=== PATIENT | female | born 1945 | race Caucasian/White ===

== ENCOUNTER 2020-10-05 11:25 | Outpatient (REF) | payer MEDICARE, SELFPAY ==
[2020-10-05 12:01] LABS: MANUAL DIFF FLAG NO
[2020-10-05 12:06] LABS: Basophils Absolute Auto 0.1 X10*3/uL (0.0-0.2); Basophils Percent Auto 0.9 % (0-2); Eosinophils Absolute Auto 0.3 X10*3/uL (0.0-0.4); Eosinophils Percent Auto 3.3 % (0-4); Hematocrit 39.9 % (37-47); Hemoglobin 13.3 g/dl (12.0-16.0); Imm Gran Abs Auto 0.02 X10*3/uL (0.00-0.03); Imm Gran Pct Auto 0.2 % (0.0-0.4); Lymphocytes Absolute Auto 2.5 X10*3/uL (1.2-4.9); Lymphocytes Percent Auto 26.1 % (20-40); Mean Corpuscular HGB Conc 33.3 g/dl (31.0-35.0); Mean Corpuscular Volume 90.1 fL (80-98); Mean Platelet Volume 9.8 fL (9.4-12.3); Monocytes Absolute Auto 0.5 X10*3/uL (0.1-1.2); Monocytes Percent Auto 5.1 % (2-11); Neutrophils Percent Auto 64.4 % (45-73); Platelet Count 243 X10*3/uL (160-400); Red Blood Count 4.43 X10*6/uL (4.20-5.50); Red Cell Distribution Width 13.6 % (11.0-16.0); White Blood Count 9.4 X10*3/uL (4.8-10.8)
[2020-10-05 12:44] LABS: Alanine Aminotransferase 16 U/L (0-31); Albumin Level 3.9 g/dL (3.5-5.0); Alkaline Phosphatase 90 U/L (39-117); Anion Gap 13 (12-20); Aspartate Amino Transferase 14 U/L (5-31); Bilirubin Total 1.4 mg/dL (0.0-1.0); Blood Urea Nitrogen 20 mg/dL (9-16); Calcium 9.3 mg/dL (8.4-10.2); Carbon Dioxide 29 mmol/L (22-29); Chloride 102 mmol/L (96-108); Cholesterol 132 mg/dL; Estimated Glomerular Filt Rate > 60; Glucose Fasting 136 mg/dL (60-99); HDL Cholesterol 46 mg/dL; LDL Cholesterol Calculated 55 mg/dl; Potassium 3.7 mmol/l (3.3-5.1); Sodium 140 mmol/L (135-145); Total Protein 6.7 g/dL (6.5-8.0); Triglycerides 157 mg/dL
[2020-10-05 13:10] LABS: Thyroid Stimulating Hormone 1.58 uIU/mL (0.32-4.0); Vitamin D 25-OH Total 55.2 ng/mL (>30)
[2020-10-05 13:33] LABS: Folate 11.8 ng/mL (> or = 4.0); Vitamin B12 361 pg/mL (200-900)
[2020-10-05 13:40] LABS: T4 Thyroxine 9.3 ug/dL (4.5-12.0)
[2020-10-05 13:41] LABS: Creatinine Urine 229.53 mg/dL; Microalbum/Creatinine Ratio Ur 7.8 ug/mg cr
== END 2020-10-05 11:26 | disposition home or self-care (01) ==
LOC: HO.LAB 11:25
PROVIDERS: PCP Internal Medicine; Visit Provider Internal Medicine
DX: E11.65 Type 2 diabetes mellitus with hyperglycemia (principal); E78.00 Pure hypercholesterolemia, unspecified; E66.9 Obesity, unspecified; I10 Essential (primary) hypertension
CPT/HCPCS: 36415; 80053; 80061; 82043; 82306; 82607; 82746; 84436; 84443; 85025

== ENCOUNTER 2020-12-16 09:11 | Outpatient (REF) | payer MEDICARE, OTHER, SELFPAY ==
--- NOTE | ~2020-12-16 | MM_ITS ---
EXAMINATION: MM SCREENING DIGITAL BREAST TOMOSYNTHESIS, BILATERAL CLINICAL INFORMATION: Screening. Asymptomatic. The lifetime risk of breast cancer based on the Tyrer-Cuzick Model is 7%. COMPARISON: Mammography: 11/20/2019, 09/27/2018, 09/06/2017 TECHNIQUE: Digital breast tomosynthesis is performed in both the craniocaudal and mediolateral oblique views along with computer-aided detection (CAD). Synthesized 2D images are generated from the tomosynthesis. Additional left MLO view is provided. FINDINGS: There are scattered areas of fibroglandular density (ACR BI-RADS breast composition Category b). There are no significant masses, abnormal calcifications, or other abnormalities. Parenchymal pattern is similar to prior exams. No developing density or interval mass. Again, there is chronic duct ectasia anterior left breast and scattered bilateral round and ductal secretory calcifications again seen, more numerous on the left. No significant changes. MM/MM tomosynthesis screening BI IMPRESSION: No significant changes from prior studies. ASSESSMENT: BI-RADS 2: Benign RECOMMENDATION: Routine annual mammography screening. This patient's information was entered into a reminder system with a target due date for their next mammogram.
== END 2020-12-16 09:12 | disposition home or self-care (01) ==
LOC: HO.MAMMO 09:11
PROVIDERS: PCP Internal Medicine; Visit Provider Internal Medicine
DX: Z12.31 Encounter for screening mammogram for malignant neoplasm of breast (principal)
CPT/HCPCS: 77063; 77067

== ENCOUNTER 2021-05-12 10:16 | Outpatient (REF) | payer MEDICARE, SELFPAY ==
[2021-05-12 10:48] LABS: MANUAL DIFF FLAG NO
[2021-05-12 10:53] LABS: Basophils Absolute Auto 0.1 X10*3/uL (0.0-0.2); Basophils Percent Auto 1.2 % (0-2); Eosinophils Absolute Auto 0.4 X10*3/uL (0.0-0.4); Eosinophils Percent Auto 4.9 % (0-4); Hematocrit 39.6 % (37-47); Hemoglobin 13.5 g/dl (12.0-16.0); Imm Gran Abs Auto 0.02 X10*3/uL (0.00-0.03); Imm Gran Pct Auto 0.3 % (0.0-0.4); Lymphocytes Percent Auto 27.1 % (20-40); Mean Corpuscular HGB Conc 34.1 g/dl (31.0-35.0); Mean Corpuscular Hemoglobin 29.9 pg (27.0-33.0); Mean Corpuscular Volume 87.6 fL (80-98); Mean Platelet Volume 10.3 fL (9.4-12.3); Monocytes Absolute Auto 0.5 X10*3/uL (0.1-1.2); Neutrophils Absolute Auto 4.5 X10*3/uL (2.0-8.3); Neutrophils Percent Auto 60.5 % (45-73); Platelet Count 238 X10*3/uL (160-400); Red Blood Count 4.52 X10*6/uL (4.20-5.50); Red Cell Distribution Width 13.1 % (11.0-16.0); White Blood Count 7.5 X10*3/uL (4.8-10.8)
[2021-05-12 11:13] LABS: Estimated Average Glucose 146 mg/dL; Hemoglobin A1c % 6.7 %
[2021-05-12 11:19] LABS: Alanine Aminotransferase 16 U/L (0-31); Alkaline Phosphatase 104 U/L (39-117); Anion Gap 14 (12-20); Aspartate Amino Transferase 16 U/L (5-31); Bilirubin Total 1.2 mg/dL (0.0-1.0); Blood Urea Nitrogen 14 mg/dL (9-16); Calcium 9.9 mg/dL (8.4-10.2); Carbon Dioxide 30 mmol/L (22-29); Chloride 102 mmol/L (96-108); Cholesterol 131 mg/dL; Estimated Glomerular Filt Rate 57; Glucose Random 153 mg/dL (60-115); HDL Cholesterol 41 mg/dL; LDL Cholesterol Calculated 56 mg/dl; Potassium 3.7 mmol/L (3.3-5.1); Sodium 142 mmol/L (135-145); Total Protein 6.7 g/dL (6.5-8.0); Triglycerides 170 mg/dL
[2021-05-12 11:44] LABS: Free T4 (Free Thyroxine) 1.22 ng/dL (0.71-1.85); Thyroid Stimulating Hormone 1.75 uIU/mL (0.32-4.0)
[2021-05-12 12:25] LABS: Folate 11.9 ng/mL (> or = 4.0); Vitamin B12 405 pg/mL (200-900)
== END 2021-05-12 10:17 | disposition home or self-care (01) ==
LOC: HO.LAB 10:16
PROVIDERS: PCP Internal Medicine; Visit Provider Internal Medicine
DX: E11.65 Type 2 diabetes mellitus with hyperglycemia (principal); E78.00 Pure hypercholesterolemia, unspecified
CPT/HCPCS: 36415; 80053; 80061; 82306; 82607; 82746; 83036; 84439; 84443; 85025

== ENCOUNTER 2021-08-02 09:09 | Outpatient (REF) | payer MEDICARE, SELFPAY ==
--- NOTE | ~2021-08-02 | MM_ITS ---
EXAMINATION: BONE DENSITOMETRY CLINICAL INDICATION: Asymptomatic menopausal state. COMPARISON: Previous BD dated 11/26/2018 and baseline BD dated 07/05/2007. TECHNIQUE: Using a [employer] DXA System (software version: 13.1) manufactured by [employer], dual-energy x-ray absorptiometry was performed of the lumbar spine and left hip. The images are of good technical quality. Summary results are attached. FINDINGS: AP SPINE L1-L4: Current: BMD 1.270 g/cm2, Z-score 1.3, T-score 0.7, normal, 9.1% decrease from previous, 7.7% decrease from baseline (<5% change is not significant). Prior: BMD 1.397 g/cm2. Baseline: BMD 1.376 g/cm2. LEFT FEMUR, NECK: Current: BMD 0.801 g/cm2, Z-score -0.5, T-score -1.7, osteopenia. Prior: BMD 0.818 g/cm2. Baseline: BMD 0.918 g/cm2. LEFT FEMUR, TOTAL: Current: BMD 0.906 g/cm2, Z-score 0.1, T-score -0.8, normal, 2.9% decrease from previous, 8.3% decrease from baseline (<5% change is not significant). Prior: BMD 0.933 g/cm2. Baseline: BMD 0.988 g/cm2. IDENTIFIED RISK FACTORS: Menopause. HISTORY OF FRACTURE: None listed. MEDICATIONS: Calcium supplements or multivitamin, vitamin D. MM/XR DEXA axial skeleton IMPRESSION: 1. DIAGNOSIS: Osteopenia based on the lowest T-score value of -1.7 in the femoral neck applying World Health Organization criteria. 2. 10-YEAR FRACTURE RISK PREDICTION, FRAX: Major osteoporotic fracture (clinical spine, forearm, hip or shoulder) 11.1%. Hip fracture 2.4%. 3. Treatment Recommendations: NOF guidelines recommend consideration for treatment in postmenopausal women and men age 50 and older presenting with the following: -A hip or vertebral (clinical or morphometric) fracture. -T-score less than or equal to -2.5 at the femoral neck or spine after appropriate evaluation to exclude secondary causes. -Low bone mass at the hip or spine and a 10-year fracture probability by FRAX of greater than or equal to 3% for hip fracture or greater than or equal to 20% for major osteoporotic fracture based on the [place] adapted WHO algorithm. 4. Other Recommendations: All treatment decisions require clinical judgment and consideration of individual patient factors, including patient preferences, comorbidities, previous drug use, risk factors not captured in the FRAX model (e.g. frailty, falls, vitamin D deficiency, increased bone turnover, interval significant decline in bone density) and possible under or overestimation of fracture risk by FRAX. Additional medical evaluation for secondary cause of low bone mineral density may be appropriate. FUTURE SCAN RECOMMENDATION: People with diagnosed cases of osteoporosis or at high risk for fracture should have regular bone mineral density tests. For patients eligible for Medicare, routine testing is allowed once every 2 years. The testing frequency can be increased to one year for patients who have rapidly progressing disease, those who are receiving or discontinuing medical therapy to restore bone mass, or have additional risk factors.
== END 2021-08-02 09:10 | disposition home or self-care (01) ==
LOC: HO.MAMMO 09:09
PROVIDERS: Visit Provider Nurse Practitioner Family
DX: Z13.820 Encounter for screening for osteoporosis (principal); M85.80 Other specified disorders of bone density and structure, unspecified site; Z78.0 Asymptomatic menopausal state; Z79.899 Other long term (current) drug therapy
CPT/HCPCS: 77080

== ENCOUNTER 2021-08-23 13:37 | Outpatient (REF) | payer MEDICARE, SELFPAY ==
[2021-08-23 14:48] LABS: Leukocytes Stool Qualitative NEGATIVE (NEGATIVE)
[2021-08-23 15:35] LABS: CDiff Gene PCR NEGATIVE (Negative)
== END 2021-08-23 13:38 | disposition home or self-care (01) ==
LOC: HO.LAB 13:37
PROVIDERS: PCP Internal Medicine; Visit Provider Internal Medicine
DX: R19.7 Diarrhea, unspecified (principal)
CPT/HCPCS: 36415; 87045; 87046; 87493; 89055

== ENCOUNTER 2021-12-19 11:37 | Outpatient (REF) | payer MEDICARE, SELFPAY ==
--- NOTE | ~2021-12-19 | MM_ITS ---
EXAMINATION: MM SCREENING DIGITAL BREAST TOMOSYNTHESIS, BILATERAL CLINICAL INFORMATION: Screening. Asymptomatic. The lifetime risk of breast cancer based on the Tyrer-Cuzick Model is 4%. COMPARISON: Mammography: 12/16/2020, 11/20/2019, 09/27/2018, 09/06/2017 TECHNIQUE: Digital breast tomosynthesis is performed in both the craniocaudal and mediolateral oblique views along with computer-aided detection (CAD). Synthesized 2D images are generated from the tomosynthesis. FINDINGS: There are scattered areas of fibroglandular density (ACR BI-RADS breast composition Category b). There are no significant changes from prior studies. There is no interval mass or architectural abnormality. No developing density. Chronic duct ectasia anterior left breast is stable. There are scattered bilateral round and ductal secretory calcifications again seen, more numerous on the left. MM/MM tomosynthesis screening BI IMPRESSION: No significant changes from prior exams. ASSESSMENT: BI-RADS 2: Benign RECOMMENDATION: Routine annual mammography screening. This patient's information was entered into a reminder system with a target due date for their next mammogram.
== END 2021-12-19 11:38 | disposition home or self-care (01) ==
LOC: HO.MAMMO 11:37
PROVIDERS: PCP Internal Medicine; Visit Provider Internal Medicine
DX: Z12.31 Encounter for screening mammogram for malignant neoplasm of breast (principal)
CPT/HCPCS: 77063; 77067

== ENCOUNTER 2022-09-13 08:43 | Outpatient (REF) | payer MEDICARE, SELFPAY ==
[2022-09-13 09:02] LABS: MANUAL DIFF FLAG NO
[2022-09-13 10:02] LABS: Basophils Absolute Auto 0.1 X10*3/uL (0.0-0.2); Basophils Percent Auto 1.2 % (0-2); Eosinophils Absolute Auto 0.5 X10*3/uL (0.0-0.4); Hematocrit 40.2 % (37.0-47.0); Hemoglobin 13.8 g/dl (12.0-16.0); Imm Gran Abs Auto 0.03 X10*3/uL (0.00-0.03); Imm Gran Pct Auto 0.3 % (0.0-0.4); Lymphocytes Absolute Auto 2.6 X10*3/uL (1.2-4.9); Lymphocytes Percent Auto 27.6 % (20-40); Mean Corpuscular HGB Conc 34.3 g/dl (31.0-35.0); Mean Corpuscular Hemoglobin 30.3 pg (27.0-33.0); Mean Corpuscular Volume 88.4 fL (80.0-98.0); Mean Platelet Volume 10.4 fL (9.4-12.3); Monocytes Absolute Auto 0.5 X10*3/uL (0.1-1.2); Neutrophils Absolute Auto 5.8 x10*3/uL (2.0-8.3); Neutrophils Percent Auto 60.9 % (45-73); Platelet Count 245 X10*3/uL (160-400); Red Blood Count 4.55 X10*6/uL (4.20-5.50); Red Cell Distribution Width 13.3 % (11.0-16.0); White Blood Count 9.5 X10*3/uL (4.8-10.8)
[2022-09-13 10:20] LABS: Estimated Average Glucose 148 mg/dL; Hemoglobin A1c % 6.8 %
[2022-09-13 10:41] LABS: Alanine Aminotransferase 18 U/L (0-31); Alkaline Phosphatase 95 U/L (39-117); Anion Gap 16 (12-20); Aspartate Amino Transferase 17 U/L (5-31); Bilirubin Total 1.5 mg/dL (0.0-1.0); Blood Urea Nitrogen 19 mg/dL (9-16); Calcium 9.7 mg/dL (8.4-10.2); Carbon Dioxide 29 mmol/L (22-29); Chloride 101 mmol/L (96-108); Cholesterol 141 mg/dL; Estimated Glomerular Filt Rate > 60; Glucose Random 155 mg/dL (60-115); HDL Cholesterol 48 mg/dL; LDL Cholesterol Calculated 61 mg/dl; Potassium 3.9 mmol/L (3.3-5.1); Sodium 142 mmol/L (135-145); Total Protein 6.8 g/dL (6.5-8.0); Triglycerides 160 mg/dL
[2022-09-13 10:47] LABS: Creatinine Urine 194.88 mg/dL; Microalbum/Creatinine Ratio Ur 8.2 ug/mg cr
[2022-09-13 10:59] LABS: Creatinine Urine 195.32 mg/dL
[2022-09-13 11:03] LABS: Free T4 (Free Thyroxine) 1.11 ng/dL (0.71-1.85); Thyroid Stimulating Hormone 2.21 uIU/mL (0.32-4.0); Vitamin D 25-OH Total 53.6 ng/mL (>30)
[2022-09-13 11:33] LABS: Folate 11.6 ng/mL (> or = 4.0); Vitamin B12 360 pg/mL (200-900)
== END 2022-09-13 08:44 | disposition home or self-care (01) ==
LOC: HO.LAB 08:43
PROVIDERS: PCP Internal Medicine; Visit Provider Internal Medicine
DX: E11.65 Type 2 diabetes mellitus with hyperglycemia (principal); E78.00 Pure hypercholesterolemia, unspecified
CPT/HCPCS: 36415; 80053; 80061; 82043; 82306; 82607; 82746; 83036; 84439; 84443; 85025

== ENCOUNTER → 2022-11-27 09:26 | Outpatient (REF) | payer MEDICARE, SELFPAY ==
--- NOTE | ~2022-11-27 | US_ITS ---
EXAMINATION: US EXTRACRANIAL CAROTID DUPLEX, BILATERAL CLINICAL INFORMATION: Occlusion and stenosis of the left carotid artery COMPARISON: Carotid ultrasound October 31, 2018 TECHNIQUE: Real-time ultrasound and Doppler techniques (integrating B-mode 2-D vascular images, Doppler spectral analysis and color-flow Doppler imaging) were utilized to interrogate the extracranial carotid arteries, the vertebral arteries and proximal subclavian arteries bilaterally. The degree of stenosis is determined by criteria similar to NASCET. FINDINGS: Right Side: 1. There is mild atherosclerotic plaque seen in the bifurcation/proximal ICA region. 2. The common carotid artery PSV proximally is 114 cm/s and distally 80 cm/s. 3. The proximal internal carotid artery velocities are 60 cm/s systolic and 9 cm/s diastolic. 4. The proximal external carotid artery PSV is 97 cm/s. 5. The vertebral artery shows antegrade flow. 6. The subclavian artery waveforms are normal. Left Side: 1. There is mild atherosclerotic plaque seen in the bifurcation/proximal ICA region. 2. The common carotid artery PSV proximally is 120 cm/s and distally 76 cm/s. 3. The proximal internal carotid artery velocities are 67 cm/s systolic and 15 cm/s diastolic. 4. The proximal external carotid artery PSV is 89 cm/s. 5. The vertebral artery shows antegrade flow. 6. The subclavian artery waveforms are normal. US/US carotid duplex BI IMPRESSION: 1. RIGHT: Minimal, non-hemodynamically significant stenosis of the proximal right internal carotid artery corresponding to a 0-49% stenosis by velocity criteria. 2. LEFT: Minimal, non-hemodynamically significant stenosis of the proximal left internal carotid artery corresponding to a 0-49% stenosis by velocity criteria. 3. There is interval improvement in the disease severity of the left carotid artery when compared to the previous study dated October 31, 2018.
--- NOTE | 2022-11-27 09:28 | CA_ITS ---
Transthoracic Echocardiogram Patient (Last, First, Middle): Pascale Oates E Gender: Female Date of : 1945 Age: 77 Procedure Date: 11/27/2022 Procedure Type: Transthoracic Echocardiogram Location: OP Height: 172.72 cm Weight: 102.06 kg BSA: 2.15 m2 Heart Rate: 60 bpm BP: 128 / 84 mmHg Jumpbasting Collar Baster: SB Referring MD: Patience Sherman MD Symptoms: G45.9 - Transient cerebral ischemic attack, unspecified Study Quality: Adequate w contrast ECG Rhythm: Sinus Conclusions: - The left ventricular systolic function is normal. The calculated ejection fraction is 60% by biplane method. - There is mild calcification of the aortic valve. - There is mild mitral annular calcification. Findings Procedure Information Contrast agent, definity, is being given per protocol without apparent complications. Left Ventricle Normal left ventricular cavity size. There is mildly increased left ventricular wall thickness. The left ventricular systolic function is normal. The calculated ejection fraction is 60% by biplane method. There is no evidence of regional wall motion abnormalities. Diastolic function is normal for age. Right Ventricle Normal right ventricular cavity size. There is normal right ventricular systolic function. Atria Both atria are normal in size. Aortic Valve There is a normal trileaflet aortic valve. There is mild calcification of the aortic valve. There is no aortic valve stenosis. There is trace (trivial) aortic valve regurgitation. Mitral Valve There is mild mitral annular calcification. There is no mitral valve regurgitation. There is no mitral valve stenosis. Pulmonic Valve The pulmonic valve is likely normal. Tricuspid Valve There is no tricuspid valve regurgitation. Tricuspid regurgitation envelope is inadequate for calculation of right ventricular systolic pressure. Great Vessels The asc aorta is normal in size. Venous The inferior vena cava is normal in size and collapses greater than 50% with inspiration. Pericardium/Pleural There is no evidence of pericardial effusion. Prior Study Comparison No significant change compared to prior study dated: 03/21/2011. Measurements 2D Linear Measurements IVSd: 1.01 0.6-0.9/0.6-1.0 cm LVIDd: 5.57 3.9-5.3/4.2-5.9 cm LVIDd Index: 2.59 2.4-3.2/2.2-3.1 cm/m2 LVIDs: 3.89 2.0-3.6 cm LVPWd: 1.03 0.7-1.1 cm LA Diam: 3.70 2.7-3.8/3.0-4.0 cm LAIDs Index: 1.72 1.5-2.3 cm/m2 LV Mass: 278.62 67-162/88-224 g LV Mass Index: 129.59 43-95/49-115 g/m2 LVOT Diam: 2.10 3.0+(-)1.3 cm 2D Systolic Function EF 4C: 60.00 >55% EF 2C: 60.60 >55% EF BiP: 60.40 >55% Mitral Valve MV Pk E: 0.81 MV PK A: 1.00 MV Decel Time: 250.00 E/A: 0.80 E'Lateral: 9.36 E'Medial: 8.92 E/E' Med: 9.10 E/E' Lat: 8.70 PHT: 77.00 MVA PHT: 2.86 Decel Clinton: 3.03 Aortic Valve AoV Pk Carlton: 1.73 AoV Mn Carlton: 1.13 AoV VTI: 0.39 AoV Pk Grad: 12.00 Aov Mn Grad: 6.00 CELESTINO Cont.VTI: 1.99 LVOT LVOT Pk Carlton: 1.00 LVOT Mn Carlton: 0.64 LVOT VTI: 0.23 LVOT Pk Grad: 4.00 LVOT Mn Grad: 2.00 LVOT Diam: 2.10 LVOT Area: 3.46 Diastolic Function MV Pk E: 0.81 MV Pk A: 1.00 E/A: 0.80 E'Medial: 8.92 E/E' Med: 9.10 E' Laterial: 9.36 E/E' Lat: 8.70 Right Ventricle TAPSE (mm): 22.00 TVS' Carlton: 9.00 Tricuspid Valve RA Press: 3.00 Great Vessels Aorta Sinus of Valsalva: 3.10 2.0-3.5 cm Ao Asc: 3.30 2.1-3.4 cm Pulmonary Veins Pulm Vein S/D 1.70 Pulmonary Valve PV Pk Carlton: 1.08 Peak PV Grad: 5.00 Updated in Other Vendor System with Status of Final Steve Dorman MD electronically signed on 11/27/2022 3:29:04 PM with status of Final
== END ==
LOC: HO.CARD 09:26
PROVIDERS: PCP Internal Medicine; Visit Provider Internal Medicine
DX: G45.9 Transient cerebral ischemic attack, unspecified (principal)
CPT/HCPCS: 93306; 93880; Q9957

== ENCOUNTER 2022-12-19 08:40 | Outpatient (REF) | payer MEDICARE, SELFPAY ==
--- NOTE | ~2022-12-19 | MR_ITS ---
EXAMINATION: MR BRAIN WITHOUT AND WITH CONTRAST CLINICAL INFORMATION: Complex partial seizure disorder. COMPARISON: Brain MRI November 15, 2016. TECHNIQUE: Multiplanar, multisequence imaging of the brain was performed before and after the intravenous administration of 10 mL of Gadavist. FINDINGS: There is no acute infarction, hemorrhage, mass, or extra-axial fluid collection. No abnormal intracranial enhancement is seen. Mild to moderate patchy T2/FLAIR hyperintensity seen within the cerebral white matter, typical of chronic microangiopathy. There is mild commensurate prominence of ventricles and sulci reflecting mild degree of brain parenchymal volume loss. There is no hydrocephalus. The left hippocampus is smaller than the right but unchanged compared with 2017. No cortical dysplasia is seen. The major arterial flow voids are preserved at the skull base. There are small amount of mastoid fluid. There are bilateral lens replacements. Mild paranasal sinus mucosal thickening is noted. MR/MR head/brain wo/w con IMPRESSION: No mass lesion, acute infarction, or abnormal intracranial enhancement. Left hippocampus appears mildly smaller than the contralateral side which could be correlated with EEG. Background changes of mild to moderate chronic microangiopathy.
== END 2022-12-19 08:41 | disposition home or self-care (01) ==
LOC: HO.MRI 08:40
PROVIDERS: Visit Provider Psychiatry & Neurology Neurology
DX: G40.209 Localization-related (focal) (partial) symptomatic epilepsy and epileptic syndromes with complex partial seizures, not intractable, without status epilepticus (principal)
CPT/HCPCS: 70553; A9585

== ENCOUNTER 2022-12-25 14:22 | Outpatient (REF) | payer MEDICARE, SELFPAY ==
--- NOTE | ~2022-12-25 | MM_ITS ---
EXAMINATION: MM SCREENING DIGITAL BREAST TOMOSYNTHESIS, BILATERAL CLINICAL INFORMATION: Screening. Asymptomatic. The lifetime risk of breast cancer based on the Tyrer-Cuzick Model is 3%. COMPARISON: Mammography: 12/19/2021, 12/16/2020, 11/20/2019 TECHNIQUE: Digital breast tomosynthesis is performed in both the craniocaudal and mediolateral oblique views along with computer-aided detection (CAD). Synthesized 2D images are generated from the tomosynthesis. Additional left MLO view is provided. FINDINGS: There are scattered areas of fibroglandular density (ACR BI-RADS breast composition Category b). Parenchymal pattern is similar to prior studies and there is no developing density or interval significant mass or architectural abnormality or abnormal calcifications. Again, there is chronic duct ectasia central anterior left breast. There are scattered bilateral round and coarse and ductal secretory calcifications, similar in number and distribution. The axilla and skin contours are unremarkable. MM/MM tomosynthesis screening BI IMPRESSION: No mammographic evidence of malignancy. ASSESSMENT: BI-RADS 2: Benign RECOMMENDATION: Routine annual mammography screening. This patient's information was entered into a reminder system with a target due date for their next mammogram.
== END 2022-12-25 14:23 | disposition home or self-care (01) ==
LOC: HO.MAMMO 14:22
PROVIDERS: PCP Internal Medicine; Visit Provider Internal Medicine
DX: Z12.31 Encounter for screening mammogram for malignant neoplasm of breast (principal)
CPT/HCPCS: 77063; 77067

== ENCOUNTER 2023-02-16 13:16 | Outpatient (REF) | payer MEDICARE, SELFPAY ==
--- NOTE | ~2023-02-16 | XR_ITS ---
EXAMINATION: XR SHOULDER, RIGHT CLINICAL INFORMATION: Reason for Exam M25.511 - Pain in right shoulder COMPARISON: None TECHNIQUE: Four views of the shoulder. FINDINGS: No acute fracture or dislocation. Advanced degenerative changes of the shoulder, with complete loss of glenohumeral joint space and loss of the acromioclavicular joint space with degenerative spurring.. Soft tissues are unremarkable. XR/XR shoulder RT min 2V IMPRESSION: * Advanced degenerative changes of the shoulder.
== END 2023-02-16 13:17 | disposition home or self-care (01) ==
LOC: HO.XRAY 13:16
PROVIDERS: PCP Internal Medicine; Visit Provider Internal Medicine
DX: M25.511 Pain in right shoulder (principal)
CPT/HCPCS: 73030

== ENCOUNTER 2023-05-09 12:27 | Outpatient (AMB) | payer MEDICARE, SELFPAY ==
--- NOTE | 2023-05-09 13:03 | AM.OFFWIN_ITS ---
Intake Vital Signs 05/09/23 13:04 Height 5 ft 8 in BP 142/74 H Blood Pressure Location Lt brachial Position Sitting Pulse 85 Pulse Source Pulse Oximeter Temp 97.6 F Temp Source Temporal Artery Scan Pulse Oximetry (%) 96 Oxygen Delivery Method Room Air Intake Visit Reasons: EP Blood in belly button (lobby) Intake Note: Pt is here c/o having blood in her belly button. Patient Tobacco Use Status: Former Tobacco user Allergies amlodipine Allergy (Unknown, Verified 05/09/23 13:04) leg swelling lisinopril Allergy (Unknown, Verified 05/09/23 13:04) cough pcv23 Allergy (Unknown, Uncoded 05/09/23 13:04) arm swelling Do you need a note to return to daycare/school/sports/work: No HPI EP Blood in belly button (lobby) HPI Details Patient presents today with pain around her umbilicus and lower abdomen, which started yesterday. She sat up from her recliner and had intense pain around her belly button last night. She then noticed bloody drainage on her clothing, which was coming from her umbilicus. She denies any fever. She reports she has felt fatigued over the last week or so. She reports she continues to have some bloody/Pussy drainage coming from her belly button. She did vomit x1 yesterday, however has not vomited since then. She has not had an appetite today and has not eaten anything. She is tolerating some p.o. fluids and has had a normal bowel movement this morning. She continues to have abdominal pain, particularly below her umbilicus. [facility] Medical History GERD (gastroesophageal reflux disease) Hypercholesterolemia Hypertension Left carotid artery stenosis Obesity (BMI 30-39.9) Osteoarthritis Post-menopausal Psoriasis Retinal tear Tubular adenoma of colon Type 2 diabetes mellitus with hyperglycemia Urge incontinence Surgical History History of bilateral knee replacement History of cataract surgery History of colonoscopy Family History Mother No problems noted. Father No problems noted. Social History (Reviewed 07/05/23 @ 14:29 by DONALD Vera Housing: House Alcohol intake: current Alcohol intake frequency: a few times a week Patient Tobacco Use Status: Former Tobacco user e-Cigarette/Vaping Use: Never Used Second Hand Smoke Exposure: Yes service: No Current occupational status: retired Cognitive needs: No Hearing needs: No Vision needs: Yes Review of Systems Const All systems reviewed & are unremarkable except as noted in HPI and below Physical Exam Vital Signs: Last Vital Signs Temp 97.6 F 05/09/23 13:04 Pulse 85 05/09/23 13:04 BP 142/74 H 05/09/23 13:04 Pulse Ox 96 05/09/23 13:04 Oxygen Delivery Method Room Air 05/09/23 13:04 Const General: cooperative and no acute distress Neck Neck: Yes no lymphadenopathy Resp Effort & Inspection: normal respiratory effort and able to speak in complete sentences Auscultation: clear to auscultation bilaterally Cardio Jugular venous distension: no JVD Palpation: normal PMI Rate: regular rate Rhythm: regular rhythm GI Other: serosanguinous umbilical discharge Inspection: Yes distended (mild periumbilical distension ) Palpation (GI): Tenderness to palpation present (GI) periumbilically Auscultation: Hypoactive bowel sounds present Skin General skin exam: no rashes or lesions noted Extrem General: Yes capillary refill normal and Yes no clubbing, cyanosis or edema Psych Appearance: grossly normal Mental Status: mental status grossly normal Speech and movement: Normal speech and movement present Assessment & Plan Assessment & Plan (1) Umbilical discharge: Code(s): R19.8 - Other specified symptoms and signs involving the digestive system and abdomen Plan: Patient has periumbilical tenderness, and serosanguineous umbilical discharge. She has felt fatigued over the last week or so. I cannot identify an abscess externally, and am concerned she may be developing an intra-abdominal abscess. I consulted with Dr. Weeks who was present in the office today, and am going to send her for abdominal CT. I spoke with Radiology Department at [facility] [place], and they suggested doing this with contrast dye. Given this, I have ordered updated BUN and creatinine for patient and discussed this at length with her. I am going to send augmentin to her pharmacy to start today. Management following CT will depend on results, which patient understands. Scheduling dept. reports this will occur today or tomorrow morning. I am hoping she can go today for this, however if not, she should start antibiotics now, and go to the ER if she develops any increasing abdominal pain, increasing discharge, fever, chills, change in bowel habits, or other symptoms in the meantime. Patient verbalizes understanding and agrees to plan. (2) Acute periumbilical pain: Code(s): R10.33 - Periumbilical pain Orders: Orders Blood Urea Nitrogen 05/09/23 R10.33 - Periumbilical pain, R19.8 - Other specified symptoms and signs involving the digestive system and abdomen Creatinine 05/09/23 R19.8 - Other specified symptoms and signs involving the digestive system and abdomen, R10.33 - Periumbilical pain CT abdomen w IV con 05/09/23 R10.33 - Periumbilical pain Medications: New amoxicillin-pot clavulanate 875-125 mg 1 tab PO BID 14 tabs 0RF 7 days R10.33 - Periumbilical pain, R19.8 - Other specified symptoms and signs involving the digestive system and abdomen Coding Level of Care Code Est Pt Level 3 (57360) Diagnoses Umbilical discharge R19.8 Acute periumbilical pain R10.33
[2023-05-09 13:04] VITALS: BP 142/74; PULSE 85; TEMP 36.4; O2SAT 96
== END 2023-05-09 14:32 | disposition home or self-care (01) ==
PROVIDERS: PCP Internal Medicine; Visit Provider Nurse Practitioner Family
DX: R19.8 Other specified symptoms and signs involving the digestive system and abdomen (principal); R10.33 Periumbilical pain
CPT/HCPCS: 99213

== ENCOUNTER 2023-05-09 14:27 | Outpatient (REF) | payer MEDICARE, SELFPAY | END 2023-05-09 14:28 | disposition home or self-care (01) | LOC: HO.HMGCLDS 14:27 | PROVIDERS: PCP Internal Medicine; Visit Provider Nurse Practitioner Family | DX: R10.33 Periumbilical pain (principal); R19.8 Other specified symptoms and signs involving the digestive system and abdomen | CPT/HCPCS: 36415; 82565; 84520 ==

== ENCOUNTER 2023-05-10 09:18 | Outpatient (REF) | payer MEDICARE, SELFPAY ==
--- NOTE | ~2023-05-10 | CT_ITS ---
EXAMINATION: CT ABDOMEN AND PELVIS WITH CONTRAST CLINICAL INFORMATION: ACUTE PERIUMBILICAL PAIN COMPARISON: None. TECHNIQUE: Multidetector volumetric imaging was performed from the superior aspect of the liver through the pubic symphysis following administration of 85 mL Omnipaque 300 intravenous contrast. Sagittal and coronal reformatted images were obtained on the technologist workstation.. This CT examination was performed using dose optimization techniques as appropriate, variously including the following: *Automated exposure control *Adjustment of mA and/or kV according to patient size (this includes techniques or standardized protocols for targeted exams where dose is matched to indication/reason for exam; i.e. extremities or head) *Use of iterative reconstruction technique DLP: 730 mGy-cm FINDINGS: LUNG BASES: Minimal dependent atelectasis. Prominent coronary artery calcification noted LIVER, GALLBLADDER, AND BILIARY TREE: The liver is normal in size, shape, and attenuation. No focal hepatic lesion or biliary ductal dilatation is present. The gallbladder surgically absent PANCREAS: Atrophic pancreas SPLEEN: Unremarkable. ADRENAL GLANDS: Unremarkable. KIDNEYS AND URETERS: The kidneys are normal in size, shape, and attenuation. 3.4 cm cyst in the anterior lower pole cortex of the left kidney. No hydronephrosis, hydroureter, or calculi seen. No perinephric stranding. BLADDER: Decompressed GASTROINTESTINAL TRACT: Scattered colonic diverticulosis but no colonic wall thickening or pericolonic inflammatory change. There is focal narrowing of the hepatic flexure the colon likely reflecting a peristaltic wave in the acute setting. Normal-appearing appendix in the right lower quadrant. Visualized small bowel unremarkable. Incidental duodenal diverticula ABDOMINAL WALL: No significant hernia is appreciated. LYMPHOVASCULAR STRUCTURES: Vascular calcification within the aorta iliac system. No bulky PELVIC VISCERA: Unremarkable. OSSEOUS STRUCTURES: Multilevel degenerative changes in the spine CT/CT abdomen pelvis w IV con IMPRESSION: Chronic appearing changes as described above. I do not appreciate any acute intra-abdominal process.
== END 2023-05-10 09:19 | disposition home or self-care (01) ==
LOC: HO.CT 09:18
PROVIDERS: PCP Internal Medicine; Visit Provider Nurse Practitioner Family
DX: R10.33 Periumbilical pain (principal)
CPT/HCPCS: 74177; Q9967

== ENCOUNTER 2023-05-21 09:37 | Outpatient (AMB) | payer MEDICARE, SELFPAY ==
--- NOTE | 2023-05-21 09:41 | A.OFFPC_ITS ---
Vital Signs 05/21/23 09:42 Height 5 ft 8 in Weight 224 lb BMI 34.1 BP 112/80 Blood Pressure Location Lt brachial Position Sitting Pulse 65 Pulse Source Pulse Oximeter Temp Source Skin Pulse Oximetry (%) 98 Oxygen Delivery Method Room Air Intake Visit Reasons: DM Allergies amlodipine Allergy (Unknown, Verified 05/21/23 09:44) leg swelling lisinopril Allergy (Unknown, Verified 05/21/23 09:44) cough pcv23 Allergy (Unknown, Uncoded 05/21/23 09:44) arm swelling metformin Adverse Reaction (Intermediate, Uncoded 05/21/23 09:58) stomach pain Medication List - Last Reconciled 05/21/23 by Patience Sherman MD aspirin 81 mg PO DAILY atorvastatin 40 mg PO DAILY calcium carbonate (Super Calcium) 600 mg PO BID chlorthalidone 25 mg PO DAILY 90 days cholecalciferol (vitamin D3) 25 mcg PO DAILY levetiracetam 250 mg PO BID losartan 50 mg PO DAILY 90 days metoprolol succinate ER 50 mg PO DAILY omeprazole 20 mg PO DAILY potassium mg PO Tobacco use date assessed: 05/21/23 Fall risk assessment: No Falls in past year Last assessed Fall Risk: 05/21/23 HPI DM HPI Details 78-year-old obese female with a history of diabetes mellitus hypertension hypercholesterolemia GERD last seen in February 2023. Patient had a syncopal episode has seen Neurology and managed as seizures. Patient also complained of right shoulder pain in which x-ray was done. Patient's mammogram is up-to-date bone density done July 2021. Patient was recently seen in the Urgent Center 05/09/2023 having umbilical area pain and noted bloody discharge, CT scan of the abdomen results not there. As for the shoulder x-ray shows degenerative changes.. states dog jumped on abdomen? cause. now no pain and discharge.- May 07 - has vomited pie eaten the night before. [facility] Medical History (Updated 05/21/23 @ 09:45 by Patience Sherman MD) GERD (gastroesophageal reflux disease) Hypercholesterolemia Hypertension Left carotid artery stenosis Obesity (BMI 30-39.9) Osteoarthritis Post-menopausal Psoriasis Retinal tear Right shoulder pain Tubular adenoma of colon Type 2 diabetes mellitus with hyperglycemia Urge incontinence Surgical History History of bilateral knee replacement History of cataract surgery History of colonoscopy Family History Mother No problems noted. Father No problems noted. Social History Housing: House Alcohol intake: current Alcohol intake frequency: a few times a week Patient Tobacco Use Status: Former Tobacco user e-Cigarette/Vaping Use: Never Used Second Hand Smoke Exposure: Yes service: No Current occupational status: retired Cognitive needs: No Hearing needs: No Vision needs: Yes Questionnaire Thrive Questionnaire Date Thrive assessed: 02/16/23 AUDIT C Alcohol Use Questionnaire (AUDIT-C) 1. How often do you have a drink containing alcohol?: 2-3 times a week 2. How many drinks containing alcohol do you have on a typical day when you are drinking?: 1 or 2 3. How often do you have six or more drinks on one occasion?: Never Total Score: 3 ELIEL-7 AMB Questionnaire ELIEL-7 Date ELIEL - 7 assessed: 02/16/23 Source: Developed by Drs. Pascual Bradshaw, Rachelle Argueta, Luke Joshi and colleagues, with an educational khadra from [employer]. Physical exam (Primary Care) Tobacco/Smoking Status: Tobacco use Status Tobacco use date assessed 02/16/23 05/21/23 09:42 Patient Tobacco Use Status Former Tobacco user 05/21/23 09:42 e-Cigarette/Vaping Use Never Used 05/21/23 09:42 Thrive Assessment: Date of Thrive Assessment Date Thrive assessed 02/16/23 05/21/23 09:42 Const General: alert; No acute distress Eyes Conjunctivae: conjunctivae normal Resp Auscultation: clear to auscultation bilaterally Cardio Rate: regular rate Rhythm: regular rhythm GI Inspection: Yes normal to inspection Extrem General: Yes normal to inspection and No edema Results AMB Hemoglobin A1c AMB Hemoglobin A1c 6.4 % Last Edit by YUMIKO Velarde on 05/21/23 09:52 Assessment and Plan Assessment & Plan (1) Primary osteoarthritis, right shoulder: Code(s): M19.011 - Primary osteoarthritis, right shoulder Plan: Discussed about keeping active and pain management (2) Umbilical discharge: Code(s): R19.8 - Other specified symptoms and signs involving the digestive system and abdomen Plan: CT scan still pending (3) Type 2 diabetes mellitus with hyperglycemia: Code(s): E11.65 - Type 2 diabetes mellitus with hyperglycemia Qualifiers: Diabetes mellitus retirement insulin use: without joint terminal attack controller use Qualified Code(s): E11 - Type 2 diabetes mellitus with hyperglycemia Plan: Decrease the amount of carbohydrate intake, pasta, bread, rice and potatoes are all sugar and that is aside from all the sweet stuff, remember that fruits are good but they are Sweet also. Hemoglobin A1c goal of less than 7.0 (4) Obesity (BMI 30-39.9): Code(s): E66.9 - Obesity, unspecified Plan: Diet and exercise (5) Hypertension: Code(s): I10 - Essential (primary) hypertension Qualifiers: Hypertension type: essential hypertension Qualified Code(s): I10 - Essential (primary) hypertension Plan: Continue with blood pressure medication. Decrease salt intake and exercise valeria ent is taking losartan 50 mg once a day chlorthalidone 25 mg once a day and metoprolol 50 mg once a day (6) Hypercholesterolemia: Code(s): E78.00 - Pure hypercholesterolemia, unspecified Plan: Avoid fried foods, chicken skin, eggs, butter margarine, pastries and meat. Be it pork or beef they have a lot of cholesterol LDL goal of less than 100 preferably less than 70 patient is taking atorvastatin 40 mg once a day (7) GERD (gastroesophageal reflux disease): Code(s): K21.9 - Gastro-esophageal reflux disease without esophagitis Qualifiers: Esophagitis presence: without esophagitis Qualified Code(s): K21.9 - Gastro-esophageal reflux disease without esophagitis Plan: Avoid the foods that causes that usually spicy foods, tomato products, juices, coffee, soda and foods that your sensitive to. After eating do not lie down, allow 3-4 hours before in lie down. And keep the head of bed above 30 degrees to avoid the acid from going up. (8) Generalized anxiety disorder: Code(s): F41.1 - Generalized anxiety disorder Plan: Continue with present medication Orders: Orders Vitamin B12 and Folate 3 Months - Type 2 diabetes mellitus with hyperglycemia Comprehensive Met. Panel 3 Months - Type 2 diabetes mellitus with hyperglycemia Lipid Panel 3 Months E11.65 - Type 2 diabetes mellitus with hyperglycemia, E78.00 - Pure hypercholesterolemia, unspecified Free T4 (Free Thyroxine) 3 Months E11. - Type 2 diabetes mellitus with hyperglycemia Thyroid Stimulating Hormone 3 Months E11. - Type 2 diabetes mellitus with hyperglycemia Vitamin D 25-OH Total 3 Months E11. - Type 2 diabetes mellitus with hyperglycemia Creatinine Urine 3 Months E11. - Type 2 diabetes mellitus with hyperglycemia Microalbumin, Random (w Creat) 3 Months E11. - Type 2 diabetes mellitus with hyperglycemia Complete Blood Count Auto Diff 3 Months E11. - Type 2 diabetes mellitus with hyperglycemia AMB Hemoglobin A1c Today E11. - Type 2 diabetes mellitus with hyperglycemia Referrals Orthopedics Referral M19.011 - Primary osteoarthritis, right shoulder Medications: Discontinued amoxicillin-pot clavulanate 875-125 mg Discontinued Reason: Patient Completed Course 1 tab PO BID 7 days 14 tabs 0RF R10.33 - Periumbilical pain, R19.8 - Other specified symptoms and signs involving the digestive system and abdomen Coding Level of Care Code Est Pt Level 4 (62548) Diagnoses Primary osteoarthritis, right shoulder M19.011 Umbilical discharge R19.8 Type 2 diabetes mellitus with hyperglycemia E11. Diabetes mellitus joint terminal attack controller insulin use: without joint terminal attack controller use Obesity (BMI 30-39.9) E66.9 Hypertension I10 Hypertension type: essential hypertension Hypercholesterolemia E78.00 GERD (gastroesophageal reflux disease) K21.9 Esophagitis presence: without esophagitis Generalized anxiety disorder F41.1
[2023-05-21 09:42] VITALS: BP 112/80; PULSE 65; O2SAT 98; BMI 34.1
== END 2023-05-21 10:10 | disposition home or self-care (01) ==
PROVIDERS: Visit Provider Internal Medicine
DX: K21.9 Gastro-esophageal reflux disease without esophagitis (principal); E11.65 Type 2 diabetes mellitus with hyperglycemia; Z68.34 Body mass index [BMI] 34.0-34.9, adult; E66.9 Obesity, unspecified; M19.011 Primary osteoarthritis, right shoulder; R19.8 Other specified symptoms and signs involving the digestive system and abdomen; I10 Essential (primary) hypertension; E78.00 Pure hypercholesterolemia, unspecified; F41.1 Generalized anxiety disorder
CPT/HCPCS: 83036; 99214

== ENCOUNTER 2023-09-25 12:26 | Outpatient (AMB) | payer MEDICARE, SELFPAY ==
[2023-09-25 12:34] VITALS: BP 144/68; PULSE 62; O2SAT 98; BMI 34.5
--- NOTE | 2023-09-25 12:34 | AM.OFFVISMDC ---
Intake Vital Signs 09/25/23 12:34 Height 5 ft 8 in Weight 227 lb BMI 34.5 BP 144/68 H Blood Pressure Location Lt brachial Position Sitting Pulse 62 Pulse Source Pulse Oximeter Pulse Oximetry (%) 98 Oxygen Delivery Method Room Air Intake Visit Reasons: [facility] Supervisor Tank Storage Required: No Accompanied by: Self / Same As Patient Allergies amlodipine Allergy (Unknown, Verified 09/25/23 12:35) leg swelling lisinopril Allergy (Unknown, Verified 09/25/23 12:35) cough pcv23 Allergy (Unknown, Uncoded 09/25/23 12:35) arm swelling metformin Adverse Reaction (Intermediate, Uncoded 09/25/23 12:35) stomach pain Medication List - Last Reconciled 09/25/23 by Patience Sherman MD aspirin 81 mg PO DAILY atorvastatin 40 mg PO DAILY calcium carbonate (Super Calcium) 600 mg PO BID chlorthalidone 25 mg PO DAILY 90 days cholecalciferol (vitamin D3) 25 mcg PO DAILY levetiracetam 250 mg in am and 500 mg Q pm orally; losartan 50 mg PO DAILY 90 days metoprolol succinate ER 50 mg PO DAILY potassium mg PO HPI swv HPI Details 78-year-old obese female with a history of diabetes mellitus hypertension hypercholesterolemia GERD and generalized anxiety disorder last seen in May 2023. Patient is for annual well visit today. Mammograms up-to-date osteopenia is due. Due to the umbilical drainage CT scan was done showing incidentally a prominent coronary artery calcification left renal cyst diverticular disease. No significant findings. PAtient recently seen neuro - wqas not too happy about this and was told has alzheimers? R shoulder - seen ortho- went for PT and had the shots cannot elevate R arm DERICK , no record. [facility] Medical History (Updated 09/25/23 @ 13:13 by Patience Sherman MD) Right shoulder pain Post-menopausal Retinal tear Left carotid artery stenosis Tubular adenoma of colon Urge incontinence Type 2 diabetes mellitus with hyperglycemia Osteoarthritis Psoriasis GERD (gastroesophageal reflux disease) Obesity (BMI 30-39.9) Hypercholesterolemia Hypertension Surgical History History of bilateral knee replacement History of colonoscopy History of cataract surgery Family History Mother No problems noted. Father No problems noted. (Updated 09/25/23 @ 12:54 by Patience Sherman MD) Housing: House Alcohol intake: current Alcohol intake frequency: a few times a week Patient Tobacco Use Status: Former Tobacco user Years Smoked: 1979 smoked 15 years pack a day e-Cigarette/Vaping Use: Never Used Second Hand Smoke Exposure: Yes service: No Current occupational status: retired Cognitive needs: No Hearing needs: No Vision needs: Yes Questionnaire PHQ-9 Over the last 2 weeks, how often have you been bothered by any of the following problems? 1. Little interest or pleasure in doing things: not at all 2. Feeling down, depressed, or hopeless: not at all 3. Trouble falling or staying asleep, or sleeping too much: not at all 4. Feeling tired or having little energy: not at all 5. Poor appetite or overeating: not at all 6. Feeling bad about yourself - or that you are a failure or have let yourself or your family down: not at all 7. Trouble concentrating on things, such as reading the newspaper or watching television: not at all 8. Moving or speaking so slowly that other people could have noticed. Or the opposite - being so fidgety or restless that you have been moving around a lot more than usual: not at all 9. Thoughts that you would be better off or of hurting yourself in some way: not at all Total score: 0 Depression Screening Interpretation: Negative Depression Screening Done: Yes Source: Developed by Drs. Pascual Bradshaw, Rachelle Argueta, Luke Joshi and colleagues, with an educational khadra from [employer]. Review of Systems Const Denies poor appetite and Denies weakness Eyes Denies no additional complaints ENT Reports Normal hearing present, Denies dizziness, Denies nasal congestion, Denies tinnitus and Denies sore throat Card Denies chest pain, Denies syncope, Denies rapid heart rate and Denies dyspnea Resp Denies cough and Denies dyspnea GI Denies change in stool character, Reports constipation, Denies diarrhea, Denies nausea and Denies vomiting Denies urinary frequency, Denies difficulty voiding and Denies dysuria Neuro Reports Normal hearing present, Denies confusion, Denies dizziness, Denies syncope and Denies weakness Psych Denies confusion Physical Exam Vital Signs: Oxygen Delivery Method Room Air 09/25/23 12:34 Const General: No confusion Orientation/consciousness: No confusion HEENT Head: Yes normocephalic Ears: external ears normal and TM's normal bilaterally Face and sinus: Yes normal facial exam Mouth: moist mucous membranes Throat: Yes tonsils normal Eyes Conjunctivae: conjunctivae normal Pupils: Equal, round and reactive pupils present and Pupil accommodation reflex normal Direct Ophthalmoscopy: normal light reflex Neck Neck: No lymphadenopathy Thyroid: Thyroid normal Chest Chest palpation & inspection: normal inspection of the chest Resp Effort & Inspection: normal respiratory effort and no audible wheezes Auscultation: clear to auscultation bilaterally, no crackles, no wheezes and lung sounds not diminished Cardio Rate: regular rate Rhythm: regular rhythm Peripheral pulses: radial pulses present and dorsalis pedis present GI Palpation (GI): no masses Auscultation: normal bowel sounds and normoactive bowel sounds Rectal Exam - Female: deferred Skin General skin exam: no rashes or lesions noted Rashes: no rashes Neuro General: No confusion Cranial nerves: Yes Equal, round and reactive pupils present and Yes Normal hearing present Cognition (Neuro): normal cognition Gait exam (Neuro): Normal gait present Motor exam (neuro): 5/5 motor strength present throughout Deep tendon reflexes (DTR's): Right brachioradialis reflex intensity grade: 2+, Left brachioradialis reflex intensity grade: 2+, Right patellar reflex intensity grade: 2+ and Left patellar reflex intensity grade: 2+ Extrem General: No edema Assessment & Plan Assessment & Plan (1) Medicare annual wellness visit, subsequent: Code(s): Z00.00 - Encounter for general adult medical examination without abnormal findings (2) Type 2 diabetes mellitus with hyperglycemia: Code(s): E11.65 - Type 2 diabetes mellitus with hyperglycemia Qualifiers: Diabetes mellitus fpc insulin use: without flight attendant use Qualified Code(s): E11.65 - Type 2 diabetes mellitus with hyperglycemia Plan: Decrease the amount of carbohydrate intake, pasta, bread, rice and potatoes are all sugar and that is aside from all the sweet stuff, remember that fruits are good but they are Sweet also. Hemoglobin A1c goal of less than 7.0 patient is diet controlled (3) Obesity (BMI 30-39.9): Code(s): E66.9 - Obesity, unspecified Plan: Diet and exercise (4) Hypertension: Code(s): I10 - Essential (primary) hypertension Qualifiers: Hypertension type: essential hypertension Qualified Code(s): I10 - Essential (primary) hypertension Plan: Continue with blood pressure medication. Decrease salt intake and exercise patient takes chlorthalidone 25 mg once a day losartan 50 mg once a day metoprolol 50 mg once a day (5) Hypercholesterolemia: Code(s): E78.00 - Pure hypercholesterolemia, unspecified Plan: Avoid fried foods, chicken skin, eggs, butter margarine, pastries and meat. Be it pork or beef they have a lot of cholesterol LDL goal of less than 70 and triglyceride of less than 150. Patient takes atorvastatin 40 mg once a day (6) GERD (gastroesophageal reflux disease): Code(s): K21.9 - Gastro-esophageal reflux disease without esophagitis Qualifiers: Esophagitis presence: without esophagitis Qualified Code(s): K21.9 - Gastro-esophageal reflux disease without esophagitis Plan: Avoid the foods that causes that usually spicy foods, tomato products, juices, coffee, soda and foods that your sensitive to. After eating do not lie down, allow 3-4 hours before in lie down. And keep the head of bed above 30 degrees to avoid the acid from going up. (7) Generalized anxiety disorder: Comment: declined referal Code(s): F41.1 - Generalized anxiety disorder (8) Osteopenia: Code(s): M85.80 - Other specified disorders of bone density and structure, unspecified site Plan: Patient due for bone density Orders: Orders Hemoglobin A1c Today E11.65 - Type 2 diabetes mellitus with hyperglycemia XR DEXA axial skeleton Today M81.0 - Age-related osteoporosis without current pathological fracture, M85.80 - Other specified disorders of bone density and structure, unspecified site Referrals Neurology Referral G45.9 - Transient cerebral ischemic attack, unspecified Medications: New escitalopram oxalate (Lexapro) 5 mg PO DAILY 30 tabs 3RF F41.1 - Generalized anxiety disorder Quality Reporting (2019) Depression/Bipolar (159/160/161/177) PHQ-9: Total score: 0 Coding Level of Care Code Medicare Subsequent (G0439) Diagnoses Medicare annual wellness visit, subsequent Z00.00 Type 2 diabetes mellitus with hyperglycemia, without long-term current use of insulin E11.65 Diabetes mellitus flight attendant insulin use: without flight attendant use Obesity (BMI 30-39.9) E66.9 Essential hypertension I10 Hypertension type: essential hypertension Hypercholesterolemia E78.00 Gastroesophageal reflux disease without esophagitis K21.9 Esophagitis presence: without esophagitis Generalized anxiety disorder F41.1 Osteopenia M85.80
== END 2023-09-25 13:20 | disposition home or self-care (01) ==
PROVIDERS: PCP Internal Medicine; Visit Provider Internal Medicine
DX: Z00.00 Encounter for general adult medical examination without abnormal findings (principal); E11.65 Type 2 diabetes mellitus with hyperglycemia; Z68.34 Body mass index [BMI] 34.0-34.9, adult; E66.9 Obesity, unspecified; I10 Essential (primary) hypertension; E78.00 Pure hypercholesterolemia, unspecified; K21.9 Gastro-esophageal reflux disease without esophagitis; F41.1 Generalized anxiety disorder; M85.80 Other specified disorders of bone density and structure, unspecified site
CPT/HCPCS: G0439

== ENCOUNTER 2023-10-22 12:42 | Outpatient (AMB) | payer MEDICARE, SELFPAY ==
--- NOTE | 2023-10-22 12:46 | A.OFFVIS_ITS ---
Intake Vital Signs 10/22/23 12:47 Height 5 ft 8 in Weight 221 lb 6 oz BMI 33.7 BP 142/82 H Blood Pressure Location Lt brachial Position Sitting Respiration 18 Pulse 85 Pulse Source Pulse Oximeter Pulse Oximetry (%) 91 L Oxygen Delivery Method Room Air Intake Visit Reasons: INP- Transient Cerebral Ishchemic Attack Intake Note: Pt presents to the office for New patient evaluation s/p TIA. Lifestyle Consultant Required: No Allergies amlodipine Allergy (Unknown, Verified 10/22/23 12:47) leg swelling lisinopril Allergy (Unknown, Verified 10/22/23 12:47) cough pcv23 Allergy (Unknown, Uncoded 10/22/23 12:47) arm swelling metformin Adverse Reaction (Intermediate, Uncoded 10/22/23 12:47) stomach pain HPI HPI Comments History of Present Illness Details 78y/o right handed female comes for eval uation of possible TIA. In 2016 she had an episode of unawareness - she was sitting in a bahai and was reciting a prayer and stopped for few seconds.when she eventually came back and was back to normal. She had a Brain MRI at that time- was told ? TIA. In 2021 she was with her dog in her backyard and had another period of unawareness - woke up on the ground.She is not sure how long it lasted.( 11pm- 2am) early this year she had another episode - she woke up and walked side ways unaware for few seconds 3 weeks ago ( Sep 29) she had 2 episod es. she starts staggering lasting a minute and had another episode in a few minutes. she is not sure if she lost awareness. On Oct 11 she was nauseous and had dry heaves and was running to bathroom but was staggering for less than20 seconds. she saw Dr. Rodrigues 6 mths ago and he started her on levetiracetam .The dose was recently increased .she is not sure it helped. No known head injury associated with loss of consciousness. She feels the things are not steady in space during these episodes and felt like she was in boat.No hearing loss No tinnitus she has mild bitemporal headaches. [facility] Medical History (Updated 10/22/23 @ 13:42 by Marita Kemp MD) Disequilibrium syndrome Right shoulder pain Post-menopausal Retinal tear Left carotid artery stenosis Tubular adenoma of colon Urge incontinence Type 2 diabetes mellitus with hyperglycemia Osteoarthritis Psoriasis GERD (gastroesophageal reflux disease) Obesity (BMI 30-39.9) Hypercholesterolemia Hypertension Surgical History History of cholecystectomy History of bilateral knee replacement History of colonoscopy History of cataract surgery Family History Mother No problems noted. Father No problems noted. Social History Housing: House Alcohol intake: current Alcohol intake frequency: a few times a week Comment: 2x Q 6 months 1 drink Patient Tobacco Use Status: Former Tobacco user Years Smoked: 1979 smoked 15 years pack a day e-Cigarette/Vaping Use: Never Used Second Hand Smoke Exposure: Yes service: No Current occupational status: retired Cognitive needs: No Hearing needs: No Vision needs: Yes Physical Exam Vital Signs: Last Vital Signs Pulse 85 10/22/23 12:47 Resp 18 10/22/23 12:47 BP 142/82 H 10/22/23 12:47 Pulse Ox 91 L 10/22/23 12:47 Oxygen Delivery Method Room Air 10/22/23 12:47 BMI result Body Mass Index 33.7 Const Orientation/consciousness: patient oriented x3 Eyes Pupils: Equal, round and reactive pupils present Neuro General: patient oriented x3, tone normal, moves all extremities and no focal motor deficits Cranial nerves: Yes Facial sensation intact/muscles of mastication intact, Yes Equal, round and reactive pupils present, Yes Bilaterally intact EOM present, Yes Nystagmus not present, Yes Normal facial strength present, Yes Midline tongue present and Yes Symmetric palate elevation present Cognition (Neuro): normal cognition Gait exam (Neuro): Antalgic gait present Motor exam (neuro): 5/5 motor strength present throughout and Normal motor muscle tone present throughout Deep tendon reflexes (DTR's): Right triceps reflex intensity grade: 1+, Left triceps reflex intensity grade: 1+, Rt Biceps (C5, C6): 1+, Left biceps reflex intensity grade: 1+, Right brachioradialis reflex intensity grade: 1+, Left brachioradialis reflex intensity grade: 1+, Right patellar reflex intensity grade: 1+ and Left patellar reflex intensity grade: 1+ Coordination: [id number] test normal Assessment & Plan Assessment & Plan (1) Disequilibrium syndrome: Comment: episodes of staggering Code(s): E87.8 - Other disorders of electrolyte and fluid balance, not elsewhere classified Plan The episodes are too short to be a TIA or a seizure. It could be related to vestibular dysfunction I will review Dr. Shah note and 48 hr EEG I suggested she taper levetiracetam and will monitor these episodes.DO NOT DRIVE when tapering medications. I reviewed MRI and carotid doppler- nonspecific changes. Coding Level of Care Code New Pt Level 4 (89212) Diagnoses Disequilibrium syndrome E87.8
[2023-10-22 12:47] VITALS: BP 142/82; PULSE 85; RESP 18; O2SAT 91; BMI 33.7
== END 2023-10-22 13:48 | disposition home or self-care (01) ==
PROVIDERS: PCP Internal Medicine; Visit Provider Psychiatry & Neurology Neurology
DX: E87.8 Other disorders of electrolyte and fluid balance, not elsewhere classified (principal)
CPT/HCPCS: 99204

== ENCOUNTER → 2023-10-22 12:42 | Outpatient (BNVA) | payer MEDICARE, SELFPAY | PROVIDERS: PCP Internal Medicine; Visit Provider Psychiatry & Neurology Neurology | DX: E87.8 Other disorders of electrolyte and fluid balance, not elsewhere classified (principal) | CPT/HCPCS: 99202 ==

== ENCOUNTER 2023-11-07 09:22 | Outpatient (REF) | payer MEDICARE, SELFPAY | END 2023-11-07 09:23 | disposition home or self-care (01) | LOC: HO.MAMMO 09:22 | PROVIDERS: PCP Internal Medicine; Visit Provider Internal Medicine | DX: M81.0 Age-related osteoporosis without current pathological fracture (principal); M85.80 Other specified disorders of bone density and structure, unspecified site; E11.65 Type 2 diabetes mellitus with hyperglycemia; E78.00 Pure hypercholesterolemia, unspecified | CPT/HCPCS: 36415; 77080; 80053; 80061; 82043; 82306; 82570; 82607; 82746; 83036; 84439; 84443; 85025 ==

== ENCOUNTER 2024-01-03 14:44 | Outpatient (AMB) | payer MEDICARE, SELFPAY ==
[2024-01-03 14:47] VITALS: BP 130/76; PULSE 84; O2SAT 99; BMI 33.4
--- NOTE | 2024-01-03 14:47 | A.OFFPC_ITS ---
Vital Signs 01/03/24 14:47 Height 5 ft 8 in Weight 220 lb 0.2 oz BMI 33.4 BP 130/76 Blood Pressure Location Lt brachial Position Sitting Pulse 84 Pulse Source Pulse Oximeter Pulse Oximetry (%) 99 Oxygen Delivery Method Room Air Intake Visit Reasons: DM Intake Note: Patient is here to follow up on DM Sandwich Wrapper Required: No Allergies amlodipine Allergy (Unknown, Verified 01/03/24 14:48) leg swelling lisinopril Allergy (Unknown, Verified 01/03/24 14:48) cough pcv23 Allergy (Unknown, Uncoded 01/03/24 14:48) arm swelling metformin Adverse Reaction (Intermediate, Uncoded 01/03/24 14:48) stomach pain Medication List - Last Reconciled 01/03/24 by Patience Sherman MD aspirin 81 mg PO DAILY atorvastatin 40 mg PO DAILY calcium carbonate (Super Calcium) 600 mg PO BID chlorthalidone 25 mg PO DAILY 90 days cholecalciferol (vitamin D3) 25 mcg PO DAILY escitalopram oxalate (Lexapro) 5 mg PO DAILY levetiracetam 250 mg in am and 500 mg Q pm orally; losartan 50 mg PO DAILY 90 days metoprolol succinate ER 50 mg PO DAILY potassium mg PO Tobacco use date assessed: 01/03/24 Fall risk assessment: No Falls in past year Last assessed Fall Risk: 01/03/24 Dental Screening Dental Screen Date: 01/03/24 Did you have a dental visit in the last 12 months?: Yes Did you have a dental problem in the last 6 months where you did not have access to dental care?: No Was dental information given to patient?: Patient has dentist HPI DM HPI Details 78-year-old obese female with controlled diabetes mellitus hypertension hypercholesterolemia GERD and generalized anxiety disorder last seen in September 2023. Mammogram is due this month bone density is up-to-date colonoscopy no more. Review of the notes revealed an EEG done 2022 which were showing rare left temporal sharp waves. She was seen by the neurologist for complex partial seizure on Keppra 250 mg in the morning 500 mg at bedtime. But the Neurology evaluation this time discussed that it would be too short for a TIA or seizure in most likely vestibular dysfunction only patient has been advised to taper Keppra and advised not to drive. R shoulder pain hx of last year. will be seeing DERICK January 2024. [facility] Medical History (Updated 01/03/24 @ 15:05 by Patience Sherman MD) Syncope TIA (transient ischemic attack) Disequilibrium syndrome Right shoulder pain Post-menopausal Retinal tear Left carotid artery stenosis Tubular adenoma of colon Urge incontinence Type 2 diabetes mellitus with hyperglycemia Osteoarthritis Psoriasis GERD (gastroesophageal reflux disease) Obesity (BMI 30-39.9) Hypercholesterolemia Hypertension Surgical History History of cholecystectomy History of bilateral knee replacement History of colonoscopy History of cataract surgery Family History Mother No problems noted. Father No problems noted. Social History Housing: House Alcohol intake: current Alcohol intake frequency: a few times a week Comment: 2x Q 6 months 1 drink Patient Tobacco Use Status: Former Tobacco user Years Smoked: 1979 smoked 15 years pack a day e-Cigarette/Vaping Use: Never Used Second Hand Smoke Exposure: Yes service: No Current occupational status: retired Cognitive needs: No Hearing needs: No Vision needs: Yes Questionnaire Thrive Questionnaire Date Thrive assessed: 01/03/24 I am a: Patient What is your living situation today?: I have a steady place to live Within the past 12 months, did the food you bought not last and you didn't have the money to get more?: Never true Within the past 12 months, did you worry whether your food would run out before you got money to buy more?: Never true Do you have trouble paying for medicines?: No Do you have trouble getting transportation to medical appointments?: No Do you have trouble paying your heating and electricity bill?: No Do you have trouble taking care of your child, family member or friend?: No Do you have trouble with day-to-day activities such as bathing, preparing meals, shopping, managing finances, etc.?: No Are you currently unemployed and looking for a job?: No Are you interested in more education?: No Please select the resources that you would like help with: None THRIVE Score: 0 AUDIT C Alcohol Use Questionnaire (AUDIT-C) 1. How often do you have a drink containing alcohol?: 2-3 times a week 2. How many drinks containing alcohol do you have on a typical day when you are drinking?: 1 or 2 3. How often do you have six or more drinks on one occasion?: Never Total Score: 3 ELIEL-7 AMB Questionnaire ELIEL-7 Date ELIEL - 7 assessed: 01/03/24 Source: Developed by Drs. Pascual Bradshaw, Rachelle Argueta, Luke Joshi and colleagues, with an educational khadra from [id number]. Physical exam (Primary Care) Vital Signs: Last Vital Signs Pulse 84 01/03/24 14:47 BP 130/76 01/03/24 14:47 Pulse Ox 99 01/03/24 14:47 Oxygen Delivery Method Room Air 01/03/24 14:47 BMI result Body Mass Index 33.4 Tobacco/Smoking Status: Tobacco use Status Tobacco use date assessed 01/03/24 01/03/24 14:49 Patient Tobacco Use Status Former Tobacco user 01/03/24 14:49 e-Cigarette/Vaping Use Never Used 01/03/24 14:49 Thrive Assessment: Date of Thrive Assessment Date Thrive assessed 01/03/24 01/03/24 14:49 Const General: alert; No acute distress Eyes Conjunctivae: conjunctivae normal Resp Auscultation: clear to auscultation bilaterally Cardio Rate: regular rate Rhythm: regular rhythm GI Inspection: Yes normal to inspection Extrem General: Yes normal to inspection and No edema Assessment and Plan Assessment & Plan (1) Type 2 diabetes mellitus with hyperglycemia: Code(s): E11.65 - Type 2 diabetes mellitus with hyperglycemia Qualifiers: Diabetes mellitus assisted insulin use: without assisted use Qualified Code(s): E11.65 - Type 2 diabetes mellitus with hyperglycemia Plan: Decrease the amount of carbohydrate intake, pasta, bread, rice and potatoes are all sugar and that is aside from all the sweet stuff, remember that fruits are good but they are Sweet also. Hemoglobin A1c goal of less than 7.0. Presently diet controlled (2) Obesity (BMI 30-39.9): Code(s): E66.9 - Obesity, unspecified Plan: Diet and exercise (3) Hypertension: Code(s): I10 - Essential (primary) hypertension Qualifiers: Hypertension type: essential hypertension Qualified Code(s): I10 - Essential (primary) hypertension Plan: Continue with blood pressure medication. Decrease salt intake and exercise patient on chlorthalidone 25 mg once a day losartan 50 mg once a day (4) Hypercholesterolemia: Code(s): E78.00 - Pure hypercholesterolemia, unspecified Plan: Avoid fried foods, chicken skin, eggs, butter margarine, pastries and meat. Be it pork or beef they have a lot of cholesterol LDL goal of less than 100 and triglyceride of less than 150. On atorvastatin 40 mg once a day (5) GERD (gastroesophageal reflux disease): Code(s): K21.9 - Gastro-esophageal reflux disease without esophagitis Qualifiers: Esophagitis presence: without esophagitis Qualified Code(s): K21.9 - Gastro-esophageal reflux disease without esophagitis Plan: Avoid the foods that causes that usually spicy foods, tomato products, juices, coffee, soda and foods that your sensitive to. After eating do not lie down, allow 3-4 hours before in lie down. And keep the head of bed above 30 degrees to avoid the acid from going up. (6) Generalized anxiety disorder: Comment: declined referal Code(s): F41.1 - Generalized anxiety disorder Plan: Continue with present medication (7) Disequilibrium syndrome: Comment: episodes of staggering Code(s): E87.8 - Other disorders of electrolyte and fluid balance, not elsewhere classified Plan: Patient has met with neurologist and feels that this is the problem and advised to taper Keppra. Medications: Refilled escitalopram oxalate (Lexapro) 5 mg PO DAILY 30 tabs 3RF F41.1 - Generalized anxiety disorder chlorthalidone 25 mg PO DAILY 90 days 90 tabs 3RF I10 - Essential (primary) hypertension escitalopram oxalate (Lexapro) 5 mg PO DAILY 90 tabs 3RF F41.1 - Generalized anxiety disorder Coding Level of Care Code Est Pt Level 4 (12415) Diagnoses Type 2 diabetes mellitus with hyperglycemia, without long-term current use of insulin E11.65 Diabetes mellitus continuous churn buttermaker insulin use: without assisted use Obesity (BMI 30-39.9) E66.9 Essential hypertension I10 Hypertension type: essential hypertension Hypercholesterolemia E78.00 Gastroesophageal reflux disease without esophagitis K21.9 Esophagitis presence: without esophagitis Generalized anxiety disorder F41.1 Disequilibrium syndrome E87.8
== END 2024-01-03 15:19 | disposition home or self-care (01) ==
PROVIDERS: PCP Internal Medicine; Visit Provider Internal Medicine
DX: E11.65 Type 2 diabetes mellitus with hyperglycemia (principal); E66.9 Obesity, unspecified; Z68.33 Body mass index [BMI] 33.0-33.9, adult; I10 Essential (primary) hypertension; E78.00 Pure hypercholesterolemia, unspecified; K21.9 Gastro-esophageal reflux disease without esophagitis; F41.1 Generalized anxiety disorder; E87.8 Other disorders of electrolyte and fluid balance, not elsewhere classified
CPT/HCPCS: 99214

== ENCOUNTER 2024-02-27 09:54 | Outpatient (AMB) | payer MEDICARE, SELFPAY ==
--- NOTE | 2024-02-27 09:59 | A.OFFVIS_ITS ---
Vital Signs 02/27/24 10:00 Height 5 ft 8 in Weight 219 lb 8 oz BMI 33.4 BP 166/82 H Blood Pressure Location Rt brachial Position Sitting Respiration 16 Pulse 78 Pulse Source Pulse Oximeter Pulse Oximetry (%) 95 Oxygen Delivery Method Room Air Intake Visit Reasons: 4 mnts Transient Cerebral -CONF Intake Note: Pt presents to the office for a 4 month follow up for Disequilibrium syndrome. Premises Technician Required: No Allergies amlodipine Allergy (Unknown, Verified 02/27/24 10:00) leg swelling lisinopril Allergy (Unknown, Verified 02/27/24 10:00) cough pcv23 Allergy (Unknown, Uncoded 02/27/24 10:00) arm swelling metformin Adverse Reaction (Intermediate, Uncoded 02/27/24 10:00) stomach pain HPI Comments Details: 78y/o right handed female comes for follow up.No new episodes of dizziness or altered mentation she stopped keppra. reviewed her 48 hr EEG - shows rare left temporal sharp waves. No spikes Previous Visit- In 2016 she had an episode of unawareness - she was sitting in a scientology and was reciting a prayer and stopped for few seconds.when she eventually came back and was back to normal. She had a Brain MRI at that time- was told ? TIA. In 2021 she was with her dog in her backyard and had another period of unawareness - woke up on the ground.She is not sure how long it lasted.( 11pm- 2am) early this year she had another episode - she woke up and walked side ways unaware for few seconds OnSep 29) she had 2 episodes. she starts staggering lasting a minute and had another episode in a few minutes. she is not sure if she lost awareness. On Oct 11 she was nauseous and had dry heaves and was running to bathroom but was staggering for less than20 seconds. she saw Dr. Rodrigues 6 mths ago and he started her on levetiracetam .The dose was recently increased .she is not sure it helped. No known head injury associated with loss of consciousness. She feels the things are not steady in space during these episodes and felt like she was in boat.No hearing loss No tinnitus she has mild bitemporal headaches. [facility] Medical History Syncope TIA (transient ischemic attack) Disequilibrium syndrome Right shoulder pain Post-menopausal Retinal tear Left carotid artery stenosis Tubular adenoma of colon Urge incontinence Type 2 diabetes mellitus with hyperglycemia Osteoarthritis Psoriasis GERD (gastroesophageal reflux disease) Obesity (BMI 30-39.9) Hypercholesterolemia Hypertension Surgical History History of cholecystectomy History of bilateral knee replacement History of colonoscopy History of cataract surgery Family History Mother No problems noted. Father No problems noted. Social History Housing: House Alcohol intake: current Alcohol intake frequency: a few times a week Comment: 2x Q 6 months 1 drink Patient Tobacco Use Status: Former Tobacco user Years Smoked: 1979 smoked 15 years pack a day e-Cigarette/Vaping Use: Never Used Second Hand Smoke Exposure: Yes service: No Current occupational status: retired Cognitive needs: No Hearing needs: No Vision needs: Yes Physical Exam Vital Signs: Last Vital Signs Pulse 78 02/27/24 10:00 Resp 16 02/27/24 10:00 BP 166/82 H 02/27/24 10:00 Pulse Ox 95 02/27/24 10:00 Oxygen Delivery Method Room Air 02/27/24 10:00 BMI result Body Mass Index 33.4 Const Orientation/consciousness: patient oriented x3 Eyes Pupils: Equal, round and reactive pupils present Neuro General: patient oriented x3, tone normal, moves all extremities and no focal motor deficits Cranial nerves: Yes Facial sensation intact/muscles of mastication intact, Yes Equal, round and reactive pupils present, Yes Bilaterally intact EOM present, Yes Nystagmus not present, Yes Normal facial strength present, Yes Midline tongue present and Yes Symmetric palate elevation present Cognition (Neuro): normal cognition Gait exam (Neuro): Antalgic gait present Motor exam (neuro): 5/5 motor strength present throughout and Normal motor muscle tone present throughout Coordination: [id number] test normal Assessment & Plan Assessment & Plan (1) Disequilibrium syndrome: Comment: episodes of staggering Code(s): E87.8 - Other disorders of electrolyte and fluid balance, not elsewhere classified Category: Medical Plan Suggested to increase physical activity Chair yoga and exercises to help with balance and strenthening she will call me if she has any episodes of dizziness or change in mentation for reevaluation Coding Level of Care Code Est Pt Level 3 (58469) Diagnoses Disequilibrium syndrome E87.8
[2024-02-27 10:00] VITALS: BP 166/82; PULSE 78; RESP 16; O2SAT 95; BMI 33.4
== END 2024-02-27 10:59 | disposition home or self-care (01) ==
PROVIDERS: PCP Internal Medicine; Visit Provider Psychiatry & Neurology Neurology
DX: E87.8 Other disorders of electrolyte and fluid balance, not elsewhere classified (principal)
CPT/HCPCS: 99213

== ENCOUNTER 2024-02-27 09:54 | Outpatient (REF) | payer MEDICARE, SELFPAY ==
[2024-02-27 12:17] LABS: Creatinine Urine 188.56 mg/dL
== END 2024-02-27 09:55 | disposition home or self-care (01) ==
LOC: HO.LAB 09:54
PROVIDERS: Absent Provider Internal Medicine; PCP Internal Medicine; Visit Provider Psychiatry & Neurology Neurology
DX: E87.8 Other disorders of electrolyte and fluid balance, not elsewhere classified (principal)
CPT/HCPCS: 82570; 99212

== ENCOUNTER 2024-03-21 10:24 | Outpatient (REF) | payer MEDICARE, SELFPAY ==
--- NOTE | ~2024-03-21 | MM_ITS ---
EXAMINATION: MM SCREENING DIGITAL BREAST TOMOSYNTHESIS, BILATERAL CLINICAL INFORMATION: Screening. Asymptomatic. COMPARISON: Mammography: This study is compared with prior exams dating back to 2019. TECHNIQUE: Digital breast tomosynthesis is performed in both the craniocaudal and mediolateral oblique views along with computer-aided detection (CAD). Synthesized 2D images are generated from the tomosynthesis. FINDINGS: There are scattered areas of fibroglandular density (ACR BI-RADS breast composition Category b). There are no significant masses, abnormal calcifications, or other abnormalities. There are scattered benign calcifications in each breast. MM/MM tomosynthesis screening BI IMPRESSION: No mammographic evidence of malignancy. ASSESSMENT: BI-RADS BI-RADS 2 - Benign Findings RECOMMENDATION: Routine annual mammography screening. 1 year F/U This examination should not preclude the clinical evaluation of a suspicious palpable abnormality. This patient's information was entered into a reminder system with a target due date for their next mammogram.
== END 2024-03-21 10:25 | disposition home or self-care (01) ==
LOC: HO.MAMMO 10:24
PROVIDERS: PCP Internal Medicine; Visit Provider Internal Medicine
DX: Z12.31 Encounter for screening mammogram for malignant neoplasm of breast (principal)
CPT/HCPCS: 77063; 77067

== ENCOUNTER → 2024-03-21 10:45 | Outpatient (BNV) | payer MEDICARE, SELFPAY | PROVIDERS: PCP Internal Medicine; Visit Provider Radiology Diagnostic Radiology | DX: Z12.31 Encounter for screening mammogram for malignant neoplasm of breast (principal) | CPT/HCPCS: 77063; 77067 ==

== ENCOUNTER 2024-04-10 14:06 | Outpatient (AMB) | payer MEDICARE, SELFPAY ==
[2024-04-10 14:18] VITALS: BP 132/68; PULSE 60; O2SAT 94; BMI 33.6
--- NOTE | 2024-04-10 14:18 | A.OFFPC_ITS ---
Vital Signs 04/10/24 14:18 Height 5 ft 8 in Weight 221 lb BMI 33.6 BP 132/68 Blood Pressure Location Lt brachial Position Sitting Pulse 60 Pulse Source Pulse Oximeter Pulse Oximetry (%) 94 Oxygen Delivery Method Room Air Intake Visit Reasons: Pre-op shoulder surgery 04/22 Airplane First Officer Required: No Cone Tender: Not Required per policy Accompanied by: Self / Same As Patient Allergies amlodipine Allergy (Unknown, Verified 04/10/24 14:19) leg swelling lisinopril Allergy (Unknown, Verified 04/10/24 14:19) cough pcv23 Allergy (Unknown, Uncoded 04/10/24 14:19) arm swelling metformin Adverse Reaction (Intermediate, Uncoded 04/10/24 14:19) stomach pain Medication List - Last Reconciled 04/10/24 by Patience Sherman MD aspirin 81 mg PO DAILY atorvastatin 40 mg PO DAILY chlorthalidone 25 mg PO DAILY 90 days cholecalciferol (vitamin D3) 25 mcg PO DAILY escitalopram oxalate (Lexapro) 5 mg PO DAILY losartan 50 mg PO DAILY 90 days metoprolol succinate ER 50 mg PO DAILY potassium mg PO .QD Tobacco use date assessed: 01/03/24 Fall risk assessment: No Falls in past year Last assessed Fall Risk: 04/10/24 Dental Screening Dental Screen Date: 01/03/24 HPI Pre-op shoulder surgery 04/22 HPI Details 79-year-old obese female with controlled diabetes mellitus hypertension hypercholesterolemia GERD generalized anxiety disorder coming in for preoperative evaluation for right reverse total shoulder replacement to be done in 04/22/2024. PAtient states had the CT scan R shoulder and was was advised to get a chest CT- just had this done today results pending. [facility] Medical History Syncope TIA (transient ischemic attack) Disequilibrium syndrome Right shoulder pain Post-menopausal Retinal tear Left carotid artery stenosis Tubular adenoma of colon Urge incontinence Type 2 diabetes mellitus with hyperglycemia Osteoarthritis Psoriasis GERD (gastroesophageal reflux disease) Obesity (BMI 30-39.9) Hypercholesterolemia Hypertension Surgical History History of cholecystectomy History of bilateral knee replacement History of colonoscopy History of cataract surgery Family History Mother No problems noted. Father No problems noted. Social History (Updated 04/10/24 @ 15:28 by Patience Sherman MD) Housing: House Alcohol intake: current Alcohol intake frequency: a few times a week Comment: once a month 1 drink Patient Tobacco Use Status: Former Tobacco user Years Smoked: 1979 smoked 15 years pack a day e-Cigarette/Vaping Use: Never Used Second Hand Smoke Exposure: Yes service: No Current occupational status: retired Cognitive needs: No Hearing needs: No Vision needs: Yes (glasses) Questionnaire PHQ-9 Over the last 2 weeks, how often have you been bothered by any of the following problems? 1. Little interest or pleasure in doing things: not at all 2. Feeling down, depressed, or hopeless: not at all 3. Trouble falling or staying asleep, or sleeping too much: not at all 4. Feeling tired or having little energy: not at all 5. Poor appetite or overeating: not at all 6. Feeling bad about yourself - or that you are a failure or have let yourself or your family down: not at all 7. Trouble concentrating on things, such as reading the newspaper or watching television: not at all 8. Moving or speaking so slowly that other people could have noticed. Or the opposite - being so fidgety or restless that you have been moving around a lot more than usual: not at all 9. Thoughts that you would be better off or of hurting yourself in some way: not at all Total score: 0 Depression Screening Interpretation: Negative Depression Screening Done: Yes Source: Developed by Drs. Pascual Bradshaw, Luke Thompson and colleagues, with an educational khadra from [employer]. Thrive Questionnaire Date Thrive assessed: 01/03/24 ELIEL-7 AMB Questionnaire ELIEL-7 Date ELIEL - 7 assessed: 01/03/24 Source: Developed by Drs. Pascual Bradshaw, Luke Thompson and colleagues, with an educational khadra from [employer]. Review of Systems Const Denies poor appetite and Denies weakness Eyes Denies no additional complaints ENT Reports Normal hearing present, Denies dizziness, Denies nasal congestion, Denies tinnitus and Denies sore throat Card Denies chest pain, Denies syncope, Denies rapid heart rate and Denies dyspnea Resp Denies cough and Denies dyspnea GI Denies change in stool character, Reports constipation, Denies diarrhea, Denies nausea and Denies vomiting Denies urinary frequency, Denies difficulty voiding and Denies dysuria Neuro Reports Normal hearing present, Denies confusion, Denies dizziness, Denies syncope and Denies weakness Psych Denies confusion Physical exam (Primary Care) Vital Signs: Last Vital Signs Pulse 60 04/10/24 14:18 BP 132/68 04/10/24 14:18 Pulse Ox 94 04/10/24 14:18 Oxygen Delivery Method Room Air 04/10/24 14:18 BMI result Body Mass Index 33.6 Tobacco/Smoking Status: Tobacco use Status Tobacco use date assessed 01/03/24 04/10/24 14:19 Patient Tobacco Use Status Former Tobacco user 04/10/24 14:19 e-Cigarette/Vaping Use Never Used 04/10/24 14:19 PHQ-9: PHQ-9 Score PHQ-9: Total score 0 04/10/24 14:19 Depression Screening Interpretation: Negative Thrive Assessment: Date of Thrive Assessment Date Thrive assessed 01/03/24 04/10/24 14:19 Const General: No confusion Orientation/consciousness: No confusion Eyes Conjunctivae: conjunctivae normal Resp Auscultation: clear to auscultation bilaterally Cardio Rate: regular rate Rhythm: regular rhythm GI Inspection: Yes normal to inspection Neuro General: No confusion Cranial nerves: Yes Normal hearing present Extrem General: Yes normal to inspection and No edema Assessment and Plan Assessment & Plan (1) Preop exam for internal medicine: Code(s): Z01.818 - Encounter for other preprocedural examination Plan: EKG and blood work requested. With a history patient is in the intermediate risk group due to age and diabetes. Diabetes presently is under control and will continue to monitor. Patient was advised to stop aspirin as well as not to take anti-inflammatories like ibuprofen/Motrin/naproxen 1 week before the procedure. Will await for the results. (2) Type 2 diabetes mellitus with hyperglycemia: Code(s): E11.65 - Type 2 diabetes mellitus with hyperglycemia Qualifiers: Diabetes mellitus terminal block assembler insulin use: without terminal block assembler use Qualified Code(s): E11.65 - Type 2 diabetes mellitus with hyperglycemia Plan: Decrease the amount of carbohydrate intake, pasta, bread, rice and potatoes are all sugar and that is aside from all the sweet stuff, remember that fruits are good but they are Sweet also. Hemoglobin A1c goal of less than 7.0 presently on diet control (3) Obesity (BMI 30-39.9): Code(s): E66.9 - Obesity, unspecified Plan: Diet and exercise (4) Hypertension: Code(s): I10 - Essential (primary) hypertension Qualifiers: Hypertension type: essential hypertension Qualified Code(s): I10 - Essential (primary) hypertension Plan: Continue with blood pressure medication. Decrease salt intake and exercise presently on chlorthalidone 25 mg once a day metoprolol 50 mg once a day and losartan 50 mg once a day (5) Hypercholesterolemia: Code(s): E78.00 - Pure hypercholesterolemia, unspecified Plan: Avoid fried foods, chicken skin, eggs, butter margarine, pastries and meat. Be it pork or beef they have a lot of cholesterol on atorvastatin 40 mg once a day (6) GERD (gastroesophageal reflux disease): Code(s): K21.9 - Gastro-esophageal reflux disease without esophagitis Qualifiers: Esophagitis presence: without esophagitis Qualified Code(s): K21.9 - Gastro-esophageal reflux disease without esophagitis Plan: Avoid the foods that causes that usually spicy foods, tomato products, juices, coffee, soda and foods that your sensitive to. After eating do not lie down, allow 3-4 hours before in lie down. And keep the head of bed above 30 degrees to avoid the acid from going up. (7) Generalized anxiety disorder: Comment: declined referal Code(s): F41.1 - Generalized anxiety disorder Plan: Stable on Lexapro 5 mg once a day (8) Primary osteoarthritis, right shoulder: Code(s): M19.011 - Primary osteoarthritis, right shoulder Plan: Planned reverse total shoulder replacement 04/22/2024. Orders: Orders Complete Blood Count Auto Diff Today Z01.818 - Encounter for other prepro cedural examination ECG 12 lead EKG Today Z01.818 - Encounter for other preprocedural examination Comprehensive Met. Panel Today Z01.818 - Encounter for other preprocedural examination Hemoglobin A1c Today E11.65 - Type 2 diabetes mellitus with hyperglycemia Coding Level of Care Code Est Pt Level 4 (54881) Diagnoses Preop exam for internal medicine Z01.818 Type 2 diabetes mellitus with hyperglycemia, without long-term current use of in sulin E11.65 Diabetes mellitus terminal block assembler insulin use: without terminal block assembler use Obesity (BMI 30-39.9) E66.9 Essential hypertension I10 Hypertension type: essential hypertension Hypercholesterolemia E78.00 Gastroesophageal reflux disease without esophagitis K21.9 Esophagitis presence: without esophagitis Generalized anxiety disorder F41.1 Primary osteoarthritis, right shoulder M19.011
== END 2024-04-10 15:38 | disposition home or self-care (01) ==
PROVIDERS: PCP Internal Medicine; Visit Provider Internal Medicine
DX: Z01.818 Encounter for other preprocedural examination (principal); E11.65 Type 2 diabetes mellitus with hyperglycemia; I10 Essential (primary) hypertension; E78.00 Pure hypercholesterolemia, unspecified; K21.9 Gastro-esophageal reflux disease without esophagitis; F41.1 Generalized anxiety disorder; M19.011 Primary osteoarthritis, right shoulder
CPT/HCPCS: 99214

== ENCOUNTER → 2024-04-10 15:43 | Outpatient (REF) | payer MEDICARE, SELFPAY ==
--- NOTE | 2024-04-10 15:48 | ECG_ITS ---
Test Reason : PREOP Blood Pressure : / mmHG Vent. Rate : 064 BPM Atrial Rate : 064 BPM P-R Int : 222 ms QRS Dur : 094 ms QT Int : 416 ms P-R-T Axes : 079 006 000 degrees QTc Int : 429 ms Sinus rhythm with 1st degree A-V block Otherwise normal ECG When compared with ECG of 11-OCT-2017 14:45, TN interval has increased Referred By: Patience Sherman Electronically Signed By:THOMAS GONZALEZ MD
[2024-04-10 16:02] LABS: MANUAL DIFF FLAG NO
[2024-04-10 16:18] LABS: Basophils Absolute Auto 0.1 X10*3/uL (0.0-0.2); Basophils Percent Auto 1.3 % (0-2); Eosinophils Absolute Auto 0.4 X10*3/uL (0.0-0.4); Eosinophils Percent Auto 4.2 % (0-4); Hematocrit 41.1 % (37.0-47.0); Hemoglobin 13.9 g/dl (12.0-16.0); Imm Gran Abs Auto 0.02 X10*3/uL (0.00-0.03); Imm Gran Pct Auto 0.2 % (0.0-0.4); Lymphocytes Absolute Auto 2.4 X10*3/uL (1.2-4.9); Lymphocytes Percent Auto 26.9 % (20-40); Mean Corpuscular HGB Conc 33.8 g/dl (31.0-35.0); Mean Corpuscular Hemoglobin 30.7 pg (27.0-33.0); Mean Corpuscular Volume 90.7 fL (80.0-98.0); Mean Platelet Volume 9.8 fL (9.4-12.3); Monocytes Absolute Auto 0.6 X10*3/uL (0.1-1.2); Monocytes Percent Auto 6.9 % (2-11); Neutrophils Absolute Auto 5.3 x10*3/uL (2.0-8.3); Neutrophils Percent Auto 60.5 % (45-73); Platelet Count 242 X10*3/uL (160-400); Red Blood Count 4.53 X10*6/uL (4.20-5.50); Red Cell Distribution Width 13.6 % (11.0-16.0); White Blood Count 8.8 X10*3/uL (4.8-10.8)
[2024-04-10 16:41] LABS: Alanine Aminotransferase 16 U/L (0-31); Alkaline Phosphatase 77 U/L (39-117); Anion Gap 15 (12-20); Aspartate Amino Transferase 16 U/L (5-31); Bilirubin Total 1.3 mg/dL (0.0-1.0); Blood Urea Nitrogen 22 mg/dL (9-16); Calcium 9.9 mg/dL (8.4-10.2); Carbon Dioxide 30 mmol/L (22-29); Chloride 102 mmol/L (96-108); Estimated Average Glucose 143 mg/dL; Estimated Glomerular Filt Rate > 60; Glucose Random 115 mg/dL (60-115); Hemoglobin A1c % 6.6 % (<6.0); Potassium 3.4 mmol/L (3.3-5.1); Sodium 144 mmol/L (135-145); Total Protein 6.9 g/dL (6.5-8.0)
== END ==
LOC: HO.CARD 15:43
PROVIDERS: PCP Internal Medicine; Visit Provider Internal Medicine
DX: Z01.818 Encounter for other preprocedural examination (principal); E11.65 Type 2 diabetes mellitus with hyperglycemia
CPT/HCPCS: 36415; 80053; 83036; 85025; 93005

== ENCOUNTER → 2024-04-10 15:48 | Outpatient (BNV) | payer MEDICARE, SELFPAY | PROVIDERS: PCP Internal Medicine; Visit Provider Internal Medicine Cardiovascular Disease | DX: I44.0 Atrioventricular block, first degree (principal) | CPT/HCPCS: 93010 ==

== ENCOUNTER 2024-08-28 10:59 | Outpatient (AMB) | payer MEDICARE, SELFPAY ==
[2024-08-28 11:01] VITALS: BP 144/68; PULSE 54; O2SAT 98; BMI 33.3
--- NOTE | 2024-08-28 11:01 | A.OFFPC_ITS ---
Vital Signs 08/28/24 11:01 Height 5 ft 8 in Weight 219 lb BMI 33.3 BP 144/68 H Blood Pressure Location Lt brachial Position Sitting Pulse 54 Pulse Source Pulse Oximeter Pulse Oximetry (%) 98 Oxygen Delivery Method Room Air Intake Visit Reasons: 3mth f/u Allergies amlodipine Allergy (Unknown, Verified 08/28/24 11:03) leg swelling lisinopril Allergy (Unknown, Verified 08/28/24 11:03) cough escitalopram Adverse Reaction (Intermediate, Unverified 08/28/24 11:18) Depression pcv23 Allergy (Unknown, Uncoded 08/28/24 11:03) arm swelling metformin Adverse Reaction (Intermediate, Uncoded 08/28/24 11:03) stomach pain Medication List - Last Reconciled 08/28/24 by Patience Sherman MD aspirin 81 mg PO DAILY atorvastatin 40 mg PO DAILY chlorthalidone 25 mg PO DAILY 90 days cholecalciferol (vitamin D3) 25 mcg PO DAILY losartan 50 mg PO DAILY 90 days metoprolol succinate ER 50 mg PO DAILY potassium mg PO .QD Tobacco use date assessed: 01/03/24 Fall risk assessment: No Falls in past year Last assessed Fall Risk: 08/28/24 Dental Screening Dental Screen Date: 01/03/24 HPI 3mth f/u HPI Details 79-year-old obese female with controlled diabetes mellitus hypertension hypercholesterolemia GERD generalized anxiety disorder last seen for preoperative evaluation for right shoulder reverse total shoulder replacement. Patient's mammogram is up-to-date bone density is up-to-date colonoscopy no more. Review of the notes had a chest CT done 04/10/2024 showing right middle lobe opacity representing scarring. Was advising CD chest 6 months after. Coronary artery calcification day. L middlel finger will be seeing ortho. [facility] Medical History Syncope TIA (transient ischemic attack) Disequilibrium syndrome Right shoulder pain Post-menopausal Retinal tear Left carotid artery stenosis Tubular adenoma of colon Urge incontinence Type 2 diabetes mellitus with hyperglycemia Osteoarthritis Psoriasis GERD (gastroesophageal reflux disease) Obesity (BMI 30-39.9) Hypercholesterolemia Hypertension Surgical History History of cholecystectomy History of bilateral knee replacement History of colonoscopy History of cataract surgery Family History Mother No problems noted. Father No problems noted. Social History (Updated 04/10/24 @ 15:28 by Patience Sherman MD) Housing: House Alcohol intake: current Alcohol intake frequency: a few times a week Comment: once a month 1 drink Patient Tobacco Use Status: Former Tobacco user Years Smoked: 1979 smoked 15 years pack a day e-Cigarette/Vaping Use: Never Used Second Hand Smoke Exposure: Yes service: No Current occupational status: retired Cognitive needs: No Hearing needs: No Vision needs: Yes (glasses) Questionnaire Thrive Questionnaire Date Thrive assessed: 01/03/24 AUDIT C Alcohol Use Questionnaire (AUDIT-C) 2. How many drinks containing alcohol do you have on a typical day when you are drinking?: 1 or 2 3. How often do you have six or more drinks on one occasion?: Never Total Score: 0 ELIEL-7 AMB Questionnaire ELIEL-7 Date ELIEL - 7 assessed: 01/03/24 Source: Developed by Drs. Pascual Bradshaw, Rachelle Argueta, Luke Joshi and colleagues, with an educational khadra from [employer]. Physical exam (Primary Care) Vital Signs: Last Vital Signs Pulse 54 08/28/24 11:01 BP 144/68 H 08/28/24 11:01 Pulse Ox 98 08/28/24 11:01 Oxygen Delivery Method Room Air 08/28/24 11:01 BMI result Body Mass Index 33.3 Tobacco/Smoking Status: Tobacco use Status Tobacco use date assessed 01/03/24 08/28/24 11:05 Patient Tobacco Use Status Former Tobacco user 08/28/24 11:05 e-Cigarette/Vaping Use Never Used 08/28/24 11:05 Thrive Assessment: Date of Thrive Assessment Date Thrive assessed 01/03/24 08/28/24 11:05 Const General: alert; No acute distress Eyes Conjunctivae: conjunctivae normal Resp Auscultation: clear to auscultation bilaterally Cardio Rate: regular rate Rhythm: regular rhythm GI Inspection: Yes normal to inspection Extrem General: Yes normal to inspection and No edema Coding Level of Care Code Est Pt Level 4 (32576) Complex EM visit Add On G2211 Diagnoses Primary osteoarthritis, right shoulder M19.011 Essential hypertension I10 Hypertension type: essential hypertension Hypercholesterolemia E78.00 Obesity (BMI 30-39.9) E66.9 Gastroesophageal reflux disease without esophagitis K21.9 Esophagitis presence: without esophagitis Type 2 diabetes mellitus with hyperglycemia, without long-term current use of insulin E11.65 Diabetes mellitus correction insulin use: without correction use Right pulmonary lesion J98.4 Assessment & Plan Assessment & Plan (1) Primary osteoarthritis, right shoulder: Comment: 03/24/2024Shoulder CT March 2024 showing incidental lesion right lateral lung recommend CT scan advanced right glenohumeral joint arthritis right shoulder surgery Code(s): M19.011 - Primary osteoarthritis, right shoulder Category: Medical Plan: Patient is doing good post surgery and continue with physical therapy (2) Hypertension: Code(s): I10 - Essential (primary) hypertension Category: Medical Qualifiers: Hypertension type: essential hypertension Qualified Code(s): I10 - Essential (primary) hypertension Plan: Continue with blood pressure medication. Decrease salt intake and exercise on losartan 50 mg once a day metoprolol 50 mg once a day chlorthalidone 25 mg once a day and potassium. (3) Hypercholesterolemia: Code(s): E78.00 - Pure hypercholesterolemia, unspecified Category: Medical Plan: Avoid fried foods, chicken skin, eggs, butter margarine, pastries and meat. Be it pork or beef they have a lot of cholesterol on atorvastatin 40 mg once a day LDL goal of less than 100 and triglyceride of less than 150 (4) Obesity (BMI 30-39.9): Code(s): E66.9 - Obesity, unspecified Category: Medical Plan: Diet and exercise (5) GERD (gastroesophageal reflux disease): Code(s): K21.9 - Gastro-esophageal reflux disease without esophagitis Category: Medical Qualifiers: Esophagitis presence: without esophagitis Qualified Code(s): K21.9 - Gastro-esophageal reflux disease without esophagitis Plan: Avoid the foods that causes that usually spicy foods, tomato products, juices, coffee, soda and foods that your sensitive to. After eating do not lie down, allow 3-4 hours before in lie down. And keep the head of bed above 30 degrees to avoid the acid from going up. (6) Type 2 diabetes mellitus with hyperglycemia: Comment: Dr. Gomez Code(s): E11.65 - Type 2 diabetes mellitus with hyperglycemia Category: Medical Qualifiers: Diabetes mellitus local [employer] insulin use: without correction use Qualified Code(s): E11.65 - Type 2 diabetes mellitus with hyperglycemia Plan: Decrease the amount of carbohydrate intake, pasta, bread, rice and potatoes are all sugar and that is aside from all the sweet stuff, remember that fruits are good but they are Sweet also. Hemoglobin A1c goal of less than 7.0. Patient is diet controlled (7) Right pulmonary lesion: Comment: 03/24/2024Shoulder CT March 2024 showing incidental lesion right lateral lung recommend CT scan advanced right glenohumeral joint arthritis Code(s): J98.4 - Other disorders of lung Category: Medical Plan: Will order for a CT scan of the chest. Orders: Orders Complete Blood Count Auto Diff 3 Months E11.65 - Type 2 diabetes mellitus with hyperglycemia Free T4 (Free Thyroxine) 3 Months E11.65 - Type 2 diabetes mellitus with hyperglycemia Thyroid Stimulating Hormone 3 Months E11.65 - Type 2 diabetes mellitus with hyperglycemia Vitamin D 25-OH Total 3 Months E11.65 - Type 2 diabetes mellitus with hy perglycemia Creatinine Urine 3 Months E11.65 - Type 2 diabetes mellitus with hyperglycemia Creatinine Today J98.4 - Other disorders of lung CT chest w IV con Today J98.4 - Other disorders of lung Comprehensive Met. Panel 3 Months E11.65 - Type 2 diabetes mellitus with hyperglycemia Lipid Panel 3 Months E11.65 - Type 2 diabetes mellitus with hyperglycemia, E78.00 - Pure hypercholesterolemia, unspecified Vitamin B12 and Folate 3 Months E11.65 - Type 2 diabetes mellitus with hyperglycemia Hemoglobin A1c 3 Months E11.65 - Type 2 diabetes mellitus with hyperglycemia Microalbumin, Random (w Creat) 3 Months E11.65 - Type 2 diabetes mellitus with hyperglycemia Blood Urea Nitrogen Today J98.4 - Other disorders of lung Medications: New amoxicillin 2,000 mg orally 1 hour before thr procedure; 4 caps 2RF J98.4 - Other disorders of lung Discontinued escitalopram oxalate (Lexapro) Discontinued Reason: Patient Refused 5 mg PO DAILY 90 tabs 3RF F41.1 - Generalized anxiety disorder
== END 2024-08-28 11:32 | disposition home or self-care (01) ==
PROVIDERS: PCP Internal Medicine; Visit Provider Internal Medicine
DX: E11.65 Type 2 diabetes mellitus with hyperglycemia (principal); E66.9 Obesity, unspecified; Z68.33 Body mass index [BMI] 33.0-33.9, adult; M19.011 Primary osteoarthritis, right shoulder; I10 Essential (primary) hypertension; E78.00 Pure hypercholesterolemia, unspecified; K21.9 Gastro-esophageal reflux disease without esophagitis; J98.4 Other disorders of lung

== ENCOUNTER → 2024-08-28 10:59 | Outpatient (BNVA) | payer MEDICARE, SELFPAY | PROVIDERS: PCP Internal Medicine; Visit Provider Internal Medicine | DX: M19.011 Primary osteoarthritis, right shoulder (principal); I10 Essential (primary) hypertension; E78.00 Pure hypercholesterolemia, unspecified; E66.9 Obesity, unspecified; K21.9 Gastro-esophageal reflux disease without esophagitis; E11.65 Type 2 diabetes mellitus with hyperglycemia; J98.4 Other disorders of lung | CPT/HCPCS: 99212 ==

== ENCOUNTER 2024-10-30 10:25 | Outpatient (REF) | payer MEDICARE, SELFPAY ==
--- OUTSIDE RECORDS SUMMARY | 2024-10-30 10:28 | XMS_ITS | Continuity of Care Document ---
Author Organization [facility] PT Address [address] [place] [address] Care Team Providers Care Safety Specialist Name Role Phone BRICE ORTEGA Referring Provider [phone] BRICE ORTEGA Primary Care Provider [phone] Assessment Encounter Date Assessment Date Assessment LastModified by Organization Details LastModified Time 09/25/2024 09/25/2024 Assessment: Pt. tolerated all exercises well while demonstrating proper periscapular and RC mechanics with minimal fatigue levels achieved. Updated Independent HEP, reviewed with Pt. and answered further questions. Plan: D/C to Independent HEP PHYSICAL THERAPIST REFERRAL - S/P RIGHT REVERSE TOTAL SHOULDER ARTHROPLASTY, 04/22/2024 VISITS: 2X/WEEK X 12+ WEEKS THERAPY START: 06/03/2024 DISLOCATION PRECAUTIONS X 12 WEEKS: SHOULDER HYPEREXTENSION ABDUCTION + ER ADDUCTION + EXTENSION + IR LIFTING OR SUPPORTING BODY WEIGHT WITH OPERATED ARM WEEKS 0 - 5 POSTOP - GOAL: ALLOW GLENOID IN-GROWTH, AVOID DISLOCATION, PROTECT SUBSCAPULARIS REPAIR SLING AT ALL TIMES EXCEPT FOR PT, HOME EXERCISES, SHOWERING NO SHOULDER ROM EXCEPT THAT REQUIRED FOR TAKING SLING ON AND OFF ? STRICTLY AVOID AROM ABSOLUTELY NO SHOULDER EXTENSION OR ACTIVE IR FOR 6 WEEKS MAINTAIN PILLOW BEHIND OPERATIVE ELBOW WHEN SITTING OR IN BED TO KEEP ELBOW IN FRONT OF BODY REINFORCEMENT OF DISLOCATION PRECAUTIONS AROM OF ELBOW, WRIST AND HAND WITH ARM AT SIDE ? NO RESISTANCE OR WEIGHT ICE 3 ? 4X DAILY WEEKS 6 - 9 POSTOP - GOAL: BEGIN DELTOID STRENGTHENING WHILE AVOIDING DISLOCATION, PROTECTING SUBSCAPULARIS REPAIR WEAR SLING IN UNCONTROLLED SETTINGS (IN PUBLIC), OTHERWISE BEGIN TO WEAN SLING USE SLOWLY ADVANCE PROM TO TOLERANCE IN FE, ER BEGIN AAROM AND AROM IN FE, ER AND ABDUCTION BEGIN SUPINE AND ADVANCE TO SEATED/STANDING WAND OR CANE FOR FLEXION, ER, IR AND ABDUCTION SUPERVISED PULLEYS OKVIKI BEGIN PROM IN IR TO TOLERANCE, UP TO 50 [address]ES IN THE SCAPULAR PLANE REINFORCEMENT OF DISLOCATION PRECAUTIONS AROM OF ELBOW, WRIST AND HAND WITH ARM AT SIDE ? NO RESISTANCE OR LOAD GREATER THAN CUP OF COFFEE ICE FOLLOWING EXERCISES WEEKS 10 - 12 POSTOP - GOAL: INCREASE FUNCTION AND STRENGTH PROGRESS ROM TO FULL BEGIN SUBMAXIMAL, PAIN-FREE DELTOID ISOMETRICS IN THE SCAPULAR PLANE WEEKS 13 - 15 POSTOP - GOAL: STRENGTHENING NO ROM RESTRICTIONS, ENCOURAGE FULL AROM IN ALL DIRECTIONS MAY BEGIN IR BEHIND THE BACK, BUT DO NOT PURSUE AGGRESSIVELY: THIS IS OFTEN THE LAST MOTION TO COME BACK/MAY NOT RETURN COMPLETELY INCORPORATE RESISTIVE BANDS AND LIGHT WEIGHTS FOR DELTOID STRENGTHENING BEGIN SUBMAXIMAL ISOMETRICS FOR ROTATOR CUFF (SCAPTION, ER AND IR). SHOULD BE PAIN FREE, STOP IF PAIN WITH INITIATION OF THESE EXERCISES MAY INCORPORATE POOL THERAPY IF INCISION COMPLETELY CLOSED: PROM, AAROM, PENDULUMS AND WALKING --> GRADUALLY PROGRESS TO AROM WEIGHT RESTRICTION ~5 LBS WEEKS 16+ POSTOP: PROGRESS STRENGTHENING, RETURN TO MORE NORMAL ACTIVITY INCREASE RESISTANCE OF STRENGTHENING EXERCISES, PROGRESSING TO UP TO 10LBS BY 6 MONTHS POSTOP RETURN TO SPORTS: SWIMMING: BEGIN WITH BREAST AND SIDE STROKE; OVERHEAD STROKES MAY BE DIFFICULT UNTIL ROM IS IMPROVED GOLF: MAY BEGIN PUTTING AT 3 MONTHS; CHIPPING AT 4 MONTHS, BEGINNING WITH HALF SWINGS; HEALTHCARE NETWORK CONSULTANT AT 6 MONTHS TENNIS/PICKLE BALL: BALL AGAINST WALL, VERY LIGHT RALLIES AT 4 MONTHS; NO COMPETITIVE GAMES UNTIL AFTER 6 MONTHS NO CONTACT SPORTS FOR AT LEAST 6 MONTHS Not available 09/25/2024 13:54:09 Plan of Treatment Reminders Order Date Submit Date Provider Last Modified By Organization Details Last Modified Time Details Appointments None record ed. Lab None record ed. Referral None record ed. Procedures None record ed. Surgeries None record ed. Imaging None record ed. Medication Orders None record ed. Patient TargetsNo targets recorded. Patient InstructionsNo instructions recorded. Reason for Referral None Reported. Results Created Date Observation Date Name Description Value Unit Range Abnormal Flag Note LastModifiedBy Organization Detail LastModifiedTime 08/29/20 24 08/29/2024 XR, hand, 3 or more view [email or web address] ?Encry pted=s hAaTro YD8dLq bEUv6g %2BXZw aYqtaq 0bqfl% 2Fg9IQ a4ajBk vP9nXo QUaueC m3YtLR FvZlg JJ8mAn HZtai3 [id number] AC0Kqa HyCUaO jKiQtr MwF INTERFACE [facility] [address], [place], [address], 08/29/2024 14:55:51 08/29/20 24 08/29/2024 XR, hand, 3 or more view [email or web address] ?Encry pted=s hAaTro YD8dLq bEUv6g %2BXZw aYqtaq 0bqfl% 2Fg9IQ a4ajBk vP9nXo QUaueC m3YtLR FvZl JJ8[place] HZtai3 1l9022 AC0Kqa HyCUaO jKiQtr MwF INTERFACE [facility] [address], [place], [address], 08/29/2024 14:55:55 10/16/20 24 10/16/2024 XR, shoul onelia, 2 or more view [email or web address]:/ [email or web address] ?Encry pted=s hAaTro YD8dLq bEUv6g %2BXZw aYqtaq 0bqfl% 2Fg9IQ a4ajBk vP9nXo QUaueC m3YtLR FvZl JJ8[place] HZtai3 0r6012 AC0Kqb nyBVaW gKiQtr MwF INTERFACE [facility] [address], [place], [address], 10/16/2024 11:27:48 10/16/20 24 10/16/2024 XR, shoul onelia, 2 or more view [email or web address] ?Encry pted=s hAaTro YD8dLq bEUv6g %2BXZw aYqtaq 0bqfl% 2Fg9IQ a4ajBk vP9nXo QUaueC m3YtLR FvZlgJ JJ8mAn HZtai3 8l5361 AC0Kqb nyBVaW gKiQtr MwF INTERFACE [facility] [address], [place], [address], 10/16/2024 11:27:50 Result Notes None recorded. Problems Name Problem SNOMED Code Status Onset Date Resolution Date Notes Provider Name and Address Organization Details Recorded Time No complaints 665685239 Active Status : 'A'; Not Available [facility] 09:25:45 Lesion of lung 829358101 Active 2023 [facility] 4 12:17:47 Problem Notes None recorded. Procedures Surgical History Date Name Laterality Status Provider Name and Address Organization Details Recorded Time 4 84040 Therapeutic Exercise (1:1) completed Shaun Bynum, ALEX [address] [facility] [place] [place], [address], [facility] 08/14/2024 14:53:22 4 27420 Therapeutic Exercise (1:1) completed Karlee Cardona, PT [address] [place] [address], [address], [facility] 08/10/2024 23:13:44 4 69052 Therapeutic Exercise (1:1) completed Shaun Bynum PTA [address] [place] [address], [address], [facility] 08/07/2024 14:30:15 4 04287 Therapeutic Exercise (1:1) completed Karlee Cardona, PT [address] [facility] [facility] [place], [place], [address], [facility] 08/03/2024 22:12:27 4 78986 Therapeutic Exercise (1:1) completed Shaun Bynum PTA [address] [facility] [facility] [place], [place], [address], [facility] 07/31/2024 15:16:09 4 43794 Therapeutic Exercise (1:1) completed Karlee Cardona, PT [address], [place], [address], [facility] 07/29/2024 06:56:55 4 08885 Therapeutic Exercise (1:1) completed Shaun Bynum PTA [address], [place], [address], [facility] 07/24/2024 14:19:39 4 77202 Therapeutic Exercise (1:1) completed Karlee Cardona, PT [address], [place], [address], [facility] 07/21/2024 22:35:29 4 51791 Therapeutic Exercise (1:1) completed Shaun Bynum PTA [address], [place], [address], [facility] 07/17/2024 14:07:03 4 02899 Therapeutic Exercise (1:1) completed Karlee Cardona, PT [address], [place], [address], [facility] 07/15/2024 00:17:13 4 15315 Therapeutic Exercise (1:1) completed Shaun Bynum PTA [address], [place], [address], [facility] 07/11/2024 09:03:20 4 86559: Manual therapy completed Shaun Bynum PTA [address], [place], [address], [facility] 07/11/2024 09:05:30 4 29304 Therapeutic Exercise (1:1) completed Shaun Bynum PTA [address], [place], [address], [facility] 07/08/2024 07:52:09 4 87176 Therapeutic Exercise (1:1) completed Belkis Calderon PTA [address], [place], [address], [facility] 07/04/2024 16:55:00 4 40786 Therapeutic Exercise (1:1) completed Karlee Cardona, PT [address], [place], [address], [facility] 06/30/2024 23:19:58 4 16331 Therapeutic Exercise (1:1) completed Shaun Bynum PTA [address], [place], [address], [facility] 06/26/2024 16:05:02 4 91455 Therapeutic Exercise (1:1) completed Karlee Cardona, PT [address], [place], [address], [facility] 06/22/2024 21:42:13 4 84132 Therapeutic Exercise (1:1) completed Shaun Bynum PTA [address], [place], [address], [facility] 06/20/2024 07:57:57 4 88478 Therapeutic Exercise (1:1) completed Belkis Calderon PTA [address], [place], [address], [facility] 06/16/2024 16:32:39 4 54040 Therapeutic Exercise (1:1) completed Shaun Bynum PTA [address], [place], [address], [facility] 06/12/2024 14:25:56 4 23766: Hot or Cold Pack completed Shaun Bynum PTA [address], [place], [address], [facility] 06/12/2024 13:24:39 4 22187 Therapeutic Exercise (1:1) completed Shaun Bynum, ELECTRONICS TECHNOLOGY INSTRUCTOR [address] [facility] [place] [facility] [place], [place], [address], [facility] 06/09/2024 11:25:26 4 07201: Hot or Cold Pack completed Shaun Bynum, ELECTRONICS TECHNOLOGY INSTRUCTOR [address], [place], [address], [facility] 06/09/2024 11:25:15 4 63782 Therapeutic Exercise (1:1) completed Karlee Cardona, PT [address] [facility] [place], [place], [address], [facility] 06/06/2024 11:55:51 4 82836: Low complexity PT Eval completed Karlee Cardona, PT [address] [facility] [facility] [place], [place], [address], [facility] 06/06/2024 12:05:01 4 G8417 BMI Above Upper Parameters, F/U Documented completed Karlee Cardona, PT [address] [facility] [place] [facility] [place], [place], [address], [facility] 06/04/2024 23:07:37 4 G8427 Current Medication Documented completed Karlee Cardona, PT [address], [place], [address], [facility] 06/04/2024 23:07:42 Imaging Results None recorded. Procedure Notes None recorded. Medical Equipment None Reported. Allergies No known drug allergies Medications Name Sig Start Date Stop Date Status Note LastModified by Organization Details LastModified Time losartan 50 mg tablet active Not Available Not Available No t Available amoxicillin 500 mg capsule active Not Available Not Available Not Available latanoprost 0.005 % eye drops active Not Available Not Available Not Available atorvastatin 40 mg tablet active Not Available Not Available Not Available Colace 100 mg capsule Take 1 capsule every day by oral route as needed. 2023 active Not Available Not Available Not Avai lable aspirin 325 mg tablet Take 1 tablet every day by oral route for 14 days. 2023 active Not Available Not Available Not Avai lable metoprolol succinate ER 50 mg tablet,exten ded release 24 hr active Not Available Not Available Not Available chlorthalido ne 25 mg tablet active Not Available Not Available Not Available acetaminophe n 500 mg tablet Take 2 tablets 3 times a day by oral route. 2023 active Not Available Not Available Not Avai lable pseudoephedr ine-guaifene sin ER 80-700 mg tablet,exten ded release 1-2 Tabs every 4-6 hours as needed for pain 06/28 completed Statu s: 'Disc ontin ued'; Not Available Not Available Not Available oxycodone 5 mg tablet Take 1 tablet every 4 hours by oral route as needed. active Not Available Not Available No t Available calcium 750 mg chewable tablet Take by oral route. active Not Available Not Available No t Available escitalopram 5 mg tablet active Not Available Not Available Not Available potassium gluconate active Not Available Not Available No t Available Tylenol Arthritis Pain active Not Available Not Available Not Available Move Free Ultra Triple Action active Not Available Not Available Not Available vitamin D3 500 unit-folic acid 1 mg tablet Take 1 tablet every day by oral route. active Not Available Not Available No t Available Adult Aspirin Regimen 81 mg tablet,delay ed release Take 1 tablet every day by oral route. active Not Available Not Available No t Available Vitals None Recorded Social History Question Answer Notes LastModified by Organizat ion Details LastModified Time Tobacco Smoking Status Former Smoker DELFINA gracia [place] - [facility] 04/14/2024 12:55:54 How Many Times Per Week Do You Consume Alcohol? Less Than 1 Time Per Week Information not available 04/14/2024 Do You Or Have You Ever Used E-cigarettes Or Vape? Never Used Electronic Cigarettes Information not available 04/14/2024 When Did You Quit Smoking? 16+yearssinnani larson Information not available 04/14/2024 What Is Your Relationship Status? Information not available 04/14/2024 Do You Use Any Illicit Or Recreational Drugs? No Information not available 04/14/2024 How Many Years Have You Smoked Tobacco? 20 Information not available 04/14/2024 Do You Or Have You Ever Used Any Other Forms Of Tobacco Or Nicotine? No Information not available 04/14/2024 Sex: Unknown Functional Status None recorded. Mental Status None recorded. Family History Nothing Reported. Medical History Condition Response Allergies/Hayfever N Coronary Artery Disease N Breathing or lung disorders N Anxiety/Depression N Emphysema N Nerve Disorders N Thyroid Problems N COPD N Pacemaker N Kidney/Bladder Problems N Anemia N Vascular Disease N Heart Trouble N Heart Attack ([place]) N Gastrointestinal Disease N Cholesterol N Diabetes N Autoimmune disease N Bleeding Disorder N Orthotics N Seizures/Epilepsy Y Arthritis N Blood Clot N AIDS/HIV N Congestive Heart Failure (CHF) N Acid Reflux (GERD) N Cancer N Stroke N Asthma N Circulation Problems N Peripheral Vascular Disease N Sleep Apnea N Hepatitis N Heart Disease N Rheumatoid Arthritis N Pulmonary Embolism N Arrhythmia N Headaches N Fibromyalgia N Hypertension Y Osteoporosis N Gynecological HistoryNo gynecological history recorded. Obstetrics History GPAL:G 0 P 0 0 0 0 Past Encounters Encounter ID Performer Location Encounter Start Date Encounter Closed Date Diagnosis/Indication Diagnosis SNOMED-CT Code Diagnosis ICD10 Code [id number] Karlee Cardona, PT [facility] on [address] [place] [address] 08/25/2024 11:44:19 08/25/2024 13:06:16 Aftercare [id number] Z47.1 Z96.249 [id number] Alejandro Jessy, T [facility] on [address] [place] [address] 08/28/2024 12:55:10 08/28/2024 14:27:04 Aftercare [id number] Z47.1 Z96.434 [id number] LEYLA Becerra [address] [place] [address] 08/29/2024 14:20:00 09/24/2024 10:23:26 Pain of left hand [id number] 86358 M79.447 [id number] [facility] [address] [place] [address] 09/01/2024 10:19:05 09/01/2024 11:46:47 Aftercare [id number] Z47.1 Z96.317 [id number] Alejandro Durbinkei, DPT [facility] [address] [place] [address] 09/04/2024 12:58:01 09/04/2024 14:52:00 Aftercare [id number] Z47.1 Z96.155 [id number] Karlee Cardona, PT [facility] [address] [place] [address] 09/08/2024 09:54:41 09/08/2024 11:09:28 Aftercare [id number] Z47.1 Z96.150 [id number] Alejandro Durbinjakygeovanna, DPT [facility] [address] [place] [address] 09/11/2024 12:56:13 09/11/2024 14:05:48 Aftercare [id number] Z47.1 Z96.583 [id number] Karlee Cardona, PT [facility] [address] [place] [address] 09/15/2024 09:48:35 09/15/2024 11:22:28 Aftercare [id number] Z47.1 Z96.141 [id number] Laurence Simms MD [facility] on [address] [place] [address] 09/22/2024 09:52:06 09/22/2024 11:01:20 Aftercare [id number] Z47.1 Z96.254 [id number] [facility]jandro Jessy, [facility] [address] [place] [address] 09/25/2024 12:57:48 09/25/2024 14:13:34 Aftercare 810216296 Z47.1 Z96.611 Health Concerns Section Related Observation LastModified by Organization Detai ls LastModified Time None Recorded Concern Status LastModified by Organization Details LastModified Time None Recorded Payers Encounter Date Sequence Insurance Name Policy Number Policy Ferris Covered Member ID Ferris Member ID Guarantor Name 09/25/2024 1 [place] [employer] Pascale Oates [id number] Pascale Oates 09/25/2024 2 [facility] [id number] Pascale Oates [id number] Pascale Oates Notes Date Note Type Note Provider Name and Address Organization Details Recorded Time 09/25/2024 text/html Pt. reports to PT today feeling fatigue overall dt a busy day. States operative shoulder is feeling good. Would like a detailed HEP. Shaun Bynum, ELECTRONICS TECHNOLOGY INSTRUCTOR [address] [facility] [address], [place], [address], [facility] 09/25/2024 13:54:48 OBGyn Episode No OBEpisode recorded.
--- OUTSIDE RECORDS SUMMARY | 2024-10-30 10:28 | XMS_ITS | Continuity of Care Document ---
Author Organization [facility] Address [address] [place] [address] Care Team Providers Care Care Team Coordinator Scheduler Name Role Phone BRICE ORTEGA Referring Provider [phone] BRICE ORTEGA Primary Care Provider Assessment Encounter Date Assessment Date Assessment LastModified by Organization Details LastModified Time 09/01/2024 09/01/2024 Assessment: Pt was challenged by new exercises but able to complete with vc's. Decreased weight for supine shld flex today due to anterior shld/biceps soreness with heavier wts today. Plan: Continue PT @ 2x/wk for 8 weeks to decrease pain, increase ROM, optimize mechanics, and improve participation in functional activities. 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 CLERK AT 6 MONTHS TENNIS/PICKLE BALL: BALL AGAINST WALL, VERY LIGHT RALLIES AT 4 MONTHS; NO COMPETITIVE GAMES UNTIL AFTER 6 MONTHS NO CONTACT SPORTS FOR AT LEAST 6 MONTHS [email or web address] Not available 09/01/2024 11:33:14 Plan of Treatment Reminders Order Date Submit [...] Abnormal Flag Note LastModifiedBy Organization Detail LastModifiedTime 08/11/20 24 08/11/2024 XR, beth onelia, 2 or more view [email or web address] ?Encry pted=s hAaTro YD8dLq bEUv6g %2BXZw aYqtaq 0bqfl% 2Fg9IQ a4ajBk vP9nXo QUaueC m3YtLR FvZlgJ JJ8mAn HZtai3 4y6835 AC0Kqa nWAWaS vKiQtr MwF INTERFACE [facility] [address], [place], [address], 08/11/2024 14:13:43 08/11/20 24 08/11/2024 XR, shoul onelia, 2 or more view [email or web address] ?Encry pted=s hAaTro YD8dLq bEUv6g %2BXZw aYqtaq 0bqfl% 2Fg9IQ a4ajBk vP9nXo QUaueC m3YtLR FvZlgJ JJ8mAn HZtai3 3h3117 AC0Kqa nWAWaS vKiQtr MwF INTERFACE [facility] [address], [place], [address], 08/11/2024 14:13:45 08/29/20 24 08/29/2024 XR, hand, 3 or more view [email or web address] ?Encry pted=s hAaTro YD8dLq bEUv6g %2BXZw aYqtaq 0bqfl% 2Fg9IQ a4ajBk vP9nXo QUaueC m3YtLR FvZlgJ JJ8mAn HZtai3 3x0090 AC0Kqa HyCUaO jKiQtr MwF INTERFACE [facility] [address], [place], [address], 08/29/2024 14:55:51 08/29/20 24 08/29/2024 XR, hand, 3 or more view [email or web address] ?Encry pted=s hAaTro YD8dLq bEUv6g %2BXZw aYqtaq 0bqfl% 2Fg9IQ a4ajBk vP9nXo QUaueC m3YtLR FvZlgJ JJ8[place] HZtai3 2n3071 AC0Kqa HyCUaO jKiQtr MwF INTERFACE [facility] [address], [place], [address], 08/29/2024 14:55:55 10/16/20 24 10/16/2024 XR, shoul onelia, 2 or more view [email or web address] ?Encry pted=s hAaTro YD8dLq bEUv6g %2BXZw aYqtaq 0bqfl% 2Fg9IQ a4ajBk vP9nXo QUaueC m3YtLR FvZl J8[place] HZtai3 1a8107 AC0Kqb nyBVaW gKiQtr MwF INTERFACE [facility] [address], [place], [address], 10/16/2024 11:27:48 10/16/20 24 10/16/2024 XR, shoul onelia, 2 or more view [email or web address] ?Encry pted=s hAaTro YD8dLq bEUv6g %2BXZw aYqtaq 0bqfl% 2Fg9IQ a4ajBk vP9nXo QUaueC m3YtLR FvZl J8[place] HZtai3 4z5463 AC0Kqb nyBVaW gKiQtr MwF INTERFACE [facility] [address], [place], [address], 10/16/2024 11:27:50 Result Notes None recorded. Problems Name Problem SNOMED Code Status Onset Date Resolution Date Notes Provider Name and Address Organization Details Recorded Time No complaints 343384333 Active Status : 'A'; Not Available [facility] 09:25:45 Lesion of lung 870493076 Active 2023 ROXANA SEGURA [facility], [facility] 12:17:47 Problem Notes None recorded. Procedures Surgical History Date Name Laterality Status Provider Name and Address Organization Details Recorded Time 4 09566 Therapeutic Exercise (1:1) completed Shaun Bynum, SNOW PLOW TRACTOR OPERATOR [address], [place], [address], [facility] 08/14/2024 14:53:22 4 56387 Therapeutic Exercise (1:1) completed Karlee Cardona, PT [address], [place], [address], [facility] 08/10/2024 23:13:44 4 78546 Therapeutic Exercise (1:1) completed Shaun Bynum, SNOW PLOW TRACTOR OPERATOR [address], [place], [address], [facility] 08/07/2024 14:30:15 4 93643 Therapeutic Exercise (1:1) completed Karlee Cardona, PT [address], [place], [address], [facility] 08/03/2024 22:12:27 4 47804 Therapeutic Exercise (1:1) completed Shaun Bynum PTA [address], [place], [address], [facility] 07/31/2024 15:16:09 4 88197 Therapeutic Exercise (1:1) completed Karlee Cardona, PT [address], [place], [address], [facility] 07/29/2024 06:56:55 4 60276 Therapeutic Exercise (1:1) completed Shaun Bynum SNOW PLOW TRACTOR OPERATOR [address], [place], [address], [facility] 07/24/2024 14:19:39 4 79621 Therapeutic Exercise (1:1) completed Karlee Cardona, PT [address], [place], [address], [facility] 07/21/2024 22:35:29 4 38205 Therapeutic Exercise (1:1) completed Shaun Bynum, SNOW PLOW TRACTOR OPERATOR [address], [place], [address], [facility] 07/17/2024 14:07:03 4 81004 Therapeutic Exercise (1:1) completed Karlee Cardona, PT [address], [place], [address], [facility] 07/15/2024 00:17:13 4 51944 Therapeutic Exercise (1:1) completed Shaun Bynum, SNOW PLOW TRACTOR OPERATOR [address], [place], [address], [facility] 07/11/2024 09:03:20 4 51665: Manual therapy completed Shaun Bynum, SNOW PLOW TRACTOR OPERATOR [address], [place], [address], [facility] 07/11/2024 09:05:30 4 10832 Therapeutic Exercise (1:1) completed Shaun Bynum SNOW PLOW TRACTOR OPERATOR [address], [place], [address], [facility] 07/08/2024 07:52:09 4 18837 Therapeutic Exercise (1:1) completed Belkis Calderon, SNOW PLOW TRACTOR OPERATOR [address], [place], [address], [facility] 07/04/2024 16:55:00 4 42095 Therapeutic Exercise (1:1) completed Karlee Cardona, PT [address], [place], [address], [facility] 06/30/2024 23:19:58 4 66523 Therapeutic Exercise (1:1) completed Shaun Bynum, SNOW PLOW TRACTOR OPERATOR [address], [place], [address], [facility] 06/26/2024 16:05:02 4 23090 Therapeutic Exercise (1:1) completed Karlee Cardona, PT [address], [place], [address], [facility] 06/22/2024 21:42:13 4 08096 Therapeutic Exercise (1:1) completed Shaun Bynum, SNOW PLOW TRACTOR OPERATOR [address], [place], [address], [facility] 06/20/2024 07:57:57 4 32512 Therapeutic Exercise (1:1) completed Belkis Calderon, SNOW PLOW TRACTOR OPERATOR [address], [place], [address], [facility] 06/16/2024 16:32:39 4 37769 Therapeutic Exercise (1:1) completed Shaun Bynum, SNOW PLOW TRACTOR OPERATOR [address], [place], [address], [facility] 06/12/2024 14:25:56 4 54883: Hot or Cold Pack completed Shaun Bynum SNOW PLOW TRACTOR OPERATOR [address], [place], [address], [facility] 06/12/2024 13:24:39 4 26880 Therapeutic Exercise (1:1) completed Shaun Bynum, SNOW PLOW TRACTOR OPERATOR [address], [place], [address], [facility] 06/09/2024 11:25:26 4 61834: Hot or Cold Pack completed Shaun Bynum, SNOW PLOW TRACTOR OPERATOR [address], [place], [address], [facility] 06/09/2024 11:25:15 4 35569 Therapeutic Exercise (1:1) completed Karlee Cardona, PT [address], [place], [address], [facility] 06/06/2024 11:55:51 4 30874: Low complexity PT Eval completed Karlee Cardona, PT [address], [place], [address], [facility] 06/06/2024 12:05:01 4 G8417 BMI Above Upper Parameters, F/U Documented completed Karlee Cardona, PT [address], [place], [address], [facility] 06/04/2024 23:07:37 4 G8427 Current Medication Documented completed Karlee Cardona, PT [address], [place], [address], [facility] 06/04/2024 23:07:42 Imaging Results None recorded. Procedure [...] Status Former Smoker DELFINA gracia [place] - [facility] 04/14/2024 12:55:54 How Many Times Per Week Do You Consume Alcohol? Less Than 1 Time Per Week Information not available 04/14/2024 Do You Or Have You Ever Used E-cigarettes Or Vape? Never Used Electronic Cigarettes Information not available 04/14/2024 When Did You Quit Smoking? 16+yearssincel abbieryan Information not available 04/14/2024 What Is Your [...] Response Allergies/Hayfever N Coronary Artery Disease N Anxiety/Depression N Breathing or lung disorders N Emphysema N Nerve Disorders N Thyroid Problems N COPD N Pacemaker N Anemia N Kidney/Bladder Problems N Vascular Disease N Heart Trouble N Heart Attack ([place]) N Gastrointestinal Disease N Cholesterol N Diabetes N Autoimmune disease N Bleeding Disorder N Orthotics N Arthritis N Seizures/Epilepsy Y Blood Clot N AIDS/HIV N Congestive Heart Failure (CHF) N Acid Reflux (GERD) N Cancer N Stroke N Asthma N Circulation Problems N Peripheral Vascular Disease N Sleep Apnea N Hepatitis N Heart Disease N Rheumatoid Arthritis N Arrhythmia N Pulmonary Embolism N Headaches N Fibromyalgia N Hypertension Y Osteoporosis N Gynecological HistoryNo gynecological history recorded. Obstetrics History GPAL:G 0 P 0 0 0 0 Past Encounters Encounter ID Performer Location Encounter Start Date Encounter Closed Date Diagnosis/Indication Diagnosis SNOMED-CT Code Diagnosis ICD10 Code [id number] Laurence Simms MD [facility] 2nd floor [address] [place] [address] 08/11/2024 13:48:05 09/05/2024 09:27:06 History of reverse prosthetic total arthroplasty of right shoulder [id number] Z96.265 [id number] Karlee Cardona, PT [facility] [address] [place] [address] 08/04/2024 10:50:03 08/04/2024 15:21:48 Aftercare 980051486 Z47.1 Z96.115 [id number] Alejandro Jiménez DPT [facility] [address] [place] [address] 08/07/2024 13:17:35 08/07/2024 15:58:33 Aftercare 839791482 Z47.1 Z96.864 [id number] Laurence Simms MD [facility] [address] [place] [address] 08/11/2024 10:49:49 08/11/2024 12:02:31 Aftercare 867365769 Z47.1 Z96.662 [id number] Karlee Cardona PT [facility] [address] [place] [address] 08/14/2024 14:47:52 08/15/2024 07:32:59 Aftercare 776472637 Z47.1 Z96.994 [id number] Alejandro Jiménez T [facility] [address] [place] [address] 08/21/2024 12:57:26 08/21/2024 15:12:52 Aftercare [id number] Z47.1 Z96.420 [id number] Karlee Cardona, PT [facility] [address] [place] [address] 08/25/2024 11:44:19 08/25/2024 13:06:16 Aftercare 885604353 Z47.1 Z96.754 [id number] Alejandro Jiménez, DPT [facility] [address] [place] [address] 08/28/2024 12:55:10 08/28/2024 14:27:04 Aftercare [id number] Z47.1 Z96.587 [id number] LEYLA Becerra [address] [place] [address] 08/29/2024 14:20:00 09/24/2024 10:23:26 Pain of left hand [id number] 62931 M79.829 [id number] Karlee Cardona, PT [facility] [address] [place] [address] 09/01/2024 10:19:05 09/01/2024 11:46:47 Aftercare [id number] Z47.1 Z96.611 Health Concerns Section Related Observation LastModified by Organization Detai ls LastModified Time None Recorded Concern Status LastModified by Organization Details LastModified Time None Recorded Payers Encounter Date Sequence Insurance Name Policy Number Policy Ferris Covered Member ID Ferris Member ID Guarantor Name 09/01/2024 1 [place] [employer] Pascale Oates [id number] Pascale Oates 09/01/2024 2 [place] [id number] Pascale Oates [id number] Pascale Oates Notes Date Note Type Note Provider Name and Address Organization Details Recorded Time 09/01/2024 text/html Pt. reports that her shoulder is sore today, primarily in her biceps region, after doing some yardwork on Sunday & then reaching for her alarm clock yesterday. Karlee Cardona, PT [address], [place], [address], [place] - [facility] 09/01/2024 11:33:30 OBGyn Episode No OBEpisode recorded.
--- OUTSIDE RECORDS SUMMARY | 2024-10-30 10:28 | XMS_ITS | Continuity of Care Document ---
Author Organization [facility] PT Address [address] [place] [address] Care Team Providers Care Pay Station Attendant Name Role Phone BRICE ORTEGA Referring Provider [phone] BRICE ORTEGA Primary Care Provider [phone] Assessment Encounter Date Assessment Date Assessment LastModified by Organization Details LastModified Time 09/15/2024 09/15/2024 Assessment: Pt was fatigued after all of the standing exercises & requested not to do table ex today. 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 TENNIS/PICKLE BALL: BALL AGAINST WALL, VERY LIGHT RALLIES AT 4 MONTHS; NO COMPETITIVE GAMES UNTIL AFTER 6 MONTHS NO CONTACT SPORTS FOR AT LEAST 6 MONTHS [email or web address] Not available 09/15/2024 10:55:29 Plan of Treatment Reminders Order Date Submit [...] a4ajBk vP9nXo QUaueC m3YtLR FvZlgJ JJ8mAn HZtai3 [id number] AC0Kqa HyCUaO jKiQtr MwF INTERFACE [facility] [address], [place], [address], 08/29/2024 14:55:51 08/29/20 24 08/29/2024 XR, hand, 3 or more view [email or web address] ?Encry pted=s hAaTro YD8dLq bEUv6g %2BXZw aYqtaq 0bqfl% 2Fg9IQ a4ajBk vP9nXo QUaueC m3YtLR FvZl JJ8[place] HZtai3 9s0187 AC0Kqa HyCUaO jKiQtr MwF INTERFACE [facility] [address], [place], [address], 08/29/2024 14:55:55 10/16/20 24 10/16/2024 XR, shoul onelia, 2 or more view [email or web address] ?Encry pted=s hAaTro YD8dLq bEUv6g %2BXZw aYqtaq 0bqfl% 2Fg9IQ a4ajBk vP9nXo QUaueC m3YtLR FvZlg JJ8Cle[place]on HZtai3 3q1539 AC0Kqb nyBVaW gKiQtr MwF INTERFACE [facility] [address], [place], [address], 10/16/2024 11:27:48 10/16/20 24 10/16/2024 XR, shoul onelia, 2 or more view [email or web address]:/ [email or web address] ?Encry pted=s hAaTro YD8dLq bEUv6g %2BXZw aYqtaq 0bqfl% 2Fg9IQ a4ajBk vP9nXo QUaueC m3YtLR FvZlgJ JJ8mAn HZtai3 7z3683 AC0Kqb nyBVaW gKiQtr MwF INTERFACE [facility] [address], [place], [address], 10/16/2024 11:27:50 Result Notes None recorded. Problems Name Problem SNOMED Code Status Onset Date Resolution Date Notes Provider Name and Address Organization Details Recorded Time No complaints 726616484 Active Status : 'A'; Not Available [facility] 09:25:45 Lesion of lung 946469602 Active 2023 ROXANA SEGURA [facility] 12:17:47 Problem Notes None recorded. Procedures Surgical History Date Name Laterality Status Provider Name and Address Organization Details Recorded Time 4 99902 Therapeutic Exercise (1:1) completed Shaun Bynum, ALEX [address] [facility], [place], [address], [facility] 08/14/2024 14:53:22 4 24515 Therapeutic Exercise (1:1) completed Karlee Cardona, PT [address] [place] [address], [address], [facility] 08/10/2024 23:13:44 4 16560 Therapeutic Exercise (1:1) completed Shaun Bynum PTA [address] [facility], [place], [address], [facility] 08/07/2024 14:30:15 4 63075 Therapeutic Exercise (1:1) completed Karlee Cardona, PT [address] [facility], [place], [address], [facility] 08/03/2024 22:12:27 4 77276 Therapeutic Exercise (1:1) completed Shaun Bynum PTA [address], [place], [address], [facility] 07/31/2024 15:16:09 4 37213 Therapeutic Exercise (1:1) completed Karlee Cardona, PT [address], [place], [address], [facility] 07/29/2024 06:56:55 4 98591 Therapeutic Exercise (1:1) completed Shaun Bynum, PSYCHOLOGICAL EXAMINER [address], [place], [address], [facility] 07/24/2024 14:19:39 4 34878 Therapeutic Exercise (1:1) completed Karlee Cardona, PT [address], [place], [address], [facility] 07/21/2024 22:35:29 4 37747 Therapeutic Exercise (1:1) completed Shaun Bynum PTA [address], [place], [address], [facility] 07/17/2024 14:07:03 4 53567 Therapeutic Exercise (1:1) completed Karlee Cardona, PT [address], [place], [address], [facility] 07/15/2024 00:17:13 4 24125 Therapeutic Exercise (1:1) completed Shaun Bynum PTA [address], [place], [address], [facility] 07/11/2024 09:03:20 4 09615: Manual therapy completed Shaun Bynum PTA [address], [place], [address], [facility] 07/11/2024 09:05:30 4 33969 Therapeutic Exercise (1:1) completed Shaun Bynum PSYCHOLOGICAL EXAMINER [address], [place], [address], [facility] 07/08/2024 07:52:09 4 20098 Therapeutic Exercise (1:1) completed Belkis Calderon PTA [address], [place], [address], [facility] 07/04/2024 16:55:00 4 05503 Therapeutic Exercise (1:1) completed Karlee Cardona, PT [address], [place], [address], [facility] 06/30/2024 23:19:58 4 53517 Therapeutic Exercise (1:1) completed Shaun Bynum PTA [address], [place], [address], [facility] 06/26/2024 16:05:02 4 01886 Therapeutic Exercise (1:1) completed Karlee Cardona, PT [address], [place], [address], [facility] 06/22/2024 21:42:13 4 31590 Therapeutic Exercise (1:1) completed Shaun Bynum PTA [address], [place], [address], [facility] 06/20/2024 07:57:57 4 10654 Therapeutic Exercise (1:1) completed Belkis Calderon PTA [address], [place], [address], [facility] 06/16/2024 16:32:39 4 00791 Therapeutic Exercise (1:1) completed Shaun Bynum PTA [address], [place], [address], [facility] 06/12/2024 14:25:56 4 36836: Hot or Cold Pack completed Shaun Bynum PTA [address], [place], [address], [facility] 06/12/2024 13:24:39 4 25628 Therapeutic Exercise (1:1) completed Shaun Bynum, PSYCHOLOGICAL EXAMINER [address] [facility], [place], [address], [facility] 06/09/2024 11:25:26 4 63526: Hot or Cold Pack completed Shaun Bynum, PSYCHOLOGICAL EXAMINER [address], [place], [address], [facility] 06/09/2024 11:25:15 4 88669 Therapeutic Exercise (1:1) completed Karlee Cardona, PT [address] [facility], [place], [address], [facility] 06/06/2024 11:55:51 4 41907: Low complexity PT Eval completed Karlee Cardona, PT [address] [facility], [place], [address], [facility] 06/06/2024 12:05:01 4 G8417 BMI Above Upper Parameters, F/U Documented completed Karlee Cardona, PT [address] [facility], [place], [address], [facility] 06/04/2024 23:07:37 4 G8427 Current Medication Documented completed Karlee Cardona, PT [address] [facility], [place], [address], [facility] 06/04/2024 23:07:42 Imaging Results None recorded. Procedure [...] Status Former Smoker DELFINA gracia [place] - [place] [facility] 04/14/2024 12:55:54 How Many Times Per Week Do You Consume Alcohol? Less Than 1 Time Per Week Information not available 04/14/2024 Do You Or Have You Ever Used E-cigarettes Or Vape? Never Used Electronic Cigarettes Information not available 04/14/2024 When Did You Quit Smoking? 16+yearssincel neo Information not available 04/14/2024 What Is Your [...] History Nothing Reported. Medical History Condition Response Coronary Artery Disease N Anxiety/Depression N Emphysema N COPD N Pacemaker N Vascular Disease N Heart Trouble N Gastrointestinal Disease N Autoimmune disease N Orthotics N Arthritis N Blood Clot N Acid Reflux (GERD) N Cancer N Stroke N Circulation Problems N Rheumatoid Arthritis N Arrhythmia N Headaches N Fibromyalgia N Allergies/Hayfever N Breathing or lung disorders N Nerve Disorders N Thyroid Problems N Kidney/Bladder Problems N Anemia N Heart Attack ([place]) N Cholesterol N Diabetes N Bleeding Disorder N Seizures/Epilepsy Y AIDS/HIV N Congestive Heart Failure (CHF) N Asthma N Peripheral Vascular Disease N Sleep Apnea N Hepatitis N Heart Disease N Pulmonary Embolism N Hypertension Y Osteoporosis N Gynecological HistoryNo gynecological history recorded. Obstetrics History GPAL:G 0 P 0 0 0 0 Past Encounters Encounter ID Performer Location Encounter Start Date Encounter Closed Date Diagnosis/Indication Diagnosis SNOMED-CT Code Diagnosis ICD10 Code [id number] Alejandro Jiménez DPT [facility] on PT [address] [place] [address] 08/21/2024 12:57:26 08/21/2024 15:12:52 Aftercare 832532016 Z47.1 Z96.957 [id number] Karlee Cardona, [facility] on PT [address] [place] [address] 08/25/2024 11:44:19 08/25/2024 13:06:16 Aftercare [id number] Z47.1 Z96.694 [id number] Alejandro Jiménez [facility] on PT [address] [place] [address] 08/28/2024 12:55:10 08/28/2024 14:27:04 Aftercare 636711140 Z47.1 Z96.645 [id number] LEYLA Becerra [address] [place] [address] 08/29/2024 14:20:00 09/24/2024 10:23:26 Pain of left hand [id number] 81342 M79.764 [id number] Karlee Cardona, PT [facility] [address] [place] [address] 09/01/2024 10:19:05 09/01/2024 11:46:47 Aftercare [id number] Z47.1 Z96.588 [id number] Alejandro Jiménez, DPT [facility] [address] [place] [address] 09/04/2024 12:58:01 09/04/2024 14:52:00 Aftercare [id number] Z47.1 Z96.993 [id number] Karlee Cardona, PT [facility] [address] [place] [address] 09/08/2024 09:54:41 09/08/2024 11:09:28 Aftercare [id number] Z47.1 Z96.079 [id number] Alejandro Jiménez, DPT [facility] [address] [place] [address] 09/11/2024 12:56:13 09/11/2024 14:05:48 Aftercare [id number] Z47.1 Z96.219 [id number] Karlee Cardona, PT [facility] [address] [place] [address] 09/15/2024 09:48:35 09/15/2024 11:22:28 Aftercare [id number] Z47.1 Z96.611 Health Concerns Section Related Observation LastModified by Organization Detai ls LastModified Time None Recorded Concern Status LastModified by Organization Details LastModified Time None Recorded Payers Encounter Date Sequence Insurance Name Policy Number Policy Ferris Covered Member ID Ferris Member ID Guarantor Name 09/15/2024 1 [place] [employer] Pascale Oates [id number] Pascale Oates 09/15/2024 2 [place] [id number] Pascale Oates [id number] Pascale Oates Notes Date Note Type Note Provider Name and Address Organization Details Recorded Time 09/15/2024 text/html Pt. reports that she has a little bit of biceps/upper arm soreness today. Pt also reports that she had a small episode of partial blacking out yesterday. It was the first one since being weaned off her seizure medication. She plans to call her MD about this. Karlee Cardona, PT [address], [place], [address], [facility] 09/15/2024 11:06:19 OBGyn Episode No OBEpisode recorded.
--- OUTSIDE RECORDS SUMMARY | 2024-10-30 10:28 | XMS_ITS | Continuity of Care Document ---
Author Organization [facility] PT Address [address] [place] [address] Care Team Providers Care Diesel Technician Mechanic Name Role Phone BRICE ORTEGA Referring Provider [phone] BRICE ORTEGA Primary Care Provider Assessment Encounter Date Assessment Date Assessment LastModified by Organization Details LastModified Time 09/11/2024 09/11/2024 Assessment: Held S/L exercises dt hip pain, was able to complete rest of strengthening exercises without an increase in hip pain. Demonstrates good shoulder mechanics with all strengthening exercises. 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 TENNIS/PICKLE BALL: BALL AGAINST WALL, VERY LIGHT RALLIES AT 4 MONTHS; NO COMPETITIVE GAMES UNTIL AFTER 6 MONTHS NO CONTACT SPORTS FOR AT LEAST 6 MONTHS rylee Not available 09/11/2024 13:54:52 Plan of Treatment Reminders Order Date Submit [...] LastModifiedBy Organization Detail LastModifiedTime 08/11/20 24 08/11/2024 XRbeth, 2 or more view [email or web address] ?Encry pted=s hAaTro YD8dLq bEUv6g %2BXZw aYqtaq 0bqfl% 2Fg9IQ a4ajBk vP9nXo QUaueC m3YtLR FvZlgJ JJ8mAn HZtai3 6m0185 AC0Kqa [facility] vKiQtr MwF INTERFACE [facility] [address], [place], [address], 08/11/2024 14:13:43 08/11/20 24 08/11/2024 XR, shoul onelia, 2 or more view [email or web address]:/ [email or web address] ?Encry pted=s hAaTro YD8dLq bEUv6g %2BXZw aYqtaq 0bqfl% 2Fg9IQ a4ajBk vP9nXo QUaueC m3YtLR FvZlgJ JJ8mAn HZtai3 9n2222 AC0Kqa nWBayRidge HospitalS vKiQtr MwF INTERFACE [facility] [address], [place], [address], 08/11/2024 14:13:45 08/29/20 24 08/29/2024 XR, hand, 3 or more view [email or web address]:/ [email or web address] ?Encry pted=s hAaTro YD8dLq bEUv6g %2BXZw aYqtaq 0bqfl% 2Fg9IQ a4ajBk vP9nXo QUaueC m3YtLR FvZlgJ JJ8mAn HZtai3 7r7603 AC0Kqa HyCUaO jKiQtr MwF INTERFACE [facility] [address], [place], [address], 08/29/2024 14:55:51 08/29/20 24 08/29/2024 XR, hand, 3 or more view [email or web address]:/ [email or web address] ?Encry pted=s hAaTro YD8dLq bEUv6g %2BXZw aYqtaq 0bqfl% 2Fg9IQ a4ajBk vP9nXo QUaueC m3YtLR FvZlgJ JJ8mAn HZtai3 1q6292 AC0Kqa HyCUaO jKiQtr MwF INTERFACE [facility] [address], [place], [address], 08/29/2024 14:55:55 10/16/20 24 10/16/2024 XR, shoul onelia, 2 or more view [email or web address]:/ [email or web address] ?Encry pted=s hAaTro YD8dLq bEUv6g %2BXZw aYqtaq 0bqfl% 2Fg9IQ a4ajBk vP9nXo QUaueC m3YtLR FvZl JJ8Canvas HZtai3 7d8734 AC0Kqb nyBVaW gKiQtr MwF INTERFACE [facility] [address], [place], [address], 10/16/2024 11:27:48 10/16/20 24 10/16/2024 XR, beth onelia, 2 or more view [email or web address]:/ [email or web address] ?Encry pted=s hAaTro YD8dLq bEUv6g %2BXZw aYqtaq 0bqfl% 2Fg9IQ a4ajBk vP9nXo QUaueC m3YtLR FvZlg JJ8mAn HZtai3 3n7779 AC0Kqb nyBVaW gKiQtr MwF INTERFACE [facility] [address], [place], [address], 10/16/2024 11:27:50 Result Notes None recorded. Problems Name Problem SNOMED Code Status Onset Date Resolution Date Notes Provider Name and Address Organization Details Recorded Time No complaints 261074491 Active Status : 'A'; [facility] Available [facility] 09:[facility]:45 Lesion of lung 699315759 Active 2023 [facility] 12:17:47 Problem Notes None recorded. Procedures Surgical History Date Name Laterality Status Provider Name and Address Organization Details Recorded Time 4 59347 Therapeutic Exercise (1:1) completed Shaun Bynum, CHASER TAR [address], [place], [address], [facility] 08/14/2024 14:53:22 4 74322 Therapeutic Exercise (1:1) completed Karlee Cardona, PT [address], [place], [address], [facility] 08/10/2024 23:13:44 4 78578 Therapeutic Exercise (1:1) completed Shaun Bynum, CHASER TAR [address], [place], [address], [facility] 08/07/2024 14:30:15 4 59192 Therapeutic Exercise (1:1) completed Karlee Cardona, PT [address], [place], [address], [facility] 08/03/2024 22:12:27 4 78908 Therapeutic Exercise (1:1) completed Shaun Bynum CHASER TAR [address], [place], [address], [facility] 07/31/2024 15:16:09 4 90234 Therapeutic Exercise (1:1) completed Karlee Cardona, PT [address], [place], [address], [facility] 07/29/2024 06:56:55 4 72471 Therapeutic Exercise (1:1) completed Shaun Bynum, CHASER TAR [address], [place], [address], [facility] 07/24/2024 14:19:39 4 97271 Therapeutic Exercise (1:1) completed Karlee Cardona, PT [address], [place], [address], [facility] 07/21/2024 22:35:29 4 84999 Therapeutic Exercise (1:1) completed Shaun Bynum, CHASER TAR [address], [place], [address], [facility] 07/17/2024 14:07:03 4 61346 Therapeutic Exercise (1:1) completed Karlee Cardona, PT [address], [place], [address], [facility] 07/15/2024 00:17:13 4 30844 Therapeutic Exercise (1:1) completed Shaun Bynum, CHASER TAR [address], [place], [address], [facility] 07/11/2024 09:03:20 4 47373: Manual therapy completed Shaun Bynum, CHASER TAR [address], [place], [address], [facility] 07/11/2024 09:05:30 4 92412 Therapeutic Exercise (1:1) completed Shaun Bynum, CHASER TAR [address], [place], [address], [facility] 07/08/2024 07:52:09 4 47991 Therapeutic Exercise (1:1) completed Belkis Calderon, CHASER TAR [address], [place], [address], [facility] 07/04/2024 16:55:00 4 67822 Therapeutic Exercise (1:1) completed Karlee Cardona, PT [address], [place], [address], [facility] 06/30/2024 23:19:58 4 00325 Therapeutic Exercise (1:1) completed Shaun Bynum, CHASER TAR [address], [place], [address], [facility] 06/26/2024 16:05:02 4 50969 Therapeutic Exercise (1:1) completed Karlee Cardona, PT [address], [place], [address], [facility] 06/22/2024 21:42:13 4 20424 Therapeutic Exercise (1:1) completed Shaun Bynum, CHASER TAR [address], [place], [address], [facility] 06/20/2024 07:57:57 4 81189 Therapeutic Exercise (1:1) completed Belkis Calderon, CHASER TAR [address], [place], [address], [facility] 06/16/2024 16:32:39 4 68892 Therapeutic Exercise (1:1) completed Shaun Bynum CHASER TAR [address], [place], [address], [facility] 06/12/2024 14:25:56 4 69947: Hot or Cold Pack completed Shaun Bynum CHASER TAR [address], [place], [address], [facility] 06/12/2024 13:24:39 4 95395 Therapeutic Exercise (1:1) completed Shaun Bynum CHASER TAR [address], [place], [address], [facility] 06/09/2024 11:25:26 4 35823: Hot or Cold Pack completed Shaun Bynum CHASER TAR [address], [place], [address], [facility] 06/09/2024 11:25:15 4 92635 Therapeutic Exercise (1:1) completed Karlee Cardona, PT [address], [place], [address], [facility] 06/06/2024 11:55:51 4 25066: Low complexity PT Eval completed Karlee Cardona, PT [address], [place], [address], [facility] 06/06/2024 12:05:01 4 G8417 BMI Above Upper Parameters, F/U Documented completed Karlee Cardona, PT [address], [place], [address], [facility] 06/04/2024 23:07:37 4 G8427 Current Medication Documented completed Karlee Cardona, PT [address], [place], [address], [facility] 06/04/2024 23:07:42 Imaging Results None recorded. [...] Status Former Smoker DELFINA gracia [place] - [facility] 04/14/2024 12:55:54 How Many Times Per [...] Disease N Heart Trouble N Heart Attack (DC) N Gastrointestinal Disease N Cholesterol N Diabetes [...] Diagnosis/Indication Diagnosis SNOMED-CT Code Diagnosis ICD10 Code [id number] Laurence Simms MD [facility] 2nd floor [address] [place] [address] 08/11/2024 13:48:05 09/05/2024 09:27:06 History of reverse prosthetic total arthroplasty of right shoulder [id number] Z96.757 [id number] Laurence Simms MD [facility] on [address] [place] [address] 08/11/2024 10:49:49 08/11/2024 12:02:31 Aftercare [id number] Z47.1 Z96.272 [id number] Karlee Cardona, PT [facility] [address] [place] [address] 08/14/2024 14:47:52 08/15/2024 07:32:59 Aftercare [id number] Z47.1 Z96.127 [id number] Alejandro Jiménez, T [facility] on [address] [place] [address] 08/21/2024 12:57:26 08/21/2024 15:12:52 Aftercare [id number] Z47.1 Z96.727 [id number] Karlee Cardona, PT [facility] [address] [place] [address] 08/25/2024 11:44:19 08/25/2024 13:06:16 Aftercare [id number] Z47.1 Z96.979 [id number] Alejandro Jiménez, T [facility] on [address] [place] [address] 08/28/2024 12:55:10 08/28/2024 14:27:04 Aftercare [id number] Z47.1 Z96.925 [id number] Angie Garcia PA-C [facility] [address] [place] [address] 08/29/2024 14:20:00 09/24/2024 10:23:26 Pain of left hand [id number] 40773 M79.496 [id number] Karlee Cardona, PT [facility] [address] [place] [address] 09/01/2024 10:19:05 09/01/2024 11:46:47 Aftercare [id number] Z47.1 Z96.534 [id number] Alejandro Jiménez, DPT [facility] [address] [place] [address] 09/04/2024 12:58:01 09/04/2024 14:52:00 Aftercare [id number] Z47.1 Z96.419 [id number] Karlee Cardona, PT [facility] [address] [place] [place] [address] 09/08/2024 09:54:41 09/08/2024 11:09:28 Aftercare [id number] Z47.1 Z96.495 [id number] Alejandro Jiménez, DPT [facility] [address] [place] [address] 09/11/2024 12:56:13 09/11/2024 14:05:48 Aftercare [id number] Z47.1 Z96.611 Health Concerns Section Related Observation LastModified by Organization Detai ls LastModified Time None Recorded Concern Status LastModified by Organization Details LastModified Time None Recorded Payers Encounter Date Sequence Insurance Name Policy Number Policy Ferris Covered Member ID Ferris Member ID Guarantor Name 09/11/2024 1 [place] [employer] P[place]ale Oates [id number] [employer]ale Oates 09/11/2024 2 [place] [id number] Pascale Oates [id number] Pascale Oates Notes Date Note Type Note Provider Name and Address Organization Details Recorded Time 09/11/2024 text/html Pt. reports that his shoulder is feeling overall ok, able to reach for the top cabinets without difficulty. Shaun Bynum, CHASER TAR [address], [place], [address], [facility] 09/11/2024 13:55:35 OBGyn Episode No OBEpisode recorded.
--- OUTSIDE RECORDS SUMMARY | 2024-10-30 10:28 | XMS_ITS | Continuity of Care Document ---
Author Organization [facility], [facility] PT Address [address] [place] [address] Care Team Providers Care Wireline Field Operator Name Role Phone BRICE ORTEGA Referring Provider [phone] BRICE ORTEGA Primary Care Provider Assessment Encounter Date Assessment Date Assessment LastModified by Organization Details LastModified Time 09/08/2024 09/08/2024 Assessment: Overall increase in R shoulder A/PROM compared to last measurements taken. Strength is also gradually improving. 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 BALL: BALL AGAINST WALL, VERY LIGHT RALLIES AT 4 MONTHS; NO COMPETITIVE GAMES UNTIL AFTER 6 MONTHS NO CONTACT SPORTS FOR AT LEAST 6 MONTHS [email or web address] Not available 09/08/2024 14:35:42 Plan of Treatment Reminders Order Date Submit [...] LastModifiedBy Organization Detail LastModifiedTime 08/11/20 24 08/11/2024 beth MCKEON, 2 or more view [email or web address] ?Encry pted=s hAaTro YD8dLq bEUv6g %2BXZw aYqtaq 0bqfl% 2Fg9IQ a4ajBk vP9nXo QUaueC m3YtLR FvZlgJ JJ8mAn HZtai3 2r8262 AC0Kqa nWAWaS vKiQtr MwF INTERFACE [facility] [address], [place], [address], 08/11/2024 14:13:43 08/11/2008/11/2024 XR, shoul onelia, 2 or more view [email or web address]:/ [email or web address] ?Encry pted=s hAaTro YD8dLq bEUv6g %2BXZw aYqtaq 0bqfl% 2Fg9IQ a4ajBk vP9nXo QUaueC m3YtLR FvZlg JJ8Lapwai HZtai3 7o9700 AC0Kqa nWAWaS vKiQtr MwF INTERFACE [facility] [address], [place], [address], 08/11/2024 14:13:45 08/29/20 24 08/29/2024 XR, hand, 3 or more view [email or web address] ?Encry pted=s hAaTro YD8dLq bEUv6g %2BXZw aYqtaq 0bqfl% 2Fg9IQ a4ajBk vP9nXo QUaueC m3YtLR FvZlg JJ8Lapwai HZtai3 7k2703 AC0Kqa HyCUaO jKiQtr MwF INTERFACE [facility] [address], [place], [address], 08/29/2024 14:55:51 08/29/2008/29/2024 XR, hand, 3 or more view [email or web address]:/ [email or web address] ?Encry pted=s hAaTro YD8dLq bEUv6g %2BXZw aYqtaq 0bqfl% 2Fg9IQ a4ajBk vP9nXo QUaueC m3YtLR FvZlgJ JJ8mAn HZtai3 4d5458 AC0Kqa HyCUaO jKiQtr MwF INTERFACE [facility] [address], [place], [address], 08/29/2024 14:55:55 10/16/20 24 10/16/2024 XR, shoul onelia, 2 or more view [email or web address] ?Encry pted=s hAaTro YD8dLq bEUv6g %2BXZw aYqtaq 0bqfl% 2Fg9IQ a4ajBk vP9nXo QUaueC m3YtLR FvZlgJ JJ8mAn HZtai3 6s6470 AC0Kqb nyBVaW gKiQtr MwF INTERFACE [facility] [address], [place], [address], 10/16/2024 11:27:48 10/16/20 24 10/16/2024 XR, beth onelia, 2 or more view [email or web address] ?Encry pted=s hAaTro YD8dLq bEUv6g %2BXZw aYqtaq 0bqfl% 2Fg9IQ a4ajBk vP9nXo QUaueC m3YtLR FvZl JJ8mAn HZtai3 1x7989 AC0Kqb nyBVaW gKiQtr MwF INTERFACE [facility] [address], [place], [address], 10/16/2024 11:27:50 Result Notes None recorded. Problems Name Problem SNOMED Code Status Onset Date Resolution Date Notes Provider Name and Address Organization Details Recorded Time No complaints 576625512 Active Status : 'A'; [facility] Available [facility] 09:25:45 Lesion of lung 403778278 Active 2023 ROXANA gracia [place] - [facility] 12:17:47 Problem Notes None recorded. Procedures Surgical History Date Name Laterality Status Provider Name and Address Organization Details Recorded Time 4 86448 Therapeutic Exercise (1:1) completed Shaun Bynum PTA [address], [place], [address], [facility] 08/14/2024 14:53:22 4 40535 Therapeutic Exercise (1:1) completed Karlee Cardona, PT [address], [place], [address], [facility] 08/10/2024 23:13:44 4 35136 Therapeutic Exercise (1:1) completed Shaun Bynum CABLE SPLICER HELPER [address], [place], [address], [facility] 08/07/2024 14:30:15 4 56579 Therapeutic Exercise (1:1) completed Karlee Cardona, PT [address], [place], [address], [facility] 08/03/2024 22:12:27 4 90210 Therapeutic Exercise (1:1) completed Shaun Bynum PTA [address], [place], [address], [facility] 07/31/2024 15:16:09 4 81466 Therapeutic Exercise (1:1) completed Karlee Cardona, PT [address], [place], [address], [facility] 07/29/2024 06:56:55 4 12698 Therapeutic Exercise (1:1) completed Shaun Bynum PTA [address], [place], [address], [facility] 07/24/2024 14:19:39 4 78957 Therapeutic Exercise (1:1) completed Karlee Cardona, PT [address], [place], [address], [facility] 07/21/2024 22:35:29 4 52106 Therapeutic Exercise (1:1) completed Shaun Bynum CABLE SPLICER HELPER [address], [place], [address], [facility] 07/17/2024 14:07:03 4 90550 Therapeutic Exercise (1:1) completed Karlee Cardona, PT [address], [place], [address], [facility] 07/15/2024 00:17:13 4 82568 Therapeutic Exercise (1:1) completed Shaun Bynum, CABLE SPLICER HELPER [address], [place], [address], [facility] 07/11/2024 09:03:20 4 09646: Manual therapy completed Shaun Bynum CABLE SPLICER HELPER [address], [place], [address], [facility] 07/11/2024 09:05:30 4 78020 Therapeutic Exercise (1:1) completed Shaun Bynum CABLE SPLICER HELPER [address], [place], [address], [facility] 07/08/2024 07:52:09 4 95353 Therapeutic Exercise (1:1) completed Belkis Calderon, CABLE SPLICER HELPER [address], [place], [address], [facility] 07/04/2024 16:55:00 4 05845 Therapeutic Exercise (1:1) completed Karlee Cardona, PT [address], [place], [address], [facility] 06/30/2024 23:19:58 4 07978 Therapeutic Exercise (1:1) completed Shuan Bynum CABLE SPLICER HELPER [address], [place], [address], [facility] 06/26/2024 16:05:02 4 01900 Therapeutic Exercise (1:1) completed Karlee Cardona, PT [address], [place], [address], [facility] 06/22/2024 21:42:13 4 59391 Therapeutic Exercise (1:1) completed Shaun Bynum CABLE SPLICER HELPER [address], [place], [address], [facility] 06/20/2024 07:57:57 4 93545 Therapeutic Exercise (1:1) completed Belkis Calderon, CABLE SPLICER HELPER [address], [place], [address], [facility] 06/16/2024 16:32:39 4 20280 Therapeutic Exercise (1:1) completed Shaun Bynum CABLE SPLICER HELPER [address], [place], [address], [facility] 06/12/2024 14:25:56 4 71593: Hot or Cold Pack completed Shaun Bynum PTA [address], [place], [address], [facility] 06/12/2024 13:24:39 4 03108 Therapeutic Exercise (1:1) completed Shaun Bynum CABLE SPLICER HELPER [address], [place], [address], [facility] 06/09/2024 11:25:26 4 38672: Hot or Cold Pack completed Shaun Bynum CABLE SPLICER HELPER [address], [place], [address], [facility] 06/09/2024 11:25:15 4 84010 Therapeutic Exercise (1:1) completed Karlee Cardona, PT [address], [place], [address], [facility] 06/06/2024 11:55:51 4 48160: Low complexity PT Eval completed Karlee Cardona, PT [address], [place], [address], [facility] 06/06/2024 12:05:01 4 G8417 BMI Above Upper Parameters, F/U Documented completed Karlee Cardona, PT [address], [place], [address], [facility] 06/04/2024 23:07:37 4 G8427 Current Medication Documented completed Karlee Cardona, PT [address], [place], [address], [facility] 06/04/2024 23:07:42 Imaging Results None recorded. [...] Status Former Smoker DELFINA gracia [place] - [facility] 04/14/2024 12:55:54 How Many Times Per Week Do You Consume Alcohol? Less Than 1 Time Per Week Information not available 04/14/2024 Do You Or Have You Ever Used E-cigarettes Or Vape? Never Used Electronic Cigarettes Information not available 04/14/2024 When Did You Quit Smoking? 16+yearssincel astcisaminaette Information not available 04/14/2024 What Is Your [...] Kidney/Bladder Problems N Anemia N Heart Attack (ID) N Cholesterol N Diabetes N Bleeding Disorder [...] Diagnosis/Indication Diagnosis SNOMED-CT Code Diagnosis ICD10 Code [id number] Laurence Simms MD [facility] [address]nd floor [address] [place] [address] 08/11/2024 13:48:05 09/05/2024 09:27:06 History of reverse prosthetic total arthroplasty of right shoulder [id number] 9334768 Z96.941 [id number] Laurence Simms MD [facility] on [address] [place] [address] 08/11/2024 10:49:49 08/11/2024 12:02:31 Aftercare [id number] Z47.1 Z96.720 [id number] Karlee Cardona, PT [facility] [address] [place] [address] 08/14/2024 14:47:52 08/15/2024 07:32:59 Aftercare 523739151 Z47.1 Z96.765 [id number] Alejandro Jiménez, JEISONT [facility] [address] [place] [address] 08/21/2024 12:57:26 08/21/2024 15:12:52 Aftercare 307495500 Z47.1 Z96.705 [id number] Karlee Cardona PT [facility] [address] [place] [address] 08/25/2024 11:44:19 08/25/2024 13:06:16 Aftercare 378157857 Z47.1 Z96.647 [id number] Alejandro Jiménez DPT [facility] [address] [place] [address] 08/28/2024 12:55:10 08/28/2024 14:27:04 Aftercare 028326721 Z47.1 Z96.989 [id number] LEYLA Becerra [address] [place] [address] 08/29/2024 14:20:00 09/24/2024 10:23:26 Pain of left hand [id number] 21896 M79.850 [id number] Karleeleta Cardona, PT [facility] [address] [place] [address] 09/01/2024 10:19:05 09/01/2024 11:46:47 Aftercare 930183207 Z47.1 Z96.009 [id number] Aljeandro Jiménez, DPT [facility] [address] [place] [address] 09/04/2024 12:58:01 09/04/2024 14:52:00 Aftercare [id number] Z47.1 Z96.658 [id number] Karleeeva Cardona, PT [facility] [address] [place] [place] [address] 09/08/2024 09:54:41 09/08/2024 11:09:28 Aftercare 074557203 Z47.1 Z96.611 Health Concerns Section Related Observation LastModified by Organization Detai ls LastModified Time None Recorded Concern Status LastModified by Organization Details LastModified Time None Recorded Payers Encounter Date Sequence Insurance Name Policy Number Policy Ferris Covered Member ID Ferris Member ID Guarantor Name 09/08/2024 1 [place] [employer] Pascale Oates [id number] Pascale Oates 09/08/2024 2 [place] [id number] Pascale Oates [id number] Pascale Oates Notes Date Note Type Note Provider Name and Address Organization Details Recorded Time 09/08/2024 text/html Pt. reports her shoulder is feeling really good. Karlee Cardona, PT [address], [place], [address], [facility] - [facility] 09/08/2024 14:36:12 OBGyn Episode No OBEpisode recorded.
--- OUTSIDE RECORDS SUMMARY | 2024-10-30 10:28 | XMS_ITS | Continuity of Care Document ---
Author Organization [facility] PT Address [address] [place] [address] Care Team Providers Care Real Estate Economist Name Role Phone BRICE ORTEGA Referring Provider [phone] BRICE ORTEGA Primary Care Provider Assessment Encounter Date Assessment Date Assessment LastModified by Organization Details LastModified Time 08/04/2024 08/04/2024 Assessment: Improved R shoulder flexion AROM since last measurements.Pt is gradually tolerating increased AROM ex & light resistive ex, without marked increase in pain. Plan: Measure ROM net session Continue PT @ 2x/wk for 8 weeks to decrease pain, increase ROM, optimize mechanics, and improve participation in functional activities. 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 [email or web address] Not Available 06/07 00:39:44 07/05/20 24 06/28/2023 imagi ng/di agnos tic resul t No observ ation record ed. [email or web address] Not Available 06/07 00:39:49 08/11/2008/11/2024 XR, shoul onelia, 2 or more view [email or web address]:/ [email or web address] ?Encry pted=s hAaTro YD8dLq bEUv6g %2BXZw aYqtaq 0bqfl% 2Fg9IQ a4ajBk vP9nXo QUaueC m3YtLR FvZlgJ JJ8mAn HZtai3 7c6491 AC0Kqa [facility] vKiQtr MwF INTERFACE [facility] [address], [place], [address], 08/11/2024 14:13:43 08/11/20 24 08/11/2024 XRbeth onelia, 2 or more view [email or web address]:/ [email or web address] ?Encry pted=s hAaTro YD8dLq bEUv6g %2BXZw aYqtaq 0bqfl% 2Fg9IQ a4ajBk vP9nXo QUaueC m3YtLR FvZl JJ8mAn tai3 8c2172 AC0Kqa [facility] vKiQtr MwF INTERFACE [facility] [address], [place], [address], 08/11/2024 14:13:45 08/29/20 24 08/29/2024 XR, hand, 3 or more view [email or web address] ?Encry pted=s hAaTro YD8dLq bEUv6g %2BXZw aYqtaq 0bqfl% 2Fg9IQ a4ajBk vP9nXo QUaueC m3YtLR FvZlgJ JJ8mAn HZtai3 0k0570 AC0Kqa HyCUaO jKiQtr MwF INTERFACE [facility] [address] [facility] [address], [place], [address], 08/29/2024 14:55:51 08/29/20 24 08/29/2024 XR, hand, 3 or more view [email or web address]:/ [email or web address] ?Encry pted=s hAaTro YD8dLq bEUv6g %2BXZw aYqtaq 0bqfl% 2Fg9IQ a4ajBk vP9nXo QUaueC m3YtLR FvZlgJ JJ8mAn HZtai3 3d1616 AC0Kqa HyCUaO jKiQtr MwF [facility] [address] [facility] [address] [facility] [address], [place], [address], 08/29/2024 14:55:55 10/16/20 24 10/16/2024 XR, shoul onelia, 2 or more view http:/ [email or web address] ?Encry pted=s hAaTro YD8dLq bEUv6g %2BXZw aYqtaq 0bqfl% 2Fg9IQ a4ajBk vP9nXo QUaueC m3YtLR FvZlgJ [place] HZtai3 0h6971 AC0Kqb nyBVaW gKiQtr MwF INTERFACE [facility] [address] [facility] [facility] [address], [place], [address], 10/16/2024 11:27:48 10/16/20 24 10/16/2024 XR, shoul onelia, 2 or more view [email or web address]:/ [email or web address] ?Encry pted=s hAaTro YD8dLq bEUv6g %2BXZw aYqtaq 0bqfl% 2Fg9IQ a4ajBk vP9nXo QUaueC m3YtLR FvZlgJ JJ8mAn HZtai3 2o7261 AC0Kqb nyBVaW gKiQtr MwF INTERFACE [facility] [address], [place], [address], 10/16/2024 11:27:50 Result Notes None recorded. Problems Name Problem SNOMED Code Status Onset Date Resolution Date Notes Provider Name and Address Organization Details Recorded Time No complaints 943885579 Active Status : 'A'; Not Available [facility] 4 09:25:45 Lesion of lung 213508254 Active 2023 ROXANA Soni'HEUREUEdmundo [facility] 4 12:17:47 Problem Notes None recorded. Procedures Surgical History Date Name Laterality Status Provider Name and Address Organization Details Recorded Time 4 88912 Therapeutic Exercise (1:1) completed Shaun Bynum PTA [address] [facility], [place], [address], [facility] 08/14/2024 14:53:22 4 06259 Therapeutic Exercise (1:1) completed Karlee Cardona, PT [address] [facility], [place], [address], [facility] 08/10/2024 23:13:44 4 53694 Therapeutic Exercise (1:1) completed Shaun Bynum PTA [address] [facility], [place], [address], [facility] 08/07/2024 14:30:15 4 64951 Therapeutic Exercise (1:1) completed Karlee Cardona, PT [address], [place], [address], [facility] 08/03/2024 22:12:27 4 30135 Therapeutic Exercise (1:1) completed Shaun Bynum PTA [address], [place], [address], [facility] 07/31/2024 15:16:09 4 33147 Therapeutic Exercise (1:1) completed Karlee Cardona, PT [address], [place], [address], [facility] 07/29/2024 06:56:55 4 43618 Therapeutic Exercise (1:1) completed Shaun Bynum, PLASTIC FRAME INSERTER [address], [place], [address], [facility] 07/24/2024 14:19:39 4 16637 Therapeutic Exercise (1:1) completed Karlee Cardona, PT [address], [place], [address], [facility] 07/21/2024 22:35:29 4 97492 Therapeutic Exercise (1:1) completed Shaun Bynum PLASTIC FRAME INSERTER [address], [place], [address], [facility] 07/17/2024 14:07:03 4 14845 Therapeutic Exercise (1:1) completed Karlee Cardona, PT [address], [place], [address], [facility] 07/15/2024 00:17:13 4 87235 Therapeutic Exercise (1:1) completed Shaun Bynum PLASTIC FRAME INSERTER [address], [place], [address], [facility] 07/11/2024 09:03:20 4 10153: Manual therapy completed Shaun Bynum PLASTIC FRAME INSERTER [address], [place], [address], [facility] 07/11/2024 09:05:30 4 59020 Therapeutic Exercise (1:1) completed Shaun Bynum, PLASTIC FRAME INSERTER [address], [place], [address], [facility] 07/08/2024 07:52:09 4 00358 Therapeutic Exercise (1:1) completed Belkis Calderon, PLASTIC FRAME INSERTER [address], [place], [address], [facility] 07/04/2024 16:55:00 4 62675 Therapeutic Exercise (1:1) completed Karlee Cardona, PT [address], [place], [address], [facility] 06/30/2024 23:19:58 4 84245 Therapeutic Exercise (1:1) completed Shaun Bynum, PLASTIC FRAME INSERTER [address], [place], [address], [facility] 06/26/2024 16:05:02 4 37749 Therapeutic Exercise (1:1) completed Karlee Cardona, PT [address], [place], [address], [facility] 06/22/2024 21:42:13 4 86522 Therapeutic Exercise (1:1) completed Shaun Bynum, PLASTIC FRAME INSERTER [address], [place], [address], [facility] 06/20/2024 07:57:57 4 46305 Therapeutic Exercise (1:1) completed Belkis Calderon, PLASTIC FRAME INSERTER [address], [place], [address], [facility] 06/16/2024 16:32:39 4 22850 Therapeutic Exercise (1:1) completed Shaun Bynum, PLASTIC FRAME INSERTER [address], [place], [address], [facility] 06/12/2024 14:25:56 4 34429: Hot or Cold Pack completed Shaun Bynum, PLASTIC FRAME INSERTER [address], [place], [address], [facility] 06/12/2024 13:24:39 4 07223 Therapeutic Exercise (1:1) completed Shaun Bynum, PLASTIC FRAME INSERTER [address], [place], [address], [facility] 06/09/2024 11:25:26 4 33290: Hot or Cold Pack completed Shaun Bynum, PLASTIC FRAME INSERTER [address], [place], [address], [facility] 06/09/2024 11:25:15 4 85274 Therapeutic Exercise (1:1) completed Karlee Cardona, PT [address], [place], [address], [facility] 06/06/2024 11:55:51 4 62783: Low complexity PT Eval completed Karlee Cardona, PT [address], [place], [address], [facility] 06/06/2024 12:05:01 4 G8417 BMI Above Upper Parameters, F/U Documented completed Karlee Cardona, PT [address], [place], [address], [facility] 06/04/2024 23:07:37 4 G8427 Current Medication Documented completed Karlee Cardona, PT [address], [place], [address], [facility] 06/04/2024 23:07:42 Imaging Results [...] Status Former Smoker DELFINA gracia [place] - [facility] 04/14/2024 12:55:54 How Many Times Per [...] N Heart Trouble N Gastrointestinal Disease N Heart Attack (NE) N Cholesterol N Diabetes N Autoimmune disease [...] Diagnosis/Indication Diagnosis SNOMED-CT Code Diagnosis ICD10 Code [id number] Alejandro Jiménez DPT [facility] on PT [address] [place] [address] 07/04/2024 15:55:01 07/08/2024 08:41:31 Aftercare [id number] Z47.1 Z96.635 [id number] Laurence Simms MD [facility] on PT [address] [place] [address] 07/08/2024 07:51:39 07/08/2024 09:05:57 Aftercare [id number] Z47.1 Z96.443 [id number] Alejandro Jiménez DPT [facility] on PT [address] [place] [address] 07/11/2024 07:53:22 07/11/2024 09:05:02 Aftercare [id number] Z47.1 Z96.003 [id number] Karlee Cardona [facility] on PT [address] [place] [address] 07/14/2024 15:26:57 07/14/2024 17:08:10 Aftercare [id number] Z47.1 Z96.589 [id number] Alejandro Jiménez, DPT [facility] [address] [facility] [address] 07/17/2024 13:55:03 07/18/2024 07:36:28 Aftercare [id number] Z47.1 Z96.494 [id number] Karlee Cardona, PT [facility] [address] [facility] [place] [address] 07/21/2024 12:18:06 07/21/2024 14:42:16 Aftercare [id number] Z47.1 Z96.279 [id number] Alejandro Jiménez, DPT [facility] [address] [facility] [place] [address] 07/24/2024 13:50:28 07/24/2024 15:28:53 Aftercare [id number] Z47.1 Z96.631 [id number] Karlee Cardona, PT [facility] [address] [facility] [place] [address] 07/28/2024 11:45:30 07/28/2024 14:45:16 Aftercare [id number] Z47.1 Z96.213 [id number] Alejandro Jiménez, DPT [facility] [address] [facility] [place] [address] 07/31/2024 13:51:37 07/31/2024 15:25:10 Aftercare [id number] Z47.1 Z96.673 [id number] Karlee Cardona, PT [facility] [address] [facility] [place] [address] 08/04/2024 10:50:03 08/04/2024 15:21:48 Aftercare [id number] Z47.1 Z96.611 Health Concerns Section Related Observation LastModified by Organization Detai ls LastModified Time None Recorded Concern Status LastModified by Organization Details LastModified Time None Recorded Payers Encounter Date Sequence Insurance Name Policy Number Policy Ferris Covered Member ID Ferris Member ID Guarantor Name 08/04/2024 1 [place]: [facility] [employer] [place] [id number] [place] 08/04/2024 2 [place] [id number] P[place]ale [place]ates [id number] [place] Notes Date Note Type Note Provider Name and Address Organization Details Recorded Time 08/04/2024 text/html No new c/o's today. Pt is disappointed in the length of post-op rehab for this surgery. Karlee Cardona, PT [address], [place], [address], [facility] - [facility] 08/04/2024 21:59:18 OBGyn Episode No OBEpisode recorded.
--- OUTSIDE RECORDS SUMMARY | 2024-10-30 10:29 | XMS_ITS ---
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 Name Role Phone Patience Sherman Primary Care Provider Mignon Peralta Unavailable [phone] Allergies Allergen (clinical drug ingredient) Drug/Non Drug Allergy documented on EMR Reaction Allergy Type Onset Date Status amlodipine Amlodipine Besylate Unknown Drug Allergy Active lisinopril Lisinopril Unknown Drug Allergy Activ e Vaccine product containing Streptococcus pneumoniae antigen (medicinal product) Pneumococcal Vaccines anaphylaxis Drug Allergy Active REASON FOR VISIT Pcp-09/2024, Skin problem(s), At Risk Footcare, Painful Nail(s) aggravated by shoes and causing difficulty standing/walking. Medications Medication SIG (Take, Route, Frequency, Duration) Notes Start Date End Date Status Physical Therapy . . . 2-3x/week for 3-4 weeks 05/22/2016 Not-Taking Meloxicam 15 MG 1 tablet Orally Once a day for 30 day(s) Not-Taking Diflucan 200mg TAKE 1 TABLET BY MOUTH EVERY DAY for 10 Not-Taking Diflucan 200 MG 1 tablet Orally Once a day for 30 days Not-Taking Meloxicam 15 MG 1 tablet Orally Once a day for 30 day(s) Not-Taking Voltaren 1 % as directed Externally apply bid to ankle for 30 days 01/26/2021 Active Metoprolol Succinate ER 50 MG 1 tablet Orally Once a day Active Losartan Potassium 50 MG 1 tablet Orally Once a day Active Chlorthalidone 50 MG Orally Active baby asprin Active Atorvastatin Calcium 25 MG Orally Active levETIRAcetam 250 MG 1 tablet Orally every 12 hrs for 30 day(s) Active Ammonium Lactate 12 % 1 application Externally to affected areas of dry skin to feet except for between the toes Twice a day for 30 days Active Potassium 75 MG Orally Once a day Unknown Calcium 600 mg 1 tablet with meals Twice a day Unknown Physical Therapy . . . 2-3x/week for 3-4 weeks Not-Taking Meloxicam 15 MG 1 tablet Orally Once a day for 30 day(s) 05/22/2016 Not-Taking hydroCHLOROthiazide Not-Taking Vitamin D 1000 UNIT 1 tablet Orally Unknown Meloxicam 15 MG 1 tablet Orally Once a day for 30 day(s) Not-Taking Physical Therapy . . . 2-3x/week for 3-4 weeks Not-Taking Physical Therapy . . . 2-3x/week for 3-4 weeks Not-Taking Physical Therapy . . . 2-3x/week for 3-4 weeks Not-Taking Social History Tobacco Use: Social History Observation Description Date Details (start date - stop date) Former Smoker NA - NA Tobacco Use/Smoking Question Answer Notes Are you a: former smoker Additional Findings: Tobacco Non-User Current no n-smoker Tobacco use other than smoking: Question Answer Notes Are you an other tobacco user? No Problems Problem Type SNOMED Code ICD Code Onset Dates Problem Status W/U Status Risk Notes Problem Atherosclerosis of [place] artery of both lower extremities, with unspecified presence of clinical manifestation (I70.203) Active confirmed Q7(A), Q8(2B), Q9(1B,2C) Vital Signs Height 5 ft 8 in in 09/29/2024 Weight 215 lbs 09/29/2024 BMI 32.69 kg/m2 09/29/2024 Procedures Procedure Date Ordered Date Performed Result Body Sit e 68478-[id number] NAIL, 6 OR MORE 09/29/2024 N/A 38433-WNWG SKIN LESIONS, 2 TO 4 09/29/2024 N/A Encounters Encounter Location Date Provider Diagnosis [facility] [address] [place] [address] 09/29/2024 Mignon Mejias Xerosis of skin L85.3 ; Atherosclerosis of [place] artery of both lower extremities, with unspecified presence of clinical manifestation I70.203 ; Tinea unguium B35.1 ; Pain in right toe(s) M79.674 and Pain in left toe(s) M79.675 Assessments Encounter Date Diagnosis (ICD Code) Assessment Notes Treatment Notes Treatment Clinical Notes Section Notes 09/29/2024 Xerosis of skin (ICD-10 - L85.3) 09/29/2024 Atherosclerosis of [place] artery of both lower extremities, with unspecified presence of clinical manifestation (ICD-10 - I70.203) Q7(A), Q8(2B), Q9(1B,2C) 09/29/2024 Tinea unguium (ICD-10 - B35.1) 09/29/2024 Pain in right toe(s) (ICD-10 - M79.674) 09/29/2024 Pain in left toe(s) (ICD-10 - M79.675) Plan Of Treatment Medication Medication Name Sig Start Date Stop Date Notes Ammonium Lactate 12 % 1 application Exte rnally to affected areas of dry skin to feet except for between the toes Twice a day for 30 days Pending Test Test Name Order Date [id number] NAIL, 6 OR MORE 09/29/2024 [id number] SKIN LESIONS, 2 TO 4 09/29/20 24 Next Appt Details Follow Up: 3 Months, Reason: Provider Name:Mignon key, 12/04/2024 04:00:00 PM, [address] [facility], [place], [address], Procedure Notes * Category Sub-Category Detail Notes Debride Nail 6-10 Nail debridement Performance o f this nail treatment by a nonprofessional would put this patients foot and overall health at risk. Therefore, debridement to affected nail(s), as described in exam, was performed extensively to reduce/remove overall nail length, girth, thickness, subungual debris, and necrotic tissue, by manual and/or electrical means through the use of a nail nipper and/or dremel-type shear grinder operator, to a more viable healthy nail plate or bed tissue 6-10 nails in total. Silver nitrate was used for any petechial bleeding as necessary. Definitive antifungal treatment options, both pharmaceutical and surgical, have been reviewed and discussed with the patient. The patient solely prefers the use of intermittent/as needed professional debridement services for their nail condition and understands the need for additional periodic treatments to maintain effectiveness in symptomatic relief - 94254 Keratoma Treatment Parring or Cutting o f Benign Hyperkeratotic Lesion(s) (-56) 2-4 Lesions - The Benign hyperkeratotic lesions, ( 4 ) in total, locations as stated and described in exam, were pared, and/or cut utilizing a sterile 15 blade, tissue nippers, and/or power L99.commel instrumentation - 51364, Q8 Progress Notes * Pascale CARDONA EDOB:[birth year] (79 yo F)Acc No.[id number]:09/29/2024 Progress Note Patient:?Pascale CARDONA Provider:?Mignon Mejias DPM :1945???Age:79 Y???Sex:Female D ate:09/29/2024 Address:[address] [place], [place] [id number] Pcp:Patience Sherman Subjective: * Chief Complaints: * ???Pcp-09/2024Skin problem(s )At Risk FootcarePainful Nail(s) aggravated by shoes and causing difficulty standing/walking. * HPI: ???Skin problems:?Nature:?dryness , scaling.?Location:?B/L .?Duration:?several days.?Course:?worse.?At Risk footcare:?Pt States Last PCP Visit:?Date?09/16/2024 * ROS:?General/Constitutional:?Nausea?denies.?Vomiting?denies.?Hunger Thirst?denies.?Loss appetite?denies.?Chills?denies.?Fatigue?denies.?Fever?denies.?Night Sweats?denies.?Unexplained weight loss?denies.?Unexplained weight gain?denies.?HEENTM:?Dentures?denies.?Dizziness?denies.?Glasses/contacts?admits.?Retinopathy?den ies.?Blurred/double vision?denies.?TMJ?denies.?Discharge/drainage?denies.?Implants?denies.?Sore throat?denies.?Dental implants?denies.?Hard of hearing ?denies.?Difficulty chewing/swallowing/speaking?denies.?Nose bleeds?denies.?Sore mouth?denies.?Respiratory:?On O xygen?denies.?Pneumonia/pleurisy?denies.?Bronchitis?denies.?Emphysema?denies.?Co ughing?denies.?Cough blood?denies.?Shortness of breath?denies.?Wheezing?denies.?Cardiovascular:?Pacemaker?denies.?MVP?denies.?WPW?denies.?CHF?denies.?Heart attack?denies.?Septal defect?denies.?Rapid beat?denies.?Chest pain ?denies.?Atrial Fib.?denies.?Murmur/Palpitations?denies.?Gastrointestinal:?Hemorrhoids?denies.?Stomach/Abdominal pain?denies.?Dark blood stool?denies.?Irritable bowel ?denies.?Constipation?denies.?Diarrhea?denies.?Hematology:?Swelling?admits.?Clots?denies.?Varicose Veins?admits.?Bruising?denies.?Bleeding problem?denies.?Genitourinary:?Blood urine?denies.?Frequent/Painfu/urination/bladder control?denies.?Kidney stones?denies.?Infection (UTI)?denies.?Nephropathy?denies.?sex trans dis (STD)?denies.?Prostate?denies.?Musculoskeletal:?Hammertoes?denies.?Bunions?denies.?Back Pain?denies.?Muscle Cramps/ Resting?denies.?Muscle cramps / walking?denies.?Generalized aches and pains?denies.?Weakness?denies.?Integ.:?Loaiza?denies.?Scars?denies.?Corns/calluses?denies.?Ingrown nails?denies.?Painful nails?denies.?Open Sores?denies.?Rashes?denies.?Neurologic:?Difficulty sleeping?denies.?Brain disorder?denies.?Numbness?denies.?Balance t rouble?denies.?Confusion?denies.?Fainting/blackouts?denies.?Tingling?denies.?Nitin mors?denies.? * Medical History:? * Surgical History:?bilateral knee replacement cholecystectomy 2005breast biopsy tonsillectomy and adenoidectomy carpal tunnel surgery left wrist 12/2014Vitreo Retina surgery 12/2017Cataract surgery 01/2018Vein removed 2018 * Hospitalization/Major Diagno stic Procedure:?Denies Past Hospitalization * Family History:?Mother: dece ased, foot problems, diagnosed with Other malignant neoplasm of unspecified site.?Father: , diagnosed with Unspecified essential hypertension, Unspecified heart disease.?Maternal uncle: diagnosed with Other specified conditions influencing health status.? * Social History:?Tobacco Use:?Tobacco Use/Smoking?Are you a:?former smoker ?Additional Findings: Tobacco Non-User?Current non-smoker ?Tobacco use other than smoking?Are you an other tobacco user??No * Medications:?TakinglevETIRAc etam 250 MG Tablet 1 tablet Orally every 12 hrs Atorvastatin Calcium 25 MG Tablet Orally baby asprin Chlorthalidone 50 MG Tablet Orally Losartan Potassium 50 MG Tablet 1 tablet Orally Once a day Metoprolol Succinate ER 50 MG Tablet Extended Release 24 Hour 1 tablet Orally Once a day Voltaren 1 % Gel as directed Externally apply bid to ankle Taking levETIRAcetam 250 MG Tablet 1 tablet Orally every 12 hrs Taking Atorvastatin Calcium 25 MG Tablet Orally Taking baby asprin Taking Chlorthalidone 50 MG Tablet Orally Taking Losartan Potassium 50 MG Tablet 1 tablet Orally Once a day Taking Metoprolol Succinate ER 50 MG Tablet Extended Release 24 Hour 1 tablet Orally Once a day Taking Voltaren 1 % Gel as directed Externally apply bid to ankle Not-Taking/PRNDiflucan 200mg tabs TAKE 1 TABLET BY MOUTH EVERY DAY Meloxicam 15 MG Tablet 1 tablet Orally Once a day Meloxicam 15 MG Tablet 1 tablet Orally Once a day Diflucan 200 MG Tablet 1 tablet Orally Once a day Physical Therapy . . . . 2-3x/week Physical Therapy . . . . 2-3x/week Physical Therapy . . . . 2-3x/week Physical Therapy . . . . 2-3x/week hydroCHLOROthiazide Meloxicam 15 MG Tablet 1 tablet Orally Once a day Physical Therapy . . . . 2- 3x/week Meloxicam 15 MG Tablet 1 tablet Orally Once a day Not-Taking/PRN Diflucan 200mg tabs TAKE 1 TABLET BY MOUTH EVERY DAY Not-Taking/PRN Meloxicam 15 MG Tablet 1 tablet Orally Once a day Not-Taking/PRN Meloxicam 15 MG Tablet 1 tablet Orally Once a day Not-Taking/PRN Diflucan 200 MG Tablet 1 tablet Orally Once a day Not-Taking/PRN Physical Therapy . . . . 2-3x/week Not-Taking/PRN Physical Therapy . . . . 2- 3x/week Not-Taking/PRN Physical Therapy . . . . 2-3x/week Not-Taking/PRN Physical Therapy . . . . 2-3x/week Not-Taking/PRN hydroCHLOROthiazide Not-Taking/PRN Meloxicam 15 MG Tablet 1 tablet Orally Once a day Not-Taking/PRN Physical Therapy . . . . 2- 3x/week Not-Taking/PRN Meloxicam 15 MG Tablet 1 tablet Orally Once a day UnknownVitamin D 1000 UNIT Tablet 1 tablet Orally Calcium 600 mg 1 tablet with meals Twice a day Potassium 75 MG Tablet Orally Once a day Medication List reviewed and reconciled with the patientUnknown Vitamin D 1000 UNIT Tablet 1 tablet Orally Unknown Calcium 600 mg 1 tablet with meals Twice a day Unknown Potassium 75 MG Tablet Orally Once a day Medication List reviewed and reconciled with the patient * Allergies:?LisinoprilAmlodip ine BesylatePneumococcal Vaccines: anaphylaxisyes[Allergies Verified] Objective: * Vitals:?Ht: 5 ft 8 in, Wt: 2 15, BMI: 32.69, Shoe size: 12, BS: not taken, Wt-k.52 kg. * Examination: ???General Examination: ?GENERAL APPEARANCE:?Reveals a pleasant, alert, well nourished, well- developed, well hydrated individual, who demonstrates proper attention to hygiene/body habitus, and is in no acute distress, Pt serves as own historian for office visit today.?ORIENTED:?person, place, and time.?Dermatologic: ?SKIN FINDINGS:?Skin shows sign(s) of, dryness, scaling, in a stocking fashion, no fissure(s) present, B/L , Skin exam reveals Keratotic lesion(s) located at sub 1st metatarsal head B/L, plantar heels B/L.?Vascular: ?DP PULSES(B):? 0/4, B/L.?PT PULSES(B):? 0/4, B/L.?CAPILLARY FILL TIME:? delayed, all digits, B/L.?TROPHIC CONDITION-TEXTURE/ELASTICITY/TURGOR/HAIR GROWTH(B):? decreased, fragile, thin, shiny skin, with sparse to absent hair growth, B/L.?TEMPERTURE GRADIENT(C):? decreased, cool to cool, proximal to distal, B/L.?PIGMENTATION:?cyanotic, B/L.?EDEMA(C):?1/4, pitting, without aching pain.?CLAUDICATION(C):?denies, B/L.?REST PAIN:?denies, B/L.?PARESTHESIA(C):?absent, B/L.?BURNING(C):?absent, B/L.?Nails: ?NAILS are:?Elongated, overgrown, dystrophic, lytic, greater than 3mm thick, discolored and friable with crumbly malodorous subungual debris, with pain on palpation, 1-5 B/L.?Orthopedic: ?MUSCLE STRENGTH:?5/5 all groups in a symmetrical fashion, B/L.?Neurological: ?SENSORY:?Neurological exam reveals intact sensorium, pain sensation normal, vibration sensation intact, pinprick sensation is normal in the lower extremities, Pt denies, anesthesia, burning, paresthesia, tingling, B/L.?Ophthalmology Referral: ?DIABETES EYE EXAM?CQM Exceptions:: ?Hemoglobin A1c not performed? Assessment: * Assessment: 1.?Xerosis of skin - L85.3?? ?Specify :Acute problem, Uncomplicated (3),Rx Management (4)???2.?Atherosclerosis of [place] artery of both lower extremities, with unspecified presence of clinical manifestation - I70.203 (Primary)???Notes :Q7(A), Q8(2B), Q9(1B,2C)???3.?Tinea unguium - B35.1???4.?Pain in right toe(s) - M79.674???5.?Pain in left toe(s) - M79.675??? Plan: * Treatment: 2.?Xerosis of skin? Start Ammonium Lactate Cream, 12 %, 1 application, Externally to affected areas of dry skin to feet except for between the toes, Twice a day, 30 days, 140, Refills 2.?? 3.?Tinea unguium?Procedure: [id number] NAIL, 6 OR MORE * Procedures:?Debride Nail 6-10:?Nail debridement?Performance of this nail treatment by a nonprofessional would put this patients foot and overall health at risk. Therefore, debridement to affected nail(s), as described in exam, was performed extensively to reduce/remove overall nail length, girth, thickness, subungual debris, and necrotic tissue, by manual and/or electrical means through the use of a nail nipper and/or dremel-type shear grinder operator, to a more viable healthy nail plate or bed tissue 6-10 nails in total. Silver nitrate was used for any petechial bleeding as necessary. Definitive antifungal treatment options, both pharmaceutical and surgical, have been reviewed and discussed with the patient. The patient solely prefers the use of intermittent/as needed professional debridement services for their nail condition and understands the need for additional periodic treatments to maintain effectiveness in symptomatic relief - 71282.?Keratoma Treatment:?Parring or Cutting of Benign Hyperkeratotic Lesion(s)?(-56) 2-4 Lesions - The Benign hyperkeratotic lesions, ( 4 ) in total, locations as stated and described in exam, were pared, and/or cut utilizing a sterile 15 blade, tissue nippers, and/or power dremel instrumentation - 49697, Q8.? * Procedure Codes:?60422 DEBRI DE NAIL, 6 OR MORE, Modifiers: XS 25053 TRIM SKIN LESIONS, 2 TO 4, Modifiers: XS , Q8 * Preventive Medicine:? ??Counseling:?Discussion:?-13: Office or other outpatient visit for the evaluation and management of an established patient, which required a medically appropriate history and/or examination and LOW level of DECISION MAKING for: 1 STABLE ACUTE UNCOMPLICATED PROBLEM, 2 OR MORE MINOR PROBLEMS, OR 1 STABLE CHRONIC PROBLEM, THAT POSE(S) A LOW RISK FOR MORBIDITY/MORTALITY. The visit on the day of the encounter encompassed interpreting the data and educating the patient as to the nature of their condition, treatment options available according to their individual PMH, meds, allergies, and overall health/living conditions, as well as any potential risks or complications that may occur from a failure to adhere to, and participate in, the recommended course of therapy. The discussion included a complete verbal, and/or written explanation of the examination results, any x-rays taken, the proposed diagnosis, and outline of the treatment plan. A schedule for future care needs was also explained. The patient verbalized an understanding of the instructions at this time and agreed to be an active participant in their treatment. If the patient should think of any questions or concerns after the visit, I have encouraged the patient to call the office.?Xerosis:?The patient was counseled on the diagnosis, potential etiologies, and treatment options for their skin condition. We discussed the risks and benefits of each option from performing no treatment, to utilizing OTC topical skin creams/ointments, to utilizing prescription topical creams/ointments, to utilizing customized compounded topical medications and use of nocturnal occlusion with any/all previously detailed therapies. We discussed the advantages and disadvantages of each possible treatment and importance for adherence to all the recommended therapies for optimum success and avoid potential complications such as open sore/infection/possible hospitalization. We discussed the potential effectiveness of each topical preparation as well as each ones possible side effects and/or patient medication interactions. Patient questions re: use, dosage, successful outcomes, and application consistency were reviewed and the patient verbalized that all answers were clearly understood. The patient has decided to apply Rx skin creams to their feet save the interspaces while paying special attention to the heels. Such was sent to their pharmacy at the time of visit.? * Follow Up:?3 Months * Images: * Sign off status: Completed true * Provider:?Mignon Mejias DPM Date:?1 11/29/2023 Generated for Alisia nur/Reilly/Danisha on:?10/30/2024 10:28 AM EST History and Physical Notes * HPI (History of Present Illness) Category Sub-Category Detail Notes Category Not es Skin problems Nature: dryness , scaling Location: B/L Duration: several days Course: worse At Risk footcare Pt States Last PCP Visit: Date: 4 Examination Category Sub-Category Detail Notes Category Not es Neurological SENSORY: Neurological exa m reveals intact sensorium, pain sensation normal, vibration sensation intact, pinprick sensation is normal in the lower extremities, Pt denies, anesthesia, burning, paresthesia, tingling, B/L Dermatologic SKIN FINDINGS: Skin shows sign( s) of, dryness, scaling, in a stocking fashion, no fissure(s) present, B/L , Skin exam reveals Keratotic lesion(s) located at sub 1st metatarsal head B/L, plantar heels B/L Orthopedic MUSCLE STRENGTH: 5/5 all groups in a symmetrical fashion, B/L General Examination GENERAL APPEARANCE: Reveals a pleasant, alert, well nourished, well-developed, well hydrated individual, who demonstrates proper attention to hygiene/body habitus, and is in no acute distress, Pt serves as own historian for office visit today ORIENTED: person, place, and t itzel Ophthalmology Referral DIABETES EYE EXAM Procedure Perform ed:: Yes ?Date of Exam Performed: 08/05/2024 Findings of Diabetic Eye Exam:: no retin opathy Vascular DP PULSES (B): 0/4, B/L PT PULSES (B): 0/4, B/L CAPILLARY FILL TIME: delayed, all digits , B/L TEMPERTURE GRADIENT (C): decreased, cool to cool, proximal to distal, B/L TROPHIC CONDITION-TEXTURE/ELASTICITY/TURGOR/HAIR GROWTH (B): decreased, fragile, thin, shiny skin, wi th sparse to absent hair growth, B/L EDEMA (C): 1/4, pitting, withou t aching pain CLAUDICATION (C): denies, B/L REST PAIN: denies, B/L PIGMENTATION: cyanotic, B/L PARESTHESIA (C): absent, B/L BURNING (C): absent, B/L Nails NAILS are: Elongated, overg rown, dystrophic, lytic, greater than 3mm thick, discolored and friable with crumbly malodorous subungual debris, with pain on palpation, 1-5 B/L CQM Exceptions: Hemoglobin A1c not performed Reason:: No r sh[place] specified
--- OUTSIDE RECORDS SUMMARY | 2024-10-30 10:29 | XMS_ITS ---
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 Medications Medication SIG (Take, Route, Frequency, Duration) Notes Start Date End Date Status Meloxicam 15 MG 1 tablet Orally Once a day for 30 day(s) Not-Taking Physical Therapy . . . 2-3x/week for 3-4 weeks Not-Taking Potassium 75 MG Orally Once a day Unknown Vitamin D 1000 UNIT 1 tablet Orally Unknown Calcium 600 mg 1 tablet with meals Twice a day Unknown Meloxicam 15 MG 1 tablet Orally Once a day for 30 day(s) 05/22/2016 Not-Taking Physical Therapy . . . 2-3x/week for 3-4 weeks Not-Taking hydroCHLOROthiazide Not-Taking Physical Therapy . . . 2-3x/week for 3-4 weeks Not-Taking Physical Therapy . . . 2-3x/week for 3-4 weeks Not-Taking Diflucan 200mg TAKE 1 TABLET BY MOUTH EVERY DAY for 10 Not-Taking Meloxicam 15 MG 1 tablet Orally Once a day for 30 day(s) Not-Taking Diflucan 200 MG 1 tablet Orally Once a day for 30 days Not-Taking Physical Therapy . . . 2-3x/week for 3-4 weeks 05/22/2016 Not-Taking Meloxicam 15 MG 1 tablet Orally Once a day for 30 day(s) Not-Taking Metoprolol Succinate ER 50 MG 1 tablet O rally Once a day Active Voltaren 1 % as directed Externally apply bid to ankle for 30 days 01/26/2021 Active Chlorthalidone 50 MG Orally Active Losartan Potassium 50 MG 1 tablet Orally Once a day Active baby asprin Active Atorvastatin Calcium 25 MG Orally Active levETIRAcetam 250 MG 1 tablet Orally every 12 hrs for 30 day(s) Active Social History Tobacco Use: Social History Observation Description Date Details (start date - stop date) Former Smoker NA - NA Tobacco Use/Smoking Question Answer Notes Are you a: former smoker Additional Findings: Tobacco Non-User Current no n-smoker Alcohol Screen Question Answer Notes Did you have a drink containing alcohol in the p ast year? No Points 0 Interpretation Negative Tobacco use other than smoking: Question Answer Notes Are you an other tobacco user? No Vital Signs Height 5 ft 8 in in 06/23/2024 Weight 222 lbs 06/23/2024 BMI 33.75 kg/m2 06/23/2024 Procedures Procedure Date Ordered Date Performed Result Body Sit e 27551-NOOB SKIN LESIONS, 2 TO 4 06/23/2024 N/A Encounters Encounter Location Date Provider Diagnosis [facility] [address] [place] [address] [place] [address] 06/23/2024 Ethan Duff Pain in left foot M79.672 ; Pain in right foot M79.671 ; Tinea unguium B35.1 ; Pain in right toe(s) M79.674 ; Pain in left toe(s) M79.675 ; 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, bilateral legs I70.203 ; Hallux valgus (acquired), right foot M20.11 ; Other hammer toe(s) (acquired), left foot M20.42 ; Other hammer toe(s) (acquired), right foot M20.41 ; Primary osteoarthritis, left ankle and foot M19.072 ; Hallux rigidus, right foot M20.21 and Xerosis cutis L85.3 Assessments Encounter Date Diagnosis (ICD Code) Assessment Notes Treatment Notes Treatment Clinical Notes Section Notes 06/23/2024 Pain in left foot (ICD-10 - M79.672) 06/23/2024 Pain in right foot (ICD-10 - M79.671) 06/23/2024 Tinea unguium (ICD-10 - B35.1) 06/23/2024 Pain in right toe(s) (ICD-10 - M79.674) 06/23/2024 Pain in left toe(s) (ICD-10 - M79.675) 06/23/2024 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, bilateral legs (ICD-10 - I70.203) 06/23/2024 Hallux valgus (acquired), right foot (ICD-10 - M20.11) 06/23/2024 Other hammer toe(s) (acquired), left foot (ICD-10 - M20.42) 06/23/2024 Other hammer toe(s) (acquired), right foot (ICD-10 - M20.41) 06/23/2024 Primary osteoarthritis, left ankle and foot (ICD-10 - M19.072) 06/23/2024 Hallux rigidus, right foot (ICD-10 - M20.21) 06/23/2024 Xerosis cutis (ICD-10 - L85.3) Plan Of Treatment Pending Test Test Name Order Date 48789-TBFO SKIN LESIONS, 2 TO 4 06/23/20 24 Next Appt Details Follow Up: 3 Months, Reason: Provider Name:Mignon key, 12/04/2024 04:00:00 PM, [address] [place] [address], [id number], Procedure Notes * Category Sub-Category Detail Notes Debride Nail 6-10 Nail debridement Nail debridem ent performed extensively to reduce/remove overall nail length and girth, subungual debris, and necrotic tissue, by manual and electrical means with use of a nail nipper and/or dremel, to more viable healthy nail plate or bed tissue 6-10. Silver nitrate used for any petechial bleeding as necessary. Patient chooses, no pharmaceutical tx (26112) Keratoma Treatment Parring or Cutting o f Benign Hyperkeratotic Lesion(s) 22663 ( 2-4 Lesions ) - The Benign hyperkeratotic lesions, as described above were pared, and/or cut utilizing a sterile 15 blade, tissue nippers, and/or dremel, Q8 Progress Notes * Pascale CARDONA EDOB:[birth year] (79 yo F)Acc No.[id number]:06/23/2024 Progress Note Patient:?Pascale Cardona Provider:?Ethan Duff DPM :1945???Age:79 Y???Sex:Female D ate:06/23/2024 Address:[address] [place], [place] [id number] Pcp:Patience Sherman Subjective: * Chief Complaints: * ???Painful nail(s) aggrevate d by shoes and causing difficulty standing/walking. * HPI: ???Painful Nails:?Pt States Last PCP Visit:?Date:?04/22/2024 ???Foot Pain:?Nature:?aching, stiffness, sharp.?Location:?Great toe joint, RIGHT.?Skin problems:?Nature:?dryness, itching.?Location:?B/L , Ankle.?Duration:?a few months.? * ROS:?General/Constitutional:?Nausea?denies.?Vomiting?denies.?Hunger Thirst?denies.?Loss appetite?denies.?Chills?denies.?Fatigue?denies.?Fever?denies.?Night Sweats?denies.?Unexplained weight loss?denies.?Unexplained weight gain?denies.?HEENTM:?Dentures?denies.?Dizziness?denies.?Glasses/contacts?admits.?Retinopathy?de nies.?Blurred/double vision?denies.?TMJ?denies.?Discharge/drainage?denies.?Implants?denies.?Sore throat?denies.?Dental implants?denies.?Hard of hearing ?denies.?Difficulty chewing/swallowing/speaking?denies.?Nose bleeds?denies.?Sore mouth?denies.?Respiratory:?On Oxygen?denies.?Pneumonia/pleurisy?denies.?Bronchitis?denies.?Emphysema?denies.?C oughing?denies.?Cough blood?denies.?Shortness of breath?denies.?Wheezing?denies.?Cardiovascular:?Pacemaker?denies.?MVP?denies.?WPW?denies.?CHF?denies.?Heart attack?denies.?Septal defect?denies.?Rapid beat?denies.?Chest pain ?denies.?Atrial Fib.?denies.?Murmur/Palpitations?denies.?Gastrointestinal:?Hemorrhoids?denies.?Stomach/Abdominal pain?denies.?Dark blood stool?denies.?Irritable bowel ?denies.?Constipation?denies.?Diarrhea?denies.?Hematology:?Swelling?admits.?Clots?denies.?Varicose Veins?admits.?Bruising?denies.?Bleeding problem?denies.?Genitourinary:?Blood urine?denies.?Frequent/Painfu/urination/bladder control?denies.?Kidney stones?denies.?Infection (UTI)?denies.?Nephropathy?denies.?sex trans dis (STD)?denies.?Prostate?denies.?Musculoskeletal:?Hammertoes?denies.?Bunions?denies.?Back Pain?denies.?Muscle Cramps/ Resting?denies.?Muscle cramps / walking?denies.?Generalized aches and pains?denies.?Weakness?denies.?Integ.:?Loaiza?denies.?Scars?denies.?Corns/calluses?denies.?Ingrown nails?denies.?Painful nails?denies.?Open Sores?denies.?Rashes?denies.?Neurologic:?Difficulty sleeping?denies.?Brain disorder?denies.?Numbness?denies.?Balance trouble?denies.?Confusion?denies.?Fainting/blackouts?denies.?Tingling?denies.?Tr emors?denies.? * Medical History:? * Surgical History:?bilateral knee [...] than smoking?Are you an other tobacco user??No ???Drugs/Alcohol:?Drugs?Have you used drugs other than those for medical reasons in the past 12 months??No ?Alcohol Screen?Did you have a drink containing alcohol in the past year??No ?Points?0 ?Interpretation?Negative ???Miscellaneous:?no Caffeine, none. ?Children: yes, 2. ?no Exercise. ?Marital status: . 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 * Medications:?TakinglevETIRAc etam 250 MG Tablet 1 tablet Orally every 12 hrsAtorvastatin Calcium 25 MG Tablet Orally baby asprin Chlorthalidone 50 MG Tablet Orally Losartan Potassium 50 MG Tablet 1 tablet Orally Once a dayMetoprolol Succinate ER 50 MG Tablet Extended Release 24 Hour 1 tablet Orally Once a dayVoltaren 1 % Gel as directed Externally apply bid to ankleTaking levETIRAcetam 250 MG Tablet 1 tablet Orally every 12 hrsTaking Atorvastatin Calcium 25 MG Tablet Orally Taking baby asprin Taking Chlorthalidone 50 MG Tablet Orally Taking Losartan Potassium 50 MG Tablet 1 tablet Orally Once a dayTaking Metoprolol Succinate ER 50 MG Tablet Extended Release 24 Hour 1 tablet Orally Once a dayTaking Voltaren 1 % Gel as directed Externally apply bid to ankleNot-Taking/PRNDiflucan 200mg tabs TAKE 1 TABLET BY MOUTH EVERY DAY Meloxicam 15 MG Tablet 1 tablet Orally Once a dayMeloxicam 15 MG Tablet 1 tablet Orally Once a dayDiflucan 200 MG Tablet 1 tablet Orally Once a dayPhysical Therapy . . . . 2-3x/weekPhysical Therapy . . . . 2-3x/weekPhysical Therapy . . . . 2-3x/weekPhysical Therapy . . . . 2-3x/weekhydroCHLOROthiazide Meloxicam 15 MG Tablet 1 tablet Orally Once a dayPhysical Therapy . . . . 2-3x/weekMeloxicam 15 MG Tablet 1 tablet Orally Once a dayNot-Taking/PRN Diflucan 200mg tabs TAKE 1 TABLET BY MOUTH EVERY DAY Not-Taking/PRN Meloxicam 15 MG Tablet 1 tablet Orally Once a dayNot-Taking/PRN Meloxicam 15 MG Tablet 1 tablet Orally Once a dayNot- Taking/PRN Diflucan 200 MG Tablet 1 tablet Orally Once a dayNot-Taking/PRN Physical Therapy . . . . 2-3x/weekNot-Taking/PRN Physical Therapy . . . . 2-3x/weekNot-Taking/PRN Physical Therapy . . . . 2-3x/weekNot-Taking/PRN Physical Therapy . . . . 2-3x/weekNot-Taking/PRN hydroCHLOROthiazide Not-Taking/PRN Meloxicam 15 MG Tablet 1 tablet Orally Once a dayNot-Taking/PRN Physical Therapy . . . . 2-3x/weekNot-Taking/PRN Meloxicam 15 MG Tablet 1 tablet Orally Once a dayUnknownVitamin D 1000 UNIT Tablet 1 tablet Orally Calcium 600 mg 1 tablet with meals Twice a dayPotassium 75 MG Tablet Orally Once a dayMedication List reviewed and reconciled with the patientUnknown Vitamin D 1000 UNIT Tablet 1 tablet Orally Unknown Calcium 600 mg 1 tablet with meals Twice a dayUnknown Potassium 75 MG Tablet Orally Once a dayMedication List reviewed and reconciled with the patient * Allergies:?LisinoprilAmlodip ine BesylatePneumococcal Vaccines: anaphylaxisyes[Allergies Verified] Objective: * Vitals:?Ht: 5 ft 8 in, Wt:22 2, BMI:33.75, Shoe size:12, BS:not taken. * Examination: ???General Examination: ?GENERAL APPEARANCE:?pleasant, alert, well nourished, well developed, well hydrated, with good attention to hygene/body habitus, and in no acute distress.?ORIENTED:?person,place, and time.?Neurological: ?SENSORY:?Neurological exam reveals intact sensorium, pain sensation normal, vibration sensation intact, pinprick sensation is normal in the lower extremities, Pt denies, anesthesia, burning, paresthesia, tingling, B/L.?TINEL'S COMPRESSION:?Negative tarsal tunnel, nehemias pedis, and medial calcaneal nerves, B/L .?BABINSKI REFLEX:?Absent, B/L .?Vascular: ?DP PULSES:? 1/4, B/L .?PT PULSES:? 0/4, B/L .?HAIR GROWTH/TEXTURE/ELASTICITY/TURGOR:? decreased, B/L, dystrophic (thin,shiny) .?PIGMENTATION:? cyanotic, B/L .?EDEMA:? 2/4, B/L, Ankle(s).?Dermatologic: ?SKIN FINDINGS:?Skin exam reveals Keratotic lesion(s) located at, Medial plantar, TA, T5.?Nails: ?NAILS are:?Elongated, overgrown, dystrophic, lytic, greater than 3mm thick, discolored and friable with crumbly malodorous subungual debris, with pain on palpation, 1-5 B/L.?Orthopedic: ?MUSCLE STRENGTH:?5/5 all groups in a symmetrical fashion B/L.?GAIT ABNORMALITY:?pronated, abducted, B/L.?FOOT MORPHOLOGY:? Pes Planus structure, B/L.?BUNION:? Medially prominent 1st MPJ, Dorsally prominent 1st MPJ , RIGHT, Lateral tracking 1st MPJ incompletely reducable, (+) Pain on palpation, Dorsally prominent 1st MPJ , Limited 1st MPJ Dorsal ROM, Limited 1st MPJ Plantar ROM, Pain assoc with 1st MPJ ROM , throughout ROM testing.?DIGITAL DEFORMITIES:? Digital contracture, PIPJ, 2-5 B/L, incompl- reducable to push-up test, no over, nor underlapping.?Ophthalmology Referral: ?DIABETES EYE EXAM? Assessment: * Assessment: 1.?Pain in right foot - M79. 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 Plan: * Treatment: * Procedures:?Debride Nail 6-10:?Nail debridement?Nail debridement performed extensively to reduce/remove overall nail length and girth, subungual debris, and necrotic tissue, by manual and electrical means with use of a nail nipper and/or dremel, to more viable healthy nail plate or bed tissue 6-10. Silver nitrate used for any petechial bleeding as necessary. Patient chooses, no pharmaceutical tx (64093).?Keratoma Treatment:?Parring or Cutting of Benign Hyperkeratotic Lesion(s)?78840 ( 2-4 Lesions ) - The Benign hyperkeratotic lesions, as described above were pared, and/or cut utilizing a sterile 15 blade, tissue nippers, and/or dremel, Q8.? * Procedure Codes:?93712 DEBRI DE NAIL, 6 OR MORE, Modifiers: XS 40369 TRIM SKIN LESIONS, 2 TO 4, Modifiers: Q8 * Follow Up:?3 Months * Images: * Sign off status: Completed true * Provider:?Ethan Duff DPM Date:? 024 Generated for Alisia nur/Reilly/eTjasonitting on:?10/30/2024 10:29 AM EST History and Physical Notes * HPI (History of Present Illness) Category Sub-Category Detail Notes Category Not es Painful Nails Pt States Last PCP Visit: Date:: 04/22/2024 Skin problems Nature: dryness, itching Location: B/L , Ankle Duration: a few months Foot Pain Nature: aching, stiffness, sharp Location: Great toe joint, RIG HT Examination Category Sub-Category Detail Notes Category Not es Neurological SENSORY: Neurological exa m reveals intact sensorium, pain sensation normal, vibration sensation intact, pinprick sensation is normal in the lower extremities, Pt denies, anesthesia, burning, paresthesia, tingling, B/L BABINSKI REFLEX: Absent, B/L TINEL'S COMPRESSION: Negative tarsal les zaynab, nehemias pedis, and medial calcaneal nerves, B/L Dermatologic SKIN FINDINGS: Skin exam reveal s Keratotic lesion(s) located at, Medial plantar, TA, T5 Orthopedic GAIT ABNORMALITY: pronated, abducted, B/L FOOT MORPHOLOGY: Pes Planus structure , B/L BUNION: Medially prominent 1 st MPJ, Dorsally prominent 1st MPJ , RIGHT, Lateral tracking 1st MPJ incompletely reducable, (+) Pain on palpation, Dorsally prominent 1st MPJ , Limited 1st MPJ Dorsal ROM, Limited 1st MPJ Plantar ROM, Pain assoc with 1st MPJ ROM , throughout ROM testing DIGITAL DEFORMITIES: Digital contracture , PIPJ, 2-5 B/L, incompl-reducable to push-up test, no over, nor underlapping MUSCLE STRENGTH: 5/5 all groups in a symmetrical fashion B/L General Examination GENERAL APPEARANCE: pleasant , alert, well nourished, well developed, well hydrated, with good attention to hygene/body habitus, and in no acute distress ORIENTED: person,place, and ti me Ophthalmology Referral DIABETES EYE EXAM Diabeti c Retinopathy Screening:: Yes 08/2022 Vascular DP PULSES (B): 1/4, B/L PT PULSES (B): 0/4, B/L TROPHIC CONDITION-TEXTURE/ELASTICITY/TURGOR/HAIR GROWTH (B): decreased, B/L, dystrophic (thin,shiny) EDEMA (C): 2/4, B/L, Ankle(s) PIGMENTATION: cyanotic, B/L Nails NAILS are: Elongated, overg rown, dystrophic, lytic, greater than 3mm thick, discolored and friable with crumbly malodorous subungual debris, with pain on palpation, 1-5 B/L
--- OUTSIDE RECORDS SUMMARY | 2024-10-30 10:29 | XMS_ITS | Patient Health Record ---
Author Organization [facility] Address [address] [place] [address] Care Team Providers Care Trucker Name Role Phone LaneAstridreal Primary Care Provider Mignon Peralta Unavailable [phone] Ethan Duff Unavailable [phone] Allergies Allergen (clinical drug ingredient) Drug/Non Drug Allergy documented on EMR Reaction Allergy Type Onset Date Status amlodipine Amlodipine Besylate Unknown Drug Allergy Active lisinopril Lisinopril Unknown Drug Allergy Activ e Vaccine product containing Streptococcus pneumoniae antigen (medicinal product) Pneumococcal Vaccines anaphylaxis Drug Allergy Active Reason For Referral No Information Medications Medication SIG (Take, Route, Frequency, Duration) Notes Start Date End Date Status Voltaren 1 % as directed Externally apply bid to ankle for 30 days 01/26/2021 Active Physical Therapy . . . 2-3x/week for 3-4 weeks Not-Taking Meloxicam 15 MG 1 tablet Orally Once a day for 30 day(s) 05/22/2016 Not-Taking Atorvastatin Calcium 25 MG Orally Active Physical Therapy . . . 2-3x/week for 3-4 weeks Not-Taking levETIRAcetam 250 MG 1 tablet Orally every 12 hrs for 30 day(s) Active Physical Therapy . . . 2-3x/week for 3-4 weeks 05/22/2016 Not-Taking Chlorthalidone 50 MG Orally Active Physical Therapy . . . 2-3x/week for 3-4 weeks Not-Taking baby asprin Active Physical Therapy . . . 2-3x/week for 3-4 weeks Not-Taking Ammonium Lactate 12 % 1 application Externally to affected areas of dry skin to feet except for between the toes Twice a day for 30 days Active Meloxicam 15 MG 1 tablet Orally Once a day for 30 day(s) Not-Taking Vitamin D 1000 UNIT 1 tablet Orally Unknown Diflucan 200mg TAKE 1 TABLET BY MOUTH EVERY DAY for 10 Not-Taking Meloxicam 15 MG 1 tablet Orally Once a day for 30 day(s) Not-Taking Diflucan 200 MG 1 tablet Orally Once a day for 30 days Not-Taking Potassium 75 MG Orally Once a day Unknown Meloxicam 15 MG 1 tablet Orally Once a day for 30 day(s) Not-Taking Calcium 600 mg 1 tablet with meals Twice a day Unknown Metoprolol Succinate ER 50 MG 1 tablet Orally Once a day Active Losartan Potassium 50 MG 1 tablet Orally Once a day Active hydroCHLOROthiazide Not-Taking Immunizations Vaccine Route Administration Date Status Comme nts COVID-19 Pfizer BioNTech Vaccine Unknown 07/30/2022 Administered 1st 12/19/20,01/09/21 07/12/21 Influenza Unknown 08/11/2017 Administered Influenza Unknown 07/30/2022 Administered Social History Tobacco Use: Social History Observation [...] Problem Status W/U Status Risk Notes Problem 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, bilateral legs (I70.203) Active confirmed Problem Localized, primary osteoarthritis of the ankle and/or foot (181866330) Primary osteoarthritis, left ankle and foot (M19.072) Active confirmed Problem Acquired hallux valgus (88160114) Hallux valgus (acquired), right foot (M20.11) Active confirmed Problem Acquired hammer toe of right foot (8520889846127680 ) Other hammer toe(s) (acquired), right foot (M20.41) Active confirmed Problem Acquired hammer toe of left foot (7628385922441164 ) Other hammer toe(s) (acquired), left foot (M20.42) Active confirmed Problem Acquired hallux rigidus (7112551) Hallux rigidus, right foot (M20.21) Active confirmed Problem Atherosclerosis of lime artery of both lower extremities, with unspecified presence of clinical manifestation (I70.203) Active confirmed Q7(A), Q8(2B), Q9(1B,2 C) Vital Signs Height 5 ft 8 in in 09/29/2024 Weight 215 lbs 09/29/2024 BMI 32.69 kg/m2 09/29/2024 Procedures Procedure Date Ordered Date Performed Result Body Sit e 56709-ZRGL SKIN LESIONS, OVER 4 02/18/2024 N/A 10853-OVXG SKIN LESIONS, 2 TO 4 06/23/2024 N/A 43489-PVLULAP NAIL, 6 OR MORE 09/29/2024 N/A 03145-BOTB SKIN LESIONS, 2 TO 4 09/29/2024 N/A Encounters Encounter Location Date Provider Diagnosis [facility] [address] 11/14/2023 Ethan Duff Pain in left foot M79.672 ; Pain in right foot M79.671 ; Tinea unguium B35.1 ; Pain in right toe(s) M79.674 ; Pain in left toe(s) M79.675 ; 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, bilateral legs I70.203 ; Hallux valgus (acquired), right foot M20.11 ; Other hammer toe(s) (acquired), left foot M20.42 ; Other hammer toe(s) (acquired), right foot M20.41 ; Primary osteoarthritis, left ankle and foot M19.072 ; Hallux rigidus, right foot M20.21 and Xerosis cutis L85.3 [facility] [address] [address] 02/18/2024 Ethan Duff Pain in left foot M79.672 ; Pain in right foot M79.671 ; Tinea unguium B35.1 ; Pain in right toe(s) M79.674 ; Pain in left toe(s) M79.675 ; 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, bilateral legs I70.203 ; Hallux valgus (acquired), right foot M20.11 ; Other hammer toe(s) (acquired), left foot M20.42 ; Other hammer toe(s) (acquired), right foot M20.41 ; Primary osteoarthritis, left ankle and foot M19.072 ; Hallux rigidus, right foot M20.21 and Xerosis cutis L85.[address] [address] 06/23/2024 Ethan Duff Pain in left foot M79.672 ; Pain in right foot M79.671 ; Tinea unguium B35.1 ; Pain in right toe(s) M79.674 ; Pain in left toe(s) M79.675 ; 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, bilateral legs I70.203 ; Hallux valgus (acquired), right foot M20.11 ; Other hammer toe(s) (acquired), left foot M20.42 ; Other hammer toe(s) (acquired), right foot M20.41 ; Primary osteoarthritis, left ankle and foot M19.072 ; Hallux rigidus, right foot M20.21 and Xerosis cutis L85.[address] [address] 09/29/2024 Mignon Mejias Xerosis of skin L85.3 ; Atherosclerosis of lime artery of both lower extremities, with unspecified presence of clinical manifestation I70.203 ; Tinea unguium B35.1 ; Pain in right toe(s) M79.674 and Pain in left toe(s) M79.675 Assessments Encounter Date Diagnosis (ICD Code) Assessment Notes Treatment Notes Treatment Clinical Notes Section Notes 11/14/2023 Pain in left foot (ICD-10 - M79.672) 02/18/2024 Pain in right foot (ICD-10 - M79.671) 02/18/2024 Pain in left foot (ICD-10 - M79.672) 06/23/2024 Pain in right foot (ICD-10 - M79.671) 06/23/2024 Pain in left foot (ICD-10 - M79.672) 09/29/2024 Xerosis of skin (ICD-10 - L85.3) 09/29/2024 Atherosclerosis of lime artery of both lower extremities, with unspecified presence of clinical manifestation (ICD-10 - I70.203) Q7(A), Q8(2B), Q9(1B,2C) 02/18/2024 Tinea unguium (ICD-10 - B35.1) 06/23/2024 Tinea unguium (ICD-10 - B35.1) 11/14/2023 Pain in right foot (ICD-10 - M79.671) 11/14/2023 Tinea unguium (ICD-10 - B35.1) 06/23/2024 Pain in right toe(s) (ICD-10 - M79.674) 02/18/2024 Pain in right toe(s) (ICD-10 - M79.674) 09/29/2024 Tinea unguium (ICD-10 - B35.1) 09/29/2024 Pain in right toe(s) (ICD-10 - M79.674) 02/18/2024 Pain in left toe(s) (ICD-10 - M79.675) 06/23/2024 Pain in left toe(s) (ICD-10 - M79.675) 11/14/2023 Pain in right toe(s) (ICD-10 - M79.674) 11/14/2023 Pain in left toe(s) (ICD-10 - M79.675) 02/18/2024 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, bilateral legs (ICD-10 - I70.203) 09/29/2024 Pain in left toe(s) (ICD-10 - M79.675) 06/23/2024 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, bilateral legs (ICD-10 - I70.203) 06/23/2024 Hallux valgus (acquired), right foot (ICD-10 - M20.11) 02/18/2024 Hallux valgus (acquired), right foot (ICD-10 - M20.11) 11/14/2023 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, bilateral legs (ICD-10 - I70.203) 11/14/2023 Hallux valgus (acquired), right foot (ICD-10 - M20.11) 02/18/2024 Other hammer toe(s) (acquired), left foot (ICD-10 - M20.42) 06/23/2024 Other hammer toe(s) (acquired), left foot (ICD-10 - M20.42) 06/23/2024 Other hammer toe(s) (acquired), right foot (ICD-10 - M20.41) 02/18/2024 Other hammer toe(s) (acquired), right foot (ICD-10 - M20.41) 11/14/2023 Other hammer toe(s) (acquired), left foot (ICD-10 - M20.42) 11/14/2023 Other hammer toe(s) (acquired), right foot (ICD-10 - M20.41) 02/18/2024 Primary osteoarthritis, left ankle and foot (ICD-10 - M19.072) 06/23/2024 Primary osteoarthritis, left ankle and foot (ICD-10 - M19.072) 06/23/2024 Hallux rigidus, right foot (ICD-10 - M20.21) 02/18/2024 Hallux rigidus, right foot (ICD-10 - M20.21) 11/14/2023 Primary osteoarthritis, left ankle and foot (ICD-10 - M19.072) 11/14/2023 Hallux rigidus, right foot (ICD-10 - M20.21) 06/23/2024 Xerosis cutis (ICD-10 - L85.3) 02/18/2024 Xerosis cutis (ICD-10 - L85.3) 11/14/2023 Xerosis cutis (ICD-10 - L85.3) Plan Of Treatment Pending Test Test Name Order Date X ray : Ankle, left 3V 05/04/2021 X ray : Foot, left 2V 05/22/2016 X ray : Foot, right 2V 05/22/2016 *Liver Function Test (LFT) 08/30/2016 *Liver Function Test (LFT) 02/28/2017 62626-IKGEWLP NAIL, 6 OR MORE 06/13/2017 14022-PEUXSWR NAIL, 6 OR MORE 09/12/2017 96499-CDXAWPG NAIL, 6 OR MORE 12/12/2017 73490-EISVWIJ NAIL, 6 OR MORE 05/22/2016 18013-KJRUIFJ NAIL, 6 OR MORE 11/29/2016 72281-IRNQJFP NAIL, 6 OR MORE 02/28/2017 10448-HSSIVML NAIL, 6 OR MORE 03/11/2018 91742-BRJIYZM NAIL, 6 OR MORE 06/10/2018 80740-LKGJOKV NAIL, 6 OR MORE 09/30/2018 10600-LXZNYJW NAIL, 6 OR MORE 09/29/2024 64882-Qkiy Destruction, 1-14 09/30/2018 37028-Uoor Destruction, 1-14 06/10/2018 81553-Ttpxefhi Plate 11/29/2016 61347-RYIR SKIN LESIONS, OVER 4 05/22/20 16 36570-OVTQ SKIN LESIONS, OVER 4 02/29/20 17 72846-JDDO SKIN LESIONS, OVER 4 11/29/19 17 45048-KMYI SKIN LESIONS, OVER 4 03/11/20 18 55073-FLMN SKIN LESIONS, OVER 4 12/12/19 18 30573-PIOQ SKIN LESIONS, OVER 4 09/12/20 17 15971-CDUQ SKIN LESIONS, OVER 4 06/13/20 17 69441-FVBF SKIN LESIONS, OVER 4 09/30/20 18 72432-AIWQ SKIN LESIONS, OVER 4 06/10/20 18 52961-POVQ SKIN LESIONS, OVER 4 04/02/20 19 76495-MPZI SKIN LESIONS, OVER 4 07/02/20 19 64981-MWUB SKIN LESIONS, OVER 4 08/10/20 21 00000-HALK SKIN LESIONS, OVER 4 11/14/19 22 55998-JKCM SKIN LESIONS, OVER 4 12/01/19 20 37333-HFDU SKIN LESIONS, OVER 4 04/28/20 20 65466-QBIN SKIN LESIONS, OVER 4 07/26/20 20 50222-VAWL SKIN LESIONS, OVER 4 10/20/20 20 86206-PAWX SKIN LESIONS, OVER 4 01/27/20 21 36905-UOQS SKIN LESIONS, OVER 4 05/04/20 21 80000-PJUP SKIN LESIONS, OVER 4 02/18/20 24 27514-EIKI SKIN LESIONS, 2 TO 4 06/23/20 24 97864-SFZA SKIN LESIONS, 2 TO 4 09/29/20 24 44813-OKJT SKIN LESIONS, 2 TO 4 02/14/20 22 46782-TVSNSITC OF HEMATOMA/FLUID 019 28973- Nail Unit Biopsy 03/11/2018 Next Appt Details Provider Name:Mignon kye, 12/04/2024 04:00:00 PM, [address] [facility], [place], [address], Insurance Providers Payer Name Payer Address Payer Phone Subscriber Number Group Number Insured Name Patient Relationship to Insured Coverage Start Date Coverage End Date Medicare National Govt [facility] [address] [place] [address] [id number] Tirso lamarPascale Self - patient is the insured 1 [employer] [address] [place] [address] [phone] [id number] Tirso Pascale lamar Self - patient is the insured Medical (General) History Medical History History ICD Code Hypertension overweight Back,Hip,and Knee pain Hyperlipidemia Arthritis Broken bones Gall bladder problems Glaucoma Psoriasis/eczema Measles Mumps Chicken pox Joint implants/screws Transfusions Primary osteoarthritis, right ankle and foot M19.071 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
--- OUTSIDE RECORDS SUMMARY | 2024-10-30 10:29 | XMS_ITS ---
[facility] Address [address] [address] Care Team Providers Care Criminal Research Specialist Name Role Phone Patience Sherman Primary Care Provider Mignon Peralta Unavailable [phone] Ethan Duff Unavailable [phone] Allergies Allergen (clinical drug ingredient) Drug/Non Drug Allergy documented on EMR Reaction Allergy Type Onset Date Status amlodipine Amlodipine Besylate Unknown Drug Allergy Active lisinopril Lisinopril Unknown Drug Allergy Activ e Vaccine product containing Streptococcus pneumoniae antigen (medicinal product) Pneumococcal Vaccines anaphylaxis Drug Allergy Active REASON FOR VISIT Painful nail(s) aggrevated by shoes and causing difficulty standing/walking., PCP - 01/2023 Medications Medication SIG (Take, Route, Frequency, Duration) Notes Start Date End Date Status Meloxicam 15 MG 1 tablet Orally Once a day for 30 day(s) Not-Taking Vitamin D 1000 UNIT 1 tablet Orally Unknown Physical Therapy . . . 2-3x/week for 3-4 weeks Not-Taking Calcium 600 mg 1 tablet with meals Twice a day Unknown Potassium 75 MG Orally Once a day Unknown Physical Therapy . . . 2-3x/week for 3-4 weeks Not-Taking hydroCHLOROthiazide Not-Taking Physical Therapy . . . 2-3x/week for 3-4 weeks Not-Taking Physical Therapy . . . 2-3x/week for 3-4 weeks Not-Taking Meloxicam 15 MG 1 tablet Orally Once a day for 30 day(s) 05/22/2016 Not-Taking Diflucan 200mg TAKE 1 TABLET BY MOUTH EVERY DAY for 10 Not-Taking Meloxicam 15 MG 1 tablet Orally Once a day for 30 day(s) Not-Taking Physical Therapy . . . 2-3x/week for 3-4 weeks 05/22/2016 Not-Taking Meloxicam 15 MG 1 tablet Orally Once a day for 30 day(s) Not-Taking Diflucan 200 MG 1 tablet Orally Once a day for 30 days Not-Taking Chlorthalidone 50 MG Orally Active Losartan Potassium 50 MG 1 tablet Orally Once a day Active baby asprin Active Metoprolol Succinate ER 50 MG 1 tablet O rally Once a day Active Voltaren 1 % as directed Externally apply bid to ankle for 30 days 01/26/2021 Active levETIRAcetam 250 MG 1 tablet Orally every 12 hrs for 30 day(s) Active Atorvastatin Calcium 25 MG Orally Active Social History Tobacco Use: Social History [...] Signs Height 5 ft 8 in in 02/18/2024 Weight 222 lbs 02/18/2024 BMI 33.75 kg/m2 02/18/2024 Procedures Procedure Date Ordered Date Performed Result Body Sit e 82914-TAPE SKIN LESIONS, OVER 4 02/18/2024 N/A Encounters Encounter Location Date Provider Diagnosis [facility] [place] [address] [place] [address] 02/18/2024 Ethan Duff Pain in left foot M79.672 ; Pain in right foot M79.671 ; Tinea unguium B35.1 ; Pain in right toe(s) M79.674 ; Pain in left toe(s) M79.675 ; Unspecified atherosclerosis of koi arteries of extremities, bilateral legs I70.203 ; Hallux valgus (acquired), right foot M20.11 ; Other hammer toe(s) (acquired), left foot M20.42 ; Other hammer toe(s) (acquired), right foot M20.41 ; Primary osteoarthritis, left ankle and foot M19.072 ; Hallux rigidus, right foot M20.21 and Xerosis cutis L85.3 Assessments Encounter Date Diagnosis (ICD Code) Assessment Notes Treatment Notes Treatment Clinical Notes Section Notes 02/18/2024 Pain in left foot (ICD-10 - M79.672) 02/18/2024 Pain in right foot (ICD-10 - M79.671) 02/18/2024 Tinea unguium (ICD-10 - B35.1) 02/18/2024 Pain in right toe(s) (ICD-10 - M79.674) 02/18/2024 Pain in left toe(s) (ICD-10 - M79.675) 02/18/2024 Unspecified atherosclerosis of koi arteries of extremities, bilateral legs (ICD-10 - I70.203) 02/18/2024 Hallux valgus (acquired), right foot (ICD-10 - M20.11) 02/18/2024 Other hammer toe(s) (acquired), left foot (ICD-10 - M20.42) 02/18/2024 Other hammer toe(s) (acquired), right foot (ICD-10 - M20.41) 02/18/2024 Primary osteoarthritis, left ankle and foot (ICD-10 - M19.072) 02/18/2024 Hallux rigidus, right foot (ICD-10 - M20.21) 02/18/2024 Xerosis cutis (ICD-10 - L85.3) Plan Of Treatment Pending Test Test Name Order Date 39542-IFWN SKIN LESIONS, OVER 4 02/18/20 24 Next Appt Details Follow Up: 3 Months, Reason: Provider Name:Mignon key, 12/04/2024 04:00:00 PM, [address] [place] [address], [phone], Procedure Notes * Category Sub-Category Detail Notes [...] as necessary. Patient chooses, no pharmaceutical tx (99089) Keratoma Treatment Parring or Cutting o f Benign Hyperkeratotic Lesion(s) 62302 ( More than 4 Lesions ) - The Benign hyperkeratotic lesions, as described above were pared, and/or cut utilizing a sterile 15 blade, tissue nippers, and/or dremel Progress Notes * Pascale CARDONA EDOB:[birth year] (78 yo F)Acc No.[id number]:02/18/2024 Progress Note Patient:?Pascale Cardona Provider:?Ethan Duff DPM :1945???Age:78 Y???Sex:Female D ate:02/18/2024 Address:[address] [place] [address] [facility] Pcp:Patience Sherman Subjective: * Chief Complaints: * ???Painful nail(s) aggrevate d by shoes and causing difficulty standing/walking.PCP - 01/2023 * HPI: ???Painful Nails:?Pt States Last PCP Visit:?Date:?01/04/2024 ???Foot Pain:?Nature:?aching, stiffness, sharp.?Location:?Great toe joint, RIGHT.?Skin [...] 2. ?no Exercise. ?Marital status: . 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 * Medications:?TakinglevETIRAc etam 250 MG Tablet 1 [...] ft 8 in, Wt:22 2, BMI:33.75, Shoe size:12. * Examination: ???General Examination: ?GENERAL APPEARANCE:?pleasant, alert, [...] Keratotic lesion(s) located at, Medial plantar, TA, T5, SUB MTH (s), 1, B/L , Heel(s), B/L , Dorsal, PIPJ, T6, , SUB MTH (s), 2, Right.?Nails: ?NAILS are:?Elongated, overgrown, dystrophic, lytic, greater than [...] in left toe(s) - M79.675?6.?Unspecified atherosclerosis of koi arteries of extremities, bilateral legs - I70.203?7.?Hallux [...] as necessary. Patient chooses, no pharmaceutical tx (51996).?Keratoma Treatment:?Parring or Cutting of Benign Hyperkeratotic Lesion(s)?93022 ( More than 4 Lesions ) - The Benign hyperkeratotic lesions, as described above were pared, and/or cut utilizing a sterile 15 blade, tissue nippers, and/or dremel.? * Procedure Codes:?11795 DEBRI DE NAIL, 6 OR MORE, Modifiers: XS 73074 TRIM SKIN LESIONS, OVER 4, Modifiers: Q8 * Follow Up:?3 Months * Images: * Sign off status: Completed true * Provider:?Ethan Duff DPM Date:? 024 Generated for Alisia nur/Reilly/Anabelaitting on:?10/30/2024 10:29 AM EST History and Physical Notes * HPI (History of Present Illness) Category Sub-Category Detail Notes Category Not es Painful Nails Pt States Last PCP Visit: Date:: 01/04/2024 Skin problems Nature: dryness, itching Location: B/L [...] Keratotic lesion(s) located at, Medial plantar, TA, T5, SUB MTH (s), 1, B/L , Heel(s), B/L , Dorsal, PIPJ, T6, , SUB MTH (s), 2, Right Orthopedic GAIT ABNORMALITY: pronated, abducted, B/L FOOT [...]
[2024-10-30] MEDS: iohexoL 350 MG/ML 100 ML INFUS..BTL IV (10:48)
[2024-10-30 12:29] LABS: Blood Urea Nitrogen 20 mg/dL (9-16); Estimated Glomerular Filt Rate > 60
[2024-10-31 07:26] LABS: Creatinine POC 0.8 mg/dL (0.5-1.4); GFR POC > 60
== END 2024-10-30 10:26 | disposition home or self-care (01) ==
LOC: HO.CT 10:25
PROVIDERS: PCP Internal Medicine; Visit Provider Internal Medicine
DX: J98.4 Other disorders of lung (principal)
CPT/HCPCS: 36415; 71260; 82565; 84520; Q9967

== ENCOUNTER → 2024-10-30 10:28 | Outpatient (BNV) | payer MEDICARE, SELFPAY | PROVIDERS: PCP Internal Medicine; Visit Provider Radiology Diagnostic Radiology | DX: J98.4 Other disorders of lung (principal) | CPT/HCPCS: 71260 ==

== ENCOUNTER 2024-12-02 12:16 | Outpatient (AMB) | payer MEDICARE, SELFPAY ==
[2024-12-02 12:22] VITALS: BP 136/72; PULSE 74; O2SAT 97; BMI 33.8
--- NOTE | 2024-12-02 12:22 | A.OFFPC_ITS ---
Vital Signs 12/02/24 12:22 Height 5 ft 8 in Weight 222 lb BMI 33.8 BP 136/72 Blood Pressure Location Lt brachial Position Sitting Pulse 74 Pulse Source Pulse Oximeter Pulse Oximetry (%) 97 Oxygen Delivery Method Room Air Intake Visit Reasons: DM Allergies amlodipine Allergy (Unknown, Verified 12/02/24 12:23) leg swelling lisinopril Allergy (Unknown, Verified 12/02/24 12:23) cough escitalopram Adverse Reaction (Intermediate, Verified 12/02/24 12:23) Depression pcv23 Allergy (Unknown, Uncoded 12/02/24 12:23) arm swelling metformin Adverse Reaction (Intermediate, Uncoded 12/02/24 12:23) stomach pain Medication List - Last Reconciled 12/02/24 by Patience Sherman MD amoxicillin 2,000 mg orally 1 hour before thr procedure; aspirin 81 mg PO DAILY atorvastatin 40 mg PO DAILY chlorthalidone 25 mg PO DAILY 90 days cholecalciferol (vitamin D3) 25 mcg PO DAILY losartan 50 mg PO DAILY 90 days metoprolol succinate ER 50 mg PO DAILY potassium mg PO .QD Tobacco use date assessed: 12/02/24 Fall risk assessment: No Falls in past year Last assessed Fall Risk: 12/02/24 Dental Screening Dental Screen Date: 12/02/24 Did you have a dental visit in the last 12 months?: Yes Did you have a dental problem in the last 6 months where you did not have access to dental care?: No Was dental information given to patient?: Patient has dentist HPI DM HPI Details The patient is a 79-year-old female presenting for a follow-up visit addressing multiple chronic conditions and post-surgical recovery status. She reports having undergone shoulder surgery, followed by 12 weeks of physical therapy. She experiences difficulty with certain movements, such as hooking a bra and pulling pants up at the back, but notes improvement in activities like dressing and reaching up for objects. She previously had blood work in November 2023, and a separate blood work session specifically assessed her kidney function. There are issues with obtaining results from past imaging, as a CAT scan conducted post- remains without readings. She has undergone treatments for carpal tunnel syndrome and trigger finger; however, she still experiences persistent numbness in one of her fingers. Regarding her chronic conditions, she had her cholesterol last checked in November 2023, and her diabetes is currently under control with an A1c level of 6.3, a slight improvement. She maintains a regimen of regular vaccinations, including recent flu and COVID-19 vaccines. 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 She has not undergone a recent carotid artery ultrasound, given past non- significant findings. Her blood pressure and blood glucose levels are reportedly well-managed. Her lifestyle includes measures to avoid respiratory infections and gastrointestinal viruses prevalent during the flu season, and she adheres to a diet aimed at managing her glucose levels effectively. [facility] Medical History Syncope TIA (transient ischemic attack) Disequilibrium syndrome Right shoulder pain Post-menopausal Retinal tear Left carotid artery stenosis Tubular adenoma of colon Urge incontinence Type 2 diabetes mellitus with hyperglycemia Osteoarthritis Psoriasis GERD (gastroesophageal reflux disease) Obesity (BMI 30-39.9) Hypercholesterolemia Hypertension Surgical History History of cholecystectomy History of bilateral knee replacement History of colonoscopy History of cataract surgery Family History Mother No problems noted. Father No problems noted. Social History (Updated 04/10/24 @ 15:28 by Patience Sherman MD) Housing: House Alcohol intake: current Alcohol intake frequency: a few times a week Comment: once a month 1 drink Patient Tobacco Use Status: Former Tobacco user Tobacco use type: Cigarette Years Smoked: 1979 smoked 15 years pack a day e-Cigarette/Vaping Use: Never Used Second Hand Smoke Exposure: Yes service: No Current occupational status: retired Cognitive needs: No Hearing needs: No Vision needs: Yes (glasses) Questionnaire PHQ-9 Over the last 2 weeks, how often have you been bothered by any of the following problems? 1. Little interest or pleasure in doing things: not at all 2. Feeling down, depressed, or hopeless: not at all 3. Trouble falling or staying asleep, or sleeping too much: not at all 4. Feeling tired or having little energy: not at all 5. Poor appetite or overeating: not at all 6. Feeling bad about yourself - or that you are a failure or have let yourself or your family down: not at all 7. Trouble concentrating on things, such as reading the newspaper or watching television: not at all 8. Moving or speaking so slowly that other people could have noticed. Or the opposite - being so fidgety or restless that you have been moving around a lot more than usual: not at all 9. Thoughts that you would be better off or of hurting yourself in some way: not at all Total score: 0 Depression Screening Interpretation: Negative Depression Screening Done: Yes Source: Developed by Drs. Pascual Bradshaw, Rachelle Argueta, Luke Joshi and colleagues, with an educational khadra from [employer]. Thrive Questionnaire Date Thrive assessed: 12/02/24 I am a: Patient What is your living situation today?: I have a steady place to live Within the past 12 months, did the food you bought not last and you didn't have the money to get more?: Never true Within the past 12 months, did you worry whether your food would run out before you got money to buy more?: Never true Do you have trouble paying for medicines?: No Do you have trouble getting transportation to medical appointments?: No Do you have trouble paying your heating and electricity bill?: No Do you have trouble taking care of your child, family member or friend?: No Do you have trouble with day-to-day activities such as bathing, preparing meals, shopping, managing finances, etc.?: No Are you currently unemployed and looking for a job?: No Are you interested in more education?: No Currently or been in a relationship where the following occur: No concerns reported THRIVE Score: 0 AUDIT C Alcohol Use Questionnaire (AUDIT-C) 2. How many drinks containing alcohol do you have on a typical day when you are drinking?: 1 or 2 3. How often do you have six or more drinks on one occasion?: Never Total Score: 0 ELIEL-7 AMB Questionnaire ELIEL-7 Date ELIEL - 7 assessed: 12/02/24 Feeling nervous, anxious, or on edge: 0 = Not at all Not being able to stop or control worryin = Not at all Worrying too much about different things: 0 = Not at all Trouble relaxin = Not at all Being so restless that it is hard to sit still: 0 = Not at all Becoming easily annoyed or irritable: 0 = Not at all Feeling afraid as if something awful might happen: 0 = Not at all Total ELIEL-7 score (0-4 normal; 5-9 mild; 10-14 moderate; 15-21 severe): 0 Source: Developed by Drs. Pascual Bradshaw, Rachelle Argueta, Luke Joshi and colleagues, with an educational khadra from [employer]. Physical exam (Primary Care) Vital Signs: Last Vital Signs Pulse 74 12/02/24 12:22 BP 136/72 12/02/24 12:22 Pulse Ox 97 12/02/24 12:22 Oxygen Delivery Method Room Air 12/02/24 12:22 BMI result Body Mass Index 33.8 Tobacco/Smoking Status: Tobacco use Status Tobacco use date assessed 12/02/24 12/02/24 12:26 Patient Tobacco Use Status Former Tobacco user 12/02/24 12:26 Tobacco use type Cigarette 12/02/24 12:26 e-Cigarette/Vaping Use Never Used 12/02/24 12:26 PHQ-9: PHQ-9 Score PHQ-9: Total score 0 12/02/24 12:45 Depression Screening Interpretation: Negative Thrive Assessment: Date of Thrive Assessment Date Thrive assessed 12/02/24 12/02/24 12:26 Currently or been in a relationship where the following occur: No concerns reported Const General: alert; No acute distress Eyes Conjunctivae: conjunctivae normal Resp Auscultation: clear to auscultation bilaterally Cardio Rate: regular rate Rhythm: regular rhythm GI Inspection: Yes normal to inspection Extrem General: Yes normal to inspection and No edema Results AMB Hemoglobin A1c AMB Hemoglobin A1c 6.3 % Last Edit by Naomie Perez CMA on 12/02/24 12 :46 Results Reviewed Results Reviewed: Laboratory Last Values Hgb A1c (Clinic) 6.3 % (4.0-6.0) H 12/02/24 12:45 Coding Level of Care Code Est Pt Level 4 (81917) Complex EM visit Add On G2211 Diagnoses Type 2 diabetes mellitus with hyperglycemia, without long-term current use of insulin E11.65 Diabetes mellitus halfway insulin use: without rn long term care use Essential hypertension I10 Hypertension type: essential hypertension Hypercholesterolemia E78.00 Obesity (BMI 30-39.9) E66.9 Gastroesophageal reflux disease without esophagitis K21.9 Esophagitis presence: without esophagitis Generalized anxiety disorder F41.1 Right pulmonary lesion J98.4 Carpal tunnel syndrome, right G56.01 Assessment & Plan Assessment & Plan (1) Type 2 diabetes mellitus with hyperglycemia: Comment: Dr. Gomez Code(s): E11.65 - Type 2 diabetes mellitus with hyperglycemia Category: Medical Qualifiers: Diabetes mellitus halfway insulin use: without halfway use Qualified Code(s): E11.65 - Type 2 diabetes mellitus with hyperglycemia (2) Hypertension: Code(s): I10 - Essential (primary) hypertension Category: Medical Qualifiers: Hypertension type: essential hypertension Qualified Code(s): I10 - Essential (primary) hypertension (3) Hypercholesterolemia: Code(s): E78.00 - Pure hypercholesterolemia, unspecified Category: Medical (4) Obesity (BMI 30-39.9): Code(s): E66.9 - Obesity, unspecified Category: Medical (5) GERD (gastroesophageal reflux disease): Code(s): K21.9 - Gastro-esophageal reflux disease without esophagitis Category: Medical Qualifiers: Esophagitis presence: without esophagitis Qualified Code(s): K21.9 - Gastro-esophageal reflux disease without esophagitis (6) Generalized anxiety disorder: Comment: declined referal Code(s): F41.1 - Generalized anxiety disorder Category: Medical (7) Right pulmonary lesion: Comment: 03/24/2024Shoulder CT March 2024 showing incidental lesion right lateral lung recommend CT scan advanced right glenohumeral joint arthritis Code(s): J98.4 - Other disorders of lung Category: Medical (8) Carpal tunnel syndrome, right: Code(s): G56.01 - Carpal tunnel syndrome, right upper limb Category: Medical Plan 1. 3: - Order updated blood work to reassess cholesterol levels given the history of hypercholesterolemia. - Encourage scheduling blood work within the next six months to align with health maintenance check-ups. - Monitor and address numbness in fingers potentially due to carpal tunnel syndrome or related issues. - Reinforce adherence to a heart-healthy diet and lifestyle modifications to manage blood pressure and cholesterol. - Maintain vigilance against respiratory infections and advise continued adherence to vaccination schedule. - Monitor the patient's postoperative recovery from shoulder surgery, encouraging continued home exercises. - Collaborative management of all chronic conditions and further investigation of any lingering symptoms. - Recommend regular visits to monitor chronic conditions and review blood work results for any necessary adjustments in the management plan. Patient was informed and verbally consented to the use of an ambient scribe for clinic note documentation during this visit. Orders: Orders AMB Hemoglobin A1c Today Z13.9 - Encounter for screening, unspecified
--- OUTSIDE RECORDS SUMMARY | 2024-12-02 13:10 | XMS_ITS | Patient Health Record ---
Author Organization [facility] Address [address] [place] [address] Care Team Providers Care Garage Door Opener Installer Name Role Phone LnaeAstridreal Primary Care Provider Mignon Peralta Unavailable [phone] Ethan Duff Unavailable [phone] Allergies Allergen (clinical drug ingredient) Drug/Non Drug [...] Status Risk Notes Problem Unspecified atherosclerosis of [place] arteries of extremities, bilateral legs (I70.203) Active confirmed Problem Localized, primary osteoarthritis of the ankle and/or foot (411573531) Primary osteoarthritis, left ankle and foot (M19.072) Active confirmed Problem Acquired hallux valgus (54914875) Hallux valgus (acquired), right foot (M20.11) Active confirmed Problem Acquired hammer toe of right foot (1111961179915086 ) Other hammer toe(s) (acquired), right foot (M20.41) Active confirmed Problem Acquired hammer toe of left foot (6299278479819051 ) Other hammer toe(s) (acquired), left foot (M20.42) Active confirmed Problem Acquired hallux rigidus (9207634) Hallux rigidus, right foot (M20.21) Active confirmed Problem Atherosclerosis of [place] artery of both lower extremities, with unspecified presence of clinical manifestation (I70.203) Active confirmed Q7(A), Q8(2B), Q9(1B,2 C) Vital Signs Height 5 ft 8 in in 09/29/2024 Weight 215 lbs 09/29/2024 BMI 32.69 kg/m2 09/29/2024 Procedures Procedure Date Ordered Date Performed Result Body Sit e 31189-YTDP SKIN LESIONS, OVER 4 02/18/2024 N/A 36108-XPFU SKIN LESIONS, 2 TO 4 06/23/2024 N/A 84993-PAFANTR NAIL, 6 OR MORE 09/29/2024 N/A 22691-OVRC SKIN LESIONS, 2 TO 4 09/29/2024 N/A Encounters Encounter Location Date Provider Diagnosis [facility] [address] 02/18/2024 Ethan Duff Pain in left foot M79.672 ; Pain in right foot M79.671 ; Tinea unguium B35.1 ; Pain in right toe(s) M79.674 ; Pain in left toe(s) M79.675 ; Unspecified atherosclerosis of [place] arteries of extremities, bilateral legs I70.203 ; Hallux valgus (acquired), right foot M20.11 ; Other hammer toe(s) (acquired), left foot M20.42 ; Other hammer toe(s) (acquired), right foot M20.41 ; Primary osteoarthritis, left ankle and foot M19.072 ; Hallux rigidus, right foot M20.21 and Xerosis cutis L85.[address] [facility] [address] [address] 06/23/2024 Ethan Duff Pain in left foot M79.672 ; Pain in right foot M79.671 ; Tinea unguium B35.1 ; Pain in right toe(s) M79.674 ; Pain in left toe(s) M79.675 ; Unspecified atherosclerosis of [place] arteries of extremities, bilateral legs I70.203 ; Hallux valgus (acquired), right foot M20.11 ; Other hammer toe(s) (acquired), left foot M20.42 ; Other hammer toe(s) (acquired), right foot M20.41 ; Primary osteoarthritis, left ankle and foot M19.072 ; Hallux rigidus, right foot M20.21 and Xerosis cutis L85.3 [facility] [place] [address] [place] [address] 09/29/2024 Mignon Mejias Xerosis of skin L85.3 ; Atherosclerosis of [place] artery of both lower extremities, with unspecified presence of clinical manifestation I70.203 ; Tinea unguium B35.1 ; Pain in right toe(s) M79.674 and Pain in left toe(s) M79.675 Assessments Encounter Date Diagnosis (ICD Code) Assessment Notes Treatment Notes Treatment Clinical Notes Section Notes 02/18/2024 Pain in right foot (ICD-10 - M79.671) 02/18/2024 Pain in left foot (ICD-10 - M79.672) 06/23/2024 Pain in right foot (ICD-10 - M79.671) 06/23/2024 Pain in left foot (ICD-10 - M79.672) 09/29/2024 Xerosis of skin (ICD-10 - L85.3) 09/29/2024 Atherosclerosis of [place] artery of both lower extremities, with unspecified presence of clinical manifestation (ICD-10 - I70.203) Q7(A), Q8(2B), Q9(1B,2C) 02/18/2024 Tinea unguium (ICD-10 - B35.1) 06/23/2024 Tinea unguium (ICD-10 - B35.1) 06/23/2024 Pain in right toe(s) (ICD-10 - M79.674) 02/18/2024 Pain in right toe(s) (ICD-10 - M79.674) 09/29/2024 Tinea unguium (ICD-10 - B35.1) 09/29/2024 Pain in right toe(s) (ICD-10 - M79.674) 02/18/2024 Pain in left toe(s) (ICD-10 - M79.675) 06/23/2024 Pain in left toe(s) (ICD-10 - M79.675) 02/18/2024 Unspecified atherosclerosis of [place] arteries of extremities, bilateral legs (ICD-10 - I70.203) 09/29/2024 Pain in left toe(s) (ICD-10 - M79.675) 06/23/2024 Unspecified atherosclerosis of [place] arteries of extremities, bilateral legs (ICD-10 - [...] L85.3) 02/18/2024 Xerosis cutis (ICD-10 - L85.3) Plan Of Treatment Pending Test Test Name Order Date X ray : Ankle, left 3V 05/04/2021 X ray : Foot, left 2V 05/22/2016 X ray : Foot, right 2V 05/22/2016 *Liver Function Test (LFT) 08/30/2016 *Liver Function Test (LFT) 02/28/2017 03689-YKHYWGA NAIL, 6 OR MORE 06/13/2017 90452-UKVSRAI NAIL, 6 OR MORE 09/12/2017 90563-VOWUIWW NAIL, 6 OR MORE 12/12/2017 19381-QOWZSEZ NAIL, 6 OR MORE 05/22/2016 82288-CCHJEMN NAIL, 6 OR MORE 11/29/2016 29790-GQWSLCY NAIL, 6 OR MORE 02/28/2017 08079-VVTTJZA NAIL, 6 OR MORE 03/11/2018 26081-TQWJCEO NAIL, 6 OR MORE 06/10/2018 43669-QTSVDQC NAIL, 6 OR MORE 09/30/2018 86261-YMNDNTQ NAIL, 6 OR MORE 09/29/2024 72265-Nyok Destruction, 1-14 09/30/2018 72594-Kaej Destruction, 1-14 06/10/2018 26772-Khbqmpxc Plate 11/29/2016 80635-ZUHX SKIN LESIONS, OVER 4 05/22/20 16 19729-SQQS SKIN LESIONS, OVER 4 02/29/20 17 78850-QYIR SKIN LESIONS, OVER 4 11/29/19 17 06498-EOSI SKIN LESIONS, OVER 4 03/11/20 18 79950-NKTB SKIN LESIONS, OVER 4 12/12/19 18 23198-IXEB SKIN LESIONS, OVER 4 09/12/20 17 88875-USCT SKIN LESIONS, OVER 4 06/13/20 17 78949-NGIX SKIN LESIONS, OVER 4 09/30/20 18 96601-BECS SKIN LESIONS, OVER 4 06/10/20 18 87033-JAKO SKIN LESIONS, OVER 4 04/02/20 19 24704-MONP SKIN LESIONS, OVER 4 07/02/20 19 64079-GJDS SKIN LESIONS, OVER 4 08/10/20 21 08855-DKAF SKIN LESIONS, OVER 4 11/14/19 22 59380-DEHT SKIN LESIONS, OVER 4 12/01/19 20 49067-IDEF SKIN LESIONS, OVER 4 04/28/20 20 40258-KOTD SKIN LESIONS, OVER 4 07/26/20 20 82197-GFXU SKIN LESIONS, OVER 4 10/20/20 20 84501-IBTE SKIN LESIONS, OVER 4 01/27/20 21 48672-IVJJ SKIN LESIONS, OVER 4 05/04/20 21 24787-NVHJ SKIN LESIONS, OVER 4 02/18/20 24 87586-GEHV SKIN LESIONS, 2 TO 4 06/23/20 24 18990-RJYI SKIN LESIONS, 2 TO 4 09/29/20 24 10171-AAMH SKIN LESIONS, 2 TO 4 02/14/20 22 85173-WPWYMFAD OF HEMATOMA/FLUID 019 42299- Nail Unit Biopsy 03/11/2018 Next Appt Details Provider Name:Mignon key, 12/04/2024 04:00:00 PM, [address] [facility], [place], [address], Insurance Providers Payer Name Payer Address Payer Phone Subscriber Number Group Number Insured Name Patient Relationship to Insured Coverage Start Date Coverage End Date Medicare National [employer]t [employer] [address] [place] [address] [id number] Tirso lamar Pascale Self - patient is the insured 1 [employer] Blue [employer] [address] [place] [address] [id number] Tirso lamar Pascale Self - patient is the insured Medical (General) History Medical History History ICD Code Hypertension overweight Back,Hip,and Knee pain Hyperlipidemia Arthritis Broken bones Gall bladder problems Glaucoma Psoriasis/eczema Measles Mumps Chicken pox Joint implants/screws Transfusions Primary osteoarthritis, right ankle and foot M19.071 Unspecified atherosclerosis of [place] arteries of extremities, bilateral legs I70.203 Plantar [...] surgery 12/2017 Cataract surgery 01/2018 Vein removed 2019
--- OUTSIDE RECORDS SUMMARY | 2024-12-02 13:10 | XMS_ITS ---
Author Organization [facility] Address [address] [place] [address] Care Team Providers Care Assistant Site Manager Name Role Phone Patience Sherman Primary Care Provider Mignon Peralta Unavailable [phone] Ethan Duff Unavailable [phone] Allergies Allergen (clinical drug ingredient) Drug/Non Drug [...] Ordered Date Performed Result Body Sit e 13776-GGOY SKIN LESIONS, 2 TO 4 06/23/2024 N/A Encounters Encounter Location Date Provider Diagnosis [facility] [place] [address] [place] [address] 06/23/2024 Ethan Duff Pain in left foot M79.672 ; Pain in right foot M79.671 ; Tinea unguium B35.1 ; Pain in right toe(s) M79.674 ; Pain in left toe(s) M79.675 ; Unspecified atherosclerosis of [place] arteries of extremities, bilateral legs I70.203 ; [...] (ICD-10 - M79.675) 06/23/2024 Unspecified atherosclerosis of [place] arteries of extremities, bilateral legs (ICD-10 - [...] Treatment Pending Test Test Name Order Date 19980-GOOD SKIN LESIONS, 2 TO 4 06/23/20 24 Next Appt Details Follow Up: 3 Months, Reason: Provider Name:Mignon key, 12/04/2024 04:00:00 PM, [address] [place] [address], [phone], Procedure Notes * Category Sub-Category Detail Notes [...] as necessary. Patient chooses, no pharmaceutical tx (89924) Keratoma Treatment Parring or Cutting o f Benign Hyperkeratotic Lesion(s) 76755 ( 2-4 Lesions ) - The Benign hyperkeratotic lesions, as described above were pared, and/or cut utilizing a sterile 15 blade, tissue nippers, and/or dremel, Q8 Progress Notes * Pascale CARDONA EDOB:[birth year] (79 yo F)Acc No.[id number]:06/23/2024 Progress Note Patient:?Pascale Cardona Provider:?Ethan Duff DPM :1945???Age:79 Y???Sex:Female D ate:06/23/2024 Address:[address] [place], [place] [id number] Pcp:Patience Sherman Subjective: * Chief Complaints: * [...] 2. ?no Exercise. ?Marital status: . 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 * Medications:?TakinglevETIRAc etam 250 MG Tablet 1 [...] in left toe(s) - M79.675?6.?Unspecified atherosclerosis of [place] arteries of extremities, bilateral legs - I70.203?7.?Hallux [...] as necessary. Patient chooses, no pharmaceutical tx (31285).?Keratoma Treatment:?Parring or Cutting of Benign Hyperkeratotic Lesion(s)?28464 ( 2-4 Lesions ) - The Benign hyperkeratotic lesions, as described above were pared, and/or cut utilizing a sterile 15 blade, tissue nippers, and/or dremel, Q8.? * Procedure Codes:?03749 DEBRI DE NAIL, 6 OR MORE, Modifiers: XS 26334 TRIM SKIN LESIONS, 2 TO 4, Modifiers: Q8 * Follow Up:?3 Months * Images: * Sign off status: Completed true * Provider:?Ethan Duff DPM Date:? 024 Generated for Alisia nur/Reilly/Danisha on:?12/02/2024 01:10 PM EST History and Physical Notes * HPI [...]
--- OUTSIDE RECORDS SUMMARY | 2024-12-02 13:10 | XMS_ITS ---
Author Organization [facility] Address [address] [place] [address] Care Team Providers Care Social Worker School Name Role Phone Patience Sherman Primary Care Provider Mignon Peralat Unavailable [phone] Ethan Duff Unavailable [phone] Allergies Allergen (clinical drug ingredient) Drug/Non Drug [...] Ordered Date Performed Result Body Sit e 74548-XZYX SKIN LESIONS, OVER 4 02/18/2024 N/A Encounters Encounter Location Date Provider Diagnosis [facility] [place] [address] [place] [address] 02/18/2024 Ethan Duff Pain in left foot M79.672 ; Pain in right foot M79.671 ; Tinea unguium B35.1 ; Pain in right toe(s) M79.674 ; Pain in left toe(s) M79.675 ; Unspecified atherosclerosis of augustine arteries of extremities, bilateral legs I70.203 ; [...] (ICD-10 - M79.675) 02/18/2024 Unspecified atherosclerosis of augustine arteries of extremities, bilateral legs (ICD-10 - [...] Treatment Pending Test Test Name Order Date 21604-AQRI SKIN LESIONS, OVER 4 02/18/20 24 Next Appt Details Follow Up: 3 Months, Reason: Provider Name:Mignon key, 12/04/2024 04:00:00 PM, [address] [place] [address], [id number], Procedure Notes * Category Sub-Category Detail [...] as necessary. Patient chooses, no pharmaceutical tx (77494) Keratoma Treatment Parring or Cutting o f Benign Hyperkeratotic Lesion(s) 88279 ( More than 4 Lesions ) - The Benign hyperkeratotic lesions, as described above were pared, and/or cut utilizing a sterile 15 blade, tissue nippers, and/or dremel Progress Notes * Pascale CARDONA EDOB:[birth year] (78 yo F)Acc No.[id number]:02/18/2024 Progress Note Patient:?Pascale Cardona Provider:?Ethan Duff DPM :1945???Age:78 Y???Sex:Female D ate:02/18/2024 Address:[address] [place] [address] [facility] Pcp:Patience Sherman Subjective: * Chief Complaints: * [...] 2. ?no Exercise. ?Marital status: . 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 * Medications:?TakinglevETIRAc etam 250 MG Tablet 1 [...] in left toe(s) - M79.675?6.?Unspecified atherosclerosis of augustine arteries of extremities, bilateral legs - I70.203?7.?Hallux [...] as necessary. Patient chooses, no pharmaceutical tx (49840).?Keratoma Treatment:?Parring or Cutting of Benign Hyperkeratotic Lesion(s)?30120 ( More than 4 Lesions ) - The Benign hyperkeratotic lesions, as described above were pared, and/or cut utilizing a sterile 15 blade, tissue nippers, and/or dremel.? * Procedure Codes:?12021 DEBRI DE NAIL, 6 OR MORE, Modifiers: XS 37034 TRIM SKIN LESIONS, OVER 4, Modifiers: Q8 [...]
--- OUTSIDE RECORDS SUMMARY | 2024-12-02 13:10 | XMS_ITS ---
Author [facility] Address [address] [place] [address] Care Team Providers Care Worship Pastor Name Role Phone Patience Sherman Primary Care Provider Mignon Peralta Unavailable [phone] Allergies Allergen (clinical drug ingredient) Drug/Non Drug [...] W/U Status Risk Notes Problem Atherosclerosis of [place] artery of both lower extremities, with unspecified presence of clinical manifestation (I70.203) Active confirmed Q7(A), Q8(2B), Q9(1B,2C) Vital Signs Height 5 ft 8 in in 09/29/2024 Weight 215 lbs 09/29/2024 BMI 32.69 kg/m2 09/29/2024 Procedures Procedure Date Ordered Date Performed Result Body Sit e 86708-KRAJIZB NAIL, 6 OR MORE 09/29/2024 N/A 80660-QLJP SKIN LESIONS, 2 TO 4 09/29/2024 N/A Encounters Encounter Location Date Provider Diagnosis [facility] [place] [address] [place] [address] 09/29/2024 Mignon Mejias Xerosis of skin L85.3 ; Atherosclerosis of [place] artery of both lower extremities, with unspecified presence of clinical manifestation I70.203 ; Tinea unguium B35.1 ; Pain in right toe(s) M79.674 and Pain in left toe(s) M79.675 Assessments Encounter Date Diagnosis (ICD Code) Assessment Notes Treatment Notes Treatment Clinical Notes Section Notes 09/29/2024 Xerosis of skin (ICD-10 - L85.3) 09/29/2024 Atherosclerosis of [place] artery of both lower extremities, with unspecified [...] days Pending Test Test Name Order Date 84259-SPUZNSF NAIL, 6 OR MORE 09/29/2024 02467-QRPC SKIN LESIONS, 2 TO 4 09/29/20 24 Next Appt Details Follow Up: 3 Months, Reason: Provider Name:Mignon key, 12/04/2024 04:00:00 PM, [address] [facility], [place], [address], Procedure Notes * Category Sub-Category Detail Notes [...] use of a nail nipper and/or dremel-type air grinder, to a more viable healthy nail plate [...] to maintain effectiveness in symptomatic relief - 64628 Keratoma Treatment Parring or Cutting o f Benign Hyperkeratotic Lesion(s) (-56) 2-4 Lesions - The Benign hyperkeratotic lesions, ( 4 ) in total, locations as stated and described in exam, were pared, and/or cut utilizing a sterile 15 blade, tissue nippers, and/or power [employer] instrumentation - 32439, Q8 Progress Notes * Pascale CARDONA EDOB:[birth year] (79 yo F)Acc No.[id number]:09/29/2024 Progress Note Patient:?Pascale CARDONA Provider:?Mignon Mejias DPM :1945???Age:79 Y???Sex:Female D ate:09/29/2024 Address:[address] [place], [place] [id number] Pcp:Patience Sherman Subjective: * Chief Complaints: * [...] :Acute problem, Uncomplicated (3),Rx Management (4)???2.?Atherosclerosis of [place] artery of both lower extremities, with unspecified [...] 30 days, 140, Refills 2.?? 3.?Tinea unguium?Procedure: 40431-KLLFULJ NAIL, 6 OR MORE * Procedures:?Debride Nail [...] use of a nail nipper and/or dremel-type air grinder, to a more viable healthy nail plate [...] to maintain effectiveness in symptomatic relief - 72556.?Keratoma Treatment:?Parring or Cutting of Benign Hyperkeratotic Lesion(s)?(-56) 2-4 Lesions - The Benign hyperkeratotic lesions, ( 4 ) in total, locations as stated and described in exam, were pared, and/or cut utilizing a sterile 15 blade, tissue nippers, and/or power dremel instrumentation - 29392, Q8.? * Procedure Codes:?76428 DEBRI DE NAIL, 6 OR MORE, Modifiers: XS 50529 TRIM SKIN LESIONS, 2 TO 4, Modifiers: [...] status: Completed true * Provider:?Mignon Mejias DPM Date:?11/29/2023 Generated for Alisia nur/Reilly/Danisha on:?12/02/2024 01:09 PM EST History and Physical Notes * [...]
--- OUTSIDE RECORDS SUMMARY | 2024-12-02 13:10 | XMS_ITS | Data Portability ---
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 TENNIS/PICKLE BALL: BALL AGAINST WALL, VERY LIGHT RALLIES AT 4 MONTHS; NO COMPETITIVE GAMES UNTIL AFTER 6 MONTHS NO CONTACT SPORTS FOR AT LEAST 6 MONTHS Not available 09/11/2024 13:54:52 09/15/2024 09/15/2024 Assessment: Pt was fatigued after [...] AT 4 MONTHS, BEGINNING WITH HALF SWINGS; 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 She does still have some ADL/functional deficits but can compensate with left arm as needed. Almost all goals met. Pt is independent with her [facility]. 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 tolerated all exercises well while demonstrating proper periscapular and RC mechanics with minimal fatigue levels achieved. Updated Independent [facility], reviewed with Pt. and answered further questions. 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 Lab None recorde d. Referral None recorde d. Procedures None recorde d. Surgeries None recorde d. Imaging XR, shoulde r, 2 or more view - right shldr 3viiews rm [phone] natysurekha [facility], [address], [place], [address], 07:55:33 Medication Orders None recorde d. Patient TargetsNo targets recorded. Patient InstructionsNo instructions recorded. Reason for Referral None Reported. Results Created Date Observation Date Name Description Value Unit Range Abnormal Flag Note LastModifiedBy Organization Detail LastModifiedTime 08/11/2008/11/2024 XR, beth rousseau, 2 or more view [email or web address]:/ [email or web address] ?Encry pted=s hAaTro YD8dLq bEUv6g %2BXZw aYqtaq 0bqfl% 2Fg9IQ a4ajBk vP9nXo QUaueC m3YtLR FvZl JJ8mAn HZtai3 2q1963 AC0Kqa nWAWaS vKiQtr [facility] INTERFACE [facility] Office [address], [place], [address], 08/11/2024 14:13:43 08/11/20 24 08/11/2024 XRbeth, 2 or more view [email or web address] ?Encry pted=s hAaTro YD8dLq bEUv6g %2BXZw aYqtaq 0bqfl% 2Fg9IQ a4ajBk vP9nXo QUaueC m3YtLR FvZl JJ8Hardin HZtai 2n2004 AC0Kqa [facility] vKiQtr [facility] INTERFACE [facility] Office [address], [place], [address], 08/11/2024 14:13:45 08/29/2008/29/2024 XR, hand, 3 or more view [email or web address]:/ [email or web address] ?Encry pted=s hAaTro YD8dLq bEUv6g %2BXZw aYqtaq 0bqfl% 2Fg9IQ a4ajBk vP9nXo QUaueC m3YtLR FvZl JJ8mAn HZtai3 9i3189 AC0Kqa HyCUaO jKiQtr Mw[facility] INTERFACE [facility] [address], [place], [address], 08/29/2024 14:55:51 08/29/20 24 08/29/2024 XR, hand, 3 or more view [email or web address]:/ [email or web address] ?Encry pted=s hAaTro YD8dLq bEUv6g %2BXZw aYqtaq 0bqfl% 2Fg9IQ a4ajBk vP9nXo QUaueC m3YtLR FvZlgJ JJ8mAn HZtai3 0i6836 AC0Kqa HyCUaO jKiQtr MwF INTERFACE [facility] [address], [place], [address], 08/29/2024 14:55:55 10/16/20 24 10/16/2024 XR, shoul onelia, 2 or more view http:/ [email or web address] ?Encry pted=s hAaTro YD8dLq bEUv6g %2BXZw aYqtaq 0bqfl% 2Fg9IQ a4ajBk vP9nXo QUaueC m3YtLR FvZlgJ JJ8mAn HZtai3 6a8687 AC0Kqb nyBVaW gKiQtr MwF INTERFACE [facility] [address], [place], [address], 10/16/2024 11:27:48 10/16/20 24 10/16/2024 XR, shoul onelia, 2 or more view http:/ [email or web address] ?Encry pted=s hAaTro YD8dLq bEUv6g %2BXZw aYqtaq 0bqfl% 2Fg9IQ a4ajBk vP9nXo QUaueC m3YtLR FvZlgJ JJ8mAn HZtai3 4d5658 AC0Kqb nyBVaW gKiQtr MwF INTERFACE [facility] [address], [place], [address], 10/16/2024 11:27:50 Result Notes None recorded. Problems Name Problem SNOMED Code Status Onset Date Resolution Date Notes Provider Name and Address Organization Details Recorded Time No complaints 366616206 Active Status : 'A'; Not Available [facility] 09:25:45 Lesion of lung 155043985 Active 2023 ROXANA SEGURA [facility] 12:17:47 Problem Notes None recorded. Procedures Surgical History Date Name Laterality Status Provider Name and Address Organization Details Recorded Time 4 84373 Therapeutic Exercise (1:1) completed Shaun Bynum, ALEX [address], [place], [address], [facility] 08/14/2024 14:53:22 4 21393 Therapeutic Exercise (1:1) completed Karlee Cardona, PT [address], [place], [address], [facility] 08/10/2024 23:13:44 4 68263 Therapeutic Exercise (1:1) completed Shaun Bynum PTA [address], [place], [address], [facility] 08/07/2024 14:30:15 4 99603 Therapeutic Exercise (1:1) completed Karlee Cardona, PT [address], [place], [address], [facility] 08/03/2024 22:12:27 4 93008 Therapeutic Exercise (1:1) completed Shaun Bynum, ALEX [address], [place], [address], [facility] 07/31/2024 15:16:09 4 05714 Therapeutic Exercise (1:1) completed Karlee Cardona, PT [address], [place], [address], [facility] [place] [facility] 07/29/2024 06:56:55 4 81304 Therapeutic Exercise (1:1) completed Shaun Bynum, SOUND CUTTER [address], [place], [address], [facility] 07/24/2024 14:19:39 4 90060 Therapeutic Exercise (1:1) completed Karlee Cardona, PT [address], [place], [address], [facility] 07/21/2024 22:35:29 4 00947 Therapeutic Exercise (1:1) completed Shaun Bynum SOUND CUTTER [address], [place], [address], [facility] 07/17/2024 14:07:03 4 69235 Therapeutic Exercise (1:1) completed Karlee Cardona, PT [address], [place], [address], [facility] 07/15/2024 00:17:13 4 38730 Therapeutic Exercise (1:1) completed Shaun Bynum, SOUND CUTTER [address], [place], [address], [facility] 07/11/2024 09:03:20 4 49311: Manual therapy completed Shaun Bynum SOUND CUTTER [address], [place], [address], [facility] 07/11/2024 09:05:30 4 91916 Therapeutic Exercise (1:1) completed Shaun Bynum SOUND CUTTER [address], [place], [address], [facility] 07/08/2024 07:52:09 4 89511 Therapeutic Exercise (1:1) completed Belkis Calderon, SOUND CUTTER [address], [place], [address], [facility] 07/04/2024 16:55:00 4 96155 Therapeutic Exercise (1:1) completed Karlee Cardona, PT [address], [place], [address], [facility] 06/30/2024 23:19:58 4 84295 Therapeutic Exercise (1:1) completed Shaun Bynum, SOUND CUTTER [address], [place], [address], [facility] 06/26/2024 16:05:02 4 58172 Therapeutic Exercise (1:1) completed Karlee Cardona, PT [address], [place], [address], [facility] 06/22/2024 21:42:13 4 13403 Therapeutic Exercise (1:1) completed Shaun Bynum SOUND CUTTER [address], [place], [address], [facility] 06/20/2024 07:57:57 4 24058 Therapeutic Exercise (1:1) completed Belkis Calderon, SOUND CUTTER [address], [place], [address], [facility] 06/16/2024 16:32:39 4 84502 Therapeutic Exercise (1:1) completed Shaun Bynum SOUND CUTTER [address], [place], [address], [facility] 06/12/2024 14:25:56 4 71420: Hot or Cold Pack completed Shaun Bynum SOUND CUTTER [address], [place], [address], [facility] 06/12/2024 13:24:39 4 65710 Therapeutic Exercise (1:1) completed Shaun Bynum SOUND CUTTER [address], [place], [address], [facility] 06/09/2024 11:25:26 4 30135: Hot or Cold Pack completed Shaun Bynum, SOUND CUTTER [address], [place], [address], [facility] 06/09/2024 11:25:15 4 94950 Therapeutic Exercise (1:1) completed Karlee Cardona, PT [address], [place], [address], [facility] 06/06/2024 11:55:51 4 39334: Low complexity PT Eval completed Karlee Cardona, PT [address], [place], [address], [facility] 06/06/2024 12:05:01 4 G8417 BMI Above Upper Parameters, F/U Documented completed Karlee Cardona, PT [address], [place], [address], [facility] 06/04/2024 23:07:37 4 G8427 Current Medication Documented completed Karlee Cardona, PT [address], [place], [address], [facility] 06/04/2024 23:07:42 Imaging Results Imaging Date Name Status LastModified by Organiz ation Details LastModified Time 08/11/2024 XR, shoulder, 2 or more view completed INTERFACE [facility] [address], [place], [address], 08/11/2024 14:13:43 08/11/2024 XR, shoulder, 2 or more view completed INTERFACE [facility] [address], [place], [address], 08/11/2024 14:13:45 08/29/2024 XR, hand, 3 or more view completed INTERFACE [facility] [address], [place], [address], 08/29/2024 14:55:51 08/29/2024 XR, hand, 3 or more view completed INTERFACE [facility] [address], [place], [address], 08/29/2024 14:55:55 10/16/2024 XR, shoulder, 2 or more view completed INTERFACE [facility] [address], [place], [address], 10/16/2024 11:27:48 10/16/2024 XR, shoulder, 2 or more view completed INTERFACE [facility] [address], [place], [address], 10/16/2024 11:27:50 Procedure Notes None recorded. Medical Equipment None [...] Available Not Available No t Available Vitals Date Recorded Body height Body mass index (BMI) Body weight Provider Name and Address Organization Details Last Updated DateTime 10/16/2024 172.72 cm 33.3 kg/m2 60708.73 g Benton Quiles PA-C [address] [facility] [address], [place], [address], [place] [facility] [place] [facility] 10/16/2024 10:54:17 Social History Question Answer Notes LastModified by Organizat ion Details LastModified Time Tobacco Smoking Status Former Smoker DELFINA WARE [facility] 04/14/2024 12:55:54 [...] Disease N Heart Trouble N Heart Attack (SC) N Gastrointestinal Disease N Cholesterol N Diabetes [...] Diagnosis/Indication Diagnosis SNOMED-CT Code Diagnosis ICD10 Code Diagnosis Note [id number] MD Liliam Maciel [address] [place] [address] [address] [place] [address] 01/23/2024 14:24:25 02/07/2024 14:35:36 Osteoarthritis of right glenohumeral joint 7265817783 467074 M19.120 [id number] MD Liliam Maciel [address] [place] [address] [address] [place] [address] 04/14/2024 12:50:00 05/02/2024 09:32:23 Osteoarthritis of joint of right shoulder region 6818627763 43009 M19.988 [id number] MD Liliam Maciel [address] [place] [address] [address] [place] [address] 05/05/2024 12:38:26 05/23/2024 07:58:15 History of reverse prosthetic total arthroplasty of right shoulder [id number] Z96.565 [id number] LEYLA Britt [facility]nd [facility] [address] [place] [address] 06/04/2024 13:43:25 06/04/2024 14:23:02 Postoperative care [id number] Z48.89 [id number] Laurence Simms MD [facility] on PT [address] [place] [address] 06/05/2024 11:16:10 06/05/2024 12:43:47 Aftercare 072881093 Z47.1 Z96.106 [id number] Karlee Cardona, PT [facility] [address] [place] [address] 06/09/2024 10:31:54 06/09/2024 11:29:04 Aftercare [id number] Z47.1 Z96.043 [id number] Alejandro Jessy, DPT [facility] [address] [place] [address] 06/12/2024 13:24:14 06/12/2024 14:34:20 Aftercare [id number] Z47.1 Z96.192 [id number] Crissy Salmeron, PT [facility] [address] [facility] [place] [address] 06/16/2024 15:22:58 06/16/2024 16:57:38 Aftercare [id number] Z47.1 Z96.410 [id number] Alejandro Jiménez, DPT [facility] [address] [facility] [place] [address] 06/20/2024 07:55:20 06/20/2024 08:44:46 Aftercare [id number] Z47.1 Z96.871 [id number] Karlee Cardona, PT [facility] [address] [facility] [place] [address] 06/23/2024 17:19:55 06/24/2024 08:13:17 Aftercare [id number] Z47.1 Z96.036 [id number] Alejandromargarita Jiménez, DPT [facility] [address] [place] [place] [address] 06/26/2024 15:52:23 06/26/2024 16:51:17 Aftercare [id number] Z47.1 Z96.142 [id number] Karlee Cardona, PT [facility] [address] [place] [place] [address] 06/30/2024 14:52:31 06/30/2024 16:17:10 Aftercare [id number] Z47.1 Z96.658 [id number] Alejandro Jiménez, DPT [facility] [address] [place] [place] [address] 07/04/2024 15:55:01 07/08/2024 08:41:31 Aftercare [id number] Z47.1 Z96.856 [id number] [facility] [address] [facility] [place] [address] 07/08/2024 07:51:39 07/08/2024 09:05:57 Aftercare [id number] Z47.1 Z96.434 [id number] Alejandro Jiménez, DPT [facility] [address] [facility] [place] [address] 07/11/2024 07:53:22 07/11/2024 09:05:02 Aftercare [id number] Z47.1 Z96.135 [id number] Karlee Cardona, PT [facility] PT [address] [facility] [place] [address] 07/14/2024 15:26:57 07/14/2024 17:08:10 Aftercare [id number] Z47.1 Z96.662 [id number] Alejandro Jiménez, DPT [facility] [address] [facility] [place] [address] 07/17/2024 13:55:03 07/18/2024 07:36:28 Aftercare [id number] Z47.1 Z96.431 [id number] Karlee Cardona, PT [facility] [address] [facility] [place] [address] 07/21/2024 12:18:06 07/21/2024 14:42:16 Aftercare [id number] Z47.1 Z96.295 [id number] Alejandro Jiménez, DPT [facility] [address] [facility] [place] [address] 07/24/2024 13:50:28 07/24/2024 15:28:53 Aftercare [id number] Z47.1 Z96.113 [id number] Karlee Cardona, PT [facility] [address] [facility] [place] [address] 07/28/2024 11:45:30 07/28/2024 14:45:16 Aftercare [id number] Z47.1 Z96.715 [id number] Laurence Simms MD [facility] 2nd floor [address] [place] [address] 08/11/2024 13:48:05 09/05/2024 09:27:06 History of reverse prosthetic total arthroplasty of right shoulder 6461877702 4688359 Z96.793 [id number] Alejandro Jiménez, DPT [facility] [address] [place] [address] 07/31/2024 13:51:37 07/31/2024 15:25:10 Aftercare [id number] Z47.1 Z96.782 [id number] Karlee Cardona, PT [facility] [address] [place] [address] 08/04/2024 10:50:03 08/04/2024 15:21:48 Aftercare [id number] Z47.1 Z96.598 [id number] Alejandro Jiménez, DPT [facility] [address] [place] [address] 08/07/2024 13:17:35 08/07/2024 15:58:33 Aftercare [id number] Z47.1 Z96.295 [id number] Laurence Simms MD [facility] on PT [address] [place] [address] 08/11/2024 10:49:49 08/11/2024 12:02:31 Aftercare [id number] Z47.1 Z96.032 [id number] Karlee Cardona, PT [facility] [address] [place] [address] 08/14/2024 14:47:52 08/15/2024 07:32:59 Aftercare [id number] Z47.1 Z96.323 [id number] Alejandro Jiménez, DPT [facility] [address] [place] [address] 08/21/2024 12:57:26 08/21/2024 15:12:52 Aftercare [id number] Z47.1 Z96.239 [id number] Karleeeva Cardona, PT [facility] [address] [place] [address] 08/25/2024 11:44:19 08/25/2024 13:06:16 Aftercare [id number] Z47.1 Z96.095 [id number] Alejandro Jessy, DPT [facility] [address] [place] [address] 08/28/2024 12:55:10 08/28/2024 14:27:04 Aftercare [id number] Z47.1 Z96.231 [id number] Angie Garcia PA-C [facility] 1st Floor [address] [facility] [place] [address] 08/29/2024 14:20:00 09/24/2024 10:23:26 Pain of left hand [id number] 81935 M79.337 [id number] Karleeeva Cardona, PT [facility] [address] [place] [address] 09/01/2024 10:19:05 09/01/2024 11:46:47 Aftercare [id number] Z47.1 Z96.598 [id number] Alejandro Jessy, DPT [facility] [address] [place] [address] 09/04/2024 12:58:01 09/04/2024 14:52:00 Aftercare [id number] Z47.1 Z96.519 [id number] Karlee Cardona, PT [facility] [address] [place] [address] 09/08/2024 09:54:41 09/08/2024 11:09:28 Aftercare [id number] Z47.1 Z96.914 [id number] Alejandro Jessy, DPT [facility] [address] [place] [address] 09/11/2024 12:56:13 09/11/2024 14:05:48 Aftercare [id number] Z47.1 Z96.917 [id number] Karleeeva Cardona, PT [facility] [address] [place] [address] 09/15/2024 09:48:35 09/15/2024 11:22:28 Aftercare [id number] Z47.1 Z96.613 [id number] Laurence Simms MD [facility] on PT [address] [place] [address] 09/22/2024 09:52:06 09/22/2024 11:01:20 Aftercare [id number] Z47.1 Z96.744 [id number] Alejandro Jiménez DPT [facility] on PT [address] [place] [address] 09/25/2024 12:57:48 09/25/2024 14:13:34 Aftercare [id number] Z47.1 Z96.680 [id number] LEYLA Britt 2nd floor [address] [place] [address] 10/16/2024 10:49:03 11/11/2024 07:55:33 History of reverse prosthetic total arthroplasty of right shoulder 1184314108 7505232 Z96.611 Health Concerns Section Related Observation LastModified by Organization Detai ls LastModified Time None Recorded Concern Status LastModified by Organization Details LastModified Time None Recorded Advance Directives Directive None Recorded Payers Encounter Date Sequence Insurance Name Policy Number Policy Ferris Covered Member ID Ferris Member ID Guarantor Name 09/11/2024 1 [place] Pascale Oates [id number] Pascale Oates 09/11/2024 2 [place] [id number] Pascale Oates [id number] Pascaleeva Oates 09/15/2024 1 [place] Pascale Oates [id number] Pascale Oates 09/15/2024 2 [place] [id number] Pascale Oates [id number] Pascaleeva Oates 09/22/2024 1 [place] Pascale Yobany Gratkowski [id number] Pascale E Gratkowski 09/22/2024 2 [place] [id number] Pascale E Gratkowski [id number] Pascale E Gratkowski 09/25/2024 1 [place] Pascale E Gratkowski [id number] Pascale E Gratkowski 09/25/2024 2 [place] [id number] Pascale E Gratkowski [id number] Pascale E Gratkowski 10/16/2024 1 [place] Pascale E Gratkowski [id number] Pascale E Gratkowski 10/16/2024 2 [place] [id number] Pascale E Gratkowski [id number] Pascale E Gratkowski Notes Date Note Type Note Provider Name and Address Organization Details Recorded Time 09/11/2024 text/html Pt. reports that his shoulder is feeling overall ok, able to reach for the top cabinets without difficulty. Shaun Bynum, SOUND CUTTER [address], [place], [address], [facility] 09/11/2024 13:55:35 09/15/2024 text/html Pt. reports that she has a little bit of biceps/upper arm soreness today. Pt also reports that she had a small episode of partial blacking out yesterday. It was the first one since being weaned off her seizure medication. She plans to call her MD about this. Karlee Cardona, PT [address], [place], [address], [facility] 09/15/2024 11:06:19 09/22/2024 text/html Pt. reports that her shoulder feels good & now it feels like my shoulder. States he is doing very well overall, still has some limitations with functions like reaching highest shelves at home & scratching her back, but she is happy with outcome from surgery. She states she still avoids lifting/carrying heavier grocery bags. Pt feels she is 90% improved. Pt would like to complete last scheduled session on 09/25/24 and then be D/C to HEP. Karlee Cardona, PT [address], [place], [address], [facility] 09/22/2024 11:11:50 09/25/2024 text/html Pt. reports to P T today feeling fatigue overall dt a busy day. States operative shoulder is feeling good. Would like a detailed HEP. Shaun Bynum, SOUND CUTTER [address], [place], [place], [id number], [facility] ([facility] 09/25/2024 13:54:48 10/16/2024 text/html I am seeing the patient today under the supervision of {{Kriss Bey}}who was available but who did not see the patient. HPI: The patient returns for follow-up of a right reverse total shoulder arthroplasty. The patient is 6 months postop. The patient finished with formal physical therapy. The patient's pain is well-controlled. Past family, medical, social history and review of systems has been reviewed, updated and is located in the patient? s chart. Examination: The patient is well appearing and in no apparent distress. Alert and oriented x3. Gait is symmetric. No significant swelling, warmth, erythema about the right shoulder. The incision is well-healed. Active range of motion of the right shoulder is forward elevation to {{150 160 170*}}, external rotation to {{50 60 70* 80}}, and internal rotation to {{L1* T10 T9}}. Peripheral, vascular, lymphatic examination, skin, neurological, coordination, reflexes, sensation are within normal limits. X-rays ordered, obtained and reviewed at [facility] 3 views of the right reverse total shoulder arthroplasty demonstrate good implant interfaces and good alignment. As compared to previous films they are unchanged. Impression: Status post right reverse total shoulder arthroplasty Plan: I reviewed postop protocols with the patient. The patient can increase activities per tolerance. The patient will continue with a home exercise program which we discussed at length. The patient understands a full recovery from this operation is approximately 12 months after surgery. All questions answered to their satisfaction today. They will follow up on an annual basis. Benton Quiles PA-C [address] [place], [place] [id number] [address], [place], [address], [facility] [place] [facility] 10/16/2024 11:44:40 OBGyn Episode No OBEpisode recorded.
== END 2024-12-02 12:57 | disposition home or self-care (01) ==
PROVIDERS: PCP Internal Medicine; Visit Provider Internal Medicine
DX: E11.65 Type 2 diabetes mellitus with hyperglycemia (principal); I10 Essential (primary) hypertension; E66.9 Obesity, unspecified; Z68.33 Body mass index [BMI] 33.0-33.9, adult; E78.00 Pure hypercholesterolemia, unspecified; K21.9 Gastro-esophageal reflux disease without esophagitis; F41.1 Generalized anxiety disorder; J98.4 Other disorders of lung; G56.01 Carpal tunnel syndrome, right upper limb

== ENCOUNTER → 2024-12-02 12:16 | Outpatient (BNVA) | payer MEDICARE, SELFPAY | PROVIDERS: PCP Internal Medicine; Visit Provider Internal Medicine | DX: E11.65 Type 2 diabetes mellitus with hyperglycemia (principal); E78.00 Pure hypercholesterolemia, unspecified; E66.9 Obesity, unspecified; I10 Essential (primary) hypertension; K21.9 Gastro-esophageal reflux disease without esophagitis; F41.1 Generalized anxiety disorder; J98.4 Other disorders of lung; G56.01 Carpal tunnel syndrome, right upper limb | CPT/HCPCS: 83036; 99212 ==

== ENCOUNTER 2025-01-29 13:35 | Outpatient (REF) | payer MEDICARE, SELFPAY | END 2025-01-29 13:36 | disposition home or self-care (01) | LOC: HO.LAB 13:35 | PROVIDERS: PCP Internal Medicine | DX: N30.01 Acute cystitis with hematuria (principal) | CPT/HCPCS: 81003; 87086; 99212 ==

== ENCOUNTER 2025-01-29 13:35 | Outpatient (AMB) | payer MEDICARE, SELFPAY ==
--- NOTE | 2025-01-29 13:44 | MHC.OFFWIV ---
Intake Vital Signs 01/29/25 13:47 Weight 221 lb BP 130/80 Blood Pressure Location Rt brachial Position Sitting Pulse 79 Pulse Source Pulse Oximeter Temp 97.6 F Temp Source Oral Pulse Oximetry (%) 98 Oxygen Delivery Method Room Air Intake Visit Reasons: EP ? bladder infection Intake Note: Patient here for blood in urine. She states she took 2 amox last night and thought she seen something hard the size of a pea at the bottom of the toilet when she urinated at 3am. Patient Tobacco Use Status: Former Tobacco user Allergies amlodipine Allergy (Unknown, Verified 01/29/25 13:46) leg swelling lisinopril Allergy (Unknown, Verified 01/29/25 13:46) cough escitalopram Adverse Reaction (Intermediate, Verified 01/29/25 13:46) Depression pcv23 Allergy (Unknown, Uncoded 01/29/25 13:46) arm swelling metformin Adverse Reaction (Intermediate, Uncoded 01/29/25 13:46) stomach pain Do you need a note to return to daycare/school/sports/work: No HPI HPI Comments History of Present Illness Details History of Present Illness - The patient is a 79-year-old female presenting with concerns of a potential urinary tract infection. The urinary symptoms began over the weekend, with a reoccurrence last night. She reported a burning sensation and frequency in urination, accompanied by pink urine resembling a bloody cobweb. - On a subsequent instance, urine appeared dark red, and a stone-like object was noted in the toilet, raising suspicion of nephrolithiasis. - The patient administered home amoxicillin yesterday for presumed infection, which provided moderate relief. - Denied experiencing febrile illnesses and noted existing back pain due to her chronic health background, with no worsening. Physical Exam General: Cooperative, healthy appearing, comfortable, no acute distress and well developed Orientation: Patient oriented x3 Limitations: No limitations Head: Normal to inspection Ears: Hearing grossly normal bilaterally Nose: Normal External nose present Face and sinus: Normal facial exam Eyes: Appearance normal, both eyes and all related structures Neck: Normal visual inspection and Yes full ROM Respiratory: Normal respiratory effort and able to speak in complete sentences. : negative CVAT bilat, slight TTP suprapubic area Skin: No rashes or lesions noted Neuro: Patient oriented x3 Extremities: Normal to inspection [facility] Medical History Syncope TIA (transient ischemic attack) Disequilibrium syndrome Right shoulder pain Post-menopausal Retinal tear Left carotid artery stenosis Tubular adenoma of colon Urge incontinence Type 2 diabetes mellitus with hyperglycemia Osteoarthritis Psoriasis GERD (gastroesophageal reflux disease) Obesity (BMI 30-39.9) Hypercholesterolemia Hypertension Surgical History History of cholecystectomy History of bilateral knee replacement History of colonoscopy History of cataract surgery Family History Mother No problems noted. Father No problems noted. Social History (Updated 04/10/24 @ 15:28 by Patience Sherman MD) Housing: House Alcohol intake: current Alcohol intake frequency: a few times a week Comment: once a month 1 drink Patient Tobacco Use Status: Former Tobacco user Tobacco use type: Cigarette Years Smoked: 1979 smoked 15 years pack a day e-Cigarette/Vaping Use: Never Used Second Hand Smoke Exposure: Yes service: No Current occupational status: retired Cognitive needs: No Hearing needs: No Vision needs: Yes (glasses) Review of Systems Const All systems reviewed & are unremarkable except as noted in HPI and below Physical Exam Vital Signs: Last Vital Signs Temp 97.6 F 01/29/25 13:47 Pulse 79 01/29/25 13:47 BP 130/80 01/29/25 13:47 Pulse Ox 98 01/29/25 13:47 Oxygen Delivery Method Room Air 01/29/25 13:47 Results AMB Urinalysis, Automated UA Leukoctes 0 Chas/uL Last Edit by RENAE Chang on 01/29/25 13:54 UA Nitrite Negative Last Edit by RENAE Chang on 01/29/25 13:54 UA Urobilinogen 0.2 mg/dL Last Edit by RENAE Chang on 01/29/25 13:54 UA Protein 30 mg/dL Last Edit by RENAE Chang on 01/29/25 13:54 UA pH 6.5 Last Edit by RENAE Chang on 01/29/25 13:54 UA Blood 200 Odin/uL Last Edit by RENAE Chang on 01/29/25 13:54 UA Specific Bartlett 1.015 Last Edit by Scot Garland, [facility] on 01/29/25 13:54 UA Ketone Negative Last Edit by Scot Garland, [facility] on 01/29/25 13:54 UA Bilirubin 0 mg/dL Last Edit by Scot Garland, [facility] on 01/29/25 13:54 UA Glucose 0 mg/dL Last Edit by Scot Garland [facility] on 01/29/25 13:54 Results Reviewed Results Reviewed: Laboratory Last Values Urine pH (Auto) 6.5 01/29/25 13:53 Specific Bartlett (Auto) 1.015 01/29/25 13:53 Urine Protein (Auto) 30 mg/dL 01/29/25 13:53 Glucose (UA)(Auto) 0 mg/dL 01/29/25 13:53 Urine Ketones (Auto) Negative 01/29/25 13:53 Urine Blood (Auto) 200 Odin/uL 01/29/25 13:53 Urine Nitrite (Auto) Negative 01/29/25 13:53 Urine Bilirubin (Auto) 0 mg/dL 01/29/25 13:53 Urine Urobilinogen (Auto) 0.2 mg/dL 01/29/25 13:53 Leukocyte Esterase (Auto) 0 Chas/uL 01/29/25 13:53 Assessment & Plan Assessment & Plan (1) UTI (urinary tract infection): Code(s): N39.0 - Urinary tract infection, site not specified Qualifiers: Urinary tract infection type: acute cystitis Hematuria presence: with hematuria Qualified Code(s): N30.01 - Acute cystitis with hematuria Plan: UA + blood only. Sent culture. High likelihood of +/- stones, educated patient on stones and when to go to the ED for care. Initiation of Cefuroxime treatment has been appropriate for empirically addressing potential urinary tract infection symptoms based on the patient?s presentation. Despite the urinalysis showing no infection, she did self-administer Amoxicillin that she had at home. Monitoring for any further need for emergency services is advised, given the potential for nephrolithiasis. If symptoms escalate, including increased pain, fevers, or new symptoms develop, the patient will seek care at the Emergency Department. Patient was informed and verbally consented to the use of an ambient scribe for clinic note documentation during this visit. Orders: Orders AMB Urinalysis Automated Today Z13.9 - Encounter for screening, unspecified Urine Culture Today N39.0 - Urinary tract infection, site not specified Medications: New cefuroxime axetil 500 mg PO Q12H 10 tabs 0RF Coding Level of Care Code Est Pt Level 3 (33185) Diagnoses Acute cystitis with hematuria N30.01 Urinary tract infection type: acute cystitis Hematuria presence: with hematuria
[2025-01-29 13:47] VITALS: BP 130/80; PULSE 79; TEMP 36.4; O2SAT 98
--- OUTSIDE RECORDS SUMMARY | 2025-01-29 16:57 | XMS_ITS ---
[facility] Address [address] [place] [address] Care Team Providers Care Security Systems Technician Name Role Phone Patience Sherman Primary Care Provider Mignon Peralta Unavailable [phone] Allergies Allergen (clinical drug ingredient) Drug/Non Drug [...] Problem Status W/U Status Risk Notes Problem Bilateral atherosclerosis of arteries of lower limbs ([id number] ) Atherosclerosis of [place] artery of both lower extremities, with unspecified presence of clinical manifestation (I70.203) Active confirmed Q7(A), Q8(2B), Q9(1B,2 C) Vital Signs Height 5 ft 8 in in 09/29/2024 Weight 215 lbs 09/29/2024 BMI 32.69 kg/m2 09/29/2024 Procedures Procedure Date Ordered Date Performed Result Body Sit e 46375-ULDGYFF NAIL, 6 OR MORE 09/29/2024 N/A 86969-RLAX SKIN LESIONS, 2 TO 4 09/29/2024 N/A Encounters Encounter Location Date Provider Diagnosis [facility] [place] [address] [place] [address] 09/29/2024 Mignon Mejias Xerosis of skin L85.3 ; Atherosclerosis of torres [place]inez artery of both lower extremities, with unspecified presence of clinical manifestation I70.203 ; Tinea unguium B35.1 ; Pain in right toe(s) M79.674 and Pain in left toe(s) M79.675 Assessments Encounter Date Diagnosis (ICD Code) Assessment Notes Treatment Notes Treatment Clinical Notes Section Notes 09/29/2024 Xerosis of skin (ICD-10 - L85.3) 09/29/2024 Atherosclerosis of torres [place]inez artery of both lower extremities, with unspecified [...] days Pending Test Test Name Order Date 88064-BWCVGKM NAIL, 6 OR MORE 09/29/2024 97926-WJTI SKIN LESIONS, 2 TO 4 09/29/20 24 Next Appt Details Follow Up: 3 Months, Reason: Provider Name:Mignon key, 04/01/2025 11:30:00 AM, [address] [place] [address], [phone], Procedure Notes * Category Sub-Category Detail Notes [...] use of a nail nipper and/or dremel-type crystal grinder, to a more viable healthy nail [...] to maintain effectiveness in symptomatic relief - 97152 Keratoma Treatment Parring or Cutting o f Benign Hyperkeratotic Lesion(s) (-56) 2-4 Lesions - The Benign hyperkeratotic lesions, ( 4 ) in total, locations as stated and described in exam, were pared, and/or cut utilizing a sterile 15 blade, tissue nippers, and/or power dreSP3H instrumentation - 25888, Q8 Progress Notes * Pascale CARDONA EDOB:[birth year] (79 yo F)Acc No.[id number]:09/29/2024 Progress Note Patient:?Pascale CARDONA E Provider:?Mignon Mejias DPM :1945???Age:79 Y???Sex:Female D ate:09/29/2024 Address:[address] [place], [place] [id number] Pcp:Patience Sehrman Subjective: * Chief Complaints: * ???Pcp-09/2024Skin problem(s [...] burning, paresthesia, tingling, B/L.?Ophthalmology Referral: ?DIABETES EYE EXAM?Procedure Performed:?Yes ?Date of Exam Performed?08/05/2024 ?Findings of Diabetic Eye Exam:?no retinopathy?CQM Exceptions:: ?Hemoglobin A1c not performed?Reason:?No reason specified??? Assessment: * Assessment: 1.?Xerosis of skin - L85.3?? ?Specify :Acute problem, Uncomplicated (3),Rx Management (4)???2.?Atherosclerosis of torres [place]inez artery of both lower extremities, with unspecified [...] 30 days, 140, Refills 2.?? 3.?Tinea unguium?Procedure: 99414-FRWDOPY NAIL, 6 OR MORE * Procedures:?Debride Nail [...] use of a nail nipper and/or dremel-type crystal grinder, to a more viable healthy nail [...] to maintain effectiveness in symptomatic relief - 12338.?Keratoma Treatment:?Parring or Cutting of Benign Hyperkeratotic Lesion(s)?(-56) 2-4 Lesions - The Benign hyperkeratotic lesions, ( 4 ) in total, locations as stated and described in exam, were pared, and/or cut utilizing a sterile 15 blade, tissue nippers, and/or power dremel instrumentation - 47653, Q8.? * Procedure Codes:?14793 DEBRI DE NAIL, 6 OR MORE, Modifiers: XS 30186 TRIM SKIN LESIONS, 2 TO 4, Modifiers: [...] DPM Date:?1 11/29/2023 Generated for Alisia nur/Reilly/Danisha on:?01/29/2025 04:57 PM EDT History and Physical Notes * HPI (History of Present Illness) Category Sub-Category Detail Notes Category Not es Skin problems Nature: dryness , scaling Location: B/L Duration: several days Course: worse At Risk footcare Pt States Last PCP Visit: Date: Examination Category Sub-Category Detail Notes Category Not [...]
--- OUTSIDE RECORDS SUMMARY | 2025-01-29 16:58 | XMS_ITS | Patient Health Record ---
Author Organization [facility] Address [address] [place] [address] Care Team Providers Care Financial Reporting Analyst Name Role Phone LaneAstridreal Primary Care Provider Mignon Peralta Unavailable [phone] Ethan Duff Unavailable [phone] Allergies Allergen (clinical drug ingredient) Drug/Non Drug Allergy documented on EMR Reaction Allergy Type Onset Date Status amlodipine Amlodipine Besylate Unknown Drug Allergy Active lisinopril Lisinopril Unknown Drug Allergy Activ e Vaccine product containing Streptococcus pneumoniae antigen (medicinal product) Pneumococcal Vaccines anaphylaxis Drug Allergy Active Results Component Value Reference Range Notes HEMOGLOBIN A1C (GLYCOHEMOGLO BIN) Reviewed date:12/04/2024 02:56:58 PM Interpretation: Performing Lab: Notes/Report: HEMOGLOBIN A1C % (HH) 6.8 Reason For Referral No Information Medications Medication SIG (Take, Route, Frequency, Duration) Notes Start Date End Date Status Meloxicam 15 MG 1 tablet Orally Once a day for 30 day(s) Not-Taking Calcium 600 mg 1 tablet with meals Twice a day Unknown levETIRAcetam 250 MG 1 tablet Orally every 12 hrs for 30 day(s) Active Potassium 75 MG Orally Once a day Unknown Voltaren 1 % as directed Externally apply bid to ankle for 30 days 01/26/2021 Active Meloxicam 15 MG 1 tablet Orally Once a day for 30 day(s) 05/22/2016 Not-Taking Ammonium Lactate 12 % 1 application Externally to affected areas of dry skin to feet except for between the toes Twice a day for 30 days Active Physical Therapy . . . 2-3x/week for 3-4 weeks Not-Taking Diflucan 200mg TAKE 1 TABLET BY MOUTH EVERY DAY for 10 Not-Taking Meloxicam 15 MG 1 tablet Orally Once a day for 30 day(s) Not-Taking Meloxicam 15 MG 1 tablet Orally Once a day for 30 day(s) Not-Taking Vitamin D 1000 UNIT 1 tablet Orally Unknown savita combs Active Physical Therapy . . . 2-3x/week for 3-4 weeks Not-Taking Chlorthalidone 50 MG Orally Active Physical Therapy . . . 2-3x/week for 3-4 weeks Not-Taking Losartan Potassium 50 MG 1 tablet Orally Once a day Active Physical Therapy . . . 2-3x/week for 3-4 weeks Not-Taking Metoprolol Succinate ER 50 MG 1 tablet Orally Once a day Active hydroCHLOROthiazide Not-Taking Diflucan 200 MG 1 tablet Orally Once a day for 30 days Not-Taking Atorvastatin Calcium 25 MG Orally Active Physical Therapy . . . 2-3x/week for 3-4 weeks 05/22/2016 Not-Taking Immunizations Vaccine Route Administration Date Status Comme nts COVID-19 Pfizer BioNTHabeas Vaccine Unknown 07/30/2022 Administered 1st 12/19/20,01/09/21 07/12/21 Influenza Unknown 08/11/2017 Administered Influenza Unknown 07/30/2022 Administered Social History Tobacco Use: Social History Observation Description Date Details (start date - stop date) Never Smoker NA - NA Tobacco use other than smoking: Question Answer Notes Are you an other tobacco user? No Tobacco Control (Standard) Question Answer Notes Tobacco use: Nonsmoker Additional Findings: Tobacco non-user Current no nsmoker AUDIT-C (Standard) Question Answer Notes Did you have a drink containing alcohol in the p ast year? No Points 0 Interpretation Negative Problems Problem Type SNOMED Code ICD Code Onset Dates Problem Status W/U Status Risk Notes Problem Bilateral atherosclerosis of arteries of lower limbs ([id number] ) Atherosclerosis of [place] artery of both lower extremities, with unspecified presence of clinical manifestation (I70.203) Active confirmed Q7(A), Q8(2B), Q9(1B,2 C) Vital Signs Height 5 ft 8 in in 12/04/2024 Weight 215 lbs 12/04/2024 BMI 32.69 kg/m2 12/04/2024 Procedures Procedure Date Ordered Date Performed Result Body Sit e 42143-PTEN SKIN LESIONS, OVER 4 02/18/2024 N/A 65783-RZRR SKIN LESIONS, 2 TO 4 06/23/2024 N/A 21629-GPNZYSF NAIL, 6 OR MORE 09/29/2024 N/A 26081-EXIN SKIN LESIONS, 2 TO 4 09/29/2024 N/A 72742-FBDTXJQ NAIL, 6 OR MORE 12/04/2024 N/A Encounters Encounter Location Date Provider Diagnosis [address] [address] 02/18/2024 Ethan Duff Pain in left foot M79.672 ; Pain in right foot M79.671 ; Tinea unguium B35.1 ; Pain in right toe(s) M79.674 ; Pain in left toe(s) M79.675 ; Unspecified atherosclerosis of [place] arteries of extremities, bilateral legs I70.203 ; Hallux valgus (acquired), right foot M20.11 ; Other hammer toe(s) (acquired), left foot M20.42 ; Other hammer toe(s) (acquired), right foot M20.41 ; Primary osteoarthritis, left ankle and foot M19.072 ; Hallux rigidus, right foot M20.21 and Xerosis cutis L85.[address] [address] 06/23/2024 Ethan Duff Pain in left foot M79.672 ; Pain in right foot M79.671 ; Tinea unguium B35.1 ; Pain in right toe(s) M79.674 ; Pain in left toe(s) M79.675 ; Unspecified atherosclerosis of [place] arteries of extremities, bilateral legs I70.203 ; Hallux valgus (acquired), right foot M20.11 ; Other hammer toe(s) (acquired), left foot M20.42 ; Other hammer toe(s) (acquired), right foot M20.41 ; Primary osteoarthritis, left ankle and foot M19.072 ; Hallux rigidus, right foot M20.21 and Xerosis cutis L85.[address] [address] 09/29/2024 Mignon Mejias Xerosis of skin L85.3 ; Atherosclerosis of [place] artery of both lower extremities, with unspecified presence of clinical manifestation I70.203 ; Tinea unguium B35.1 ; Pain in right toe(s) M79.674 and Pain in left toe(s) M79.675 [facility] [address] [place] [address] 12/04/2024 Mignon Mejias Atherosclerosis of [place] artery of both lower extremities, with unspecified [...] 09/29/2024 Xerosis of skin (ICD-10 - L85.3) 12/04/2024 Atherosclerosis of [place] artery of both lower extremities, with unspecified presence of clinical manifestation (ICD-10 - I70.203) Q7(A), Q8(2B), Q9(1B,2C) 09/29/2024 Atherosclerosis of [place] artery of both lower extremities, with unspecified presence of clinical manifestation (ICD-10 - I70.203) Q7(A), Q8(2B), Q9(1B,2C) 12/04/2024 Tinea unguium (ICD-10 - B35.1) 02/18/2024 Tinea unguium (ICD-10 - B35.1) 06/23/2024 Tinea unguium (ICD-10 - B35.1) 06/23/2024 Pain in right toe(s) (ICD-10 - M79.674) 02/18/2024 Pain in right toe(s) (ICD-10 - M79.674) 09/29/2024 Tinea unguium (ICD-10 - B35.1) 12/04/2024 Pain in right toe(s) (ICD-10 - M79.674) 09/29/2024 Pain in right toe(s) (ICD-10 - M79.674) 12/04/2024 Pain in left toe(s) (ICD-10 - M79.675) 02/18/2024 Pain in left toe(s) (ICD-10 - M79.675) 06/23/2024 Pain in left toe(s) (ICD-10 - M79.675) 02/18/2024 Unspecified atherosclerosis of [place] arteries of extremities, bilateral legs (ICD-10 - I70.203) 09/29/2024 Pain in left toe(s) (ICD-10 - M79.675) 06/23/2024 Unspecified atherosclerosis of [place] arteries of extremities, bilateral legs (ICD-10 - [...] (LFT) 08/30/2016 *Liver Function Test (LFT) 02/28/2017 37870-NUUNTHF NAIL, 6 OR MORE 06/13/2017 11501-OMURDZC NAIL, 6 OR MORE 09/12/2017 04787-YPTJPYA NAIL, 6 OR MORE 12/12/2017 82231-IKOAYAJ NAIL, 6 OR MORE 05/22/2016 19655-QUDTTYE NAIL, 6 OR MORE 11/29/2016 38971-EFTMFEJ NAIL, 6 OR MORE 02/28/2017 77179-DDHMYKJ NAIL, 6 OR MORE 03/11/2018 92801-HZLFTAH NAIL, 6 OR MORE 06/10/2018 05194-VMWPJCK NAIL, 6 OR MORE 09/30/2018 00113-RDAQCEZ NAIL, 6 OR MORE 12/04/2024 32740-UKNZRBM NAIL, 6 OR MORE 09/29/2024 15772-Gcfm Destruction, 1-14 09/30/2018 75424-Drmw Destruction, 1-14 06/10/2018 54541-Feemtaha Plate 11/29/2016 29848-BHES SKIN LESIONS, OVER 4 05/22/20 16 11078-CAPI SKIN LESIONS, OVER 4 02/29/20 17 93326-EULW SKIN LESIONS, OVER 4 11/29/19 17 81541-JNXH SKIN LESIONS, OVER 4 03/11/20 18 82317-ABQZ SKIN LESIONS, OVER 4 12/12/19 18 81087-QQFG SKIN LESIONS, OVER 4 09/12/20 17 91962-QUGK SKIN LESIONS, OVER 4 06/13/20 17 75484-XUAK SKIN LESIONS, OVER 4 09/30/20 18 00897-SIXT SKIN LESIONS, OVER 4 06/10/20 18 71015-CHBS SKIN LESIONS, OVER 4 04/02/20 19 38105-ITOW SKIN LESIONS, OVER 4 07/02/20 19 50595-DNAR SKIN LESIONS, OVER 4 08/10/20 21 29329-VFJO SKIN LESIONS, OVER 4 11/14/19 22 78226-ROPS SKIN LESIONS, OVER 4 12/01/19 20 47000-MYWG SKIN LESIONS, OVER 4 04/28/20 20 11954-PRUS SKIN LESIONS, OVER 4 07/26/20 20 36751-BVFJ SKIN LESIONS, OVER 4 10/20/20 20 21019-RALZ SKIN LESIONS, OVER 4 01/27/20 21 98617-XDYK SKIN LESIONS, OVER 4 05/04/20 21 91594-UVXR SKIN LESIONS, OVER 4 02/18/20 24 78632-DITR SKIN LESIONS, 2 TO 4 06/23/20 24 91149-CJAF SKIN LESIONS, 2 TO 4 09/29/20 24 90970-JEYL SKIN LESIONS, 2 TO 4 02/14/20 22 85753-WNTDXVSC OF HEMATOMA/FLUID 019 04601- Nail Unit Biopsy 03/11/2018 Next Appt Details Provider Name:Mignon Zepeda yesi, 04/01/2025 11:30:00 AM, [address] [place], [address], Insurance Providers Payer Name Payer Address Payer Phone Subscriber Number Group Number Insured Name Patient Relationship to Insured Coverage Start Date Coverage End Date Medicare National Govt Sv[employer] [address] [place] [address] [id number] Pascale Edwards Self - patient is the insured 1 [employer] [address] [place] [address] [phone] [id number] Pascale Edwards Self - patient is the insured Medical (General) History Medical History History ICD Code Hypertension overweight Back,Hip,and Knee pain Hyperlipidemia Arthritis Broken bones Gall bladder problems Glaucoma Psoriasis/eczema Measles Mumps Chicken pox Joint implants/screws Transfusions Primary osteoarthritis, right ankle and foot M19.071 Unspecified atherosclerosis of [place] arteries of extremities, bilateral legs I70.203 Plantar fascial fibromatosis M72.2 Other viral warts B07.8 Pain in left foot M79.672 Pain in right foot M79.671 Tinea unguium B35.1 Ingrowing nail L60.0 Pain in right toe(s) M79.674 Pain in left toe(s) M79.675 Pre type II diabetes Comlex partial seizure disorder Surgical History Surgery Date(Month/Year) bilateral knee replacement cholecystectomy 2005 breast biopsy tonsillectomy and adenoidectomy carpal tunnel surgery left wrist 12/2014 Vitreo Retina surgery 12/2017 Cataract surgery 01/2018 Vein removed 2019
--- OUTSIDE RECORDS SUMMARY | 2025-01-29 16:58 | XMS_ITS ---
Author Organization [facility] Address [address] [facility] [place] [address] Care Team Providers Care Sephora Operations Consultant Name Role Phone Patience Sherman Primary Care Provider Mginon Peralta Unavailable [phone] Allergies Allergen (clinical drug ingredient) Drug/Non Drug Allergy documented on EMR Reaction Allergy Type Onset Date Status amlodipine Amlodipine Besylate Unknown Drug Allergy Active lisinopril Lisinopril Unknown Drug Allergy Activ e Vaccine product containing Streptococcus pneumoniae antigen (medicinal product) Pneumococcal Vaccines anaphylaxis Drug Allergy Active REASON FOR VISIT At Risk Footcare, Painful Nail(s) aggravated by shoes and causing difficulty standing/walking. Medications Medication SIG (Take, Route, Frequency, Duration) Notes Start Date End Date Status Potassium 75 MG Orally Once a day Unknown Vitamin D 1000 UNIT 1 tablet Orally Unknown Calcium 600 mg 1 tablet with meals Twice a day Unknown Physical Therapy . . . 2-3x/week for 3-4 weeks Not-Taking Meloxicam 15 MG 1 tablet Orally Once a day for 30 day(s) Not-Taking Physical Therapy . . . 2-3x/week for 3-4 weeks Not-Taking hydroCHLOROthiazide Not-Taking Meloxicam 15 MG 1 tablet Orally Once a day for 30 day(s) 05/22/2016 Not-Taking Physical Therapy . . . 2-3x/week for 3-4 weeks Not-Taking Physical Therapy . . . 2-3x/week for 3-4 weeks Not-Taking Diflucan 200 MG 1 tablet Orally Once a day for 30 days Not-Taking Physical Therapy . . . 2-3x/week for 3-4 weeks 05/22/2016 Not-Taking Meloxicam 15 MG 1 tablet Orally Once a day for 30 day(s) Not-Taking Meloxicam 15 MG 1 tablet Orally Once a day for 30 day(s) Not-Taking Diflucan 200mg TAKE 1 TABLET BY MOUTH EVERY DAY for 10 Not-Taking Chlorthalidone 50 MG Orally Active Ammonium Lactate 12 % 1 application Externally to affected areas of dry skin to feet except for between the toes Twice a day for 30 days Active Metoprolol Succinate ER 50 MG 1 tablet Orally Once a day Active Voltaren 1 % as directed Externally apply bid to ankle for 30 days 01/26/2021 Active Losartan Potassium 50 MG 1 tablet Orally Once a day Active baby asprin Active levETIRAcetam 250 MG 1 tablet Orally [...] ast year? No Points 0 Interpretation Negative Vital Signs Height 5 ft 8 in in 12/04/2024 Weight 215 lbs 12/04/2024 BMI 32.69 kg/m2 12/04/2024 Procedures Procedure Date Ordered Date Performed Result Body Sit e 97819-ZLHJLTA NAIL, 6 OR MORE 12/04/2024 N/A Encounters Encounter Location Date Provider Diagnosis [facility] [address] [address] 12/04/2024 Mignon Mejias Atherosclerosis of [place] artery of both lower extremities, with unspecified presence of clinical manifestation I70.203 ; Tinea unguium B35.1 ; Pain in right toe(s) M79.674 and Pain in left toe(s) M79.675 Assessments Encounter Date Diagnosis (ICD Code) Assessment Notes Treatment Notes Treatment Clinical Notes Section Notes 12/04/2024 Atherosclerosis of [place] artery of both lower extremities, with unspecified presence of clinical manifestation (ICD-10 - I70.203) Q7(A), Q8(2B), Q9(1B,2C) 12/04/2024 Tinea unguium (ICD-10 - B35.1) 12/04/2024 Pain in right toe(s) (ICD-10 - M79.674) 12/04/2024 Pain in left toe(s) (ICD-10 - M79.675) Plan Of Treatment Pending Test Test Name Order Date 43371-FNGVJOB NAIL, 6 OR MORE 12/04/2024 Next Appt Details Follow Up: 3 Months, Reason: Provider Name:Mignon Zepeda yesi, 04/01/2025 11:30:00 AM, [address] [place] [address], [phone], Procedure Notes * Category Sub-Category Detail Notes Debride Nail 6-10 Nail debridement Due to the cl inical pathology outlined in the exam findings, performance of this nail treatment is medically necessary as its management by an unskilled/untrained nonprofessional would put this patients foot and overall health at risk. Therefore, debridement to affected nail(s), as described in exam ( TA, T1, T2, T3, T4, T5, T6, T7, T8, T9, ), was performed exclusively by the physician of record to reduce/remove overall nail length, girth, thickness, subungual debris, and necrotic tissue, by manual and/or electrical means through the use of a nail nipper and/or dremel-type salvage grinder, to a more viable healthy nail [...] to maintain effectiveness in symptomatic relief - 19037 Keratoma Treatment Parring or Cutting o f Benign Hyperkeratotic Lesion(s) (-56) 2-4 Lesions - Due to the at risk nature of the patients medical condition as documented in the exam findings, performance of this keratoderma treatment is medically necessary as its management by an unskilled/untrained nonprofessional would put this patients foot and overall health at risk. Therefore, the benign hyperkeratotic lesions, ( 4_ ) in total, locations as stated and described in the exam ( sub 1st metatarsal head B/L, plantar heels B/L ), were pared, and/or cut utilizing a sterile 15 blade, tissue nippers, and/or power dremel instrumentation by the physician of record - 09591, Q8 Progress Notes * Pascale CARDONA EDOB:[birth year] (79 yo F)Acc No.[id number]:12/04/2024 Progress Note Patient:?Pascale CARDONA Provider:?Mignon Mejias DPM :1945???Age:79 Y???Sex:Female D ate:12/04/2024 [place] Pcp:Patience Sherman Subjective: * Chief Complaints: * ???At Risk FootcarePainful N ail(s) aggravated by shoes and causing difficulty standing/walking. * HPI: ???At Risk footcare:?Pt States Last PCP Visit:?Date?09/16/2024 * [...] influencing health status.? * Social History:?Tobacco Use:?Tobacco use other than smoking?Are you an other tobacco user??No ?Tobacco Control (Standard)?Tobacco use:?Nonsmoker ?Additional Findings: Tobacco non-user?Current nonsmoker ???Drugs/Alcohol:?Drugs?Have you used drugs other than those for medical reasons in the past 12 months??No ???Miscellaneous:?Caffeine: no, none. ?Children: yes, 2. ?Exercise: no. ?Marital status: . 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 ???Drug/Alcohol:?AUDIT-C (Standard)?Did you have a drink containing alcohol in the past year??No ?Points?0 ?Interpretation?Negative * Medications:?TakinglevETIRAc etam 250 MG Tablet 1 tablet Orally every 12 hrs Atorvastatin Calcium 25 MG Tablet Orally baby asprin Chlorthalidone 50 MG Tablet Orally Losartan Potassium 50 MG Tablet 1 tablet Orally Once a day Metoprolol Succinate ER 50 MG Tablet Extended Release 24 Hour 1 tablet Orally Once a day Voltaren 1 % Gel as directed Externally apply bid to ankle Ammonium Lactate 12 % Cream 1 application Externally to affected areas of dry skin to feet except for between the toes Twice a day Taking levETIRAcetam 250 MG Tablet 1 tablet [...] directed Externally apply bid to ankle Taking Ammonium Lactate 12 % Cream 1 application Externally to affected areas of dry skin to feet except for between the toes Twice a day Not-Taking/PRNDiflucan 200mg tabs TAKE 1 TABLET BY MOUTH EVERY DAY Meloxicam 15 MG Tablet 1 tablet Orally Once a day Meloxicam 15 MG Tablet 1 tablet Orally Once a day Diflucan 200 MG Tablet 1 tablet Orally Once a day Physical Therapy . . . . 2- 3x/week Physical Therapy . . . . 2-3x/week Physical Therapy . . . . 2-3x/week Physical Therapy . . . . 2-3x/week hydroCHLOROthiazide Meloxicam 15 MG Tablet 1 tablet Orally Once a day Physical Therapy . . . . 2-3x/week Meloxicam 15 MG Tablet 1 tablet Orally [...] Therapy . . . . 2-3x/week Not-Taking/PRN Meloxicam 15 MG Tablet 1 tablet [...] Objective: * Vitals:?Ht: 5 ft 8 in, Wt:21 5, BMI: 32.69, Shoe size:12, BS:not taken, Wt-k.52 kg. * ???Past Orders: ???Lab:HEMOGLOBIN A1C (GLYCO HEMOGLOBIN) (Order Date - 09/05/2024) (Collection Date & Time - 10/06/2024 02:56 PM) ? Value Reference Range ?HEMOGLOBIN A1C % (HH) 6.8 * Examination: ???General Examination: ?GENERAL APPEARANCE:?Reveals a [...] metatarsal head B/L, plantar heels B/L.?Vascular: ?DP PULSES (B):? 0/4, B/L.?PT PULSES (B):? 0/4, B/L.?CAPILLARY FILL TIME:? delayed, all digits, B/L.?TROPHIC CONDITION-TEXTURE/ELASTICITY/TURGOR/HAIR GROWTH (B):? decreased, fragile, thin, shiny skin, with sparse to absent hair growth, B/L.?TEMPERTURE GRADIENT (C):? decreased, cool to cool, proximal to distal, B/L.?PIGMENTATION:?cyanotic, B/L.?EDEMA (C):?1/4, pitting, without aching pain.?CLAUDICATION (C):?denies, B/L.?REST PAIN:?denies, B/L.?PARESTHESIA (C):?absent, B/L.?BURNING (C):?absent, B/L.?Nails: ?NAILS are:?Elongated, overgrown, dystrophic, lytic, greater than 3mm thick, discolored and friable with crumbly malodorous subungual debris, with pain on palpation,?, TA, T1, T2, T3, T4, T5, T6, T7, T8, T9.?Orthopedic: ?MUSCLE STRENGTH:?5/5 all groups in a symmetrical fashion, B/L.?Neurological: ?SENSORY:?Neurological exam reveals intact sensorium, pain sensation normal, vibration sensation intact, pinprick sensation is normal in the lower extremities, Pt denies, anesthesia, burning, paresthesia, tingling, B/L.?Ophthalmology Referral: ?DIABETES EYE EXAM?Procedure Performed:?Yes ?Date of Exam Performed?08/05/2024 ?Findings of Diabetic Eye Exam:?no retinopathy??? Assessment: * Assessment: 1.?Atherosclerosis of [place] artery of both lower extremities, with unspecified presence of clinical manifestation - I70.203 (Primary)???Notes :Q7(A), Q8(2B), Q9(1B,2C)???2.?Tinea unguium - B35.1???3.?Pain in right toe(s) - M79.674???4.?Pain in left toe(s) - M79.675??? Plan: * Treatment: * Procedures:?Debride Nail 6-10:?Nail debridement?Due to the clinical pathology outlined in the exam findings, performance of this nail treatment is medically necessary as its management by an unskilled/untrained nonprofessional would put this patients foot and overall health at risk. Therefore, debridement to affected nail(s), as described in exam ( TA, T1, T2, T3, T4, T5, T6, T7, T8, T9, ), was performed exclusively by the physician of record to reduce/remove overall nail length, girth, thickness, subungual debris, and necrotic tissue, by manual and/or electrical means through the use of a nail nipper and/or dremel-type salvage grinder, to a more viable healthy nail plate or bed tissue 6- 10 nails in total. Silver nitrate was used for any petechial bleeding as necessary. Definitive antifungal treatment options, both pharmaceutical and surgical, have been reviewed and discussed with the patient. The patient solely prefers the use of intermittent/as needed professional debridement services for their nail condition and understands the need for additional periodic treatments to maintain effectiveness in symptomatic relief - 14770.?Keratoma Treatment:?Parring or Cutting of Benign Hyperkeratotic Lesion(s)?(-56) 2-4 Lesions - Due to the at risk nature of the patients medical condition as documented in the exam findings, performance of this keratoderma treatment is medically necessary as its management by an unskilled/untrained nonprofessional would put this patients foot and overall health at risk. Therefore, the benign hyperkeratotic lesions, ( 4_ ) in total, locations as stated and described in the exam ( sub 1st metatarsal head B/L, plantar heels B/L ), were pared, and/or cut utilizing a sterile 15 blade, tissue nippers, and/or power dremel instrumentation by the physician of record - 43560, Q8.? * Procedure Codes:?10766 DEBRI DE NAIL, 6 OR MORE, Modifiers: XS 98897 TRIM SKIN LESIONS, 2 TO 4, Modifiers: XS , Q8 * Follow Up:?3 Months * Images: * Sign off status: Completed true * Provider:Jake Mejias DPM Date:?0 12/04/2024 Generated for Alisia nur/Reilly/eTjasonitting on:?01/29/2025 04:58 PM EDT History and Physical Notes * HPI (History of Present Illness) Category Sub-Category Detail Notes Category Not es At Risk footcare Pt States Last PCP [...] malodorous subungual debris, with pain on palpation, , TA, T1, T2, T3, T4, T5, T6, T7, T8, T9
--- OUTSIDE RECORDS SUMMARY | 2025-01-29 16:58 | XMS_ITS ---
[facility] Address [address] [place] [address] Care Team Providers Care Compo Caster Name Role Phone Patience Sherman Primary Care Provider Mignon Peralta Unavailable [phone] Allergies Allergen (clinical drug ingredient) Drug/Non Drug [...] day for 30 day(s) 05/22/2016 Not-Taking Diflucan 200 MG [...] Once a day for 30 day(s) Not-Taking Chlorthalidone 50 MG Orally Active Losartan Potassium 50 MG 1 tablet Orally Once a day Active Metoprolol Succinate ER 50 MG 1 tablet Orally Once a day Active Voltaren 1 % as directed Externally apply bid to ankle for 30 days 01/26/2021 Active Ammonium Lactate 12 % 1 application Externally to affected areas of dry skin to feet except for between the toes Twice a day for 30 days Active baby asprin Active Atorvastatin Calcium 25 MG Orally Active levETIRAcetam 250 MG 1 tablet Orally every 12 hrs for 30 day(s) Active Encounters Encounter Location Date Provider Diagnosis [facility] [address] [address] 12/04/2024 Mignon Mejias Plan Of Treatment Next Appt Details Provider Name:Mignon key, 04/01/2025 11:30:00 AM, [address] [place] [address], [phone], Progress Notes * Pascale CARDONA EDOB:[birth year] (79 yo F)Acc No.[id number]:12/04/2024 Progress Note Patient:?Pascale CARDONA E Provider:?Mignon Mejias DPM :1945???Age:79 Y???Sex:Female D ate:12/04/2024 Address:[address] [place], [place] [id number] Pcp:Patience Sherman Subjective: * Chief Complaints: * ??? * Medical History:?Hypertensio n, Overweight, Back,Hip,and Knee pain, Hyperlipidemia, Arthritis, Broken bones, Gall bladder problems, Glaucoma, Psoriasis/eczema, Measles, Mumps, Chicken pox, Joint implants/screws, Transfusions, Primary osteoarthritis, right ankle and foot, Unspecified atherosclerosis of [place] arteries of extremities, bilateral legs, Plantar fascial fibromatosis, Other viral warts, Pain in left foot, Pain in right foot, Tinea unguium, Ingrowing nail, Pain in right toe(s), Pain in left toe(s), Pre type II diabetes, Comlex partial seizure disorder. * Medications:?Taking levETIRA cetam 250 MG Tablet 1 tablet Orally every [...] tablet Orally Once a day , Not-Taking/PRN Physical Therapy . . . . 2-3x/week , Not-Taking/PRN Physical Therapy . . . . 2-3x/week , Not-Taking/PRN Physical Therapy . . . . 2-3x/week , Not- Taking/PRN Physical Therapy . . [...] MG Tablet Orally Once a day * Allergies:?Lisinopril, Amlod ipine Besylate, Pneumococcal Vaccines: anaphylaxis. Objective: * Vitals:? Assessment: Plan: * Treatment: * Images: * The named appointment provid er may or may not be the originator of this progress note, and it is not deemed complete until electronically signed by the appointment provider. Sign off status: Pending * Provider:?Mignon Mejias DPM Date:?0 12/04/2024 Generated for Alisia nur/Reilly/eTransmitting on:?01/29/2025 04:57 PM EDT
--- OUTSIDE RECORDS SUMMARY | 2025-01-29 16:58 | XMS_ITS | Data Portability ---
Author Organization MARTINA Jairo Saez [facility], [facility] Address [address] [place] [address] Care Team Providers Care Mixed Animal Veterinarian Name Role Phone BRICE ORTEGA Referring Provider [phone] BRICE ORTEGA Primary Care Provider Assessment Encounter [...] FLEXION, ER, IR AND ABDUCTION SUPERVISED PULLEYS JENNYFER BEGIN PROM IN IR TO TOLERANCE, UP [...] AT 4 MONTHS, BEGINNING WITH HALF SWINGS; PRECISION FILER HAND AT 6 MONTHS TENNIS/PICKLE BALL: BALL AGAINST WALL, VERY LIGHT RALLIES AT 4 MONTHS; NO COMPETITIVE GAMES UNTIL AFTER 6 MONTHS NO CONTACT SPORTS FOR AT LEAST 6 MONTHS [email or web address] Not available 09/11/2024 13:54:52 09/15/2024 09/15/2024 Assessment: [...] AT 4 MONTHS, BEGINNING WITH HALF SWINGS; PRECISION FILER HAND AT 6 MONTHS TENNIS/PICKLE BALL: BALL AGAINST WALL, VERY LIGHT RALLIES AT 4 MONTHS; NO COMPETITIVE GAMES UNTIL AFTER 6 MONTHS NO CONTACT SPORTS FOR AT LEAST 6 MONTHS [email or web address] Not available 09/15/2024 10:55:29 09/22/2024 09/22/2024 Assessment: Pt has made very good progress with PT treatments with progressively increasing mobility, strength & functional use of the right shoulder. She does still have some ADL/functional deficits but can compensate with left arm as needed. Almost all goals met. Pt is independent with her [facility]. Plan: Continue PT 1 more session then D/C to [facility] PHYSICAL THERAPIST REFERRAL - S/P RIGHT REVERSE [...] AT 4 MONTHS, BEGINNING WITH HALF SWINGS; PRECISION FILER HAND AT 6 MONTHS TENNIS/PICKLE BALL: BALL AGAINST [...] answered further questions. Plan: D/C to Independent [facility] PHYSICAL THERAPIST REFERRAL - S/P RIGHT REVERSE [...] AT 4 MONTHS, BEGINNING WITH HALF SWINGS; PRECISION FILER HAND AT 6 MONTHS TENNIS/PICKLE BALL: BALL AGAINST WALL, VERY LIGHT RALLIES AT 4 MONTHS; NO COMPETITIVE GAMES UNTIL AFTER 6 MONTHS NO CONTACT SPORTS FOR AT LEAST 6 MONTHS [email or web address] Not available 09/25/2024 13:54:09 Plan of Treatment Reminders Order Date Submit Date Provider Last Modified By Organization Details Last Modified Time Details Appointments None recorde d. Lab None recorde d. Referral None recorde d. Procedures None recorde d. Surgeries None recorde d. Imaging XR, shoulde r, 2 or more view - right shldr 3viiews rm [phone] rmessenger [facility], [address], [place], [address], 5 07:55:33 Medication Orders None recorde d. Patient TargetsNo targets recorded. Patient InstructionsNo instructions recorded. Reason for Referral None Reported. Results Created Date Observation Date Name Description Value Unit Range Abnormal Flag Note LastModifiedBy Organization Detail LastModifiedTime 08/11/20 24 08/11/2024 XR, beth onelia, 2 or more view [email or web address]:/ [email or web address] ?Encry pted=s hAaTro YD8dLq bEUv6g %2BXZw aYqtaq 0bqfl% 2Fg9IQ a4ajBk vP9nXo QUaueC m3YtLR FvZlgJ JJ8mAn HZtai3 0z5259 AC0Kqa nWAWaS vKiQtr MwF INTERFACE [facility] [address], [place], [address], 08/11/2024 14:13:43 08/11/20 24 08/11/2024 XR, beth rousseau, 2 or more view [email or web address]:/ [email or web address] ?Encry pted=s hAaTro YD8dLq bEUv6g %2BXZw aYqtaq 0bqfl% 2Fg9IQ a4ajBk vP9nXo QUaueC m3YtLR FvZlgJ JJ8mAn HZtai3 6j7616 AC0Kqa nWAWaS vKiQtr MwF INTERFACE [facility] [address] [facility] [address], [place], [address], 08/11/2024 14:13:45 08/29/20 24 08/29/2024 XR, hand, 3 or more view [email or web address]:/ [email or web address] ?Encry pted=s hAaTro YD8dLq bEUv6g %2BXZw aYqtaq 0bqfl% 2Fg9IQ a4ajBk vP9nXo QUaueC m3YtLR FvZlgJ JJ8mAn HZtai3 2w7085 AC0Kqa HyCUaO jKiQtr MwF INTERFACE [facility] [address], [place], [address], 08/29/2024 14:55:51 08/29/20 24 08/29/2024 XR, hand, 3 or more view [email or web address]:/ [email or web address] ?Encry pted=s hAaTro YD8dLq bEUv6g %2BXZw aYqtaq 0bqfl% 2Fg9IQ a4ajBk vP9nXo QUaueC m3YtLR FvZlgJ JJ8mAn HZtai3 2n8044 AC0Kqa HyCUaO jKiQtr MwF INTERFACE [facility] [address], [place], [address], 08/29/2024 14:55:55 10/16/20 24 10/16/2024 XR, shoul onelia, 2 or more view [email or web address]:/ [email or web address] ?Encry pted=s hAaTro YD8dLq bEUv6g %2BXZw aYqtaq 0bqfl% 2Fg9IQ a4ajBk vP9nXo QUaueC m3YtLR FvZlgJ JJ8mAn HZtai3 5z1587 AC0Kqb nyBVaW gKiQtr MwF INTERFACE [facility] [address], [place], [address], 10/16/2024 11:27:48 10/16/20 24 10/16/2024 XR, shoul onelia, 2 or more view [email or web address]:/ [email or web address] ?Encry pted=s hAaTro YD8dLq bEUv6g %2BXZw aYqtaq 0bqfl% 2Fg9IQ a4ajBk vP9nXo QUaueC m3YtLR FvZlgJ JJ8mAn HZtai3 1n2319 AC0Kqb nyBVaW gKiQtr MwF INTERFACE [facility] [address], [place], [address], 10/16/2024 11:27:50 Result Notes None recorded. Problems Name Problem SNOMED Code Status Onset Date Resolution Date Notes Provider Name and Address Organization Details Recorded Time No complaints 027903054 Active Status : 'A'; Not Available [facility] 09:25:45 Lesion of lung 221927411 Active 2023 ROXANA Soni'SOLOMONEUEdmundo [facility] 4 12:17:47 Problem Notes None recorded. Procedures Surgical History Date Name Laterality Status Provider Name and Address Organization Details Recorded Time 4 83982 Therapeutic Exercise (1:1) completed Shaun Bynum, BODY WIRER [address], [place], [address], [facility] 08/14/2024 14:53:22 4 69996 Therapeutic Exercise (1:1) completed Karlee Cardona, PT [address], [place], [address], [facility] 08/10/2024 23:13:44 4 59433 Therapeutic Exercise (1:1) completed Shaun Bynum BODY WIRER [address], [place], [address], [facility] 08/07/2024 14:30:15 4 60976 Therapeutic Exercise (1:1) completed Karlee Cardona, PT [address], [place], [address], [facility] 08/03/2024 22:12:27 4 84274 Therapeutic Exercise (1:1) completed Shaun Bynum, BODY WIRER [address], [place], [address], [facility] 07/31/2024 15:16:09 4 37341 Therapeutic Exercise (1:1) completed Karlee Cardona, PT [address], [place], [address], [facility] 07/29/2024 06:56:55 4 86237 Therapeutic Exercise (1:1) completed Shaun Bynum, BODY WIRER [address], [place], [address], [facility] 07/24/2024 14:19:39 4 95734 Therapeutic Exercise (1:1) completed Karlee Cardona, PT [address], [place], [address], [facility] 07/21/2024 22:35:29 4 87768 Therapeutic Exercise (1:1) completed Shaun Bynum, BODY WIRER [address], [place], [address], [facility] 07/17/2024 14:07:03 4 82305 Therapeutic Exercise (1:1) completed Karlee Cardona, PT [address], [place], [address], [facility] 07/15/2024 00:17:13 4 10350 Therapeutic Exercise (1:1) completed Shaun Bynum, BODY WIRER [address], [place], [address], [facility] 07/11/2024 09:03:20 4 17223: Manual therapy completed Shaun Bynum, BODY WIRER [address], [place], [address], [facility] 07/11/2024 09:05:30 4 17938 Therapeutic Exercise (1:1) completed Shaun Bynum, BODY WIRER [address], [place], [address], [facility] 07/08/2024 07:52:09 4 20567 Therapeutic Exercise (1:1) completed Belkis Calderon, BODY WIRER [address], [place], [address], [facility] 07/04/2024 16:55:00 4 55301 Therapeutic Exercise (1:1) completed Karlee Cardona, PT [address], [place], [address], [facility] 06/30/2024 23:19:58 4 83315 Therapeutic Exercise (1:1) completed Shaun Bynum, BODY WIRER [address], [place], [address], [facility] 06/26/2024 16:05:02 4 26894 Therapeutic Exercise (1:1) completed Karlee Cardona, PT [address], [place], [address], [facility] 06/22/2024 21:42:13 4 17504 Therapeutic Exercise (1:1) completed Shaun Bynum BODY WIRER [address], [place], [address], [facility] 06/20/2024 07:57:57 4 79525 Therapeutic Exercise (1:1) completed Belkis Calderon, BODY WIRER [address], [place], [address], [facility] 06/16/2024 16:32:39 4 22100 Therapeutic Exercise (1:1) completed Shaun Bynum BODY WIRER [address], [place], [address], [facility] 06/12/2024 14:25:56 4 98684: Hot or Cold Pack completed Shaun Bynum BODY WIRER [address], [place], [address], [facility] 06/12/2024 13:24:39 4 35985 Therapeutic Exercise (1:1) completed Shaun Bynum BODY WIRER [address], [place], [address], [facility] 06/09/2024 11:25:26 4 98596: Hot or Cold Pack completed Shaun Bynum, BODY WIRER [address], [place], [address], [facility] 06/09/2024 11:25:15 4 87226 Therapeutic Exercise (1:1) completed Karlee Cardona, PT [address], [place], [address], [facility] 06/06/2024 11:55:51 4 38537: Low complexity PT Eval completed Karlee Cardona, PT [address], [place], [address], [facility] 06/06/2024 12:05:01 4 G8417 BMI Above Upper Parameters, F/U Documented completed Karlee Cardona, PT [address], [place], [address], [facility] 06/04/2024 23:07:37 4 G8427 Current Medication Documented completed Karlee Cardona, PT [address], [place], [address], [facility] 06/04/2024 23:07:42 Imaging Results Imaging Date Name Status LastModified by Organiz ation Details LastModified Time 08/11/2024 XR, shoulder, 2 or more view completed INTERFACE [facility] [address], [place], [address], 08/11/2024 14:13:43 08/11/2024 XR, shoulder, 2 or more view completed INTERFACE [facility] [address], [place], [address], 08/11/2024 14:13:45 08/29/2024 XR, hand, 3 or more view completed INTERFACE [facility] [address], [place], [address], 08/29/2024 14:55:51 08/29/2024 XR, hand, 3 or more view completed INTERFACE [facility] [address], [place], [address], 08/29/2024 14:55:55 10/16/2024 XR, shoulder, 2 or more view completed INTERFACE [facility] [address], [place], [address], 10/16/2024 11:27:48 10/16/2024 XR, shoulder, 2 or more view completed [facility]FACE [facility] [address], [place], [address], 10/16/2024 11:27:50 Procedure Notes None recorded. Medical [...] Updated DateTime 10/16/2024 172.72 cm 33.3 kg/m2 67830.73 g Benton Quiles PA-C [address] [facility] [address], [place], [address], [place] [facility] [place] [facility] 10/16/2024 10:54:17 Social History Question Answer Notes LastModified by Organizat ion Details LastModified Time Tobacco Smoking Status Former Smoker DELFINA CHAZ [facility] 04/14/2024 12:55:54 How Many Times Per Week [...] Disease N Heart Trouble N Heart Attack (ME) N Gastrointestinal Disease N Cholesterol N Diabetes [...] SNOMED-CT Code Diagnosis ICD10 Code Diagnosis Note [id number] MD Liliam Maciel 2nd floor [address] [place] [address] 01/23/2024 14:24:25 02/07/2024 14:35:36 Osteoarthritis of right glenohumeral joint 0305462443 720625 M19.535 [id number] MD Liliam Maciel [address] [place] [address] [address] [place] [address] 04/14/2024 12:50:00 05/02/2024 09:32:23 Osteoarthritis of joint of right shoulder region 6070462384 57798 M19.484 [id number] MD Liliam Maciel [facility] floor [address] [place] [address] 05/05/2024 12:38:26 05/23/2024 07:58:15 History of reverse prosthetic total arthroplasty of right shoulder [id number] 4413788 Z96.962 [id number] Benton Quiles PA-C [address] [place] [address] 06/04/2024 13:43:25 06/04/2024 14:23:02 Postoperative care [id number] Z48.89 [id number] Laurence Simms MD [facility] [employer] [facility] on PT [address] [place] [address] 06/05/2024 11:16:10 06/05/2024 12:43:47 Aftercare [id number] Z47.1 Z96.059 [id number] Karlee Cardona, PT [employer] [facility] on PT [address] [place] [address] 06/09/2024 10:31:54 06/09/2024 11:29:04 Aftercare [id number] Z47.1 Z96.146 [id number] Alejandro Durbinleslibeatrice, DPT [facility] [address] [facility] [address] 06/12/2024 13:24:14 06/12/2024 14:34:20 Aftercare [id number] Z47.1 Z96.825 [id number] Crissy Salmeron, PT [facility] [address] [facility] [place] [address] 06/16/2024 15:22:58 06/16/2024 16:57:38 Aftercare [id number] Z47.1 Z96.508 [id number] Alejandro Jiménez, DPT [facility] [address] [facility] [address] 06/20/2024 07:55:20 06/20/2024 08:44:46 Aftercare [id number] Z47.1 Z96.441 [id number] Karlee Cardona, PT [facility] [address] [facility] [address] 06/23/2024 17:19:55 06/24/2024 08:13:17 Aftercare [id number] Z47.1 Z96.299 [id number] Alejandro Jiménez, DPT [facility] [address] [facility] [address] 06/26/2024 15:52:23 06/26/2024 16:51:17 Aftercare [id number] Z47.1 Z96.014 [id number] Karlee Cardona, PT [facility] [address] [facility] [address] 06/30/2024 14:52:31 06/30/2024 16:17:10 Aftercare [id number] Z47.1 Z96.726 [id number] Alejandro Jiménez, DPT [facility] [address] [facility] [address] 07/04/2024 15:55:01 07/08/2024 08:41:31 Aftercare [id number] Z47.1 Z96.824 [id number] [facility] [address] [facility] [place] [address] 07/08/2024 07:51:39 07/08/2024 09:05:57 Aftercare [id number] Z47.1 Z96.750 [id number] Alejandro Jiménez, DPT [facility] [address] [facility] [address] 07/11/2024 07:53:22 07/11/2024 09:05:02 Aftercare [id number] Z47.1 Z96.963 [id number] Karlee Cardona, PT [facility] [address] [facility] [address] 07/14/2024 15:26:57 07/14/2024 17:08:10 Aftercare [id number] Z47.1 Z96.687 [id number] Alejandro Jiménez, DPT [facility] [address] [facility] [address] 07/17/2024 13:55:03 07/18/2024 07:36:28 Aftercare [id number] Z47.1 Z96.395 [id number] Karlee Cardona, PT [facility] [address] [facility] [address] 07/21/2024 12:18:06 07/21/2024 14:42:16 Aftercare [id number] Z47.1 Z96.008 [id number] Alejandro Jiménez, DPT [facility] [address] [facility] [address] 07/24/2024 13:50:28 07/24/2024 15:28:53 Aftercare [id number] Z47.1 Z96.479 [id number] Karlee Cardona, PT [facility] [address] [facility] [address] 07/28/2024 11:45:30 07/28/2024 14:45:16 Aftercare [id number] Z47.1 Z96.027 [id number] Laurence Simms MD [address] [place] [address] 08/11/2024 13:48:05 09/05/2024 09:27:06 History of reverse prosthetic total arthroplasty of right shoulder [id number] [id number] Z96.272 [id number] Alejandro Jiménez, DPT [facility] [address] [facility] [address] 07/31/2024 13:51:37 07/31/2024 15:25:10 Aftercare [id number] Z47.1 Z96.886 [id number] Karlee Cardona, PT [facility] [address] [facility] [address] 08/04/2024 10:50:03 08/04/2024 15:21:48 Aftercare [id number] Z47.1 Z96.833 [id number] Alejandro Jiménez, DPT [facility] [address] [facility] [address] 08/07/2024 13:17:35 08/07/2024 15:58:33 Aftercare [id number] Z47.1 Z96.746 [id number] Laurence Simms MD [facility] [address] [facility] [address] 08/11/2024 10:49:49 08/11/2024 12:02:31 Aftercare [id number] Z47.1 Z96.438 [id number] Karlee Cardona, PT [facility] [address] [facility] [address] 08/14/2024 14:47:52 08/15/2024 07:32:59 Aftercare [id number] Z47.1 Z96.152 [id number] Alejandro Jiménez, DPT [facility] [address] [facility] [address] 08/21/2024 12:57:26 08/21/2024 15:12:52 Aftercare [id number] Z47.1 Z96.088 [id number] Karlee Cardona, PT [facility] [address] [facility] [address] 08/25/2024 11:44:19 08/25/2024 13:06:16 Aftercare [id number] Z47.1 Z96.428 [id number] Alejandro Durbinjakygeovanna, DPT [facility] [address] [place] [address] 08/28/2024 12:55:10 08/28/2024 14:27:04 Aftercare [id number] Z47.1 Z96.408 [id number] Angie Garcia PA-C [facility] [address] [place] [address] 08/29/2024 14:20:00 09/24/2024 10:23:26 Pain of left hand [id number] 99113 M79.180 [id number] Karlee Cardona, PT [facility] [address] [place] [address] 09/01/2024 10:19:05 09/01/2024 11:46:47 Aftercare [id number] Z47.1 Z96.434 [id number] Alejandro Durbinjakygeovanna, DPT [facility] [address] [place] [address] 09/04/2024 12:58:01 09/04/2024 14:52:00 Aftercare [id number] Z47.1 Z96.220 [id number] Karlee Cardona, PT [facility] [address] [place] [address] 09/08/2024 09:54:41 09/08/2024 11:09:28 Aftercare [id number] Z47.1 Z96.809 [id number] Alejandro Jiménez, DPT [facility] [address] [place] [address] 09/11/2024 12:56:13 09/11/2024 14:05:48 Aftercare [id number] Z47.1 Z96.239 [id number] Karlee Cardona, PT [facility] [address] [place] [address] 09/15/2024 09:48:35 09/15/2024 11:22:28 Aftercare [id number] Z47.1 Z96.401 [id number] Laurence Simms MD [employer] on PT [address] [place] [address] 09/22/2024 09:52:06 09/22/2024 11:01:20 Aftercare [id number] Z47.1 Z96.008 [id number] Alejandro Jessy, DPT [facility] on PT [address] [place] [address] 09/25/2024 12:57:48 09/25/2024 14:13:34 Aftercare [id number] Z47.1 Z96.108 [id number] LEYLA Britt 2[address] floor [address] [place] [address] 10/16/2024 10:49:03 11/11/2024 07:55:33 History of reverse prosthetic total arthroplasty of right shoulder [id number] 8001056 Z96.611 Health Concerns Section Related Observation LastModified by Organization Detai ls LastModified Time None Recorded Concern Status LastModified by Organization Details LastModified Time None Recorded Advance Directives Directive None Recorded Payers Encounter Date Sequence Insurance Name Policy Number Policy Ferris Covered Member ID Ferris Member ID Guarantor Name 09/11/2024 1 [place] Pascale Oates [id number] Pascaleeva Oates 09/11/2024 2 [place] [id number] Pascale Oates [id number] Pascaleeva Oates 09/15/2024 1 [place] Pascale Oates [id number] Pascale Yobany Oates 09/15/2024 2 [place] [id number] Pascale Oates [id number] Pascaleeva Oates 09/22/2024 1 [place] Pascale Oates [id number] Pascaleeva Oates 09/22/2024 2 [place] [id number] Pascale Matthews Gratkowski [id number] Pascale aMtthews Gratkowski 09/25/2024 1 [place] Pascale Méndeztkowski [id number] 52 Pascale Yobany Gratkowski 09/25/2024 2 [place] [id number] Pascale Yobany Gratkowski [id number] Pascale Yobany Gratkowski 10/16/2024 1 [place] Pascale Yobany Gratkowski [id number] 52 Pascale Yobany Gratkowski 10/16/2024 2 [place] [id number] Pascale Yobany Gratkowski [id number] Pascale Méndezthung Notes Date Note Type Note Provider Name and Address Organization Details Recorded Time 09/11/2024 text/html Pt. reports that his shoulder is feeling overall ok, able to reach for the top cabinets without difficulty. Shaun Bynum, BODY WIRER [address], [place], [address], [facility] 09/11/2024 13:55:35 09/15/2024 text/html Pt. reports that she has a little bit of biceps/upper arm soreness today. Pt also reports that she had a small episode of partial blacking out yesterday. It was the first one since being weaned off her seizure medication. She plans to call her MD about this. Karlee Cardona, PT [address], [place], [address], [facility] 09/15/2024 11:06:19 09/22/2024 text/html Pt. reports that [...] D/C to HEP. Karlee Cardona, PT [address], [place], [address], [facility] 09/22/2024 11:11:50 09/25/2024 text/html Pt. reports to P T today feeling fatigue overall dt a busy day. States operative shoulder is feeling good. Would like a detailed HEP. Shaun Bynum, BODY WIRER [address], [place], [address], [facility] 09/25/2024 13:54:48 10/16/2024 text/html I am seeing [...] limits. X-rays ordered, obtained and reviewed at [facility] 3 views of the right reverse total [...] on an annual basis. Benton Quiles PA-C [address], [place], [address], [place] [facility] [facility] 10/16/2024 11:44:40 OBGyn Episode No OBEpisode recorded.
== END 2025-01-29 14:13 | disposition home or self-care (01) ==
PROVIDERS: PCP Internal Medicine; Visit Provider Physician Assistant
DX: Z13.9 Encounter for screening, unspecified (principal); N30.01 Acute cystitis with hematuria

== ENCOUNTER 2025-02-06 08:23 | Outpatient (AMB) | payer MEDICARE, SELFPAY ==
--- NOTE | 2025-02-06 08:33 | MHC.PC.OV ---
Vital Signs 02/06/25 08:34 02/06/25 08:55 Height 5 ft 8 in Weight 220 lb 6 oz BMI 33.5 BP 140/84 H 122/62 Blood Pressure Location Lt brachial Lt brachial Position Sitting Sitting Pulse 68 Pulse Source Pulse Oximeter Temp 97.3 F Temp Source Temporal Artery Scan Pulse Oximetry (%) 98 Oxygen Delivery Method Room Air Intake Visit Reasons: Follow up Walk In Intake Note: Patient is here to follow up on Walk-in from 01/29/25. Pediatric Np Required: No [employer] Converter: Not Required per policy Accompanied by: Self / Same As Patient Allergies amlodipine Allergy (Unknown, Verified 02/06/25 08:41) leg swelling lisinopril Allergy (Unknown, Verified 02/06/25 08:41) cough escitalopram Adverse Reaction (Intermediate, Verified 02/06/25 08:41) Depression pcv23 Allergy (Unknown, Uncoded 02/06/25 08:41) arm swelling metformin Adverse Reaction (Intermediate, Uncoded 02/06/25 08:41) stomach pain Medication List - Last Reconciled 02/06/25 by Magdalena Godinez PA-C amoxicillin 2,000 mg orally 1 hour before thr procedure; aspirin 81 mg PO DAILY atorvastatin 40 mg PO DAILY chlorthalidone 25 mg PO DAILY 90 days cholecalciferol (vitamin D3) 25 mcg PO DAILY losartan 50 mg PO DAILY 90 days metoprolol succinate ER 50 mg PO DAILY potassium mg PO .QD Tobacco use date assessed: 02/06/25 Fall risk assessment: No Falls in past year Last assessed Fall Risk: 02/06/25 Dental Screening Dental Screen Date: 12/02/24 HPI Follow up Walk In [facility] Details 79-year-old female with past medical history of hypertension, hypercholesterolemia, obesity, GERD, diabetes mellitus, generalized anxiety disorder, psoriasis last seen 11/2024 coming in for follow up.?Patient was recently seen by walk-in clinic 01/29/2025 high likelihood of kidney stone started on cefuroxime for UTI prophylaxis. Patient tells us today she has not had any abdominal/back pain and has not had any further blood in the urine or pain with urination. She is asymptomatic at this time. [facility] Medical History Syncope TIA (transient ischemic attack) Disequilibrium syndrome Right shoulder pain Post-menopausal Retinal tear Left carotid artery stenosis Tubular adenoma of colon Urge incontinence Type 2 diabetes mellitus with hyperglycemia Osteoarthritis Psoriasis GERD (gastroesophageal reflux disease) Obesity (BMI 30-39.9) Hypercholesterolemia Hypertension Surgical History History of cholecystectomy History of bilateral knee replacement History of colonoscopy History of cataract surgery Family History Mother No problems noted. Father No problems noted. Social History Housing: House Alcohol intake: current Alcohol intake frequency: a few times a week Comment: once a month 1 drink Patient Tobacco Use Status: Former Tobacco user Tobacco use type: Cigarette Years Smoked: 1979 smoked 15 years pack a day e-Cigarette/Vaping Use: Never Used Second Hand Smoke Exposure: Yes service: No Current occupational status: retired Cognitive needs: No Hearing needs: No Vision needs: Yes (glasses) Questionnaire Thrive Questionnaire Date Thrive assessed: 12/02/24 ELIEL-7 AMB Questionnaire ELIEL-7 Date ELIEL - 7 assessed: 12/02/24 Source: Developed by Drs. Pascual Bradshaw, Rachelle Argueta, Luke Joshi and colleagues, with an educational khadra from [employer]. Review of Systems Const Denies body aches, Denies chills, Denies fever(s), Denies headache(s) and Denies poor appetite Eyes Reports no additional complaints ENT Denies dizziness and Denies headache(s) Card Denies chest pain and Denies dyspnea Resp Denies cough and Denies dyspnea GI Denies abdominal pain, Denies nausea and Denies vomiting Denies hematuria, Denies urinary frequency, Denies difficulty voiding and Denies dysuria Musc Reports no additional complaints and Denies abnormal gait Skin/Breast Reports system reviewed and no additional complaints, except as documented Neuro Denies abnormal gait, Denies dizziness and Denies headache(s) Psych Reports no additional complaints Physical exam (Primary Care) Vital Signs: Last Vital Signs Temp 97.3 F 02/06/25 08:34 Pulse 68 02/06/25 08:34 BP 122/62 02/06/25 08:55 Pulse Ox 98 02/06/25 08:34 Oxygen Delivery Method Room Air 02/06/25 08:34 BMI result Body Mass Index 33.5 Tobacco/Smoking Status: Tobacco use Status Tobacco use date assessed 02/06/25 02/06/25 08:38 Patient Tobacco Use Status Former Tobacco user 02/06/25 08:33 Tobacco use type Cigarette 02/06/25 08:33 e-Cigarette/Vaping Use Never Used 02/06/25 08:33 Thrive Assessment: Date of Thrive Assessment Date Thrive assessed 12/02/24 02/06/25 08:33 Const General: cooperative, healthy appearing, comfortable and no acute distress Orientation/consciousness: patient oriented x3 HENMT Head: Yes normocephalic Ears: hearing grossly normal bilaterally General nose exam: Normal external nose present Eyes General: appearance normal, both eyes and all related structures Conjunctivae: conjunctivae normal Neck Neck: Yes full ROM and Yes no lymphadenopathy Resp Effort & Inspection: normal respiratory effort Auscultation: clear to auscultation bilaterally, no crackles, no rales, no rhonchi and no wheezes Cardio Rate: regular rate Rhythm: regular rhythm General: Yes no CVA tenderness Back/Spine/Pelvis Back: no CVA tenderness Skin General skin exam: no rashes or lesions noted Neuro General: patient oriented x3 Gait exam (Neuro): Normal gait present Extrem General: Yes normal to inspection, Yes full ROM and No edema Psych Affect: normal affect Attitude: cooperative Insight: Good insight present (Psych) Judgement: Good judgement present (Psych) Coding Level of Care Code Est Pt Level 3 (88122) Diagnoses Acute cystitis with hematuria N30.01 Hematuria presence: with hematuria Urinary tract infection type: acute cystitis Nephrolithiasis N20.0 Assessment & Plan Assessment & Plan (1) UTI (urinary tract infection): Code(s): N39.0 - Urinary tract infection, site not specified Category: Medical Qualifiers: Hematuria presence: with hematuria Urinary tract infection type: acute cystitis Qualified Code(s): N30.01 - Acute cystitis with hematuria Plan: Patient was treated for urinary tract infection was cefuroxime completed the course of antibiotics and denies any symptoms at this time. Continue to monitor. (2) Nephrolithiasis: Code(s): N20.0 - Calculus of kidney Category: Medical Plan: Patient endorses seeing a small pea size object in the toilet after urinating which prompted her evaluation from the walk-in clinic. She had copious amounts of blood at the time of the object passing and has not had blood since. Concern for nephrolithiasis plan to order for kidney ultrasound for further evaluation. I reviewed with the patient red flag symptoms and when to present for re-evaluation Plan This note was constructed using voice recognition software. While every effort has been made to ensure accuracy and forging machine operator, still areas may have been included sometimes these areas may affect the content or meeting of the given symptoms. Total time spent caring for the patient today was 20 minutes. This includes time spent before the visit reviewing the chart, time spent during the visit, and time spent after the visit and documentation. Orders: Orders US renal BI Today N20.0 - Calculus of kidney, N30.01 - Acute cystitis with hematuria
[2025-02-06 08:34] VITALS: BP 140/84; PULSE 68; TEMP 36.3; O2SAT 98; BMI 33.5
--- OUTSIDE RECORDS SUMMARY | 2025-02-06 08:38 | XMS_ITS ---
[facility] Address [address] [place] [address] Care Team Providers Care Lan Administrator Name Role Phone Patience Sherman Primary Care Provider Mignon Peralta Unavailable [phone] Allergies Allergen (clinical drug ingredient) Drug/Non Drug [...] Bilateral atherosclerosis of arteries of lower limbs ([id number] ) Atherosclerosis of [place] artery of both lower extremities, with unspecified presence of clinical manifestation (I70.203) Active confirmed Q7(A), Q8(2B), Q9(1B,2 C) Vital Signs Height 5 ft 8 in in 09/29/2024 Weight 215 lbs 09/29/2024 BMI 32.69 kg/m2 09/29/2024 Procedures Procedure Date Ordered Date Performed Result Body Sit e 25764-PUCOWIK NAIL, 6 OR MORE 09/29/2024 N/A 77483-UOFC SKIN LESIONS, 2 TO 4 09/29/2024 N/A Encounters Encounter Location Date Provider Diagnosis [facility] [place] [address] [place] [address] 09/29/2024 Mignon Mejias Xerosis of skin L85.3 ; Atherosclerosis of [place] artery of both lower extremities, with unspecified presence of clinical manifestation I70.203 ; Tinea unguium B35.1 ; Pain in right toe(s) M79.674 and Pain in left toe(s) M79.675 Assessments Encounter Date Diagnosis (ICD Code) Assessment Notes Treatment Notes Treatment Clinical Notes Section Notes 09/29/2024 Xerosis of skin (ICD-10 - L85.3) 09/29/2024 Atherosclerosis of [place] artery of both lower extremities, with unspecified [...] days Pending Test Test Name Order Date [id number] NAIL, 6 OR MORE 09/29/2024 72593-GHCI SKIN LESIONS, 2 TO 4 09/29/20 24 Next Appt Details Follow Up: 3 Months, Reason: Provider Name:Mignon key, 04/01/2025 11:30:00 AM, [address] [place] [address], [phone], Procedure Notes * Category Sub-Category Detail Notes [...] use of a nail nipper and/or dremel-type metal grinder, to a more viable healthy nail [...] to maintain effectiveness in symptomatic relief - 25686 Keratoma Treatment Parring or Cutting o f Benign Hyperkeratotic Lesion(s) (-56) 2-4 Lesions - The Benign hyperkeratotic lesions, ( 4 ) in total, locations as stated and described in exam, were pared, and/or cut utilizing a sterile 15 blade, tissue nippers, and/or power dreShare Some Style instrumentation - 94393, Q8 Progress Notes * Pascale CARDONA EDOB:[birth year] (79 yo F)Acc No.[id number]:09/29/2024 Progress Note Patient:?Pascale CARDONA E Provider:?Mignon Mejias DPM :1945???Age:79 Y???Sex:Female D ate:09/29/2024 Address:[address] [place], [place] [id number] Pcp:Patience Sherman Subjective: * Chief Complaints: * [...] :Acute problem, Uncomplicated (3),Rx Management (4)???2.?Atherosclerosis of [place] artery of both lower extremities, with unspecified [...] 30 days, 140, Refills 2.?? 3.?Tinea unguium?Procedure: 45774-GCCEJMR NAIL, 6 OR MORE * Procedures:?Debride Nail [...] use of a nail nipper and/or dremel-type metal grinder, to a more viable healthy nail [...] to maintain effectiveness in symptomatic relief - 29401.?Keratoma Treatment:?Parring or Cutting of Benign Hyperkeratotic Lesion(s)?(-56) 2-4 Lesions - The Benign hyperkeratotic lesions, ( 4 ) in total, locations as stated and described in exam, were pared, and/or cut utilizing a sterile 15 blade, tissue nippers, and/or power dremel instrumentation - 57121, Q8.? * Procedure Codes:?92002 DEBRI DE NAIL, 6 OR MORE, Modifiers: XS 78835 TRIM SKIN LESIONS, 2 TO 4, Modifiers: [...] DPM Date:?1 11/29/2023 Generated for Alisia nur/Reilly/Danisha on:?02/06/2025 08:38 AM EDT History and Physical Notes * HPI [...]
--- OUTSIDE RECORDS SUMMARY | 2025-02-06 08:38 | XMS_ITS | Data Portability ---
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 Pt is independent with her [facility]. Plan: Continue PT 1 more session then D/C to 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 tolerated all exercises well while demonstrating proper periscapular and RC mechanics with minimal fatigue levels achieved. Updated Independent [facility], reviewed with Pt. and answered further questions. Plan: D/C to Independent 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 Lab None recorde d. Referral None recorde d. Procedures None recorde d. Surgeries None recorde d. Imaging XR, shoulde r, 2 or more view - right shldr 3viiews rm [phone] natysuerkha [facility], [address], [place], [address], 07:55:33 Medication Orders None recorde d. Patient TargetsNo targets recorded. Patient InstructionsNo instructions recorded. Reason for Referral None Reported. Results Created Date Observation Date Name Description Value Unit Range Abnormal Flag Note LastModifiedBy Organization Detail LastModifiedTime 08/11/2008/11/2024 XR, beth rousseau, 2 or more view [email or web address]:/ [email or web address] ?Encry pted=s hAaTro YD8dLq bEUv6g %2BXZw aYqtaq 0bqfl% 2Fg9IQ a4ajBk vP9nXo QUaueC m3YtLR FvZl JJ8mAn HZtai3 1y5245 AC0Kqa nWAWaS vKiQtr [facility] INTERFACE [facility] Office [address], [place], [address], 08/11/2024 14:13:43 08/11/20 24 08/11/2024 XRbeth, 2 or more view [email or web address]:/ [email or web address] ?Encry pted=s hAaTro YD8dLq bEUv6g %2BXZw aYqtaq 0bqfl% 2Fg9IQ a4ajBk vP9nXo QUaueC m3YtLR FvZl JJ8Blaine HZtai 4a0670 AC0Kqa nWLudlow HospitalS vKiQtr [facility] INTERFACE [facility] Office [address], [place], [address], 08/11/2024 14:13:45 08/29/2008/29/2024 XR, hand, 3 or more view [email or web address]:/ [email or web address] ?Encry pted=s hAaTro YD8dLq bEUv6g %2BXZw aYqtaq 0bqfl% 2Fg9IQ a4ajBk vP9nXo QUaueC m3YtLR FvZl JJ8mAn HZtai3 7r8666 AC0Kqa HyCUaO jKiQtr MwF INTERFACE [facility] [address], [place], [address], 08/29/2024 14:55:51 08/29/20 24 08/29/2024 XR, hand, 3 or more view http:/ [email or web address] ?Encry pted=s hAaTro YD8dLq bEUv6g %2BXZw aYqtaq 0bqfl% 2Fg9IQ a4ajBk vP9nXo QUaueC m3YtLR FvZlgJ JJ8mAn HZtai3 1t3408 AC0Kqa HyCUaO jKiQtr MwF INTERFACE [facility] [address], [place], [address], 08/29/2024 14:55:55 10/16/20 24 10/16/2024 XR, shoul onelia, 2 or more view http:/ [email or web address] ?Encry pted=s hAaTro YD8dLq bEUv6g %2BXZw aYqtaq 0bqfl% 2Fg9IQ a4ajBk vP9nXo QUaueC m3YtLR FvZlgJ JJ8mAn HZtai3 4l2951 AC0Kqb nyBVaW gKiQtr MwF INTERFACE [facility] [address], [place], [address], 10/16/2024 11:27:48 10/16/20 24 10/16/2024 XR, shoul onelia, 2 or more view http:/ [email or web address] ?Encry pted=s hAaTro YD8dLq bEUv6g %2BXZw aYqtaq 0bqfl% 2Fg9IQ a4ajBk vP9nXo QUaueC m3YtLR FvZlgJ JJ8mAn HZtai3 4l7633 AC0Kqb nyBVaW gKiQtr MwF INTERFACE [facility] [address], [place], [address], 10/16/2024 11:27:50 Result Notes None recorded. Problems Name Problem SNOMED Code Status Onset Date Resolution Date Notes Provider Name and Address Organization Details Recorded Time No complaints 735519294 Active Status : 'A'; Not Available [facility] 09:25:45 Lesion of lung 782492206 Active 2023 ROXANA SEGURA [facility] 12:17:47 Problem Notes None recorded. Procedures Surgical History Date Name Laterality Status Provider Name and Address Organization Details Recorded Time 4 31650 Therapeutic Exercise (1:1) completed Shaun Bynum, ALEX [address], [place], [address], [facility] 08/14/2024 14:53:22 4 53560 Therapeutic Exercise (1:1) completed Karlee Cardona, PT [address], [place], [address], [facility] 08/10/2024 23:13:44 4 87117 Therapeutic Exercise (1:1) completed Shaun Bynum PTA [address], [place], [address], [facility] 08/07/2024 14:30:15 4 96839 Therapeutic Exercise (1:1) completed Karlee Cardona, PT [address], [place], [address], [facility] 08/03/2024 22:12:27 4 91708 Therapeutic Exercise (1:1) completed Shaun Bynum, ALEX [address], [place], [address], [facility] 07/31/2024 15:16:09 4 12613 Therapeutic Exercise (1:1) completed Karlee Cardona, PT [address], [place], [address], [facility] 07/29/2024 06:56:55 4 94715 Therapeutic Exercise (1:1) completed Shaun Bynum, METAL SASH SETTER [address], [place], [address], [facility] 07/24/2024 14:19:39 4 09319 Therapeutic Exercise (1:1) completed Karlee Cardona, PT [address], [place], [address], [facility] 07/21/2024 22:35:29 4 10011 Therapeutic Exercise (1:1) completed Shaun Bynum METAL SASH SETTER [address], [place], [address], [facility] 07/17/2024 14:07:03 4 96650 Therapeutic Exercise (1:1) completed Karlee Cardona, PT [address], [place], [address], [facility] 07/15/2024 00:17:13 4 36471 Therapeutic Exercise (1:1) completed Shaun Bynum, METAL SASH SETTER [address], [place], [address], [facility] 07/11/2024 09:03:20 4 19938: Manual therapy completed Shaun Bynum METAL SASH SETTER [address], [place], [address], [facility] 07/11/2024 09:05:30 4 71209 Therapeutic Exercise (1:1) completed Shaun Bynum METAL SASH SETTER [address], [place], [address], [facility] 07/08/2024 07:52:09 4 56236 Therapeutic Exercise (1:1) completed Belkis Calderon, METAL SASH SETTER [address], [place], [address], [facility] 07/04/2024 16:55:00 4 86838 Therapeutic Exercise (1:1) completed Karlee Cardona, PT [address], [place], [address], [facility] 06/30/2024 23:19:58 4 61257 Therapeutic Exercise (1:1) completed Shaun Bynum, METAL SASH SETTER [address], [place], [address], [facility] 06/26/2024 16:05:02 4 70795 Therapeutic Exercise (1:1) completed Karlee Cardona, PT [address], [place], [address], [facility] 06/22/2024 21:42:13 4 43222 Therapeutic Exercise (1:1) completed Shaun Bynum METAL SASH SETTER [address], [place], [address], [facility] 06/20/2024 07:57:57 4 54228 Therapeutic Exercise (1:1) completed Belkis Calderon, METAL SASH SETTER [address], [place], [address], [facility] 06/16/2024 16:32:39 4 27281 Therapeutic Exercise (1:1) completed Shaun Bynum METAL SASH SETTER [address], [place], [address], [facility] 06/12/2024 14:25:56 4 49516: Hot or Cold Pack completed Shaun Bynum METAL SASH SETTER [address], [place], [address], [facility] 06/12/2024 13:24:39 4 16638 Therapeutic Exercise (1:1) completed Shaun Bynum METAL SASH SETTER [address], [place], [address], [facility] 06/09/2024 11:25:26 4 98493: Hot or Cold Pack completed Shaun Bynum, METAL SASH SETTER [address], [place], [address], [facility] 06/09/2024 11:25:15 4 69554 Therapeutic Exercise (1:1) completed Karlee Cardona, PT [address], [place], [address], [facility] 06/06/2024 11:55:51 4 73363: Low complexity PT Eval completed Karlee Cardona, PT [address], [place], [address], [facility] 06/06/2024 12:05:01 4 G8417 BMI Above Upper Parameters, F/U Documented completed Karlee Cardona, PT [address], [place], [address], [facility] 06/04/2024 23:07:37 4 G8427 Current Medication Documented completed Karlee Cardona, PT [address], [place], [address], [facility] 06/04/2024 23:07:42 Imaging Results Imaging Date Name Status LastModified by Organiz ation Details LastModified Time 08/11/2024 XR, shoulder, 2 or more view completed INTERFACE [facility] [address], [place], [address], 08/11/2024 14:13:43 08/11/2024 XR, shoulder, 2 or more view completed INTERFACE [facility] [address], [place], [address], 08/11/2024 14:13:45 08/29/2024 XR, hand, 3 or more view completed INTERFACE [facility] [address], [place], [address], 08/29/2024 14:55:51 08/29/2024 XR, hand, 3 or more view completed INTERFACE [facility] [address], [place], [address], 08/29/2024 14:55:55 10/16/2024 XR, shoulder, 2 or more view completed [facility]FACE [facility] [address], [place], [address], 10/16/2024 11:27:48 10/16/2024 XR, shoulder, 2 or more view completed INTERFACE [facility] [address], [place], [address], 10/16/2024 11:27:50 Procedure Notes None recorded. Medical [...] Updated DateTime 10/16/2024 172.72 cm 33.3 kg/m2 42949.73 g Benton Quiles PA-C [address] [facility] [address], [place], [address], [place] [facility] [place] [facility] 10/16/2024 10:54:17 Social History Question Answer Notes LastModified by Organizat ion Details LastModified Time Tobacco Smoking Status Former Smoker DELFINA WARE [facility] 04/14/2024 12:55:54 How Many Times Per [...] Disease N Heart Trouble N Heart Attack ([place]) N Gastrointestinal Disease N Cholesterol N Diabetes [...] SNOMED-CT Code Diagnosis ICD10 Code Diagnosis Note [id number] MD Liliam Maciel [address] [place] [address] [address] [place] [address] 01/23/2024 14:24:25 02/07/2024 14:35:36 Osteoarthritis of right glenohumeral joint 5888240843 597211 M19.457 [id number] MD Liliam Maciel [address] [place] [address] [address] [place] [address] 04/14/2024 12:50:00 05/02/2024 09:32:23 Osteoarthritis of joint of right shoulder region 3219778612 06660 M19.397 [id number] MD Liliam Maciel [address] [place] [address] [address] [place] [address] 05/05/2024 12:38:26 05/23/2024 07:58:15 History of reverse prosthetic total arthroplasty of right shoulder 5191911100 7194077 Z96.686 [id number] LEYLA Britt [facility] [address] [place] [address] 06/04/2024 13:43:25 06/04/2024 14:23:02 Postoperative care 273975523 Z48.89 [id number] Laurence Simms MD [facility] on PT [address] [place] [address] 06/05/2024 11:16:10 06/05/2024 12:43:47 Aftercare [id number] Z47.1 Z96.250 [id number] Karlee Cardona, PT [facility] [address] [place] [address] 06/09/2024 10:31:54 06/09/2024 11:29:04 Aftercare 419411072 Z47.1 Z96.030 [id number] Alejandro Jessy, DPT [facility] [address] [place] [address] 06/12/2024 13:24:14 06/12/2024 14:34:20 Aftercare [id number] Z47.1 Z96.541 [id number] Crissy Salmeron, PT [facility] [address] [facility] [place] [address] 06/16/2024 15:22:58 06/16/2024 16:57:38 Aftercare [id number] Z47.1 Z96.584 [id number] Alejandro Jiménez, DPT [facility] [address] [facility] [place] [address] 06/20/2024 07:55:20 06/20/2024 08:44:46 Aftercare [id number] Z47.1 Z96.495 [id number] Karlee Cardona, PT [facility] [address] [facility] [place] [address] 06/23/2024 17:19:55 06/24/2024 08:13:17 Aftercare [id number] Z47.1 Z96.203 [id number] Alejandromargarita Jiménez, DPT [facility] [address] [place] [address] 06/26/2024 15:52:23 06/26/2024 16:51:17 Aftercare [id number] Z47.1 Z96.096 [id number] Karlee Cardona, PT [facility] [address] [place] [address] 06/30/2024 14:52:31 06/30/2024 16:17:10 Aftercare [id number] Z47.1 Z96.754 [id number] Alejandro Jiménez, DPT [facility] [address] [place] [address] 07/04/2024 15:55:01 07/08/2024 08:41:31 Aftercare [id number] Z47.1 Z96.590 [id number] [facility] [address] [facility] [place] [address] 07/08/2024 07:51:39 07/08/2024 09:05:57 Aftercare [id number] Z47.1 Z96.081 [id number] Alejandro Jiménez, DPT [facility] [address] [facility] [place] [address] 07/11/2024 07:53:22 07/11/2024 09:05:02 Aftercare [id number] Z47.1 Z96.857 [id number] Karlee Cardona, PT [facility] [address] [facility] [place] [address] 07/14/2024 15:26:57 07/14/2024 17:08:10 Aftercare [id number] Z47.1 Z96.600 [id number] Alejandro Jiménez, DPT [facility] [address] [facility] [place] [address] 07/17/2024 13:55:03 07/18/2024 07:36:28 Aftercare [id number] Z47.1 Z96.985 [id number] Karlee Cardona, PT [facility] [address] [facility] [place] [address] 07/21/2024 12:18:06 07/21/2024 14:42:16 Aftercare [id number] Z47.1 Z96.459 [id number] Alejandro Jiménez, DPT [facility] [address] [facility] [place] [address] 07/24/2024 13:50:28 07/24/2024 15:28:53 Aftercare [id number] Z47.1 Z96.315 [id number] Karlee Cardona, PT [facility] [address] [facility] [place] [address] 07/28/2024 11:45:30 07/28/2024 14:45:16 Aftercare [id number] Z47.1 Z96.788 [id number] Laurence Simms MD [facility] 2nd floor [address] [facility] [address] 08/11/2024 13:48:05 09/05/2024 09:27:06 History of reverse prosthetic total arthroplasty of right shoulder 1400532365 0127186 Z96.873 [id number] Alejandro Jiménez, DPT [facility] [address] [place] [address] 07/31/2024 13:51:37 07/31/2024 15:25:10 Aftercare [id number] Z47.1 Z96.109 [id number] Karlee Cardona, PT [facility] [address] [place] [address] 08/04/2024 10:50:03 08/04/2024 15:21:48 Aftercare [id number] Z47.1 Z96.432 [id number] Alejandro Jiménez, DPT [facility] [address] [place] [address] 08/07/2024 13:17:35 08/07/2024 15:58:33 Aftercare [id number] Z47.1 Z96.853 [id number] Laurence Simms MD [facility] on PT [address] [place] [address] 08/11/2024 10:49:49 08/11/2024 12:02:31 Aftercare [id number] Z47.1 Z96.205 [id number] Karlee Cardona, PT [facility] [address] [place] [address] 08/14/2024 14:47:52 08/15/2024 07:32:59 Aftercare [id number] Z47.1 Z96.588 [id number] Alejandro Jiménez, DPT [facility] [address] [place] [address] 08/21/2024 12:57:26 08/21/2024 15:12:52 Aftercare [id number] Z47.1 Z96.189 [id number] Karleeeva Cardona, PT [facility] [address] [place] [address] 08/25/2024 11:44:19 08/25/2024 13:06:16 Aftercare [id number] Z47.1 Z96.021 [id number] Alejandro Jessy, DPT [facility] [address] [place] [address] 08/28/2024 12:55:10 08/28/2024 14:27:04 Aftercare [id number] Z47.1 Z96.823 [id number] Angie Garcia PA-C [facility] 1st Floor [address] [facility] [place] [place] [address] 08/29/2024 14:20:00 09/24/2024 10:23:26 Pain of left hand 9010512940 97193 M79.411 [id number] Karleeeva Cardona, PT [facility] [address] [place] [address] 09/01/2024 10:19:05 09/01/2024 11:46:47 Aftercare [id number] Z47.1 Z96.469 [id number] Alejandro Jessy, DPT [facility] [address] [place] [address] 09/04/2024 12:58:01 09/04/2024 14:52:00 Aftercare [id number] Z47.1 Z96.183 [id number] Karlee Cardona, PT [facility] [address] [place] [address] 09/08/2024 09:54:41 09/08/2024 11:09:28 Aftercare [id number] Z47.1 Z96.585 [id number] Alejandro Jessy, DPT [facility] [address] [place] [address] 09/11/2024 12:56:13 09/11/2024 14:05:48 Aftercare [id number] Z47.1 Z96.382 [id number] Karleeeva Cardona, PT [facility] [address] [place] [address] 09/15/2024 09:48:35 09/15/2024 11:22:28 Aftercare [id number] Z47.1 Z96.171 [id number] Laurence Simms MD [facility] on [address] [place] [address] 09/22/2024 09:52:06 09/22/2024 11:01:20 Aftercare [id number] Z47.1 Z96.157 [id number] Alejandro Jiménez DPT [facility] on PT [address] [place] [address] 09/25/2024 12:57:48 09/25/2024 14:13:34 Aftercare [id number] Z47.1 Z96.830 [id number] LEYLA Britt 2nd floor [address] [place] [address] 10/16/2024 10:49:03 11/11/2024 07:55:33 History of reverse prosthetic total arthroplasty of right shoulder 1599559615 3037419 Z96.611 Health Concerns Section Related Observation LastModified by Organization Detai ls LastModified Time None Recorded Concern Status LastModified by Organization Details LastModified Time None Recorded Advance Directives Directive None Recorded Payers Encounter Date Sequence Insurance Name Policy Number Policy Ferris Covered Member ID Ferris Member ID Guarantor Name 09/11/2024 1 [place] Pascale Oates [id number] Pascale Oates 09/11/2024 2 [place] [id number] Pascale Oates [id number] Pascaleeva Oates 09/15/2024 1 [place] Pascale Oates [id number] Pascale Oates 09/15/2024 2 [place] [id number] Pascale Oates [id number] Pascaleeva Oates 09/22/2024 1 [place] Pascale Yobany Gratkowski [id number] Pascale E Gratkowski 09/22/2024 2 [place] [id number] Pascale E Gratkowski [id number] Pascale E Gratkowski 09/25/2024 1 [place] Pascale E Gratkowski [id number] Pascale E Gratkowski 09/25/2024 2 [place] [id number] Pascale E Gratkowski [id number] Pascale E Gratkowski 10/16/2024 1 [place] Pascale E Gratkowski [id number] Pascale E Gratkowski 10/16/2024 2 [place] [id number] Pascale E Gratkowski [id number] Pascale E Gratkowski Notes Date Note Type Note Provider Name and Address Organization Details Recorded Time 09/11/2024 text/html Pt. reports that his shoulder is feeling overall ok, able to reach for the top cabinets without difficulty. Shaun Bynum, METAL SASH SETTER [address], [place], [address], [facility] 09/11/2024 13:55:35 09/15/2024 text/html Pt. reports that she has a little bit of biceps/upper arm soreness today. Pt also reports that she had a small episode of partial blacking out yesterday. It was the first one since being weaned off her seizure medication. She plans to call her MD about this. Karlee Cardona, PT [address], [place], [address], [facility] 09/15/2024 11:06:19 09/22/2024 text/html Pt. reports [...] Cardona, PT [address], [place], [address], [facility] 09/22/2024 11:11:50 09/25/2024 text/html Pt. reports to P T today feeling fatigue overall dt a busy day. States operative shoulder is feeling good. Would like a detailed HEP. Shaun Bynum, METAL SASH SETTER [address], [place], [address], [facility] 09/25/2024 13:54:48 10/16/2024 text/html I am [...] limits. X-rays ordered, obtained and reviewed at [facility] 3 views of the right reverse [...] on an annual basis. Benton Quiles PA-C [address] [place], [place] [address], [place], [address], [facility] [place] [facility] 10/16/2024 11:44:40 OBGyn Episode No OBEpisode recorded.
--- OUTSIDE RECORDS SUMMARY | 2025-02-06 08:39 | XMS_ITS ---
Author [facility] Address [address] [place] [address] Care Team Providers Care Gas Dispatcher Name Role Phone Patience Sherman Primary Care Provider Mignon Peralta Unavailable [phone] Allergies Allergen (clinical drug ingredient) Drug/Non Drug [...] Active Encounters Encounter Location Date Provider Diagnosis [facility] [address] [address] 12/04/2024 Mignon Mejias Plan Of Treatment Next Appt Details Provider Name:Mignon key, 04/01/2025 11:30:00 AM, [address] [place] [address], [address], Progress Notes * Pascale CARDONA EDOB:[birth year] (79 yo F)Acc No.[id number]:12/04/2024 Progress Note Patient:?Pascale CARDONA E Provider:?Mignon Mejias DPM :1945???Age:79 Y???Sex:Female D ate:12/04/2024 Address:[address] [place], [place] [id number] Pcp:Patience Sherman Subjective: * Chief Complaints: * ??? * Medical History:?Hypertensio n, Overweight, Back,Hip,and Knee pain, Hyperlipidemia, Arthritis, Broken bones, Gall bladder problems, Glaucoma, Psoriasis/eczema, Measles, Mumps, Chicken pox, Joint implants/screws, Transfusions, Primary osteoarthritis, right ankle and foot, Unspecified atherosclerosis of [place] arteries of extremities, bilateral legs, Plantar fascial [...] DPM Date:?0 12/04/2024 Generated for Alisia nur/Reilly/eTransmitting on:?02/06/2025 08:38 AM EDT
--- OUTSIDE RECORDS SUMMARY | 2025-02-06 08:39 | XMS_ITS | Patient Health Record ---
Author Organization [facility] Address [address] [place] [address] Care Team Providers Care B2B Account Executive Name Role Phone LaneAstridreal Primary Care Provider Mignon Peralta Unavailable [phone] Ethan Duff Unavailable [phone] Allergies Allergen (clinical drug ingredient) Drug/Non Drug [...] Administration Date Status Comme nts COVID-19 Pfizer BioNTeVigilo Vaccine Unknown 07/30/2022 Administered 1st 12/19/20,01/09/21 07/12/21 [...] Bilateral atherosclerosis of arteries of lower limbs ([id number] ) Atherosclerosis of [place] artery of both lower extremities, with unspecified presence of clinical manifestation (I70.203) Active confirmed Q7(A), Q8(2B), Q9(1B,2 C) Vital Signs Height 5 ft 8 in in 12/04/2024 Weight 215 lbs 12/04/2024 BMI 32.69 kg/m2 12/04/2024 Procedures Procedure Date Ordered Date Performed Result Body Sit e 50668-XDBJ SKIN LESIONS, OVER 4 02/18/2024 N/A 91050-MBCS SKIN LESIONS, 2 TO 4 06/23/2024 N/A 38860-CQXYWHE NAIL, 6 OR MORE 09/29/2024 N/A 45960-PMBC SKIN LESIONS, 2 TO 4 09/29/2024 N/A 73143-JGYCZYI NAIL, 6 OR MORE 12/04/2024 N/A Encounters Encounter Location Date Provider Diagnosis [address] [address] 02/18/2024 Ethan Duff Pain in left foot M79.672 ; Pain in right foot M79.671 ; Tinea unguium B35.1 ; Pain in right toe(s) M79.674 ; Pain in left toe(s) M79.675 ; Unspecified atherosclerosis of [place] arteries of extremities, bilateral legs I70.203 ; Hallux valgus (acquired), right foot M20.11 ; Other hammer toe(s) (acquired), left foot M20.42 ; Other hammer toe(s) (acquired), right foot M20.41 ; Primary osteoarthritis, left ankle and foot M19.072 ; Hallux rigidus, right foot M20.21 and Xerosis cutis L85.[address] [address] 06/23/2024 Ethan Duff Pain in left foot M79.672 ; Pain in right foot M79.671 ; Tinea unguium B35.1 ; Pain in right toe(s) M79.674 ; Pain in left toe(s) M79.675 ; Unspecified atherosclerosis of [place] arteries of extremities, bilateral legs I70.203 ; Hallux valgus (acquired), right foot M20.11 ; Other hammer toe(s) (acquired), left foot M20.42 ; Other hammer toe(s) (acquired), right foot M20.41 ; Primary osteoarthritis, left ankle and foot M19.072 ; Hallux rigidus, right foot M20.21 and Xerosis cutis L85.[address] [address] 09/29/2024 Mignon Mejias Xerosis of skin L85.3 ; Atherosclerosis of [place] artery of both lower extremities, with unspecified presence of clinical manifestation I70.203 ; Tinea unguium B35.1 ; Pain in right toe(s) M79.674 and Pain in left toe(s) M79.675 [facility] [place] [address] [place] [address] 12/04/2024 Mignon Mejias Atherosclerosis of [place] artery of both lower extremities, with unspecified [...] skin (ICD-10 - L85.3) 12/04/2024 Atherosclerosis of [place] artery of both lower extremities, with unspecified presence of clinical manifestation (ICD-10 - I70.203) Q7(A), Q8(2B), Q9(1B,2C) 09/29/2024 Atherosclerosis of [place] artery of both lower extremities, with unspecified [...] (ICD-10 - M79.675) 02/18/2024 Unspecified atherosclerosis of [place]gmi[place] arteries of extremities, bilateral legs (ICD-10 - I70.203) 09/29/2024 Pain in left toe(s) (ICD-10 - M79.675) 06/23/2024 Unspecified atherosclerosis of [place]qug[place] arteries of extremities, bilateral legs (ICD-10 - [...] (LFT) 08/30/2016 *Liver Function Test (LFT) 02/28/2017 24009-GETCYRD NAIL, 6 OR MORE 06/13/2017 57782-INEVLGU NAIL, 6 OR MORE 09/12/2017 12397-EIASNGO NAIL, 6 OR MORE 12/12/2017 05667-ZSHWBXV NAIL, 6 OR MORE 05/22/2016 79661-RXZHBEB NAIL, 6 OR MORE 11/29/2016 83563-JXAZTBR NAIL, 6 OR MORE 02/28/2017 32245-GBHUHGR NAIL, 6 OR MORE 03/11/2018 60271-TNXFRFB NAIL, 6 OR MORE 06/10/2018 06536-VGLBJVU NAIL, 6 OR MORE 09/30/2018 86197-GYVUXZV NAIL, 6 OR MORE 12/04/2024 03454-ZSZHHYV NAIL, 6 OR MORE 09/29/2024 71498-Skgc Destruction, 1-14 09/30/2018 33215-Evwh Destruction, 1-14 06/10/2018 25088-Hspwnvis Plate 11/29/2016 09091-XVON SKIN LESIONS, OVER 4 05/22/20 16 12699-MQHI SKIN LESIONS, OVER 4 02/29/20 17 27654-OAHD SKIN LESIONS, OVER 4 11/29/19 17 97134-YVZD SKIN LESIONS, OVER 4 03/11/20 18 95507-QWFW SKIN LESIONS, OVER 4 12/12/19 18 75018-WDVK SKIN LESIONS, OVER 4 09/12/20 17 53608-SBXU SKIN LESIONS, OVER 4 06/13/20 17 68665-LWKN SKIN LESIONS, OVER 4 09/30/20 18 28568-GOVM SKIN LESIONS, OVER 4 06/10/20 18 31078-KSYC SKIN LESIONS, OVER 4 04/02/20 19 80279-SXWG SKIN LESIONS, OVER 4 07/02/20 19 51137-TFBO SKIN LESIONS, OVER 4 08/10/20 21 46016-AVGA SKIN LESIONS, OVER 4 11/14/19 22 54667-ACFK SKIN LESIONS, OVER 4 12/01/19 20 60062-EATJ SKIN LESIONS, OVER 4 04/28/20 20 69217-UFHM SKIN LESIONS, OVER 4 07/26/20 20 03338-ICWZ SKIN LESIONS, OVER 4 10/20/20 20 79219-DAMD SKIN LESIONS, OVER 4 01/27/20 21 18826-XDHA SKIN LESIONS, OVER 4 05/04/20 21 70194-GSMX SKIN LESIONS, OVER 4 02/18/20 24 67086-GGJR SKIN LESIONS, 2 TO 4 06/23/20 24 39988-DOVC SKIN LESIONS, 2 TO 4 09/29/20 24 34516-BVCC SKIN LESIONS, 2 TO 4 02/14/20 22 82147-XEAVEWTC OF HEMATOMA/FLUID 019 88682- Nail Unit Biopsy 03/11/2018 Next Appt Details Provider Name:Mignon Zepeda yesi, 04/01/2025 11:30:00 AM, [address] [place], [address], Insurance Providers Payer Name Payer Address Payer Phone Subscriber Number Group Number Insured Name Patient Relationship to Insured Coverage Start Date Coverage End Date Medicare National Govt Svcs Inc [address] [facility] [address] [id number] Pascale Edwards Self - patient is the insured 1 [employer] Blue [employer] [address] [place] [address] [phone] [id number] Pascale Edwards Self - patient is the insured Medical (General) History Medical History History ICD Code Hypertension overweight Back,Hip,and Knee pain Hyperlipidemia Arthritis Broken bones Gall bladder problems Glaucoma Psoriasis/eczema Measles Mumps Chicken pox Joint implants/screws Transfusions Primary osteoarthritis, right ankle and foot M19.071 Unspecified atherosclerosis of [place] arteries of extremities, bilateral legs I70.203 Plantar [...]
[2025-02-06 08:55] VITALS: BP 122/62
== END 2025-02-06 08:57 | disposition home or self-care (01) ==
LOC: HO.HMCH 08:23
PROVIDERS: PCP Internal Medicine
DX: N30.01 Acute cystitis with hematuria (principal); N20.0 Calculus of kidney

== ENCOUNTER → 2025-02-06 08:23 | Outpatient (BNVA) | payer MEDICARE, SELFPAY | PROVIDERS: PCP Internal Medicine | DX: E78.00 Pure hypercholesterolemia, unspecified (principal); I10 Essential (primary) hypertension; E66.9 Obesity, unspecified; K21.9 Gastro-esophageal reflux disease without esophagitis; E11.9 Type 2 diabetes mellitus without complications; F41.1 Generalized anxiety disorder; L40.9 Psoriasis, unspecified; N30.01 Acute cystitis with hematuria; N20.0 Calculus of kidney; Z68.33 Body mass index [BMI] 33.0-33.9, adult | CPT/HCPCS: 99212 ==

== ENCOUNTER 2025-02-23 08:51 | Outpatient (REF) | payer MEDICARE, SELFPAY ==
--- NOTE | ~2025-02-23 | US_ITS ---
CLINICAL HISTORY: N20.0 - Calculus of kidney US renal Comparison: None Findings: Right kidney 10.5 cm length. No significant focal abnormality. Left kidney 10.7 cm length. No significant focal abnormality. 3.2 cm by 2.8 cm midpole cyst. No bilateral hydronephrosis. Normal bilateral renal echogenicity. Fatty infiltration of the liver incidentally noted. Impression: No significant renal abnormality. Incidental fatty infiltration of the liver This document has been electronically signed by: Ryan Marniquez MD on 02/23/2025 19:53:08
--- OUTSIDE RECORDS SUMMARY | 2025-02-23 09:03 | XMS_ITS ---
Author Organization [facility] Address [address] [place] [address] Care Team Providers Care Results Engineer Name Role Phone Patience Sherman Primary Care Provider Mignon Peralta Unavailable [phone] Allergies Allergen (clinical drug ingredient) Drug/Non Drug Allergy documented on EMR Reaction Allergy Type Onset Date Status amlodipine Amlodipine Besylate Unknown Drug Allergy Active Lisinopril Unknown Drug Allergy Active Vaccine product containing Streptococcus pneumoniae antigen (medicinal [...] Bilateral atherosclerosis of arteries of lower limbs ([id number] ) Atherosclerosis of squax[place] artery of both lower extremities, with unspecified presence of clinical manifestation (I70.203) Active confirmed Q7(A), Q8(2B), Q9(1B,2 C) Vital Signs Height 5 ft 8 in in 09/29/2024 Weight 215 lbs 09/29/2024 BMI 32.69 kg/m2 09/29/2024 Procedures Procedure Date Ordered Date Performed Result Body Sit e 15885-VLNNVRJ NAIL, 6 OR MORE 09/29/2024 N/A 39016-YZOY SKIN LESIONS, 2 TO 4 09/29/2024 N/A Encounters Encounter Location Date Provider Diagnosis [facility] [address] [place] [address] 09/29/2024 Mignon Mejias Xerosis of skin L85.3 ; Atherosclerosis of squaxin artery of both lower extremities, with unspecified presence of clinical manifestation I70.203 ; Tinea unguium B35.1 ; Pain in right toe(s) M79.674 and Pain in left toe(s) M79.675 Assessments Encounter Date Diagnosis (ICD Code) Assessment Notes Treatment Notes Treatment Clinical Notes Section Notes 09/29/2024 Xerosis of skin (ICD-10 - L85.3) 09/29/2024 Atherosclerosis of squaxin artery of both lower extremities, with unspecified [...] days Pending Test Test Name Order Date 80005-CKAWKKR NAIL, 6 OR MORE 09/29/2024 64926-KRGC SKIN LESIONS, 2 TO 4 09/29/20 24 Next Appt Details Follow Up: 3 Months, Reason: Provider Name:Mignon key, 04/01/2025 11:30:00 AM, [address] [place] [address], [phone], Procedure Notes * Category Sub-Category Detail Notes [...] use of a nail nipper and/or dremel-type hob grinder, to a more viable healthy nail [...] to maintain effectiveness in symptomatic relief - 78408 Keratoma Treatment Parring or Cutting o f Benign Hyperkeratotic Lesion(s) (-56) 2-4 Lesions - The Benign hyperkeratotic lesions, ( 4 ) in total, locations as stated and described in exam, were pared, and/or cut utilizing a sterile 15 blade, tissue nippers, and/or power dremel instrumentation - 67024, Q8 Progress Notes * Pascale CARDONA EDOB:[birth year] (79 yo F)Acc No.[id number]:09/29/2024 Progress Note Patient:?Pascale CARDONA E Provider:?Mignon Mejias DPM :1945???Age:79 Y???Sex:Female D ate:09/29/2024 Address:[address] [place], [place] [id number] Pcp:Patience Sherman Subjective: * Chief Complaints: * [...] :Acute problem, Uncomplicated (3),Rx Management (4)???2.?Atherosclerosis of squaxin artery of both lower extremities, with unspecified [...] 30 days, 140, Refills 2.?? 3.?Tinea unguium?Procedure: 80226-ZKGKXJK NAIL, 6 OR MORE * Procedures:?Debride Nail [...] use of a nail nipper and/or dremel-type hob grinder, to a more viable healthy nail [...] to maintain effectiveness in symptomatic relief - 34043.?Keratoma Treatment:?Parring or Cutting of Benign Hyperkeratotic Lesion(s)?(-56) 2-4 Lesions - The Benign hyperkeratotic lesions, ( 4 ) in total, locations as stated and described in exam, were pared, and/or cut utilizing a sterile 15 blade, tissue nippers, and/or power dremel instrumentation - 80720, Q8.? * Procedure Codes:?45169 DEBRI DE NAIL, 6 OR MORE, Modifiers: XS 67250 TRIM SKIN LESIONS, 2 TO 4, Modifiers: [...] Mejias DPM Date:?1 11/29/2023 Generated for Alisia nur/Reilly/Anabelaitting on:?02/23/2025 09:03 AM EDT History and Physical Notes * [...]
--- OUTSIDE RECORDS SUMMARY | 2025-02-23 09:04 | XMS_ITS ---
Author Organization [facility] Address [address] [place] [address] Care Team Providers Care Telephoner Name Role Phone Patience Sherman Primary Care Provider Mignon Peralta Unavailable [phone] Allergies Allergen (clinical drug ingredient) Drug/Non Drug [...] Active Encounters Encounter Location Date Provider Diagnosis [facility] [address] [address] 12/04/2024 Mignon Mejias Plan Of Treatment Next Appt Details Provider Name:Mignon key, 04/01/2025 11:30:00 AM, [address] [place] [address], [phone], Progress Notes * Pascale CARDONA EDOB:[birth year] (79 yo F)Acc No.[id number]:12/04/2024 Progress Note Patient:?Pascale CARDONA Provider:?Mignon Mejias DPM :1945???Age:79 Y???Sex:Female D ate:12/04/2024 Address:[address] [place], [place] [id number] Pcp:Patience Sherman Subjective: * Chief Complaints: * ??? * Medical History:?Hypertensio n, Overweight, Back,Hip,and Knee pain, Hyperlipidemia, Arthritis, Broken bones, Gall bladder problems, Glaucoma, Psoriasis/eczema, Measles, Mumps, Chicken pox, Joint implants/screws, Transfusions, Primary osteoarthritis, right ankle and foot, Unspecified atherosclerosis of [place] arteries of extremities, bilateral legs, Plantar fascial [...] Mejias DPM Date:?0 12/04/2024 Generated for Alisia nur/Reilly/Danisha on:?02/23/2025 09:04 AM EDT
--- OUTSIDE RECORDS SUMMARY | 2025-02-23 09:04 | XMS_ITS | Patient Health Record ---
Author Organization [facility] Address [address] [place] [address] Care Team Providers Care Internal Control Manager Name Role Phone Patience Sherman Primary Care Provider Mignon Peralta Unavailable [phone] Ethan Duff Unavailable [phone] Allergies Allergen (clinical drug ingredient) Drug/Non Drug [...] Administration Date Status Comme nts COVID-19 Pfizer BioNTFliplingo Vaccine Unknown 07/30/2022 Administered 1st 12/19/20,01/09/21 07/12/21 [...] Bilateral atherosclerosis of arteries of lower limbs ([id number] ) Atherosclerosis of [place]inee artery of both lower extremities, with unspecified presence of clinical manifestation (I70.203) Active confirmed Q7(A), Q8(2B), Q9(1B,2 C) Vital Signs Height 5 ft 8 in in 12/04/2024 Weight 215 lbs 12/04/2024 BMI 32.69 kg/m2 12/04/2024 Procedures Procedure Date Ordered Date Performed Result Body Sit e 44947-SBGW SKIN LESIONS, 2 TO 4 06/23/2024 N/A 42283-UDBBRWQ NAIL, 6 OR MORE 09/29/2024 N/A 02054-VCBJ SKIN LESIONS, 2 TO 4 09/29/2024 N/A 89207-NRAXTCL NAIL, 6 OR MORE 12/04/2024 N/A Encounters Encounter Location Date Provider Diagnosis [address] [address] 06/23/2024 Ethan Duff Pain in left foot M79.672 ; Pain in right foot M79.671 ; Tinea unguium B35.1 ; Pain in right toe(s) M79.674 ; Pain in left toe(s) M79.675 ; Unspecified atherosclerosis of [place]ominee arteries of extremities, bilateral legs I70.203 ; Hallux valgus (acquired), right foot M20.11 ; Other hammer toe(s) (acquired), left foot M20.42 ; Other hammer toe(s) (acquired), right foot M20.41 ; Primary osteoarthritis, left ankle and foot M19.072 ; Hallux rigidus, right foot M20.21 and Xerosis cutis L85.[address] [address] 09/29/2024 Mignon Mejias Xerosis of skin L85.3 ; Atherosclerosis of menominee artery of both lower extremities, with unspecified presence of clinical manifestation I70.203 ; Tinea unguium B35.1 ; Pain in right toe(s) M79.674 and Pain in left toe(s) M79.[address] [address] 12/04/2024 Mignon Mejias Atherosclerosis of [place]ominee artery of both lower extremities, with unspecified presence of clinical manifestation I70.203 ; Tinea unguium B35.1 ; Pain in right toe(s) M79.674 and Pain in left toe(s) M79.675 Assessments Encounter Date Diagnosis (ICD Code) Assessment Notes Treatment Notes Treatment Clinical Notes Section Notes 06/23/2024 Pain in right foot (ICD-10 - M79.671) 06/23/2024 Pain in left foot (ICD-10 - M79.672) 09/29/2024 Xerosis of skin (ICD-10 - L85.3) 12/04/2024 Atherosclerosis of menominee artery of both lower extremities, with unspecified presence of clinical manifestation (ICD-10 - I70.203) Q7(A), Q8(2B), Q9(1B,2C) 09/29/2024 Atherosclerosis of menominee artery of both lower extremities, with unspecified presence of clinical manifestation (ICD-10 - I70.203) Q7(A), Q8(2B), Q9(1B,2C) 12/04/2024 Tinea unguium (ICD-10 - B35.1) 06/23/2024 Tinea unguium (ICD-10 - B35.1) 06/23/2024 Pain in right toe(s) (ICD-10 - M79.674) 09/29/2024 Tinea unguium (ICD-10 - B35.1) 12/04/2024 Pain in right toe(s) (ICD-10 - M79.674) 09/29/2024 Pain in right toe(s) (ICD-10 - M79.674) 12/04/2024 Pain in left toe(s) (ICD-10 - M79.675) 06/23/2024 Pain in left toe(s) (ICD-10 - M79.675) 09/29/2024 Pain in left toe(s) (ICD-10 - M79.675) 06/23/2024 Unspecified atherosclerosis of menominee arteries of extremities, bilateral legs (ICD-10 - [...] (LFT) 08/30/2016 *Liver Function Test (LFT) 02/28/2017 84753-LMFCFQH NAIL, 6 OR MORE 06/13/2017 25442-AIKDLUM NAIL, 6 OR MORE 09/12/2017 50795-HTYUFAN NAIL, 6 OR MORE 12/12/2017 76998-HDEJCQD NAIL, 6 OR MORE 05/22/2016 09336-YVPREII NAIL, 6 OR MORE 11/29/2016 67961-NMIGQCZ NAIL, 6 OR MORE 02/28/2017 15970-OEXPDLL NAIL, 6 OR MORE 03/11/2018 03047-VIVZTUC NAIL, 6 OR MORE 06/10/2018 90545-WWZFMQH NAIL, 6 OR MORE 09/30/2018 54186-XESIFIG NAIL, 6 OR MORE 12/04/2024 55280-IVQWOZH NAIL, 6 OR MORE 09/29/2024 92599-Rihl Destruction, 1-14 09/30/2018 93399-Bvfu Destruction, 1-14 06/10/2018 62177-Cvmarugv Plate 11/29/2016 98740-LUXQ SKIN LESIONS, OVER 4 05/22/20 16 80561-ICUQ SKIN LESIONS, OVER 4 02/29/20 17 93219-TTAZ SKIN LESIONS, OVER 4 11/29/19 17 38986-QYXZ SKIN LESIONS, OVER 4 03/11/20 18 14421-RYKM SKIN LESIONS, OVER 4 12/12/19 18 66384-SPBG SKIN LESIONS, OVER 4 09/12/20 17 99636-CGYT SKIN LESIONS, OVER 4 06/13/20 17 16276-ZAKT SKIN LESIONS, OVER 4 09/30/20 18 78339-WQEZ SKIN LESIONS, OVER 4 06/10/20 18 47884-RNSC SKIN LESIONS, OVER 4 04/02/20 19 56834-NVIF SKIN LESIONS, OVER 4 07/02/20 19 75838-XQDN SKIN LESIONS, OVER 4 08/10/20 21 24269-FRUC SKIN LESIONS, OVER 4 11/14/19 22 98488-RZKX SKIN LESIONS, OVER 4 12/01/19 20 09827-EAWY SKIN LESIONS, OVER 4 04/28/20 20 67551-NHWT SKIN LESIONS, OVER 4 07/26/20 20 06353-NCFO SKIN LESIONS, OVER 4 10/20/20 20 42584-PEHE SKIN LESIONS, OVER 4 01/27/20 21 91611-GRYK SKIN LESIONS, OVER 4 05/04/20 21 64190-AIHL SKIN LESIONS, OVER 4 02/18/20 24 49732-TABS SKIN LESIONS, 2 TO 4 06/23/20 24 09223-LSVT SKIN LESIONS, 2 TO 4 09/29/20 24 20822-HLDC SKIN LESIONS, 2 TO 4 02/14/20 22 29225-KPQFMRQD OF HEMATOMA/FLUID 019 16420- Nail Unit Biopsy 03/11/2018 Next Appt Details Provider Name:Mignon Zepeda yesi, 04/01/2025 11:30:00 AM, [address] [place] [address], [phone], Insurance Providers Payer Name Payer Address Payer Phone Subscriber Number Group Number Insured Name Patient Relationship to Insured Coverage Start Date Coverage End Date Medicare National Govt Svcs Inc [address] [place] [address] [id number] Pascale Edwards Self - patient is the insured 1 [employer] [address] [place] [address] [id number] Pascale Edwards Self - patient is the insured Medical (General) History Medical History History ICD Code Hypertension overweight Back,Hip,and Knee pain Hyperlipidemia Arthritis Broken bones Gall bladder problems Glaucoma Psoriasis/eczema Measles Mumps Chicken pox Joint implants/screws Transfusions Primary osteoarthritis, right ankle and foot M19.071 Unspecified atherosclerosis of menominee arteries of extremities, bilateral legs I70.203 Plantar [...]
--- OUTSIDE RECORDS SUMMARY | 2025-02-23 09:04 | XMS_ITS | Data Portability ---
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 Pt is independent with her [facility]. 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 tolerated all exercises well while demonstrating proper periscapular and RC mechanics with minimal fatigue levels achieved. Updated Independent [facility], reviewed with Pt. and answered further questions. 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 Patient TargetsNo targets recorded. Patient InstructionsNo instructions recorded. Reason for Referral None Reported. Results Created Date Observation Date Name Description Value Unit Range Abnormal Flag Note LastModifiedBy Organization Detail LastModifiedTime 08/11/2008/11/2024 XR, beth rousseau, 2 or more view [email or web address]:/ [email or web address] ?Encry pted=s hAaTro YD8dLq bEUv6g %2BXZw aYqtaq 0bqfl% 2Fg9IQ a4ajBk vP9nXo QUaueC m3YtLR FvZl JJ8mAn HZtai3 9c9301 AC0Kqa nWAWaS vKiQtr [facility] INTERFACE [facility] [address], [place], [address], 08/11/2024 14:13:43 08/11/20 24 08/11/2024 XRbeth, 2 or more view [email or web address] ?Encry pted=s hAaTro YD8dLq bEUv6g %2BXZw aYqtaq 0bqfl% 2Fg9IQ a4ajBk vP9nXo QUaueC m3YtLR FvZl JJ8[place] HZtai 5k4891 AC0Kqa [facility]WB[facility] Hospital[facility] vKiQtr [facility] INTERFACE [facility] Office [address], [place], [address], 08/11/2024 14:13:45 08/29/2008/29/2024 XR, hand, 3 or more view [email or web address]:/ [email or web address] ?Encry pted=s hAaTro YD8dLq bEUv6g %2BXZw aYqtaq 0bqfl% 2Fg9IQ a4ajBk vP9nXo QUaueC m3YtLR FvZl JJ8mAn HZtai3 1i6190 AC0Kqa HyCUaO jKiQtr MwF INTERFACE [facility] [address], [place], [address], 08/29/2024 14:55:51 08/29/20 24 08/29/2024 XR, hand, 3 or more view [email or web address]:/ [email or web address] ?Encry pted=s hAaTro YD8dLq bEUv6g %2BXZw aYqtaq 0bqfl% 2Fg9IQ a4ajBk vP9nXo QUaueC m3YtLR FvZlgJ JJ8mAn HZtai3 0w6705 AC0Kqa HyCUaO jKiQtr MwF INTERFACE [facility] [address], [place], [address], 08/29/2024 14:55:55 10/16/20 24 10/16/2024 XR, shoul onelia, 2 or more view http:/ [email or web address] ?Encry pted=s hAaTro YD8dLq bEUv6g %2BXZw aYqtaq 0bqfl% 2Fg9IQ a4ajBk vP9nXo QUaueC m3YtLR FvZlgJ JJ8mAn HZtai3 3c7259 AC0Kqb nyBVaW gKiQtr MwF INTERFACE [facility] [address], [place], [address], 10/16/2024 11:27:48 10/16/20 24 10/16/2024 XR, shoul onelia, 2 or more view http:/ [email or web address] ?Encry pted=s hAaTro YD8dLq bEUv6g %2BXZw aYqtaq 0bqfl% 2Fg9IQ a4ajBk vP9nXo QUaueC m3YtLR FvZlgJ JJ8mAn HZtai3 0c6142 AC0Kqb nyBVaW gKiQtr MwF INTERFACE [facility] [address], [place], [address], 10/16/2024 11:27:50 Result Notes None recorded. Problems Name Problem SNOMED Code Status Onset Date Resolution Date Notes Provider Name and Address Organization Details Recorded Time No complaints 448949672 Active Status : 'A'; Not Available [facility] 09:25:45 Lesion of lung 105605711 Active 2023 ROXANA SEGURA [facility] 12:17:47 Problem Notes None recorded. Procedures Surgical History Date Name Laterality Status Provider Name and Address Organization Details Recorded Time 4 83470 Therapeutic Exercise (1:1) completed Shaun Bynum, ALEX [address], [place], [address], [facility] 08/14/2024 14:53:22 4 38451 Therapeutic Exercise (1:1) completed Karlee Cardona, PT [address], [place], [address], [facility] 08/10/2024 23:13:44 4 82896 Therapeutic Exercise (1:1) completed Shaun Bynum PTA [address], [place], [address], [facility] 08/07/2024 14:30:15 4 70448 Therapeutic Exercise (1:1) completed Karlee Cardona, PT [address], [place], [address], [facility] 08/03/2024 22:12:27 4 29157 Therapeutic Exercise (1:1) completed Shaun Bynum, ALEX [address], [place], [address], [facility] 07/31/2024 15:16:09 4 50632 Therapeutic Exercise (1:1) completed Karlee Cardona, PT [address], [place], [address], [facility] 07/29/2024 06:56:55 4 56286 Therapeutic Exercise (1:1) completed Shaun Bynum, DOT ETCHER [address], [place], [address], [facility] 07/24/2024 14:19:39 4 89237 Therapeutic Exercise (1:1) completed Karlee Cardona, PT [address], [place], [address], [facility] 07/21/2024 22:35:29 4 32904 Therapeutic Exercise (1:1) completed Shaun Bynum DOT ETCHER [address], [place], [address], [facility] 07/17/2024 14:07:03 4 39278 Therapeutic Exercise (1:1) completed Karlee Cardona, PT [address], [place], [address], [facility] 07/15/2024 00:17:13 4 98565 Therapeutic Exercise (1:1) completed Shaun Bynum, DOT ETCHER [address], [place], [address], [facility] 07/11/2024 09:03:20 4 69696: Manual therapy completed Shaun Bynum DOT ETCHER [address], [place], [address], [facility] 07/11/2024 09:05:30 4 67085 Therapeutic Exercise (1:1) completed Shaun Bynum DOT ETCHER [address], [place], [address], [facility] 07/08/2024 07:52:09 4 73270 Therapeutic Exercise (1:1) completed Belkis Calderon, DOT ETCHER [address], [place], [address], [facility] 07/04/2024 16:55:00 4 67582 Therapeutic Exercise (1:1) completed Karlee Cardona, PT [address], [place], [address], [facility] 06/30/2024 23:19:58 4 49994 Therapeutic Exercise (1:1) completed Shaun Bynum, DOT ETCHER [address], [place], [address], [facility] 06/26/2024 16:05:02 4 08567 Therapeutic Exercise (1:1) completed Karlee Cardona, PT [address], [place], [address], [facility] 06/22/2024 21:42:13 4 72452 Therapeutic Exercise (1:1) completed Shaun Bynum DOT ETCHER [address], [place], [address], [facility] 06/20/2024 07:57:57 4 33439 Therapeutic Exercise (1:1) completed Belkis Calderon, DOT ETCHER [address], [place], [address], [facility] 06/16/2024 16:32:39 4 05318 Therapeutic Exercise (1:1) completed Shaun Bynum DOT ETCHER [address], [place], [address], [facility] 06/12/2024 14:25:56 4 37904: Hot or Cold Pack completed Shaun Bynum DOT ETCHER [address], [place], [address], [facility] 06/12/2024 13:24:39 4 29055 Therapeutic Exercise (1:1) completed Shaun Bnyum DOT ETCHER [address], [place], [address], [facility] 06/09/2024 11:25:26 4 93143: Hot or Cold Pack completed Shaun Bynum, DOT ETCHER [address], [place], [address], [facility] 06/09/2024 11:25:15 4 40238 Therapeutic Exercise (1:1) completed Karlee Cardnoa, PT [address], [place], [address], [facility] 06/06/2024 11:55:51 4 94163: Low complexity PT Eval completed Karlee Cardona, PT [address], [place], [address], [facility] 06/06/2024 12:05:01 4 G8417 BMI Above Upper Parameters, F/U Documented completed Karlee Cardona, PT [address], [place], [address], [facility] 06/04/2024 23:07:37 4 G8427 Current Medication Documented completed Karlee Cardona, PT [address], [place], [address], [facility] 06/04/2024 23:07:42 Imaging Results Imaging Date Name Status LastModified by Organiz ation Details LastModified Time 08/11/2024 XR, shoulder, 2 or more view completed INTERFACE [facility] [address], [place], [address], 08/11/2024 14:13:43 08/11/2024 XR, shoulder, 2 or more view completed INTERFACE [facility] [address], [place], [address], 08/11/2024 14:13:45 08/29/2024 XR, hand, 3 or more view completed INTERFACE [facility] [address], [place], [address], 08/29/2024 14:55:51 08/29/2024 XR, hand, 3 or more view completed INTERFACE [facility] [address], [place], [address], 08/29/2024 14:55:55 10/16/2024 XR, shoulder, 2 or more view completed INTERFACE [facility] [address], [place], [address], 10/16/2024 11:27:48 10/16/2024 XR, shoulder, 2 or more view completed INTERFACE [facility] [address], [place], [address], 10/16/2024 11:27:50 Procedure Notes None recorded. Medical [...] Updated DateTime 10/16/2024 172.72 cm 33.3 kg/m2 84846.73 g Benton Quiles PA-C [address] [facility] [address], [place], [address], [place] [facility] 10/16/2024 10:54:17 Social History Question Answer Notes LastModified by Organizat ion Details LastModified Time Tobacco Smoking Status Former Smoker DELFINA WARE [facility] 04/14/2024 12:55:54 How Many Times Per [...] Disease N Heart Trouble N Heart Attack (NV) N Gastrointestinal Disease N Cholesterol N Diabetes [...] SNOMED-CT Code Diagnosis ICD10 Code Diagnosis Note [id number] MD Liliam Maciel [address] [place] [address] [address] [place] [address] 01/23/2024 14:24:25 02/07/2024 14:35:36 Osteoarthritis of right glenohumeral joint 8741260132 694335 M19.181 [id number] MD Liliam Maciel [address] [place] [address] [address] [place] [address] 04/14/2024 12:50:00 05/02/2024 09:32:23 Osteoarthritis of joint of right shoulder region 3901703070 68164 M19.561 [id number] MD Liliam Maciel [address] [place] [address] [address] [place] [address] 05/05/2024 12:38:26 05/23/2024 07:58:15 History of reverse prosthetic total arthroplasty of right shoulder [id number] 8460436 Z96.045 [id number] LEYLA Britt [facility] [facility] [address] [place] [address] 06/04/2024 13:43:25 06/04/2024 14:23:02 Postoperative care [id number] Z48.89 [id number] Laurence Simms MD [facility] on PT [address] [place] [address] 06/05/2024 11:16:10 06/05/2024 12:43:47 Aftercare [id number] Z47.1 Z96.146 [id number] Karlee Cardona, PT [facility] [address] [place] [address] 06/09/2024 10:31:54 06/09/2024 11:29:04 Aftercare [id number] Z47.1 Z96.225 [id number] Alejandro Jessy, DPT [facility] [address] [place] [address] 06/12/2024 13:24:14 06/12/2024 14:34:20 Aftercare [id number] Z47.1 Z96.660 [id number] Crissy Salmeron, PT [facility] [address] [facility] [place] [address] 06/16/2024 15:22:58 06/16/2024 16:57:38 Aftercare [id number] Z47.1 Z96.620 [id number] Alejandro Jiménez, DPT [facility] [address] [facility] [place] [address] 06/20/2024 07:55:20 06/20/2024 08:44:46 Aftercare [id number] Z47.1 Z96.005 [id number] Karlee Cardona, PT [facility] [address] [facility] [place] [address] 06/23/2024 17:19:55 06/24/2024 08:13:17 Aftercare [id number] Z47.1 Z96.808 [id number] Alejandromargarita Jiménez, DPT [facility] [address] [place] [address] 06/26/2024 15:52:23 06/26/2024 16:51:17 Aftercare [id number] Z47.1 Z96.991 [id number] Karlee Cardona, PT [facility] [address] [place] [address] 06/30/2024 14:52:31 06/30/2024 16:17:10 Aftercare [id number] Z47.1 Z96.413 [id number] Alejandro Jiménez, DPT [facility] [address] [place] [address] 07/04/2024 15:55:01 07/08/2024 08:41:31 Aftercare [id number] Z47.1 Z96.533 [id number] Laurence Simms MD [facility] on PT [address] [facility] [place] [address] 07/08/2024 07:51:39 07/08/2024 09:05:57 Aftercare [id number] Z47.1 Z96.000 [id number] Alejandro Jiménez, DPT [facility] [address] [facility] [place] [address] 07/11/2024 07:53:22 07/11/2024 09:05:02 Aftercare [id number] Z47.1 Z96.554 [id number] Karlee Cardona, PT [facility] [address] [facility] [place] [address] 07/14/2024 15:26:57 07/14/2024 17:08:10 Aftercare [id number] Z47.1 Z96.815 [id number] Alejandro Jiménez, DPT [facility] [address] [facility] [place] [address] 07/17/2024 13:55:03 07/18/2024 07:36:28 Aftercare [id number] Z47.1 Z96.795 [id number] Karlee Cardona, PT [facility] [address] [facility] [place] [address] 07/21/2024 12:18:06 07/21/2024 14:42:16 Aftercare [id number] Z47.1 Z96.800 [id number] Alejandro Jiménez, DPT [facility] [address] [facility] [place] [address] 07/24/2024 13:50:28 07/24/2024 15:28:53 Aftercare [id number] Z47.1 Z96.467 [id number] Karlee Cardona, PT [facility] [address] [facility] [place] [address] 07/28/2024 11:45:30 07/28/2024 14:45:16 Aftercare [id number] Z47.1 Z96.390 [id number] Laurence Simms MD [facility] 2nd floor [address] [facility] [place] [address] 08/11/2024 13:48:05 09/05/2024 09:27:06 History of reverse prosthetic total arthroplasty of right shoulder [id number] [id number] Z96.149 [id number] Alejandro Jiménez, DPT [facility] [address] [place] [address] 07/31/2024 13:51:37 07/31/2024 15:25:10 Aftercare [id number] Z47.1 Z96.160 [id number] Karlee Cardona, PT [facility] [address] [place] [address] 08/04/2024 10:50:03 08/04/2024 15:21:48 Aftercare [id number] Z47.1 Z96.162 [id number] Alejandro Jiménez, DPT [facility] [address] [place] [address] 08/07/2024 13:17:35 08/07/2024 15:58:33 Aftercare [id number] Z47.1 Z96.112 [id number] Laurence Simms MD [facility] on PT [address] [place] [address] 08/11/2024 10:49:49 08/11/2024 12:02:31 Aftercare [id number] Z47.1 Z96.609 [id number] Karlee Cardona, PT [facility] [address] [place] [address] 08/14/2024 14:47:52 08/15/2024 07:32:59 Aftercare [id number] Z47.1 Z96.054 [id number] Alejandro Jiménez, DPT [facility] [address] [place] [address] 08/21/2024 12:57:26 08/21/2024 15:12:52 Aftercare [id number] Z47.1 Z96.148 [id number] Karleeeva Cardona, PT [facility] [address] [place] [address] 08/25/2024 11:44:19 08/25/2024 13:06:16 Aftercare [id number] Z47.1 Z96.693 [id number] Alejandro Jessy, DPT [facility] [address] [place] [address] 08/28/2024 12:55:10 08/28/2024 14:27:04 Aftercare [id number] Z47.1 Z96.108 [id number] Angie Garcia PA-C [facility] 1st Floor [address] [facility] [place] [address] 08/29/2024 14:20:00 09/24/2024 10:23:26 Pain of left hand [id number] 47371 M79.237 [id number] Karleeeva Cardona, PT [facility] [address] [place] [address] 09/01/2024 10:19:05 09/01/2024 11:46:47 Aftercare [id number] Z47.1 Z96.986 [id number] Alejandro Jessy, DPT [facility] [address] [place] [address] 09/04/2024 12:58:01 09/04/2024 14:52:00 Aftercare [id number] Z47.1 Z96.531 [id number] Karlee Cardona, PT [facility] [address] [place] [address] 09/08/2024 09:54:41 09/08/2024 11:09:28 Aftercare [id number] Z47.1 Z96.217 [id number] Alejandro Jessy, DPT [facility] [address] [place] [address] 09/11/2024 12:56:13 09/11/2024 14:05:48 Aftercare [id number] Z47.1 Z96.403 [id number] Karleeeva Cardona, PT [facility] [address] [place] [address] 09/15/2024 09:48:35 09/15/2024 11:22:28 Aftercare [id number] Z47.1 Z96.904 [id number] Laurence Simms MD [facility] on PT [address] [place] [address] 09/22/2024 09:52:06 09/22/2024 11:01:20 Aftercare [id number] Z47.1 Z96.728 [id number] Alejandro Jiménez DPT [facility] on PT [address] [place] [address] 09/25/2024 12:57:48 09/25/2024 14:13:34 Aftercare [id number] Z47.1 Z96.187 [id number] LEYLA Britt 2nd floor [address] [place] [address] 10/16/2024 10:49:03 11/11/2024 07:55:33 History of reverse prosthetic total arthroplasty of right shoulder [id number] Z96.611 Health Concerns Section Related Observation LastModified by Organization Detai ls LastModified Time None Recorded Concern Status LastModified by Organization Details LastModified Time None Recorded Advance Directives Directive None Recorded Payers Encounter Date Sequence Insurance Name Policy Number Policy Ferris Covered Member ID Ferris Member ID Guarantor Name 09/11/2024 1 [place] Pascale Oates [id number] Pascale Oates 09/11/2024 2 [place] [id number] Pascale Oates [id number] Pascaleeva Oates 09/15/2024 1 [place] Pascale Oates [id number] Pascale Oates 09/15/2024 2 [place] [id number] Pascale Oates [id number] Pascaleeva Oates 09/22/2024 1 [place] Pascale Yobany Gratkowski [id number] Pascale E Gratkowski 09/22/2024 2 [place] [id number] Pascale E Gratkowski [id number] Pascale E Gratkowski 09/25/2024 1 [place] Pascale E Gratkowski [id number] Pascale E Gratkowski 09/25/2024 2 [place] [id number] Pascale E Gratkowski [id number] Pascale E Gratkowski 10/16/2024 1 [place] Pascale E Gratkowski [id number] Pascale E Gratkowski 10/16/2024 2 [place] [id number] Pascale E Gratkowski [id number] Pascale E Gratkowski Notes Date Note Type Note Provider Name and Address Organization Details Recorded Time 09/11/2024 text/html Pt. reports that his shoulder is feeling overall ok, able to reach for the top cabinets without difficulty. Shaun Bynum, DOT [facility]CH[address], [place], [address], [facility] 09/11/2024 13:55:35 09/15/2024 text/html Pt. reports that she has a little bit of biceps/upper arm soreness today. Pt also reports that she had a small episode of partial blacking out yesterday. It was the first one since being weaned off her seizure medication. She plans to call her MD about this. Karlee Cardona, PT [address], [place], [address], [facility] 09/15/2024 11:06:19 09/22/2024 text/html Pt. reports that [...] Cardona, PT [address], [place], [address], [facility] 09/22/2024 11:11:50 09/25/2024 text/html Pt. reports to P T today feeling fatigue overall dt a busy day. States operative shoulder is feeling good. Would like a detailed HEP. Shaun Bynum, DOT ETCHER [address], [place], [address], [facility] 09/25/2024 13:54:48 10/16/2024 text/html I am seeing [...] limits. X-rays ordered, obtained and reviewed at [facility] 3 views of the right reverse [...] on an annual basis. Benton Quiles PA-C [address] [place], [place] [address], [place], [address], [facility] 10/16/2024 11:44:40 OBGyn Episode No OBEpisode recorded.
--- OUTSIDE RECORDS SUMMARY | 2025-02-23 09:05 | XMS_ITS ---
[facility] Organization [facility] [address] [facility] [place] [address] Care Team Providers Care Shank Skinner Name Role Phone Patience Sherman Primary Care Provider Mignon Peralta Unavailable [phone] Allergies Allergen (clinical drug ingredient) Drug/Non Drug [...] Ordered Date Performed Result Body Sit e 80335-WJHJPSR NAIL, 6 OR MORE 12/04/2024 N/A Encounters Encounter Location Date Provider Diagnosis [facility] [address] [place] [address] 12/04/2024 Mignon Mejias Atherosclerosis of [place] artery of both lower extremities, with unspecified presence of clinical manifestation I70.203 ; Tinea unguium B35.1 ; Pain in right toe(s) M79.674 and Pain in left toe(s) M79.675 Assessments Encounter Date Diagnosis (ICD Code) Assessment Notes Treatment Notes Treatment Clinical Notes Section Notes 12/04/2024 Atherosclerosis of [place] artery of both lower extremities, with unspecified presence of clinical manifestation (ICD-10 - I70.203) Q7(A), Q8(2B), Q9(1B,2C) 12/04/2024 Tinea unguium (ICD-10 - B35.1) 12/04/2024 Pain in right toe(s) (ICD-10 - M79.674) 12/04/2024 Pain in left toe(s) (ICD-10 - M79.675) Plan Of Treatment Pending Test Test Name Order Date [id number] NAIL, 6 OR MORE 12/04/2024 Next Appt Details Follow Up: 3 Months, Reason: Provider Name:Mignon Zepeda yesi, 04/01/2025 11:30:00 AM, [address] [place] [address], [phone], Procedure Notes * Category Sub-Category Detail Notes [...] use of a nail nipper and/or dremel-type grinder set up operator gear tool, to a more viable healthy nail plate [...] to maintain effectiveness in symptomatic relief - 83647 Keratoma Treatment Parring or Cutting o f [...] instrumentation by the physician of record - 21575, Q8 Progress Notes * Pascale CARDONA EDOB:[birth year] (79 yo F)Acc No.[id number]:12/04/2024 Progress Note Patient:?Pascale CARDONA Provider:?Mignon Mejias DPM :1945???Age:79 Y???Sex:Female D ate:12/04/2024 Address:[address] [place], [place] [id number] Pcp:Patience Sherman Subjective: * Chief Complaints: * [...] 2. ?Exercise: no. ?Marital status: . 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 ???Drug/Alcohol:?AUDIT-C (Standard)?Did you have a drink containing [...] Exam:?no retinopathy??? Assessment: * Assessment: 1.?Atherosclerosis of [place] artery of both lower extremities, with unspecified [...] use of a nail nipper and/or dremel-type grinder set up operator gear tool, to a more viable healthy nail plate [...] to maintain effectiveness in symptomatic relief - 48952.?Keratoma Treatment:?Parring or Cutting of Benign Hyperkeratotic Lesion(s)?(-56) [...] instrumentation by the physician of record - 02478, Q8.? * Procedure Codes:?04646 DEBRI DE NAIL, 6 OR MORE, Modifiers: XS 04689 TRIM SKIN LESIONS, 2 TO 4, Modifiers: XS , Q8 * Follow Up:?3 Months * Images: * Sign off status: Completed true * Provider:?Mignon Mejias DPM Date:?0 12/04/2024 Generated for Alisia nur/Reilly/Danisha on:?02/23/2025 09:04 AM EDT History and Physical Notes * [...]
== END 2025-02-23 08:52 | disposition home or self-care (01) ==
LOC: HO.US 08:51
PROVIDERS: PCP Internal Medicine
DX: N20.0 Calculus of kidney (principal); N30.01 Acute cystitis with hematuria
CPT/HCPCS: 76775

== ENCOUNTER → 2025-02-23 08:54 | Outpatient (BNV) | payer MEDICARE, SELFPAY | PROVIDERS: PCP Internal Medicine; Visit Provider Radiology Diagnostic Radiology | DX: N20.0 Calculus of kidney (principal) | CPT/HCPCS: 76775 ==

== ENCOUNTER 2025-03-27 10:23 | Outpatient (REF) | payer MEDICARE, SELFPAY | END 2025-03-27 10:24 | disposition home or self-care (01) | LOC: HO.MAMMO 10:23 | PROVIDERS: PCP Internal Medicine; Visit Provider Internal Medicine | DX: Z12.31 Encounter for screening mammogram for malignant neoplasm of breast (principal) | CPT/HCPCS: 77063; 77067 ==

== ENCOUNTER → 2025-03-27 10:30 | Outpatient (BNV) | payer MEDICARE, SELFPAY | PROVIDERS: PCP Internal Medicine; Visit Provider Internal Medicine | DX: Z12.31 Encounter for screening mammogram for malignant neoplasm of breast (principal) | CPT/HCPCS: 77063; 77067 ==

== ENCOUNTER 2025-04-01 10:56 | Outpatient (REF) | payer MEDICARE, SELFPAY ==
--- NOTE | ~2025-04-01 | XR_ITS ---
EXAMINATION: XR HIP 2 OR MORE VIEWS BILATERAL HISTORY: M25.551 - Pain in right hip COMPARISON: There are no prior studies for comparison. FINDINGS: A single AP view of the pelvis and two views of each hip are submitted. The bones are osteopenic. There is no fracture or dislocation. There is mild narrowing of both hip joints. The sacroiliac joints are maintained. There is degenerative disc disease of the lower lumbar spine. There are vascular calcifications. XR/XR hip BI w PEL1V IMPRESSION: Osteopenia. Mild narrowing of both hip joints. Electronically signed by: Pascual Stout MD 04/01/2025 01:47 PM EDT
--- NOTE | ~2025-04-01 | XR_ITS ---
EXAMINATION: XR LUMBOSACRAL SPINE CLINICAL INFORMATION: M54.50 - Low back pain, unspecified COMPARISON: None available. TECHNIQUE: Three views of the lumbosacral spine. FINDINGS: Levoconvex rotoscoliosis lumbar spine. Multilevel marginal osteophyte formation and endplate sclerosis decreased intervertebral disc height throughout the axial skeleton with an ankylosis extending from L3 to L5 No acute cortical disruption or gross malalignment. Vascular calcifications, aorta. 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 Electronically signed by: Nic Spain MD 04/01/2025 01:17 PM EDT
[2025-04-01 12:14] LABS: MANUAL DIFF FLAG NO
[2025-04-01 12:23] LABS: Basophils Absolute Auto 0.1 X10*3/uL (0.0-0.2); Basophils Percent Auto 1.1 % (0-2); Eosinophils Absolute Auto 0.5 X10*3/uL (0.0-0.4); Eosinophils Percent Auto 4.8 % (0-4); Hematocrit 41.5 % (37.0-47.0); Hemoglobin 14.1 g/dl (12.0-16.0); Imm Gran Abs Auto 0.04 X10*3/uL (0.00-0.03); Imm Gran Pct Auto 0.4 % (0.0-0.4); Lymphocytes Absolute Auto 2.6 X10*3/uL (1.2-4.9); Mean Corpuscular Hemoglobin 29.9 pg (27.0-33.0); Mean Corpuscular Volume 88.1 fL (80.0-98.0); Monocytes Absolute Auto 0.6 X10*3/uL (0.1-1.2); Neutrophils Absolute Auto 6.3 x10*3/uL (2.0-8.3); Neutrophils Percent Auto 61.7 % (45-73); Platelet Count 236 X10*3/uL (160-400); Red Blood Count 4.71 X10*6/uL (4.20-5.50); Red Cell Distribution Width 13.6 % (11.0-16.0); White Blood Count 10.2 X10*3/uL (4.8-10.8)
[2025-04-01 12:33] LABS: Estimated Average Glucose 151 mg/dL; Hemoglobin A1c % 6.9 % (<6.0); Total Hemoglobin (HGBA1C) 3568.5656 umol/L
[2025-04-01 13:18] LABS: Alanine Aminotransferase 23 U/L (0-31); Albumin Level 4.2 g/dL (3.5-5.0); Alkaline Phosphatase 92 U/L (39-117); Anion Gap 11 (12-20); Aspartate Amino Transferase 22 U/L (5-31); Bilirubin Total 1.4 mg/dL (0.0-1.0); Blood Urea Nitrogen 18 mg/dL (9-16); Calcium 9.9 mg/dL (8.4-10.2); Carbon Dioxide 31 mmol/L (22-29); Chloride 103 mmol/L (96-108); Cholesterol 139 mg/dL (<200); Estimated Glomerular Filt Rate 57; Glucose Random 148 mg/dL (60-115); HDL Cholesterol 49 mg/dL (>40); LDL Cholesterol Calculated 61 mg/dL (<100); Potassium 3.7 mmol/L (3.3-5.1); Sodium 141 mmol/L (135-145); Triglycerides 148 mg/dL (<150)
[2025-04-01 13:25] LABS: Free T4 (Free Thyroxine) 1.09 ng/dL (0.71-1.85); Thyroid Stimulating Hormone 2.49 uIU/mL (0.32-4.0); Vitamin D 25-OH Total 43.5 ng/mL (>30)
[2025-04-01 13:32] LABS: Folate 10.8 ng/mL (> or = 4.0); Vitamin B12 378 pg/mL (200-900)
[2025-04-01 14:13] LABS: Creatinine Urine 125.39 mg/dL; Microalbum/Creatinine Ratio Ur 7.1 ug/mg cr (<30)
== END 2025-04-01 10:57 | disposition home or self-care (01) ==
LOC: HO.XRAY 10:56
PROVIDERS: Absent Provider Internal Medicine; PCP Internal Medicine
DX: Z00.01 Encounter for general adult medical examination with abnormal findings (principal); E11.65 Type 2 diabetes mellitus with hyperglycemia; E78.00 Pure hypercholesterolemia, unspecified; M25.551 Pain in right hip; M25.552 Pain in left hip; M54.50 Low back pain, unspecified; J98.4 Other disorders of lung; R20.0 Anesthesia of skin; I10 Essential (primary) hypertension; E66.9 Obesity, unspecified; K21.9 Gastro-esophageal reflux disease without esophagitis; L40.9 Psoriasis, unspecified; M85.80 Other specified disorders of bone density and structure, unspecified site; F41.1 Generalized anxiety disorder; N20.0 Calculus of kidney; Z68.34 Body mass index [BMI] 34.0-34.9, adult
CPT/HCPCS: 36415; 72100; 73521; 80053; 80061; 82043; 82306; 82570; 82607; 82746; 83036; 84439; 84443; 85025; 96127; 99212

== ENCOUNTER 2025-04-01 10:56 | Outpatient (AMB) | payer MEDICARE, SELFPAY ==
--- NOTE | 2025-04-01 11:00 | A.OFFVIS_ITS ---
Intake Vital Signs 04/01/25 11:04 Height 5 ft 8 in Weight 224 lb 2 oz BMI 34.1 BP 132/64 Blood Pressure Location Lt brachial Position Sitting Pulse 78 Pulse Source Pulse Oximeter Temp 97.3 F Temp Source Temporal Artery Scan Pulse Oximetry (%) 98 Oxygen Delivery Method Room Air Intake Visit Reasons: V [id number] Intake Note: Patient is here for an Annual Wellness Visit. 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 Application Engineer: Application Engineer offered & declined Accompanied by: Self / Same As Patient Allergies amlodipine Allergy (Unknown, Verified 04/01/25 11:13) leg swelling lisinopril Allergy (Unknown, Verified 04/01/25 11:13) cough escitalopram Adverse Reaction (Intermediate, Verified 04/01/25 11:13) Depression pcv23 Allergy (Unknown, Uncoded 04/01/25 11:13) arm swelling metformin Adverse Reaction (Intermediate, Uncoded 04/01/25 11:13) stomach pain Medication List - Last Reconciled 04/01/25 by Magdalena Godinez PA-C amoxicillin 2,000 mg orally 1 hour before thr procedure; aspirin 81 mg PO DAILY atorvastatin 40 mg PO DAILY chlorthalidone 25 mg PO DAILY 90 days cholecalciferol (vitamin D3) 25 mcg PO DAILY losartan 50 mg PO DAILY 90 days metoprolol succinate ER 50 mg PO DAILY potassium mg PO .QD HPI SWV G0439 HPI Details 80-year-old female with past medical his tory of hypertension, hypercholesterolemia, obesity, GERD, diabetes mellitus, generalized anxiety disorder and psoriasis last seen 02/2025 coming in for annual exam. Presenting with tingling in the right hand and a request for amoxicillin prescription before dental work. Reports bilateral knee replacements and a recent shoulder replacement, with a history of osteoarthritis leading to significant degenerative changes and a shoulder replacement. Experiences tingling in the right hand, waking her at night, and has had carpal tunnel surgery on the left hand previously. Experiences hip pain requiring frequent stops when walking in grocery stores. Mammogram: completed 03/2025 Eye exam: [facility] ass[facility] Colonoscopy: no longer needed DEXA: 11/2023 osteopenia [facility] Medical History Syncope TIA (transient ischemic attack) Disequilibrium syndrome Right shoulder pain Post-menopausal Retinal tear Left carotid artery stenosis Tubular adenoma of colon Urge incontinence Type 2 diabetes mellitus with hyperglycemia Osteoarthritis Psoriasis GERD (gastroesophageal reflux disease) Obesity (BMI 30-39.9) Hypercholesterolemia Hypertension Surgical History History of cholecystectomy History of bilateral knee replacement History of colonoscopy History of cataract surgery Family History Mother No problems noted. Father No problems noted. Social History Housing: House Alcohol intake: current Alcohol intake frequency: a few times a week Comment: once a month 1 drink Patient Tobacco Use Status: Former Tobacco user Tobacco use type: Cigarette Years Smoked: 1979 smoked 15 years pack a day e-Cigarette/Vaping Use: Never Used Second Hand Smoke Exposure: Yes service: No Current occupational status: retired Cognitive needs: No Hearing needs: No Vision needs: Yes (glasses) Questionnaire Medicare Wellness Checkup [age] What gender do you identify with?: female During the past 4 weeks, how much have you been bothered by emotional problems such as feeling anxious, depressed, irritable, sad or downhearted, and blue?: slightly During the past 4 weeks, has your physical & emotional health limited your social activities with family, friends, neighbors, or groups?: not at all During the past 4 weeks, how much bodily pain have you generally had?: severe pain During the past 4 weeks, was someone available to help you if you needed & wanted help?: yes, as much as I wanted During the past 4 weeks, what was the hardest physical activity you could do for at least 2 minutes?: very heavy Can you get to places out of walking distance without help? (For eg., can you travel alone on buses, taxis or drive your car?): Yes Can you go shopping for groceries or clothes without someone's help?: Yes Can you prepare your own meals?: Yes Can you do your housework without help?: Yes Because of any health problems, do you need the help of another person with your personal care needs such as eating, bathing, dressing or getting around the house?: No Can you handle your own money without help?: Yes During the past 4 weeks, how would you rate your health in general?: good During the past 4 weeks how have things been going for you?: pretty well Are you having difficulties driving your car?: no Do you always fasten your seat belt when you are in a car?: yes, usually During past 4 weeks, have you been bothered by the following: never: Trouble eating well?, Teeth or denture problems? and Problems using the telephone?, seldom: Falling or dizzy when standing up and sometimes: Tiredness or fatigue? Have you fallen 2 or more times in the past year?: No Are you afraid of falling?: Yes Are you a smoker?: no During the past 4 weeks, how many drinks of wine, beer, or other alcoholic beverages did you have?: 1 drink or less per week Do you exercise for about 20 minutes 3 or more times a week?: yes, some of the time Have you been given information to help with the following?: yes: Keeping track of your medications? and no: Hazards in your house that might hurt you? How often do you have trouble taking medicines the way you have been told to take them?: I always take medicine as prescribed How confident are you that you can control & manage most of your health problems?: very confident What is your race?: White PHQ-9 Over the last 2 weeks, how often have you been bothered by any of the following problems? 1. Little interest or pleasure in doing things: not at all 2. Feeling down, depressed, or hopeless: not at all 3. Trouble falling or staying asleep, or sleeping too much: several days 4. Feeling tired or having little energy: several days 5. Poor appetite or overeating: several days 6. Feeling bad about yourself - or that you are a failure or have let yourself or your family down: not at all 7. Trouble concentrating on things, such as reading the newspaper or watching television: not at all 8. Moving or speaking so slowly that other people could have noticed. Or the opposite - being so fidgety or restless that you have been moving around a lot more than usual: not at all 9. Thoughts that you would be better off or of hurting yourself in some way: not at all Total score: 3 Depression Screening Interpretation: Positive Depression Screening Done: Yes Source: Developed by Drs. Pascual Bradshaw, Rachelle Argueta, Luke Joshi and colleagues, with an educational khadra from [employer]. Thrive Questionnaire Date Thrive assessed: 12/02/24 ELIEL-7 AMB Questionnaire ELIEL-7 Date ELIEL - 7 assessed: 12/02/24 Source: Developed by Drs. Pascual Bradshaw, Rachelle Argueta, Luke Joshi and colleagues, with an educational khadra from [employer]. Review of Systems Const Denies body aches, Denies chills, Denies fever(s), Denies headache(s) and Denies poor appetite Eyes Reports no additional complaints ENT Denies dysphagia, Denies dizziness, Denies headache(s) and Denies odynophagia Card Denies chest pain, Denies syncope, Denies edema, Denies irregular heart rhythm, Denies lightheadedness and Denies dyspnea Resp Denies cough and Denies dyspnea GI Denies abdominal pain, Denies constipation, Denies dysphagia, Denies diarrhea, Denies nausea, Denies odynophagia and Denies vomiting Reports no additional complaints Musc Details: bilateral knee pain, back pain, right hand numbness and tingling Reports as per HPI and Denies abnormal gait Skin/Breast Reports system reviewed and no additional complaints, except as documented Neuro Denies abnormal gait, Denies dizziness, Denies syncope and Denies headache(s) Psych Reports no additional complaints Physical Exam Vital Signs: Last Vital Signs Temp 97.3 F 04/01/25 11:04 Pulse 78 04/01/25 11:04 BP 132/64 04/01/25 11:04 Pulse Ox 98 04/01/25 11:04 Oxygen Delivery Method Room Air 04/01/25 11:04 BMI result Body Mass Index 34.1 Const General: cooperative, healthy appearing, comfortable and no acute distress Orientation/consciousness: patient oriented x3 HEENT Head: Yes normocephalic Ears: hearing grossly normal bilaterally, external ears normal, TM's normal bilaterally and EAC's normal General nose exam: Normal external nose present Face and sinus: Yes normal facial exam and Yes sinuses nontender Mouth: Normal oral and palatal mucosa present and tongue normal Throat: Yes posterior oropharynx normal Eyes General: appearance normal, both eyes and all related structures Conjunctivae: conjunctivae normal Pupils: Equal, round and reactive pupils present EOM: EOMs intact bilaterally and No Nystagmus present Neck Neck: Yes normal visual inspection, Yes full ROM and Yes no lymphadenopathy Chest Chest palpation & inspection: normal inspection of the chest Resp Effort & Inspection: normal respiratory effort Auscultation: clear to auscultation bilaterally, no crackles, no rales, no rhonchi, no wheezes and breath sounds present Cardio Rate: regular rate Rhythm: regular rhythm Peripheral pulses: radial pulses present and dorsalis pedis present GI Inspection: Yes normal to inspection and No Abdominal wall edema Palpation (GI): Soft to palpation, not firm and nontender Auscultation: normal bowel sounds Rectal Exam - Female: deferred General: Yes no CVA tenderness Back/Spine/Pelvis Other: tenderness to palpation of lumbar spine and paraspinal muscle. No tenderness to palpation of bilateral hips Back: no CVA tenderness Skin General skin exam: no rashes or lesions noted Neuro General: patient oriented x3 Cranial nerves: Yes Equal, round and reactive pupils present, Yes Midline tongue present, Yes Ability to bilaterally elevate shoulders present and No Nystagmus present Gait exam (Neuro): Normal gait present Extrem General: Yes normal to inspection, Yes full ROM, No no pedal edema and No edema Psych Speech and movement: Normal speech and movement present Affect: normal affect Insight: Good insight present (Psych) Judgement: Good judgement present (Psych) Assessment & Plan Assessment & Plan (1) Medicare annual wellness visit, subsequent: Code(s): Z00.00 - Encounter for general adult medical examination without abnormal findings Plan: [place] of care was reviewed with patient patient was provided with a written screening schedule. Patient is up-to-date on all recommended routine screenings and vaccinations for her age. Blood work was ordered by PCP and will be completed today. (2) Right pulmonary lesion: Comment: 03/24/2024Shoulder CT March 2024 showing incidental lesion right lateral lung recommend CT scan advanced right glenohumeral joint arthritis 10/2024 Code(s): J98.4 - Other disorders of lung Plan: Repeat CT scan scheduled for May (3) Hypertension: Code(s): I10 - Essential (primary) hypertension Qualifiers: Hypertension type: essential hypertension Qualified Code(s): I10 - Essential (primary) hypertension Plan: Continue on current blood pressure medication. Avoid salt intake and encourage healthy diet and regular exercise. (4) Hypercholesterolemia: Code(s): E78.00 - Pure hypercholesterolemia, unspecified Plan: Avoid foods that are high in cholesterol such as red meat, fried foods, eggs and baked goods. Triglyceride goal of less than 150 and LDL goal of less than 70. Continue on atorvastatin 40. Reminded patient about blood work last LDL within goal. (5) Type 2 diabetes mellitus with hyperglycemia: Comment: Dr. Gomez Code(s): E11.65 - Type 2 diabetes mellitus with hyperglycemia Qualifiers: Diabetes mellitus intermediate insulin use: without lobsterman use Qualifie d Code(s): E11.65 - Type 2 diabetes mellitus with hyperglycemia Plan: Decrease the amount of carbohydrates such as pasta, bread, rice, and potatoes and limit the amount of sweets. Although fruits are generally healthy they should be eaten in moderation as they are still high in sugar. Hemoglobin A1c goal of less than 7%. Not currently on medical management. last A1c 6.2% (6) Psoriasis: Comment: Dr. Meier Code(s): L40.9 - Psoriasis, unspecified Plan: Patient is currently following with Dr. Meier for Dermatology. (7) Osteopenia: Comment: 11/2023 Code(s): M85.80 - Other specified disorders of bone density and structure, unspecified site Plan: Continue with increase in dietary calcium and vitamin-D supplementation repeat bone density next year (8) Generalized anxiety disorder: Comment: declined referal Code(s): F41.1 - Generalized anxiety disorder Plan: Patient is not currently on medication for anxiety and declines referral for counseling at this time. (9) GERD (gastroesophageal reflux disease): Code(s): K21.9 - Gastro-esophageal reflux disease without esophagitis Qualifiers: Esophagitis presence: without esophagitis Qualified Code(s): K21.9 - Gastro-esophageal reflux disease without esophagitis Plan: Avoid trigger foods such as citrus, tomato products, soda, caffeine, spicy foods and other foods that may be irritating to your stomach. Avoid laying flat 3-4 hours after eating and elevate the head of the bed 30 degrees to prevent acid from moving into the esophagus. (10) Obesity (BMI 30-39.9): Code(s): E66.9 - Obesity, unspecified Plan: Healthy diet and regular exercise is encouraged. (11) Nephrolithiasis: Code(s): N20.0 - Calculus of kidney Plan: Patient had renal ultrasound 02/2025 no evidence of nephrolithiasis (12) Bilateral hip pain: Code(s): M25.551 - Pain in right hip; M25.552 - Pain in left hip Plan: Complaining of bilateral hip pain worsened with prolonged movement/walking. Plan to obtain hip XR for further evaluation and consider referral to ortho. (13) Low back pain: Code(s): M54.50 - Low back pain, unspecified Plan: patient complaining of low back pain requesting lumbar spine XR, order was placed today. Continue with heating pad and tylenol as needed. (14) Numbness of right hand: Code(s): R20.0 - Anesthesia of skin Plan: Currently following with [facility] and has gotten one cortisone. She is interested in having possible surgery. Would like [facility] ortho and EMG ordered Plan This note was constructed using voice recognition software. While every effort has been made to ensure accuracy and manager furniture, still areas may have been included sometimes these areas may affect the content or meeting of the given symptoms. Total time spent caring for the patient today was 30 minutes. This includes time spent before the visit reviewing the chart, time spent during the visit, and time spent after the visit and documentation. Patient was informed and verbally consented to the use of an ambient scribe for clinic note documentation during this visit. Orders: Orders XR hip BI w PEL1V Today M25.551 - Pain in right hip, M25.552 - Pain in left hip NE electromyogram (EMG) Today R20.0 - Anesthesia of skin NE nerve conduction velocity Today R20.0 - Anesthesia of skin XR lumbar spine 2-3V Today M54.50 - Low back pain, unspecified Referrals Orthopedics Referral R20.0 - Anesthesia of skin Medications: Refilled amoxicillin (4 x 500 mg) 2,000 mg orally 1 hour before thr procedure; 4 caps 2RF J98.4 - Other disorders of lung amoxicillin (4 x 500 mg) 2,000 mg orally 1 hour before thr procedure; 20 caps 2RF J98.4 - Other disorders of lung Quality Reporting (2019) Depression/Bipolar (159/160/161/177) PHQ-9: Total score: 3 Coding Level of Care Code Medicare Subsequent (G0439) Est Pt Level 3 (15171) Diagnoses Medicare annual wellness visit, subsequent Z00.00 Right pulmonary lesion J98.4 Essential hypertension I10 Hypertension type: essential hypertension Hypercholesterolemia E78.00 Type 2 diabetes mellitus with hyperglycemia, without long-term current use of insulin E11.65 Diabetes mellitus lobsterman insulin use: without lobsterman use Psoriasis L40.9 Osteopenia M85.80 Generalized anxiety disorder F41.1 Gastroesophageal reflux disease without esophagitis K21.9 Esophagitis presence: without esophagitis Obesity (BMI 30-39.9) E66.9 Nephrolithiasis N20.0 Bilateral hip pain M25.551; M25.552 Low back pain M54.50 Numbness of right hand R20.0
[2025-04-01 11:04] VITALS: BP 132/64; PULSE 78; TEMP 36.3; O2SAT 98; BMI 34.1
--- OUTSIDE RECORDS SUMMARY | 2025-04-01 12:00 | XMS_ITS | Data Portability ---
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 Pt is independent with her [facility]. 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 tolerated all exercises well while demonstrating proper periscapular and RC mechanics with minimal fatigue levels achieved. Updated Independent [facility], reviewed with Pt. and answered further questions. 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 Lab None recorde d. Referral None recorde d. Procedures None recorde d. Surgeries None recorde d. Imaging XR, shoulde r, 2 or more view - right shldr 3viiews rm [phone] natysurekha [facility], [address], [place], [address], 07:55:33 Medication Orders None recorde d. Patient TargetsNo targets recorded. Patient InstructionsNo instructions recorded. Reason for Referral None Reported. Results Created Date Observation Date Name Description Value Unit Range Abnormal Flag Note LastModifiedBy Organization Detail LastModifiedTime 08/11/2008/11/2024 XR, beth rousseau, 2 or more view [email or web address]:/ [email or web address] ?Encry pted=s hAaTro YD8dLq bEUv6g %2BXZw aYqtaq 0bqfl% 2Fg9IQ a4ajBk vP9nXo QUaueC m3YtLR FvZl JJ8mAn HZtai3 0z3716 AC0Kqa nWAWaS vKiQtr [facility] INTERFACE [facility] [address] [facility] [address], [place], [address], 08/11/2024 14:13:43 08/11/20 24 08/11/2024 XRbeth, 2 or more view [email or web address] ?Encry pted=s hAaTro YD8dLq bEUv6g %2BXZw aYqtaq 0bqfl% 2Fg9IQ a4ajBk vP9nXo QUaueC m3YtLR FvZl JJ8Pearland HZtai 6u4037 AC0Kqa nWFramingham [facility] HospitalS vKiQtr [facility] INTERFACE [facility] [address], [place], [address], 08/11/2024 14:13:45 08/29/2008/29/2024 XR, hand, 3 or more view [email or web address]:/ [email or web address] ?Encry pted=s hAaTro YD8dLq bEUv6g %2BXZw aYqtaq 0bqfl% 2Fg9IQ a4ajBk vP9nXo QUaueC m3YtLR FvZl JJ8mAn HZtai3 6l9473 AC0Kqa HyCUaO jKiQtr MwF INTERFACE [facility] [address], [place], [address], 08/29/2024 14:55:51 08/29/20 24 08/29/2024 XR, hand, 3 or more view [email or web address]:/ [email or web address] ?Encry pted=s hAaTro YD8dLq bEUv6g %2BXZw aYqtaq 0bqfl% 2Fg9IQ a4ajBk vP9nXo QUaueC m3YtLR FvZlgJ JJ8mAn HZtai3 2u5158 AC0Kqa HyCUaO jKiQtr MwF INTERFACE [facility] [address] [facility] [address], [place], [address], 08/29/2024 14:55:55 10/16/20 24 10/16/2024 XR, shoul onelia, 2 or more view http:/ [email or web address] ?Encry pted=s hAaTro YD8dLq bEUv6g %2BXZw aYqtaq 0bqfl% 2Fg9IQ a4ajBk vP9nXo QUaueC m3YtLR FvZlgJ JJ8mAn HZtai3 3z2108 AC0Kqb nyBVaW gKiQtr MwF INTERFACE [facility] [address] [facility], [place], [address], 10/16/2024 11:27:48 10/16/20 24 10/16/2024 XR, shoul onelia, 2 or more view http:/ [email or web address] ?Encry pted=s hAaTro YD8dLq bEUv6g %2BXZw aYqtaq 0bqfl% 2Fg9IQ a4ajBk vP9nXo QUaueC m3YtLR FvZlgJ JJ8mAn HZtai3 7n5908 AC0Kqb nyBVaW gKiQtr MwF INTERFACE [facility] [address], [place], [address], 10/16/2024 11:27:50 Result Notes None recorded. Problems Name Problem SNOMED Code Status Onset Date Resolution Date Notes Provider Name and Address Organization Details Recorded Time No complaints 691832472 Active Status : 'A'; [facility] Available [facility] 09:25:45 Lesion of lung 276758597 Active 2023 ROXANA SEGURA [facility] 12:17:47 Problem Notes None recorded. Procedures Surgical History Date Name Laterality Status Provider Name and Address Organization Details Recorded Time 4 75948 Therapeutic Exercise (1:1) completed Shaun Bynum, ALEX [address], [place], [address], [facility] 08/14/2024 14:53:22 4 48171 Therapeutic Exercise (1:1) completed Karlee Cardona, PT [address], [place], [address], [facility] 08/10/2024 23:13:44 4 02783 Therapeutic Exercise (1:1) completed Shaun Bynum PTA [address], [place], [address], [facility] 08/07/2024 14:30:15 4 23738 Therapeutic Exercise (1:1) completed Karlee Cardona, PT [address], [place], [address], [facility] 08/03/2024 22:12:27 4 86285 Therapeutic Exercise (1:1) completed Shaun Bynum, ALEX [address], [place], [address], [facility] 07/31/2024 15:16:09 4 29142 Therapeutic Exercise (1:1) completed Karlee Cardona, PT [address], [place], [address], [facility] [place] [facility] 07/29/2024 06:56:55 4 12167 Therapeutic Exercise (1:1) completed Shaun Bynum, LAUNDRY TECH [address], [place], [address], [facility] 07/24/2024 14:19:39 4 17092 Therapeutic Exercise (1:1) completed Karlee Cardona, PT [address], [place], [address], [facility] 07/21/2024 22:35:29 4 57385 Therapeutic Exercise (1:1) completed Shaun Bynum LAUNDRY TECH [address], [place], [address], [facility] 07/17/2024 14:07:03 4 65886 Therapeutic Exercise (1:1) completed Karlee Cardona, PT [address], [place], [address], [facility] 07/15/2024 00:17:13 4 63308 Therapeutic Exercise (1:1) completed Shaun Bynum, LAUNDRY TECH [address], [place], [address], [facility] 07/11/2024 09:03:20 4 30781: Manual therapy completed Shaun Bynum LAUNDRY TECH [address], [place], [address], [facility] 07/11/2024 09:05:30 4 64779 Therapeutic Exercise (1:1) completed Shaun Bynum LAUNDRY TECH [address], [place], [address], [facility] 07/08/2024 07:52:09 4 12760 Therapeutic Exercise (1:1) completed Belkis Calderon, LAUNDRY TECH [address], [place], [address], [facility] 07/04/2024 16:55:00 4 89168 Therapeutic Exercise (1:1) completed Karlee Cardona, PT [address], [place], [address], [facility] 06/30/2024 23:19:58 4 73760 Therapeutic Exercise (1:1) completed Shaun Bynum, LAUNDRY TECH [address], [place], [address], [facility] 06/26/2024 16:05:02 4 82562 Therapeutic Exercise (1:1) completed Karlee Cardona, PT [address], [place], [address], [facility] 06/22/2024 21:42:13 4 85214 Therapeutic Exercise (1:1) completed Shaun Bynum LAUNDRY TECH [address], [place], [address], [facility] 06/20/2024 07:57:57 4 12084 Therapeutic Exercise (1:1) completed Belkis Calderon, LAUNDRY TECH [address], [place], [address], [facility] 06/16/2024 16:32:39 4 13011 Therapeutic Exercise (1:1) completed Shaun Bynum LAUNDRY TECH [address], [place], [address], [facility] 06/12/2024 14:25:56 4 75407: Hot or Cold Pack completed Shaun Bynum LAUNDRY TECH [address], [place], [address], [facility] 06/12/2024 13:24:39 4 44507 Therapeutic Exercise (1:1) completed Shaun Bynum LAUNDRY TECH [address], [place], [address], [facility] 06/09/2024 11:25:26 4 54307: Hot or Cold Pack completed Shaun Bynum, LAUNDRY TECH [address], [place], [address], [facility] 06/09/2024 11:25:15 4 84605 Therapeutic Exercise (1:1) completed Karlee Cardona, PT [address], [place], [address], [facility] 06/06/2024 11:55:51 4 65930: Low complexity PT Eval completed Karlee Cardona, PT [address], [place], [address], [facility] 06/06/2024 12:05:01 4 G8417 BMI Above Upper Parameters, F/U Documented completed Karlee Cardona, PT [address], [place], [address], [facility] 06/04/2024 23:07:37 4 G8427 Current Medication Documented completed Karlee Cardona, PT [address], [place], [address], [facility] 06/04/2024 23:07:42 [...] Updated DateTime 10/16/2024 172.72 cm 33.3 kg/m2 68187.73 g Benton Quiles PA-C [address], [place], [address], [place] [facility] 10/16/2024 10:54:17 Social History Question Answer Notes LastModified by [employer] Details LastModified Time Tobacco Smoking Status Former Smoker DELFINA WARE [facility], [place] - [place] [facility] 04/14/2024 12:55:54 When Did You Quit Smoking? 16+yearssinc elastcigaret te Information not available 04/14/2024 What Is Your Relationship Status? Information not available 04/14/2024 How Many Years Have You Smoked Tobacco? 20 Information not available 04/14/2024 Sex: Unknown Functional Status Question Answer Note LastModified by Organizat ion Details LastModified Time How many times per week do you consume alcohol? Less than 1 time per week Information not available 04/14/2024 Do you use any illicit or recreational drugs? No Information not available 04/14/2024 Do you or have you ever used any other forms of tobacco or nicotine? No Information not available 04/14/2024 Do you or have you ever used e-cigarettes or vape? Never used electronic cigarettes Information not available 04/14/2024 Mental Status None recorded. Family History Nothing Reported. Medical History Condition Response Allergies/Hayfever N Coronary Artery Disease N Breathing or lung disorders N Anxiety/Depression N Emphysema N Nerve Disorders N Thyroid Problems N COPD N Pacemaker N Kidney/Bladder Problems N Anemia N Vascular Disease N Heart Trouble N Gastrointestinal Disease N Heart Attack ([place]) N Cholesterol N Diabetes N Autoimmune disease [...] SNOMED-CT Code Diagnosis ICD10 Code Diagnosis Note [id number] MD Graciela Maciel [address]nd floor [address] [place] [address] 01/23/2024 14:24:25 02/07/2024 14:35:36 Osteoarthritis of right glenohumeral joint 2160126424 996269 M19.388 [id number] MD Graciela Maciel 2nd floor [address] [place] [address] 04/14/2024 12:50:00 05/02/2024 09:32:23 Osteoarthritis of joint of right shoulder region 7580744564 99040 M19.301 [id number] MD Graciela Maciel 2[address] floor [address] [place] [address] 05/05/2024 12:38:26 05/23/2024 07:58:15 History of reverse prosthetic total arthroplasty of right shoulder 4656411436 3014112 Z96.802 [id number] LEYLA Britt 2nd floor [address] [place] [address] 06/04/2024 13:43:25 06/04/2024 14:23:02 Postoperative care 821096084 Z48.89 [id number] Karlee Brendan, PT [facility] [address] [place] [address] 06/05/2024 11:16:10 06/05/2024 12:43:47 Aftercare [id number] Z47.1 Z96.306 [id number] [facility] [address] [place] [address] 06/09/2024 10:31:54 06/09/2024 11:29:04 Aftercare [id number] Z47.1 Z96.535 [id number] [facility]un [facility]ynum[facility] [address] [facility] [place] [address] 06/12/2024 13:24:14 06/12/2024 14:34:20 Aftercare [id number] Z47.1 Z96.429 [id number] Belkis Calderon, [facility] [address] [place] [address] 06/16/2024 15:22:58 06/16/2024 16:57:38 Aftercare [id number] Z47.1 Z96.466 [id number] Shaun Bynum, LAUNDRY TECH [facility] [address] [place] [address] 06/20/2024 07:55:20 06/20/2024 08:44:46 Aftercare [id number] Z47.1 Z96.297 [id number] Karlee Cardona, PT [facility] [address] [place] [address] 06/23/2024 17:19:55 06/24/2024 08:13:17 Aftercare [id number] Z47.1 Z96.126 [id number] Shaun Bynum, LAUNDRY TECH [facility] [address] [place] [address] 06/26/2024 15:52:23 06/26/2024 16:51:17 Aftercare [id number] Z47.1 Z96.784 [id number] Karlee Cardona, PT [facility] [address] [place] [address] 06/30/2024 14:52:31 06/30/2024 16:17:10 Aftercare [id number] Z47.1 Z96.020 [id number] Belkis Calderon, LAUNDRY TECH [facility] [address] [place] [address] 07/04/2024 15:55:01 07/08/2024 08:41:31 Aftercare [id number] Z47.1 Z96.561 [id number] Shaun Bynum, LAUNDRY TECH [facility] [address] [place] [address] 07/08/2024 07:51:39 07/08/2024 09:05:57 Aftercare [id number] Z47.1 Z96.032 [id number] Shaun Bynum, LAUNDRY TECH [facility] [place] [facility] [address] [place] [address] 07/11/2024 07:53:22 07/11/2024 09:05:02 Aftercare [id number] Z47.1 Z96.263 [id number] Karlee Cardona, PT [facility] [address] [place] [address] 07/14/2024 15:26:57 07/14/2024 17:08:10 Aftercare [id number] Z47.1 Z96.016 [id number] Shaun Bynum, LAUNDRY TECH [facility] [address] [place] [address] 07/17/2024 13:55:03 07/18/2024 07:36:28 Aftercare [id number] Z47.1 Z96.033 [id number] Karlee Cardona, PT [facility] [address] [place] [address] 07/21/2024 12:18:06 07/21/2024 14:42:16 Aftercare [id number] Z47.1 Z96.641 [id number] Shaun Bynum, LAUNDRY TECH [facility] [address] [facility] [place] [address] 07/24/2024 13:50:28 07/24/2024 15:28:53 Aftercare [id number] Z47.1 Z96.718 [id number] Karlee Cardona, PT [facility] [address] [facility] [place] [address] 07/28/2024 11:45:30 07/28/2024 14:45:16 Aftercare [id number] Z47.1 Z96.838 [id number] Laurence Simms MD [facility] 2nd floor [address] [place] [address] 08/11/2024 13:48:05 09/05/2024 09:27:06 History of reverse prosthetic total arthroplasty of right shoulder 1447411767 [id number] Z96.444 [id number] Shaun Bynum, [facility] [address] [facility] [place] [address] 07/31/2024 13:51:37 07/31/2024 15:25:10 Aftercare [id number] Z47.1 Z96.995 [id number] Karlee Cardona, PT [facility] [address] [facility] [place] [address] 08/04/2024 10:50:03 08/04/2024 15:21:48 Aftercare [id number] Z47.1 Z96.561 [id number] Shaun Bynum, [facility] [address] [facility] [place] [address] 08/07/2024 13:17:35 08/07/2024 15:58:33 Aftercare [id number] Z47.1 Z96.851 [id number] Karlee Cardona, PT [facility] [address] [facility] [place] [address] 08/11/2024 10:49:49 08/11/2024 12:02:31 Aftercare [id number] Z47.1 Z96.165 [id number] Shaun Bynum, LAUNDRY TECH [facility] [address] [place] [address] 08/14/2024 14:47:52 08/15/2024 07:32:59 Aftercare [id number] Z47.1 Z96.309 [id number] Shaun Bynum, LAUNDRY TECH [facility] [address] [place] [address] 08/21/2024 12:57:26 08/21/2024 15:12:52 Aftercare [id number] Z47.1 Z96.584 [id number] Karlee Cardona, PT [facility] [address] [facility] [place] [address] 08/25/2024 11:44:19 08/25/2024 13:06:16 Aftercare [id number] Z47.1 Z96.783 [id number] Shaun Bynum LAUNDRY TECH [facility] [address] [facility] [place] [address] 08/28/2024 12:55:10 08/28/2024 14:27:04 Aftercare [id number] Z47.1 Z96.704 [id number] Angie Garcia [facility] [address] [address] [place] [address] 08/29/2024 14:20:00 09/24/2024 10:23:26 Pain of left hand [id number] 41470 M79.156 [id number] Karlee Cardona, PT [facility] [address] [facility] [place] [address] 09/01/2024 10:19:05 09/01/2024 11:46:47 Aftercare [id number] Z47.1 Z96.576 [id number] Shaun Bynum, LAUNDRY TECH [facility] [address] [place] [address] 09/04/2024 12:58:01 09/04/2024 14:52:00 Aftercare [id number] Z47.1 Z96.422 [id number] Karlee Brendan, PT [facility] [address] [facility] [place] [address] 09/08/2024 09:54:41 09/08/2024 11:09:28 Aftercare [id number] Z47.1 Z96.982 [id number] Shaun Bynum, [facility] on [address] [place] [address] 09/11/2024 12:56:13 09/11/2024 14:05:48 Aftercare [id number] Z47.1 Z96.429 [id number] Karlee Cardona, PT [facility] [address] [place] [address] 09/15/2024 09:48:35 09/15/2024 11:22:28 Aftercare [id number] Z47.1 Z96.044 [id number] Karlee Cardona, PT [facility] [address] [place] [address] 09/22/2024 09:52:06 09/22/2024 11:01:20 Aftercare [id number] Z47.1 Z96.767 [id number] [facility] [address] [place] [address] 09/25/2024 12:57:48 09/25/2024 14:13:34 Aftercare [id number] Z47.1 Z96.125 [id number] Benton Quiles PA-C [facility] 2nd [facility] [address] [place] [address] 10/16/2024 10:49:03 11/11/2024 07:55:33 History of reverse prosthetic total arthroplasty of right shoulder [id number] Z96.611 Health Concerns Section Related Observation LastModified by Organization Detai ls LastModified Time None Recorded Concern Status LastModified by Organization Details LastModified Time None Recorded Advance Directives Directive None Recorded Payers Encounter Date Sequence Insurance Name Policy Number Policy Ferris Covered Member ID Ferris Member ID Guarantor Name 09/11/2024 1 [place] [employer] Pascale Oates [id number] Pascale Oates 09/11/2024 2 [place] [id number] Pascale E Gratkowski [id number] Pascale E Gratkowski 09/15/2024 1 [place] [employer] Pascale E Gratkowski [id number] Pascale E Gratkowski 09/15/2024 2 [place] [id number] Pascale E Gratkowski [id number] Pascale E Gratkowski 09/22/2024 1 [place] [employer] Pascale E Gratkowski [id number] Pascale E Gratkowski 09/22/2024 2 [place] [id number] Pascale E Gratkowski [id number] Pascale E Gratkowski 09/25/2024 1 [place] [employer] Pascale E Gratkowski [id number] 52 Pascale E Gratkowski 09/25/2024 2 [place] [id number] Pascale E Gratkowski [id number] Pascale E Gratkowski 10/16/2024 1 [place] [employer] Pascale E Gratkowski [id number] 52 Pascale E Gratkowski 10/16/2024 2 [place] [id number] Pascale E Gratkowski [id number] Pascale E Gratkowski Notes Date Note Type Note Provider Name and Address Organization Details Recorded Time 09/11/2024 text/html Pt. reports that his shoulder is feeling overall ok, able to reach for the top cabinets without difficulty. Shaun Bynum, LAUNDRY TECH [address], [place], [address], [facility] - [facility] 09/11/2024 13:55:35 09/15/2024 text/html Pt. reports that she has a little bit of biceps/upper arm soreness today. Pt also reports that she had a small episode of partial blacking out yesterday. It was the first one since being weaned off her seizure medication. She plans to call her MD about this. Karlee Cardona, PT [address], [place], [address], [facility] 09/15/2024 11:06:19 09/22/2024 text/html Pt. reports [...] D/C to HEP. Karlee Cardona, PT [address], [place], [address], [facility] 09/22/2024 11:11:50 09/25/2024 text/html Pt. reports to P T today feeling fatigue overall dt a busy day. States operative shoulder is feeling good. Would like a detailed HEP. Shaun Bynum, LAUNDRY TECH [address], [place], [address], [facility] 09/25/2024 13:54:48 10/16/2024 text/html I am seeing the patient today under the supervision of Dr. Acuña was available but who did not see [...] the right shoulder is forward elevation to 170, external rotation to 70, and internal rotation to L1. Peripheral, vascular, lymphatic examination, skin, neurological, coordination, reflexes, sensation are within normal limits. X-rays ordered, obtained and reviewed at [facility] 3 views of the right reverse total [...] on an annual basis. Benton Quiles PA-C [address] [place] [address] [address], [place], [address], [facility] - [place] [facility] 10/16/2024 11:44:40 OBGyn Episode No OBEpisode recorded.
== END 2025-04-01 12:00 | disposition home or self-care (01) ==
LOC: HO.HMCH 10:56
PROVIDERS: PCP Internal Medicine
DX: Z00.00 Encounter for general adult medical examination without abnormal findings (principal); J98.4 Other disorders of lung; E11.65 Type 2 diabetes mellitus with hyperglycemia; I10 Essential (primary) hypertension; E78.00 Pure hypercholesterolemia, unspecified; L40.9 Psoriasis, unspecified; M85.80 Other specified disorders of bone density and structure, unspecified site; F41.1 Generalized anxiety disorder; K21.9 Gastro-esophageal reflux disease without esophagitis; E66.9 Obesity, unspecified; N20.0 Calculus of kidney; M25.551 Pain in right hip

== ENCOUNTER → 2025-04-01 12:14 | Outpatient (BNV) | payer MEDICARE, SELFPAY | PROVIDERS: Absent Provider Internal Medicine; PCP Internal Medicine; Visit Provider Radiology Diagnostic Radiology | DX: M16.0 Bilateral primary osteoarthritis of hip (principal); M41.86 Other forms of scoliosis, lumbar region | CPT/HCPCS: 73521 ==

== ENCOUNTER 2025-05-05 10:35 | Outpatient (REF) | payer MEDICARE, SELFPAY ==
--- OUTSIDE RECORDS SUMMARY | 2025-04-01 07:30 | XMS_ITS ---
Author Organization [facility] Address [address] [place] [address] Care Team Providers Care Sales Research Analyst Name Role Phone Patience Sherman Primary Care Provider Mignon Peralta [phone] Encounters Encounter Location Date Provider Diagnosis [address] [address] 04/01/2025 Mignon Mejias Plan Of Treatment Next Appt Details Provider Name:Mignon key, 07/22/2025 09:30:00 AM, [address] [place] [address], [phone], Progress Notes * Pascale CARDONA EDOB:[birth year] (80 yo F)Acc No.[id number]:04/01/2025 Progress Note Patient: Radhika HENAOeva Matthews Provider: Jp Mejias DPM :1945 A ge:80 Y S ex:Female Date:04/01/2025 Address:[address] [place] [address] Pcp:Patience Sherman Subjective: * Chief Complaints: * [...] 04/01/2025 Generated for Alisia nur/Reilly/Danisha on: 0 05/05/2025 11:47 AM EDT
--- NOTE | ~2025-05-05 | CT_ITS ---
EXAMINATION: CT CHEST WITHOUT IV CONTRAST INDICATION: J98.4 - Other disorders of lung COMPARISON: Comparison is made with the prior examination dated 10/30/2024. TECHNIQUE: Helical CT scan of the chest was performed without intravenous contrast. Coronal and sagittal reformatted images were generated and reviewed. This CT exam was performed with one or more of the following dose reduction techniques: automated exposure control, adjustment of the mA and/or kV according to patient size, use of iterative reconstruction technique. DLP: 306 mGy-cm CHEST: THYROID: The thyroid is unremarkable. LUNGS: Again seen is linear scarring in the right midlung zone along the major fissure with an associated nodule measuring approximately 9 x 6 x 5 mm without change (series 4, image 70). A tiny 2 mm nodule in the left upper lobe (series 4, image 37) is also stable. MEDIASTINUM: There is no mediastinal lymphadenopathy. ANNETTE: Evaluation of the hilar regions is limited by lack of intravenous contrast material. CARDIOVASCULATURE: The heart is normal in size. There is no pericardial effusion. The thoracic aorta is normal in caliber. DEGREE OF CORONARY CALCIFICATION: moderate PLEURA: There is no pleural effusion. No pneumothorax. MAIN AIRWAYS: The mainstem bronchi and proximal branches are patent. AXILLA: There is no axillary lymphadenopathy. BONES AND SOFT TISSUES: Unremarkable UPPER ABDOMEN: The visualized portions of the liver, spleen, and adrenals have an unremarkable unenhanced appearance. CT/CT chest wo IV con IMPRESSION: Stable 9 x 6 x 5 mm nodule along the right major fissure associated with linear scarring. Continued follow-up with chest CT in 12 months is recommended. Electronically signed by: Pascual Stout MD 05/05/2025 11:49 AM EDT
--- OUTSIDE RECORDS SUMMARY | 2025-05-05 11:48 | XMS_ITS | Data Portability ---
Author Organization MARTINA Jairo Douglas [place] [facility], [facility] Address [address] [place] [address] Care Team Providers Care Blanket Folder Name Role Phone BRICE ORTEGA Referring Provider [phone] BRICE ORTEGA Primary Care Provider Assessment Encounter [...] REQUIRED FOR TAKING SLING ON AND OFF STRICTLY AVOID AROM ABSOLUTELY NO SHOULDER EXTENSION OR ACTIVE IR FOR 6 WEEKS MAINTAIN PILLOW BEHIND OPERATIVE ELBOW WHEN SITTING OR IN BED TO KEEP ELBOW IN FRONT OF BODY REINFORCEMENT OF DISLOCATION PRECAUTIONS AROM OF ELBOW, WRIST AND HAND WITH ARM AT SIDE NO RESISTANCE OR WEIGHT ICE 3 4X DAILY WEEKS 6 - 9 POSTOP [...] WRIST AND HAND WITH ARM AT SIDE NO RESISTANCE OR LOAD GREATER THAN CUP [...] AT 4 MONTHS, BEGINNING WITH HALF SWINGS; EDGE CUTTER AT 6 MONTHS TENNIS/PICKLE BALL: BALL AGAINST [...] REQUIRED FOR TAKING SLING ON AND OFF STRICTLY AVOID AROM ABSOLUTELY NO SHOULDER EXTENSION OR ACTIVE IR FOR 6 WEEKS MAINTAIN PILLOW BEHIND OPERATIVE ELBOW WHEN SITTING OR IN BED TO KEEP ELBOW IN FRONT OF BODY REINFORCEMENT OF DISLOCATION PRECAUTIONS AROM OF ELBOW, WRIST AND HAND WITH ARM AT SIDE NO RESISTANCE OR WEIGHT ICE 3 4X DAILY WEEKS 6 - 9 POSTOP [...] WRIST AND HAND WITH ARM AT SIDE NO RESISTANCE OR LOAD GREATER THAN CUP [...] AT 4 MONTHS, BEGINNING WITH HALF SWINGS; EDGE CUTTER AT 6 MONTHS TENNIS/PICKLE BALL: BALL AGAINST WALL, VERY LIGHT RALLIES AT 4 MONTHS; NO COMPETITIVE GAMES UNTIL AFTER 6 MONTHS NO CONTACT SPORTS FOR AT LEAST 6 MONTHS Not available 09/15/2024 10:55:29 09/22/2024 09/22/2024 Assessment: Pt has made very good progress with PT treatments with progressively increasing mobility, strength & functional use of the right shoulder. She does still have some ADL/functional deficits but can compensate with left arm as needed. Almost all goals met. Pt is independent with her [facility]. Plan: Continue PT 1 more session then D/C to [facility] PHYSICAL THERAPIST REFERRAL - S/P RIGHT [...] REQUIRED FOR TAKING SLING ON AND OFF STRICTLY AVOID AROM ABSOLUTELY NO SHOULDER EXTENSION OR ACTIVE IR FOR 6 WEEKS MAINTAIN PILLOW BEHIND OPERATIVE ELBOW WHEN SITTING OR IN BED TO KEEP ELBOW IN FRONT OF BODY REINFORCEMENT OF DISLOCATION PRECAUTIONS AROM OF ELBOW, WRIST AND HAND WITH ARM AT SIDE NO RESISTANCE OR WEIGHT ICE 3 4X DAILY WEEKS 6 - 9 POSTOP [...] WRIST AND HAND WITH ARM AT SIDE NO RESISTANCE OR LOAD GREATER THAN CUP [...] AT 4 MONTHS, BEGINNING WITH HALF SWINGS; EDGE CUTTER AT 6 MONTHS TENNIS/PICKLE BALL: BALL AGAINST WALL, VERY LIGHT RALLIES AT 4 MONTHS; NO COMPETITIVE GAMES UNTIL AFTER 6 MONTHS NO CONTACT SPORTS FOR AT LEAST 6 MONTHS [email or web address] Not available 09/22/2024 11:11:14 09/25/2024 09/25/2024 Assessment: Pt. tolerated all exercises well while demonstrating proper periscapular and RC mechanics with minimal fatigue levels achieved. Updated Independent [facility], reviewed with Pt. and answered further questions. Plan: D/C to Independent [facility] PHYSICAL THERAPIST REFERRAL - S/P RIGHT [...] REQUIRED FOR TAKING SLING ON AND OFF STRICTLY AVOID AROM ABSOLUTELY NO SHOULDER EXTENSION OR ACTIVE IR FOR 6 WEEKS MAINTAIN PILLOW BEHIND OPERATIVE ELBOW WHEN SITTING OR IN BED TO KEEP ELBOW IN FRONT OF BODY REINFORCEMENT OF DISLOCATION PRECAUTIONS AROM OF ELBOW, WRIST AND HAND WITH ARM AT SIDE NO RESISTANCE OR WEIGHT ICE 3 4X DAILY WEEKS 6 - 9 POSTOP [...] WRIST AND HAND WITH ARM AT SIDE NO RESISTANCE OR LOAD GREATER THAN CUP [...] AT 4 MONTHS, BEGINNING WITH HALF SWINGS; EDGE CUTTER AT 6 MONTHS TENNIS/PICKLE BALL: BALL AGAINST WALL, VERY LIGHT RALLIES AT 4 MONTHS; NO COMPETITIVE GAMES UNTIL AFTER 6 MONTHS NO CONTACT SPORTS FOR AT LEAST 6 MONTHS [email or web address] Not available 09/25/2024 13:54:09 Plan of Treatment Reminders Order Date Submit Date Provider Last Modified By Organization Details Last Modified Time Details Appointments None recorde d. Lab None recorde d. Referral None recorde d. Procedures None recorde d. Surgeries None recorde d. Imaging XR, shoulde r, 2 or more view - right shldr 3viiews rm [phone] natyessenger [facility], [address], [address], [place], [address], 5 07:55:33 Medication Orders None recorde d. Patient TargetsNo targets recorded. Patient InstructionsNo instructions recorded. Reason for Referral None Reported. Results Created Date Observation Date Name Description Value Unit Range Abnormal Flag Note LastModifiedBy Organization Detail LastModifiedTime 08/11/2008/11/2024 XR, beth onelia, 2 or more view [email or web address]:/ [email or web address] ?Encry pted=s hAaTro YD8dLq bEUv6g %2BXZw aYqtaq 0bqfl% 2Fg9IQ a4ajBk vP9nXo QUaueC m3YtLR FvZlgJ JJ8mAn HZtai3 7p0399 AC0Kqa nWAWaS vKiQtr MwF INTERFACE [facility] [address], [place], [address], 08/11/2024 14:13:43 08/11/20 24 08/11/2024 XR, shoul onelia, 2 or more view [email or web address]:/ [email or web address] ?Encry pted=s hAaTro YD8dLq bEUv6g %2BXZw aYqtaq 0bqfl% 2Fg9IQ a4ajBk vP9nXo QUaueC m3YtLR FvZl [place] HZtai3 3r6447 AC0Kqa nWAWaS vKiQtr MwF INTERFACE [facility] [address], [place], [address], 08/11/2024 14:13:45 08/29/20 24 08/29/2024 XR, hand, 3 or more view [email or web address]:/ [email or web address] ?Encry pted=s hAaTro YD8dLq bEUv6g %2BXZw aYqtaq 0bqfl% 2Fg9IQ a4ajBk vP9nXo QUaueC m3YtLR FvZlgJ JJ8mAn HZtai3 5c7425 AC0Kqa HyCUaO jKiQtr MwF INTERFACE [facility] [address], [place], [address], 08/29/2024 14:55:51 08/29/20 24 08/29/2024 XR, hand, 3 or more view [email or web address]:/ [email or web address] ?Encry pted=s hAaTro YD8dLq bEUv6g %2BXZw aYqtaq 0bqfl% 2Fg9IQ a4ajBk vP9nXo QUaueC m3YtLR FvZlgJ JJ8mAn HZtai3 3q3544 AC0Kqa HyCUaO jKiQtr MwF INTERFACE [facility] [address], [place], [address], 08/29/2024 14:55:55 10/16/20 24 10/16/2024 XR, shoul onelia, 2 or more view [email or web address]:/ [email or web address] ?Encry pted=s hAaTro YD8dLq bEUv6g %2BXZw aYqtaq 0bqfl% 2Fg9IQ a4ajBk vP9nXo QUaueC m3YtLR FvZlgJ JJ8mAn HZtai3 7l0752 AC0Kqb nyBVaW gKiQtr MwF INTERFACE [facility] [address], [place], [address], 10/16/2024 11:27:48 10/16/20 24 10/16/2024 XR, shoul onelia, 2 or more view http:/ [email or web address] ?Encry pted=s hAaTro YD8dLq bEUv6g %2BXZw aYqtaq 0bqfl% 2Fg9IQ a4ajBk vP9nXo QUaueC m3YtLR FvZlgJ JJ8mAn HZtai3 7t7169 AC0Kqb nyBVaW gKiQtr MwF INTERFACE [facility] [address], [place], [address], 10/16/2024 11:27:50 Result Notes Documentation Provider Name and Address Organization Details Recorded Time Xr, Shoulder, 2 Or More View : [email or web address] Encrypted=uvWtDhsDT6yFjkT Uv6g%6UTTcnTpyen7eemj%2Fg 9NTr5vtNxgY8gSrHVsezKk0Ar QTVnUxnWZP9hLyRRvfj14u762 8HR5DaynrSPvEeRvKrzYpM Not Available [facility] 10/16/2024 11:27: 48 Xr, Shoulder, 2 Or More View : [email or web address] Encrypted=gqJkAeuPV7lHomS Uv6g%8LUTnuLftob8ojtb%2Fg 8IWg8vvXkxN8pAuDKhavTv9Og CDLpUcvETC1sMuEPrwb21u622 5NC3EwxcyKSzDlZfFlpUiR Not Available [facility] 10/16/2024 11:27: 50 Problems Name Problem SNOMED Code Status Onset Date Resolution Date Notes Provider Name and Address Organization Details Recorded Time No complaints 094079016 Active Status : 'A'; Not Available [facility] 09:25:45 Lesion of lung 981180751 Active 2023 ROXANA SEGURA [facility] 12:17:47 Problem Notes None recorded. Procedures Surgical History Date Name Laterality Status Provider Name and Address Organization Details Recorded Time 4 37904 Therapeutic Exercise (1:1) completed Shaun Bynum, LABOR COMMISSIONER [address], [place], [address], [facility] 08/14/2024 14:53:22 4 52660 Therapeutic Exercise (1:1) completed Karlee Cardona, PT [address], [place], [address], [facility] 08/10/2024 23:13:44 4 75576 Therapeutic Exercise (1:1) completed Shaun Bynum, LABOR COMMISSIONER [address], [place], [address], [facility] 08/07/2024 14:30:15 4 72404 Therapeutic Exercise (1:1) completed Karlee Cardona, PT [address], [place], [address], [facility] 08/03/2024 22:12:27 4 50676 Therapeutic Exercise (1:1) completed Shaun Bynum, LABOR COMMISSIONER [address], [place], [address], [facility] 07/31/2024 15:16:09 4 90964 Therapeutic Exercise (1:1) completed Karlee Cardona, PT [address], [place], [address], [facility] 07/29/2024 06:56:55 4 23527 Therapeutic Exercise (1:1) completed Shaun Bynum LABOR COMMISSIONER [address], [place], [address], [facility] 07/24/2024 14:19:39 4 60623 Therapeutic Exercise (1:1) completed Karlee Cardona, PT [address], [place], [address], [facility] 07/21/2024 22:35:29 4 84280 Therapeutic Exercise (1:1) completed Shaun Bynum LABOR COMMISSIONER [address], [place], [address], [facility] 07/17/2024 14:07:03 4 04295 Therapeutic Exercise (1:1) completed Karlee Cardona, PT [address], [place], [address], [facility] 07/15/2024 00:17:13 4 45173 Therapeutic Exercise (1:1) completed Shaun Bynum LABOR COMMISSIONER [address], [place], [address], [facility] 07/11/2024 09:03:20 4 03459: Manual therapy completed Shaun Bynum LABOR COMMISSIONER [address], [place], [address], [facility] 07/11/2024 09:05:30 4 54493 Therapeutic Exercise (1:1) completed Shaun Bynum LABOR COMMISSIONER [address], [place], [address], [facility] 07/08/2024 07:52:09 4 84906 Therapeutic Exercise (1:1) completed Belkis Calderon, LABOR COMMISSIONER [address], [place], [address], [facility] 07/04/2024 16:55:00 4 63229 Therapeutic Exercise (1:1) completed Karlee Cardona, PT [address], [place], [address], [facility] 06/30/2024 23:19:58 4 96155 Therapeutic Exercise (1:1) completed Shaun Bynum PTA [address], [place], [address], [facility] 06/26/2024 16:05:02 4 27790 Therapeutic Exercise (1:1) completed Karlee Cardona, PT [address], [place], [address], [facility] 06/22/2024 21:42:13 4 55815 Therapeutic Exercise (1:1) completed Shaun Bynum PTA [address], [place], [address], [facility] 06/20/2024 07:57:57 4 11954 Therapeutic Exercise (1:1) completed Belkis Calderon PTA [address], [place], [address], [facility] 06/16/2024 16:32:39 4 11546 Therapeutic Exercise (1:1) completed Shaun Bynum LABOR COMMISSIONER [address], [place], [address], [facility] 06/12/2024 14:25:56 4 69266: Hot or Cold Pack completed Shaun Bynum, LABOR COMMISSIONER [address], [place], [address], [facility] 06/12/2024 13:24:39 4 79711 Therapeutic Exercise (1:1) completed Shaun Bynum LABOR COMMISSIONER [address], [place], [address], [facility] 06/09/2024 11:25:26 4 34012: Hot or Cold Pack completed Shaun Bynum LABOR COMMISSIONER [address], [place], [address], [facility] 06/09/2024 11:25:15 4 99050 Therapeutic Exercise (1:1) completed Karlee Cardona, PT [address], [place], [address], [facility] 06/06/2024 11:55:51 4 11947: Low complexity PT Eval completed Karlee Cardona, PT [address], [place], [address], [facility] 06/06/2024 12:05:01 4 G8417 BMI Above Upper Parameters, F/U Documented completed Karlee Cardona, PT [address], [place], [address], [facility] 06/04/2024 23:07:37 4 G8427 Current Medication Documented completed Karlee Cardona, PT [address], [place], [address], [facility] 06/04/2024 23:07:42 Imaging Results None recorded. [...] Updated DateTime 10/16/2024 172.72 cm 33.3 kg/m2 32366.73 g Benton Quiles PA-C [address], [place], [address], [place] [facility] 10/16/2024 10:54:17 Social History Question Answer Notes LastModified by Organizat ion Details LastModified Time Tobacco Smoking Status Former Smoker DELFINA WARE [facility] 04/14/2024 12:55:54 When Did You Quit [...] Trouble N Gastrointestinal Disease N Heart Attack (HI) N Cholesterol N Diabetes N Autoimmune disease [...] SNOMED-CT Code Diagnosis ICD10 Code Diagnosis Note [id number] MD Graciela Maciel [address] [place] [address] 01/23/2024 14:24:25 02/07/2024 14:35:36 Osteoarthritis of right glenohumeral joint 3861276139 989060 M19.732 [id number] MD Graciela Maciel [address] [place] [address] 04/14/2024 12:50:00 05/02/2024 09:32:23 Osteoarthritis of joint of right shoulder region 4044953189 83744 M19.125 [id number] MD Graciela Maciel [address] [place] [address] 05/05/2024 12:38:26 05/23/2024 07:58:15 History of reverse prosthetic total arthroplasty of right shoulder 3424034580 8497200 Z96.986 [id number] LEYLA Britt [address] [place] [address] 06/04/2024 13:43:25 06/04/2024 14:23:02 Postoperative care [id number] Z48.89 [id number] Karlee Cardona, [facility] on PT [address] [place] [address] 06/05/2024 11:16:10 06/05/2024 12:43:47 Aftercare [id number] Z47.1 Z96.545 [id number] Shaun Bynum, [facility] on PT [address] [place] [address] 06/09/2024 10:31:54 06/09/2024 11:29:04 Aftercare [id number] Z47.1 Z96.395 [id number] Shaun Bynum, [facility] on PT [address] [place] [address] 06/12/2024 13:24:14 06/12/2024 14:34:20 Aftercare [id number] Z47.1 Z96.908 [id number] Belkis Calderon, [facility] on PT [address] [place] [address] 06/16/2024 15:22:58 06/16/2024 16:57:38 Aftercare [id number] Z47.1 Z96.263 [id number] Shaun Bynum, LABOR COMMISSIONER [facility] [address] [facility] [address] 06/20/2024 07:55:20 06/20/2024 08:44:46 Aftercare [id number] Z47.1 Z96.036 [id number] Karlee Cardona, PT [facility] [address] [facility] [address] 06/23/2024 17:19:55 06/24/2024 08:13:17 Aftercare [id number] Z47.1 Z96.623 [id number] Shaun Bynum, LABOR COMMISSIONER [facility] [address] [facility] [place] [address] 06/26/2024 15:52:23 06/26/2024 16:51:17 Aftercare [id number] Z47.1 Z96.751 [id number] Karlee Cardona, PT [facility] [address] [facility] [place] [address] 06/30/2024 14:52:31 06/30/2024 16:17:10 Aftercare [id number] Z47.1 Z96.626 [id number] Belkis Calderon, LABOR COMMISSIONER [facility] [address] [facility] [place] [address] 07/04/2024 15:55:01 07/08/2024 08:41:31 Aftercare [id number] Z47.1 Z96.337 [id number] Shaun Bynum, LABOR COMMISSIONER [facility] [address] [facility] [place] [address] 07/08/2024 07:51:39 07/08/2024 09:05:57 Aftercare [id number] Z47.1 Z96.274 [id number] Shaun Bynum, LABOR COMMISSIONER [facility] [address] [facility] [place] [address] 07/11/2024 07:53:22 07/11/2024 09:05:02 Aftercare [id number] Z47.1 Z96.988 [id number] Karlee Cardona, PT [facility] [address] [facility] [address] 07/14/2024 15:26:57 07/14/2024 17:08:10 Aftercare [id number] Z47.1 Z96.878 [id number] Shaun Bynum, LABOR COMMISSIONER [facility] on PT [address] [facility] [address] 07/17/2024 13:55:03 07/18/2024 07:36:28 Aftercare [id number] Z47.1 Z96.855 [id number] Karlee Cardona, PT [facility] on [address] [facility] [address] 07/21/2024 12:18:06 07/21/2024 14:42:16 Aftercare [id number] Z47.1 Z96.382 [id number] Shaun Bnyum, LABOR COMMISSIONER [facility] on [address] [facility] [address] 07/24/2024 13:50:28 07/24/2024 15:28:53 Aftercare [id number] Z47.1 Z96.268 [id number] Karlee Cardona, PT [facility] [address] [facility] [address] 07/28/2024 11:45:30 07/28/2024 14:45:16 Aftercare [id number] Z47.1 Z96.988 [id number] [facility] 2[facility] [address] [place] [address] 08/11/2024 13:48:05 09/05/2024 09:27:06 History of reverse prosthetic total arthroplasty of right shoulder [id number] [id number] Z96.258 [id number] Shaun Bynum, LABOR COMMISSIONER [facility] [address] [facility] [address] 07/31/2024 13:51:37 07/31/2024 15:25:10 Aftercare [id number] Z47.1 Z96.185 [id number] Karlee Cardona, PT [facility] [address] [facility] [address] 08/04/2024 10:50:03 08/04/2024 15:21:48 Aftercare [id number] Z47.1 Z96.846 [id number] Shaun Bynum, LABOR COMMISSIONER [facility] on [address] [facility] [place] [address] 08/07/2024 13:17:35 08/07/2024 15:58:33 Aftercare [id number] Z47.1 Z96.677 [id number] Karlee Cardona, PT [facility] [address] [facility] [address] 08/11/2024 10:49:49 08/11/2024 12:02:31 Aftercare [id number] Z47.1 Z96.035 [id number] Shaun Bynum, LABOR COMMISSIONER [facility] on [address] [facility] [address] 08/14/2024 14:47:52 08/15/2024 07:32:59 Aftercare [id number] Z47.1 Z96.165 [id number] Shaun Bynum, LABOR COMMISSIONER [facility] [address] [facility] [address] 08/21/2024 12:57:26 08/21/2024 15:12:52 Aftercare [id number] Z47.1 Z96.568 [id number] Karlee Cardona, PT [facility] [address] [facility] [address] 08/25/2024 11:44:19 08/25/2024 13:06:16 Aftercare [id number] Z47.1 Z96.264 [id number] Shaun Bynum, LABOR COMMISSIONER [facility] [address] [facility] [address] 08/28/2024 12:55:10 08/28/2024 14:27:04 Aftercare [id number] Z47.1 Z96.068 [id number] LEYLA Becerra [address] [place] [address] 08/29/2024 14:20:00 09/24/2024 10:23:26 Pain of left hand [id number] 10106 M79.032 [id number] Karlee Cardona, PT [facility] on [address] [place] [address] 09/01/2024 10:19:05 09/01/2024 11:46:47 Aftercare [id number] Z47.1 Z96.941 [id number] [facility] [address] [place] [address] 09/04/2024 12:58:01 09/04/2024 14:52:00 Aftercare [id number] Z47.1 Z96.059 [id number] Karlee Cardona, PT [facility] on [address] [place] [address] 09/08/2024 09:54:41 09/08/2024 11:09:28 Aftercare [id number] Z47.1 Z96.277 [id number] Shaun Bynum, [facility] [address] [place] [address] 09/11/2024 12:56:13 09/11/2024 14:05:48 Aftercare [id number] Z47.1 Z96.988 [id number] Karlee Cardona, PT [facility] [address] [place] [address] 09/15/2024 09:48:35 09/15/2024 11:22:28 Aftercare [id number] Z47.1 Z96.579 [id number] Karlee Cardona, PT [facility] [address] [place] [address] 09/22/2024 09:52:06 09/22/2024 11:01:20 Aftercare [id number] Z47.1 Z96.829 [id number] Shaun Bynum, [facility] [address] [place] [address] 09/25/2024 12:57:48 09/25/2024 14:13:34 Aftercare [id number] Z47.1 Z96.506 [id number] LEYLA Britt [address] [place] [address] 10/16/2024 10:49:03 11/11/2024 07:55:33 History of reverse prosthetic total arthroplasty of right shoulder [id number] [id number] Z96.611 Health Concerns Section Related Observation LastModified by Organization Detai ls LastModified Time None Recorded Concern Status LastModified by Organization Details LastModified Time None Recorded Advance Directives Directive None Recorded Payers Insurance Date Sequence Insurance Name Policy Number Policy Ferris Covered Member ID Ferris Member ID Guarantor Name 10/16/2024 1 [place] [employer] Pascale Oates [id number] Pascale Oates 11/11/2024 2 [place] [id number] Pascale Oates [id number] Pascale Oates 10/15/2024 NORIDIAN - SPECIALITY CLAIMS (MEDICARE DME REGION A) Pascale Oates [id number] Pascale Oates Notes Date Note Type Note Provider Name and Address Organization Details Recorded Time 09/11/2024 text/html Pt. reports that his shoulder is feeling overall ok, able to reach for the top cabinets without difficulty. Shaun Bynum, LABOR COMMISSIONER [address], [place], [address], [facility] 09/11/2024 13:55:35 09/15/2024 text/html Pt. reports that she has a little bit of biceps/upper arm soreness today. Pt also reports that she had a small episode of partial blacking out yesterday. It was the first one since being weaned off her seizure medication. She plans to call her MD about this. Karlee Cardnoa, PT [address], [place], [address], [facility] 09/15/2024 11:06:19 09/22/2024 text/html Pt. reports [...] Cardona, PT [address], [place], [address], [facility] 09/22/2024 11:11:50 09/25/2024 text/html Pt. reports to P T today feeling fatigue overall dt a busy day. States operative shoulder is feeling good. Would like a detailed HEP. Shaun Bynum, LABOR COMMISSIONER [address], [place], [address], [facility] 09/25/2024 13:54:48 10/16/2024 text/html I am [...] reviewed, updated and is located in the patient s chart. Examination: The patient is well [...] limits. X-rays ordered, obtained and reviewed at [facility] 3 views of the right reverse [...] an annual basis. Benton Quiles PA-C [address], [place], [address], [facility] [place] [facility] 10/16/2024 11:44:40 OBGyn Episode No OBEpisode recorded.
--- OUTSIDE RECORDS SUMMARY | 2025-05-05 11:48 | XMS_ITS | Patient Health Record ---
[facility] Organization [facility] Address [address] [place] [address] Care Team Providers Care Training Instructor Name Role Phone Patience Sherman MD Primary Care Provider Pascual Stephenson Unavailable [phone] Reason For Referral No Information Medications Medication SIG (Take, Route, Frequency, Duration) Notes Start Date End Date Status Potassium Active Metoprolol Succinate ER 50 MG 1 tablet Orally Once a day A ctive Calcium Active Problems Problem Type SNOMED Code ICD Code Onset Dates Problem Status W/U Status Risk Notes Problem 705595800 Encounter for screening for malignant neoplasm of colon (Z12.11) Active confirmed Problem 670391375 History of adenomatous polyp of colon (Z86.010) Active confirmed Problem Screening for malignant neoplasm of rectum (358090795) Encounter for screening for malignant neoplasm of rectum (Z12.12) Active confirmed Problem 08876558 Preprocedural examination (Z01.818) Active confirmed Plan Of Treatment Future Test Test Name Order Date COLONOSCOPY 12/22/2015 Insurance Providers Payer Name Payer Address Payer Phone Subscriber Number Group Number Insured Name Patient Relationship to Insured Coverage Start Date Coverage End Date [facility] [address] [place] [phone] [id number] FEROZ HENRIQUEZ Self - patient is the insured Medical (General) History Medical History History ICD Code Screening colonoscopy 009--2 small tubular adenomas removed, sigmoid diverticulosis, and internal hemorrhoids Denies [place],DM,CVA,Lung disease,renal dise ase HTN Surgical History Surgery Date(Month/Year) right knee replacement in 06/2008 left knee replacement in 2008 cholecystectomy Breast biopsies-benign
== END 2025-05-05 10:36 | disposition home or self-care (01) ==
LOC: HO.CT 10:35
PROVIDERS: PCP Internal Medicine; Visit Provider Internal Medicine
DX: J98.4 Other disorders of lung (principal)
CPT/HCPCS: 71250

== ENCOUNTER → 2025-05-05 10:37 | Outpatient (BNV) | payer MEDICARE, SELFPAY | PROVIDERS: PCP Internal Medicine; Visit Provider Radiology Diagnostic Radiology | DX: R91.1 Solitary pulmonary nodule (principal) | CPT/HCPCS: 71250 ==

== ENCOUNTER 2025-05-27 10:21 | Outpatient (REF) | payer MEDICARE, SELFPAY ==
--- OUTSIDE RECORDS SUMMARY | 2025-04-01 07:30 | XMS_ITS ---
Author Organization [facility] Address [address] [place] [address] Care Team Providers Care Bee Raiser Name Role Phone Patience Sherman Primary Care Provider Mignon Peralta [phone] Encounters Encounter Location Date Provider Diagnosis [address] [address] 04/01/2025 Mignon Mejias Plan Of Treatment Next Appt Details Provider Name:Mignon key, 07/27/2025 02:45:00 PM, [address] [place] [address], [phone], Progress Notes * Pascale CARDONA EDOB:[birth year] (80 yo F)Acc No.[id number]:04/01/2025 Progress Note Patient: Radhika HENAOeva Matthews Provider: Jp Mejias DPM :1945 A ge:80 Y S ex:Female Date:04/01/2025 Address:[address] [place] [address] Pcp:Patience Sherman Subjective: * Chief Complaints: * * Medical History: Objective: * Vitals: Assessment: Plan: * Treatment: * Images: * The named appointment provid er may or may not be the originator of this progress note, and it is not deemed complete until electronically signed by the appointment provider. Sign off status: Pending * Provider: Jp Mejias, DPJocelin Date: 0 04/01/2025 Generated for Alisia nur/Reilly/Danisha on: 0 05/27/2025 11:26 AM EDT
--- NOTE | 2025-05-27 10:24 | EMG_ITS ---
Chief complaint: Right hand numbness, digits 1-4 Reason for referral: Evaluate for Carpal Tunnel Syndrome Referred by: Magdalena ESPINOZA Procedure done: Right upper extremity NCS/EMG Precautions and/or limitations: None The limb temperature was monitored continuously and remained between 32-36 degrees C during the performance of the NCS. Nerve Conduction Studies Anti Sensory Summary Table ?Stim Site NR Onset (ms) Norm Onset (ms) Peak (ms) Norm Peak (ms) O-P Amp (?V) Norm O-P Amp Site1 Site2 Delta-0 (ms) Dist (cm) Carlton (m/s) Norm Carlton (m/s) Right Median Anti Sensory (2nd Digit) Wrist NR <3.6 >10 Wrist 2nd Digit 14.0 Right Radial Anti Sensory (Thumb) Forearm ? 1.6 2.3 <3.1 18.3 Forearm Thumb 1.6 0.0 Right Ulnar Anti Sensory (5th Digit) Wrist ? 2.5 3.2 <3.7 13.9 >15.0 Wrist 5th Digit 2.5 14.0 56 Motor Summary Table ?Stim Site NR Onset (ms) Norm Onset (ms) O-P Amp (mV) Norm O-P Amp iAmp (mV) Amp (1st) (%) Site1 Site2 Delta-0 (ms) Dist (cm) Carlton (m/s) Norm Carlton (m/s) Right Median Motor (Abd Poll Brev) Wrist ? 9.7 <3.9 7.1 >4.5 8.3 100.0 Elbow Wrist 5.0 21.0 42 >45 Elbow ? 14.7 6.9 8.1 97.2 Right Ulnar Motor (Abd Dig Minimi) Wrist ? 3.0 <3.0 8.7 >5 10.5 100.0 B Elbow Wrist 4.3 20.0 47 >45 B Elbow ? 7.3 7.6 9.3 87.4 A Elbow B Elbow 1.5 10.0 67 >45 A Elbow ? 8.8 7.7 9.5 88.5 EMG ?Side Muscle Nerve Root Ins Act Fibs Psw Amp Dur Poly Recrt Int Pat Comment Right 1stDorInt Ulnar C8-T1 Nml Nml Nml Nml Nml 0 Nml Complete Right FlexCarRad Median C6-7 Nml Nml Nml Nml Nml 0 Nml Complete Right Biceps Musculocut C5-6 Nml Nml Nml Nml Nml 0 Nml Complete Right Triceps Radial C6-7-8 Nml Nml Nml Nml Nml 0 Nml Complete Right Deltoid Axillary C5-6 Nml Nml Nml Nml Nml 0 Nml Complete FINDINGS: Right median motor nerve showed prolonged distal latency, normal amplitude and slow conduction velocity. Right median sensory nerve showed absent response. All other nerves tested were within normal. Concentric needle EMG was performed in selected muscles of the right upper extremity. Study did not reveal signs of electric abnormalities as shown in the table above. IMPRESSION: 1. This is an abnormal study. 2. There is electrodiagnostic evidence for right moderate-severe median neuropathy at the wrist, consistent with carpal tunnel syndrome. 3. There is no electrodiagnostic evidence for ulnar neuropathy, brachial plexopathy, or cervical radiculopathy. Thank you for your kind referral. Domonique Epps MD, JOHN Board Certified, [place] [employer] and [employer] (ABPMR) Board Certified, [place] Board [employer] Electrodiagnostic Medicine (ABEM) [place] [id number] [facility]
--- OUTSIDE RECORDS SUMMARY | 2025-05-27 11:26 | XMS_ITS | Patient Health Record ---
Author Organization [facility] Address [address] [place] [address] Care Team Providers Care Roll Cleaner Name Role Phone Patience Sherman MD Primary Care Provider Pascual Stephenson Unavailable [phone] Reason For Referral No Information Medications Medication SIG (Take, Route, Frequency, Duration) Notes Start Date End Date Status Potassium Active Metoprolol Succinate ER 50 MG 1 tablet Orally Once a day A ctive Calcium Active Problems Problem Type SNOMED Code ICD Code Onset Dates Problem Status W/U Status Risk Notes Problem [id number] Encounter for screening for malignant neoplasm of colon (Z12.11) Active confirmed Problem 240607568 History of adenomatous polyp of colon (Z86.010) Active confirmed Problem Screening for malignant neoplasm of rectum (246009442) Encounter for screening for malignant neoplasm of rectum (Z12.12) Active confirmed Problem 62814237 Preprocedural examination (Z01.818) Active confirmed Plan Of Treatment Future Test Test Name Order Date COLONOSCOPY 12/22/2015 Insurance Providers Payer Name Payer Address Payer Phone Subscriber Number Group Number Insured Name Patient Relationship to Insured Coverage Start Date Coverage End Date [facility] [address] [place] [phone] [id number] FEROZ HENRIQUEZ Self - patient is the insured Medical (General) History Medical History History ICD Code Screening colonoscopy 009--2 small tubular adenomas removed, sigmoid diverticulosis, and internal hemorrhoids Denies [place],DM,CVA,Lung disease,renal dise ase HTN Surgical History Surgery Date(Month/Year) right knee replacement in 06/2008 left knee replacement in 2008 cholecystectomy Breast biopsies-benign
--- OUTSIDE RECORDS SUMMARY | 2025-05-27 11:26 | XMS_ITS | Data Portability ---
Author Organization MARTINA Jairo Douglas [facility]geons [facility], [facility] Address [address] [place] [address] Care Team Providers Care Auto Glass Worker Name Role Phone BRICE ORTEGA Referring Provider [phone] BRICE ORTEGA Primary Care Provider [phone] Assessment Encounter Date Assessment Date Assessment LastModified [...] AT 4 MONTHS, BEGINNING WITH HALF SWINGS; BEAD CUTTER AT 6 MONTHS TENNIS/PICKLE BALL: BALL [...] AT 4 MONTHS, BEGINNING WITH HALF SWINGS; BEAD CUTTER AT 6 MONTHS TENNIS/PICKLE BALL: BALL AGAINST WALL, VERY LIGHT RALLIES AT 4 MONTHS; NO COMPETITIVE GAMES UNTIL AFTER 6 MONTHS NO CONTACT SPORTS FOR AT LEAST 6 MONTHS [email or web address] Not available 09/15/2024 10:55:29 09/22/2024 09/22/2024 Assessment: Pt has made very good progress with PT treatments with progressively increasing mobility, strength & functional use of the right shoulder. She does still have some ADL/functional deficits but can compensate with left arm as needed. Almost all goals met. Pt is independent with her [facility]. Plan: Continue PT 1 more session then D/C to [facility] PHYSICAL THERAPIST REFERRAL - S/P [...] AT 4 MONTHS, BEGINNING WITH HALF SWINGS; BEAD CUTTER AT 6 MONTHS TENNIS/PICKLE BALL: BALL AGAINST WALL, VERY LIGHT RALLIES AT 4 MONTHS; NO COMPETITIVE GAMES UNTIL AFTER 6 MONTHS NO CONTACT SPORTS FOR AT LEAST 6 MONTHS [email or web address] Not available 09/22/2024 11:11:14 09/25/2024 09/25/2024 Assessment: Pt. tolerated all exercises well while demonstrating proper periscapular and RC mechanics with minimal fatigue levels achieved. Updated Independent [facility], reviewed with Pt. and answered further questions. Plan: D/C to Independent [facility] PHYSICAL THERAPIST REFERRAL - S/P [...] AT 4 MONTHS, BEGINNING WITH HALF SWINGS; BEAD CUTTER AT 6 MONTHS TENNIS/PICKLE BALL: BALL AGAINST WALL, VERY LIGHT RALLIES AT 4 MONTHS; NO COMPETITIVE GAMES UNTIL AFTER 6 MONTHS NO CONTACT SPORTS FOR AT LEAST 6 MONTHS [email or web address] Not available 09/25/2024 13:54:09 Plan of Treatment [...] [facility], [address], [address], [place], [address], 5 07:55:33 Medication Orders None recorde d. Patient TargetsNo targets recorded. Patient InstructionsNo instructions recorded. Reason for Referral None Reported. Results Created Date Observation Date Name Description Value Unit Range Abnormal Flag Note LastModifiedBy Organization Detail LastModifiedTime 08/11/2008/11/2024 XR, beth onelia, 2 or more view [email or web address]:/ [email or web address] ?Encry pted=s hAaTro YD8dLq bEUv6g %2BXZw aYqtaq 0bqfl% 2Fg9IQ a4ajBk vP9nXo QUaueC m3YtLR FvZlgJ JJ8mAn HZtai3 4q6518 AC0Kqa nWAWaS vKiQtr MwF INTERFACE [facility] [address], [place], [address], 08/11/2024 14:13:43 08/11/20 24 08/11/2024 XR, shoul onelia, 2 or more view [email or web address]:/ [email or web address] ?Encry pted=s hAaTro YD8dLq bEUv6g %2BXZw aYqtaq 0bqfl% 2Fg9IQ a4ajBk vP9nXo QUaueC m3YtLR FvZl JJ8Ellenton HZtai3 5b8377 AC0Kqa nWAWaS vKiQtr MwF INTERFACE [facility] [address], [place], [address], 08/11/2024 14:13:45 08/29/20 24 08/29/2024 XR, hand, 3 or more view [email or web address]:/ [email or web address] ?Encry pted=s hAaTro YD8dLq bEUv6g %2BXZw aYqtaq 0bqfl% 2Fg9IQ a4ajBk vP9nXo QUaueC m3YtLR FvZlgJ JJ8mAn HZtai3 1g1108 AC0Kqa HyCUaO jKiQtr MwF INTERFACE [facility] [address], [place], [address], 08/29/2024 14:55:51 08/29/20 24 08/29/2024 XR, hand, 3 or more view [email or web address]:/ [email or web address] ?Encry pted=s hAaTro YD8dLq bEUv6g %2BXZw aYqtaq 0bqfl% 2Fg9IQ a4ajBk vP9nXo QUaueC m3YtLR FvZlgJ JJ8mAn HZtai3 1w4574 AC0Kqa HyCUaO jKiQtr MwF INTERFACE [facility] [address], [place], [address], 08/29/2024 14:55:55 10/16/20 24 10/16/2024 XR, shoul onelia, 2 or more view [email or web address]:/ [email or web address] ?Encry pted=s hAaTro YD8dLq bEUv6g %2BXZw aYqtaq 0bqfl% 2Fg9IQ a4ajBk vP9nXo QUaueC m3YtLR FvZlgJ JJ8mAn HZtai3 8o6058 AC0Kqb nyBVaW gKiQtr MwF INTERFACE [facility] [address], [place], [address], 10/16/2024 11:27:48 10/16/20 24 10/16/2024 XR, shoul onelia, 2 or more view http:/ [email or web address] ?Encry pted=s hAaTro YD8dLq bEUv6g %2BXZw aYqtaq 0bqfl% 2Fg9IQ a4ajBk vP9nXo QUaueC m3YtLR FvZlgJ JJ8mAn HZtai3 6x5559 AC0Kqb nyBVaW gKiQtr MwF INTERFACE [facility] [address], [place], [address], 10/16/2024 11:27:50 Result Notes Documentation Provider Name and Address Organization Details Recorded Time Xr, Shoulder, 2 Or More View : [email or web address] Encrypted=epIrTsuUH5nSykU Uv6g%5NOYxdSiwwl3vthp%2Fg 6DQb4xjDvwE6jMgEQylqSh6Xy CGDgBjkPOW0vKwBPkaj22e846 6OH9JdjwbBToEpMpBjwHbS Not Available [facility] 10/16/2024 11:27: 48 Xr, Shoulder, 2 Or More View : [email or web address] Encrypted=ghCpBbsFF3kJycB Uv6g%1VUOtiScqzw2rrwh%2Fg 2ZXc0xpRyrI9xAcBUegcMd1Qm BGRjWrpWJG9qYmXFhzr59i537 1GT4MiudqNSsIgDhCryRqY Not Available Critical [facility] hospital 10/16/2024 11:27: 50 Problems Name Problem SNOMED Code Status Onset Date Resolution Date Notes Provider Name and Address Organization Details Recorded Time No complaints 400485524 Active Status : 'A'; Not Available Critical access hospital 09:25:45 Lesion of lung 426301511 Active 2023 ROXANA SEGURA [facility] 12:17:47 Problem Notes None recorded. Procedures Surgical History Date Name Laterality Status Provider Name and Address Organization Details Recorded Time 4 67744 Therapeutic Exercise (1:1) completed Shaun Bynum, T RAIL TURNER [address], [place], [address], [facility] 09/25/2024 13:09:57 4 00895 Therapeutic Exercise (1:1) completed Karlee Cardona, PT [address], [place], [address], [facility] 09/22/2024 08:27:23 4 71326 Therapeutic Exercise (1:1) cancelled Shaun Bynum, T RAIL TURNER [address], [place], [address], [facility] 09/18/2024 08:00:11 06947 Therapeutic Exercise (1:1) completed Karlee Cardona, PT [address], [place], [address], [facility] 09/15/2024 10:52:23 4 17066 Therapeutic Exercise (1:1) completed Shaun Bynum, T RAIL TURNER [address], [place], [address], [facility] 09/11/2024 12:57:17 4 80800 Therapeutic Exercise (1:1) completed Karlee Cardona, PT [address], [place], [address], [facility] 09/08/2024 14:35:52 4 02878 Therapeutic Exercise (1:1) completed Shaun Bynum, T RAIL TURNER [address], [place], [address], [facility] 09/04/2024 13:00:42 4 82680 Therapeutic Exercise (1:1) completed Karlee Cardona, PT [address], [place], [address], [facility] 09/01/2024 11:31:50 4 Carpal Tunnel Kenalog 1cc injection, L/R completed Angie Garcia PA-C [address], [place], [address], [facility] 08/29/2024 15:18:46 Tendon Sheath Kenalog Injection, L/R completed Angie Garcia PA-C [address], [place], [address], [facility] 08/29/2024 15:18:50 4 52118 Therapeutic Exercise (1:1) completed Shaun Bynum, T RAIL TURNER [address], [place], [address], [facility] 08/28/2024 14:03:31 4 36367 Therapeutic Exercise (1:1) completed Karlee Cardona, PT [address], [place], [address], [facility] 08/25/2024 13:57:44 88424 Therapeutic Exercise (1:1) completed Shaun Bynum, T RAIL TURNER [address], [place], [address], [facility] 08/21/2024 12:59:07 88199 Therapeutic Exercise (1:1) cancelled Karlee Cardona, PT [address], [place], [address], [facility] 08/18/2024 21:27:34 4 10364 Therapeutic Exercise (1:1) completed Shaun Bynum T RAIL TURNER [address], [place], [address], [facility] 08/14/2024 14:53:22 19426 Therapeutic Exercise (1:1) completed Karlee Cardona, PT [address], [place], [address], [facility] 08/10/2024 23:13:44 09457 Therapeutic Exercise (1:1) completed Shaun Bynum PTA [address], [place], [address], [facility] 08/07/2024 14:30:15 43677 Therapeutic Exercise (1:1) completed Karlee Cardona, PT [address], [place], [address], [facility] 08/03/2024 22:12:27 80295 Therapeutic Exercise (1:1) completed Shaun Bynum PTA [address], [place], [address], [facility] 07/31/2024 15:16:09 4 20724 Therapeutic Exercise (1:1) completed Karlee Cardona, PT [address], [place], [address], [facility] 07/29/2024 06:56:55 4 40529 Therapeutic Exercise (1:1) completed Shaun Bynum, T RAIL TURNER [address], [place], [address], [facility] 07/24/2024 14:19:39 4 37221 Therapeutic Exercise (1:1) completed Karlee Cardona, PT [address], [place], [address], [facility] 07/21/2024 22:35:29 4 04290 Therapeutic Exercise (1:1) completed Shaun Bynum, T RAIL TURNER [address], [place], [address], [facility] 07/17/2024 14:07:03 4 10421 Therapeutic Exercise (1:1) completed Karlee Cardona, PT [address], [place], [address], [facility] 07/15/2024 00:17:13 4 20367 Therapeutic Exercise (1:1) completed Shaun Bynum PTA [address], [place], [address], [facility] 07/11/2024 09:03:20 4 36496: Manual therapy completed Shaun Bynum PTA [address], [place], [address], [facility] 07/11/2024 09:05:30 4 07105 Therapeutic Exercise (1:1) completed Shaun Bynum T RAIL TURNER [address], [place], [address], [facility] 07/08/2024 07:52:09 4 03169 Therapeutic Exercise (1:1) completed Belkis Calderon PTA [address], [place], [address], [facility] 07/04/2024 16:55:00 4 55929 Therapeutic Exercise (1:1) completed Karlee Cardona, PT [address], [place], [address], [facility] 06/30/2024 23:19:58 4 28784 Therapeutic Exercise (1:1) completed Shaun Bynum PTA [address], [place], [address], [facility] 06/26/2024 16:05:02 4 59339 Therapeutic Exercise (1:1) completed Karlee Cardona PT [address], [place], [address], [facility] 06/22/2024 21:42:13 4 88560 Therapeutic Exercise (1:1) completed Shaun Bynum PTA [address], [place], [address], [facility] 06/20/2024 07:57:57 4 09235 Therapeutic Exercise (1:1) completed Belkis Calderon PTA [address], [place], [address], [facility] 06/16/2024 16:32:39 4 62277 Therapeutic Exercise (1:1) completed Shaun Bynum PTA [address], [place], [address], [facility] 06/12/2024 14:25:56 4 13647: Hot or Cold Pack completed Shaun Bynum PTA [address], [place], [address], [facility] 06/12/2024 13:24:39 4 35474 Therapeutic Exercise (1:1) completed Shaun Bynum, T RAIL TURNER [address], [place], [address], [facility] 06/09/2024 11:25:26 4 72839: Hot or Cold Pack completed Shaun Bynum, T RAIL TURNER [address], [place], [address], [facility] 06/09/2024 11:25:15 4 23757 Therapeutic Exercise (1:1) completed Karlee Cardona, PT [address], [place], [address], [facility] 06/06/2024 11:55:51 4 54246: Low complexity PT Eval completed Karlee Cardona, PT [address], [place], [address], [facility] 06/06/2024 12:05:01 4 G8417 BMI Above Upper Parameters, F/U Documented completed Karlee Cardona, PT [address] [facility], [place], [address], [facility] 06/04/2024 23:07:37 4 G8427 Current Medication Documented completed Karlee Cardona, PT [address] [facility], [place], [address], [facility] 06/04/2024 23:07:42 Knee Surgery completed DELFINA WARE [facility] 04/14/2024 12:55:58 Hand Surgery completed DELFINA WARE [facility] 04/14/2024 12:55:58 Imaging Results None recorded. Procedure Notes None [...] Updated DateTime 10/16/2024 172.72 cm 33.3 kg/m2 38583.73 g [address], [place], [address], [place] [facility] 10/16/2024 10:54:17 Social History Question Answer Notes LastModified by Organizat ion Details LastModified Time Tobacco Smoking Status Former Smoker DELFINA gracia [place] - [place] [facility] 04/14/2024 12:55:54 When Did You Quit [...] Kidney/Bladder Problems N Anemia N Heart Attack (SC) N Cholesterol N Diabetes N Bleeding Disorder [...] SNOMED-CT Code Diagnosis ICD10 Code Diagnosis Note [id number] MD Graciela Maciel 2nd floor [address] [place] [address] 01/23/2024 14:24:25 02/07/2024 14:35:36 Osteoarthritis of right glenohumeral joint 0052372683 939121 M19.276 [id number] MD Graciela Maciel [address]nd [address] [place] [address] 04/14/2024 12:50:00 05/02/2024 09:32:23 Osteoarthritis of joint of right shoulder region 7192696862 47445 M19.032 [id number] MD Graciela Maciel 2nd [address] [place] [address] 05/05/2024 12:38:26 05/23/2024 07:58:15 History of reverse prosthetic total arthroplasty of right shoulder 7971010027 2151736 Z96.564 [id number] LEYLA Britt 2nd [address] [place] [address] 06/04/2024 13:43:25 06/04/2024 14:23:02 Postoperative care [id number] Z48.89 [id number] Karlee Cardona, PT [facility] [address] [facility] [place] [address] 06/05/2024 11:16:10 06/05/2024 12:43:47 Aftercare [id number] Z47.1 Z96.385 [id number] Shaun Bynum, [facility] on PT [address] [facility] [address] 06/09/2024 10:31:54 06/09/2024 11:29:04 Aftercare [id number] Z47.1 Z96.789 [id number] [facility] [address] [facility] [address] 06/12/2024 13:24:14 06/12/2024 14:34:20 Aftercare [id number] Z47.1 Z96.695 [id number] [facility] [address] [facility] [address] 06/16/2024 15:22:58 06/16/2024 16:57:38 Aftercare [id number] Z47.1 Z96.850 [id number] Shaun Bynum, [facility] [address] [facility] [address] 06/20/2024 07:55:20 06/20/2024 08:44:46 Aftercare [id number] Z47.1 Z96.696 [id number] Karlee Cardona, PT [facility] PT [address] [facility] [place] [address] 06/23/2024 17:19:55 06/24/2024 08:13:17 Aftercare [id number] Z47.1 Z96.338 [id number] Shaun Bynum, T RAIL T[facility] [facility] PT [address] [facility] [place] [address] 06/26/2024 15:52:23 06/26/2024 16:51:17 Aftercare [id number] Z47.1 Z96.085 [id number] Karlee Cardona, PT [facility] PT [address] [facility] [address] 06/30/2024 14:52:31 06/30/2024 16:17:10 Aftercare [id number] Z47.1 Z96.572 [id number] Belkis Yumiko, T RAIL T[facility]NER [facility] PT [address] [facility] [place] [address] 07/04/2024 15:55:01 07/08/2024 08:41:31 Aftercare [id number] Z47.1 Z96.962 [id number] Shaun Bynum, T RA[facility] T[facility] PT [address] [facility] [place] [address] 07/08/2024 07:51:39 07/08/2024 09:05:57 Aftercare [id number] Z47.1 Z96.349 [id number] Shaun Bynum, T RA[facility] PT [address] [facility] [place] [address] 07/11/2024 07:53:22 07/11/2024 09:05:02 Aftercare [id number] Z47.1 Z96.051 [id number] Karlee Cardona, PT [facility] [address] [facility] [place] [address] 07/14/2024 15:26:57 07/14/2024 17:08:10 Aftercare [id number] Z47.1 Z96.582 [id number] Shaun Bynum, T [facility] [address] [place] [address] 07/17/2024 13:55:03 07/18/2024 07:36:28 Aftercare [id number] Z47.1 Z96.681 [id number] Karlee Cardona, PT [facility] [address] [place] [address] 07/21/2024 12:18:06 07/21/2024 14:42:16 Aftercare [id number] Z47.1 Z96.431 [id number] hSaun Bynum, T RAIL [facility]NER [facility] [address] [place] [address] 07/24/2024 13:50:28 07/24/2024 15:28:53 Aftercare [id number] Z47.1 Z96.093 [id number] Karlee Cardona, PT [facility] [address] [place] [address] 07/28/2024 11:45:30 07/28/2024 14:45:16 Aftercare [id number] Z47.1 Z96.072 [id number] Laurence Simms MD [facility] 2nd floor [address] [place] [address] 08/11/2024 13:48:05 09/05/2024 09:27:06 History of reverse prosthetic total arthroplasty of right shoulder [id number] [id number] Z96.479 [id number] Shaun Bynum, T RA[facility] [address] [place] [address] 07/31/2024 13:51:37 07/31/2024 15:25:10 Aftercare [id number] Z47.1 Z96.613 [id number] Karlee Cardona, PT [facility] [address] [facility] [place] [address] 08/04/2024 10:50:03 08/04/2024 15:21:48 Aftercare [id number] Z47.1 Z96.751 [id number] Shaun Bynum, T RAIL TURNER [facility] [address] [facility] [place] [address] 08/07/2024 13:17:35 08/07/2024 15:58:33 Aftercare [id number] Z47.1 Z96.904 [id number] Karlee Cardona, PT [facility] [address] [facility] [address] 08/11/2024 10:49:49 08/11/2024 12:02:31 Aftercare [id number] Z47.1 Z96.263 [id number] Shaun Bynum, T RAIL TURNER [facility] PT [address] [facility] [place] [address] 08/14/2024 14:47:52 08/15/2024 07:32:59 Aftercare [id number] Z47.1 Z96.382 [id number] Shaun Bynum, T RAIL TURNER [facility] PT [address] [facility] [address] 08/21/2024 12:57:26 08/21/2024 15:12:52 Aftercare [id number] Z47.1 Z96.680 [id number] Karlee Cardona, PT [facility] [address] [facility] [address] 08/25/2024 11:44:19 08/25/2024 13:06:16 Aftercare [id number] Z47.1 Z96.577 [id number] Shaun Bynum, T RAIL TURNER [facility] [address] [facility] [address] 08/28/2024 12:55:10 08/28/2024 14:27:04 Aftercare [id number] Z47.1 Z96.941 [id number] LEYLA Becerra [address] [address] 08/29/2024 14:20:00 09/24/2024 10:23:26 Pain of left hand [id number] 44186 M79.204 [id number] Karlee Cardona, PT [facility] [address] [facility] [address] 09/01/2024 10:19:05 09/01/2024 11:46:47 Aftercare [id number] Z47.1 Z96.576 [id number] Shaun Bynum, T RAIL TURNER [facility] on PT [address] [facility] [address] 09/04/2024 12:58:01 09/04/2024 14:52:00 Aftercare [id number] Z47.1 Z96.427 [id number] Karlee Cardona, PT [facility] [address] [facility] [address] 09/08/2024 09:54:41 09/08/2024 11:09:28 Aftercare [id number] Z47.1 Z96.626 [id number] Shaun Bynum, T RAIL TURNER [facility] on PT [address] [facility] [address] 09/11/2024 12:56:13 09/11/2024 14:05:48 Aftercare [id number] Z47.1 Z96.919 [id number] Karlee Cardona, PT [facility] [address] [facility] [address] 09/15/2024 09:48:35 09/15/2024 11:22:28 Aftercare [id number] Z47.1 Z96.823 [id number] Karlee Cardona, PT [facility] [address] [facility] [address] 09/22/2024 09:52:06 09/22/2024 11:01:20 Aftercare [id number] Z47.1 Z96.210 [id number] [facility] [address] [facility] [address] 09/25/2024 12:57:48 09/25/2024 14:13:34 Aftercare [id number] Z47.1 Z96.607 [id number] LEYLA Britt 2nd floor [address] [place] [address] 10/16/2024 10:49:03 11/11/2024 07:55:33 History of reverse prosthetic total arthroplasty of right shoulder [id number] Z96.611 Health Concerns Section Related Observation LastModified by Organization Detai ls LastModified Time None Recorded Concern Status LastModified by Organization Details LastModified Time None Recorded Advance Directives Directive None Recorded Payers Insurance Date Sequence Insurance Name Policy Number Policy Ferris Covered Member ID Ferris Member ID Guarantor Name 10/16/2024 1 [place] [employer] Pascale Cassie Lashon [id number] P[place]ale Oates 11/11/2024 2 [place] [id number] Pascale Oates [id number] Pascale Oates 10/15/2024 [employer] - SPECIALITY CLAIMS (MEDICARE DME REGION A) Pascale Oates [id number] P[place]ale Oates Notes Date Note Type Note Provider Name and Address Organization Details Recorded Time 09/11/2024 text/html Pt. reports that his shoulder is feeling overall ok, able to reach for the top cabinets without difficulty. Shaun Bynum, T RAIL TURNER [address], [place], [address], [facility] 09/11/2024 13:55:35 09/15/2024 text/html Pt. reports that she has a little bit of biceps/upper arm soreness today. Pt also reports that she had a small episode of partial blacking out yesterday. It was the first one since being weaned off her seizure medication. She plans to call her MD about this. Karlee Cardona, PT [address], [place], [address], [facility] 09/15/2024 11:06:19 09/22/2024 text/html Pt. reports [...] Cardona, PT [address], [place], [address], [facility] 09/22/2024 11:11:50 09/25/2024 text/html Pt. reports to P T today feeling fatigue overall dt a busy day. States operative shoulder is feeling good. Would like a detailed HEP. Shaun Bynum, T RAIL [employer] [address] [facility] [address], [place], [address], [facility] 09/25/2024 13:54:48 10/16/2024 text/html I am [...] limits. X-rays ordered, obtained and reviewed at [facility] 3 views of the right reverse [...] an annual basis. Benton Quiles PA-C [address], [place], [address], [facility] 10/16/2024 11:44:40 OBGyn Episode No OBEpisode recorded.
== END 2025-05-27 10:22 | disposition home or self-care (01) ==
LOC: HO.NEURO 10:21
PROVIDERS: PCP Internal Medicine
DX: R20.0 Anesthesia of skin (principal); R94.131 Abnormal electromyogram [EMG]
CPT/HCPCS: 95886; 95909

== ENCOUNTER → 2025-05-27 10:24 | Outpatient (BNV) | payer MEDICARE, SELFPAY | PROVIDERS: PCP Internal Medicine; Visit Provider Physical Medicine & Rehabilitation | DX: G56.03 Carpal tunnel syndrome, bilateral upper limbs (principal) | CPT/HCPCS: 95886; 95909 ==

== ENCOUNTER 2025-06-02 12:33 | Outpatient (AMB) | payer MEDICARE, SELFPAY ==
--- OUTSIDE RECORDS SUMMARY | 2025-04-01 07:30 | XMS_ITS ---
Author Organization [facility] Address [address] [place] [address] Care Team Providers Care Push Connector Assembler Name Role Phone Patience Sherman Primary Care Provider Mignon Peralta [phone] Encounters Encounter Location Date Provider Diagnosis [address] [address] 04/01/2025 Mignon Mejias Plan Of Treatment Next Appt Details Provider Name:Mignon key, 07/27/2025 02:45:00 PM, [address] [place] [address], [phone], Progress Notes * Pascale CARDONA EDOB:[birth year] (80 yo F)Acc No.[id number]:04/01/2025 Progress Note Patient: Radhika HENAOeva Matthews Provider: Jp Mejias DPM :1945 A ge:80 Y S ex:Female Date:04/01/2025 Address:[address] [place] [address] Pcp:Patience Sherman Subjective: * Chief Complaints: * [...] 04/01/2025 Generated for Alisia nur/Reilly/Danisha on: 0 06/02/2025 01:20 PM EDT
[2025-06-02 12:35] VITALS: BP 142/84; PULSE 96; RESP 18; TEMP 36.2; O2SAT 93; BMI 33.4
--- NOTE | 2025-06-02 12:35 | MHC.PC.OV ---
Vital Signs 06/02/25 12:35 Height 5 ft 8 in Weight 220 lb BMI 33.4 BP 142/84 H Blood Pressure Location Lt brachial Position Sitting Respiration 18 Pulse 96 Pulse Source Pulse Oximeter Temp 97.1 F Temp Source Temporal Artery Scan Pulse Oximetry (%) 93 Oxygen Delivery Method Room Air Intake Visit Reasons: DM , Allergies amlodipine Allergy (Unknown, Verified 06/02/25 12:39) leg swelling lisinopril Allergy (Unknown, Verified 06/02/25 12:39) cough escitalopram Adverse Reaction (Intermediate, Verified 06/02/25 12:39) Depression pcv23 Allergy (Unknown, Uncoded 06/02/25 12:39) arm swelling metformin Adverse Reaction (Intermediate, Uncoded 06/02/25 12:39) stomach pain Tobacco use date assessed: 06/02/25 Fall risk assessment: No Falls in past year Last assessed Fall Risk: 06/02/25 Dental Screening Dental Screen Date: 06/02/25 Did you have a dental visit in the last 12 months?: Yes Did you have a dental problem in the last 6 months where you did not have access to dental care?: No Was dental information given to patient?: Patient has dentist HPI DM , HPI Details complains of 4 days ago R big toe swelling and red PFSH Medical History Syncope TIA (transient ischemic attack) Disequilibrium syndrome Right shoulder pain Post-menopausal Retinal tear Left carotid artery stenosis Tubular adenoma of colon Urge incontinence Type 2 diabetes mellitus with hyperglycemia Osteoarthritis Psoriasis GERD (gastroesophageal reflux disease) Obesity (BMI 30-39.9) Hypercholesterolemia Hypertension Surgical History History of cholecystectomy History of bilateral knee replacement History of colonoscopy History of cataract surgery Family History Mother No problems noted. Father No problems noted. Social History Housing: House Alcohol intake: current Alcohol intake frequency: a few times a week Comment: once a month 1 drink Patient Tobacco Use Status: Former Tobacco user Tobacco use type: Cigarette Years Smoked: 1979 smoked 15 years pack a day e-Cigarette/Vaping Use: Never Used Second Hand Smoke Exposure: Yes service: No Current occupational status: retired Cognitive needs: No Hearing needs: No Vision needs: Yes (glasses) Questionnaire PHQ-9 Over the last 2 weeks, how often have you been bothered by any of the following problems? 1. Little interest or pleasure in doing things: not at all 2. Feeling down, depressed, or hopeless: not at all 3. Trouble falling or staying asleep, or sleeping too much: not at all 4. Feeling tired or having little energy: not at all 5. Poor appetite or overeating: not at all 6. Feeling bad about yourself - or that you are a failure or have let yourself or your family down: not at all 7. Trouble concentrating on things, such as reading the newspaper or watching television: not at all 8. Moving or speaking so slowly that other people could have noticed. Or the opposite - being so fidgety or restless that you have been moving around a lot more than usual: not at all 9. Thoughts that you would be better off or of hurting yourself in some way: not at all Total score: 0 Source: Developed by Drs. Pascual Bradshaw, Rachelle Argueta, Luke Joshi and colleagues, with an educational khadra from [employer]. Thrive Questionnaire Date Thrive assessed: 05/26/25 I am a: Patient What is your living situation today?: I have a steady place to live Within the past 12 months, did the food you bought not last and you didn't have the money to get more?: Never true Within the past 12 months, did you worry whether your food would run out before you got money to buy more?: Never true Do you have trouble paying for medicines?: No Do you have trouble getting transportation to medical appointments?: No Do you have trouble paying your heating and electricity bill?: No Do you have trouble taking care of your child, family member or friend?: No Do you have trouble with day-to-day activities such as bathing, preparing meals, shopping, managing finances, etc.?: No Are you currently unemployed and looking for a job?: No Are you interested in more education?: No Please select the resources that you would like help with: None Currently or been in a relationship where the following occur: No concerns reported THRIVE Score: 0 AUDIT C Alcohol Use Questionnaire (AUDIT-C) 1. How often do you have a drink containing alcohol?: 2-4 times a month 2. How many drinks containing alcohol do you have on a typical day when you are drinking?: 1 or 2 3. How often do you have six or more drinks on one occasion?: Never Total Score: 2 ELIEL-7 AMB Questionnaire ELIEL-7 Date ELIEL - 7 assessed: 12/02/24 Feeling nervous, anxious, or on edge: 0 = Not at all Not being able to stop or control worryin = Not at all Worrying too much about different things: 0 = Not at all Trouble relaxin = Not at all Being so restless that it is hard to sit still: 0 = Not at all Becoming easily annoyed or irritable: 0 = Not at all Feeling afraid as if something awful might happen: 0 = Not at all Total ELIEL-7 score (0-4 normal; 5-9 mild; 10-14 moderate; 15-21 severe): 0 Source: Developed by Drs. Pascual Bradshaw, Rachelle Argueta, Luke Joshi and colleagues, with an educational khadra from [employer]. Physical exam (Primary Care) Vital Signs: Last Vital Signs Temp 97.1 F 06/02/25 12:35 Pulse 96 06/02/25 12:35 Resp 18 06/02/25 12:35 BP 142/84 H 06/02/25 12:35 Pulse Ox 93 06/02/25 12:35 Oxygen Delivery Method Room Air 06/02/25 12:35 BMI result Body Mass Index 33.4 Tobacco/Smoking Status: Tobacco use Status Tobacco use date assessed 06/02/25 06/02/25 12:40 Patient Tobacco Use Status Former Tobacco user 06/02/25 12:40 Tobacco use type Cigarette 06/02/25 12:40 e-Cigarette/Vaping Use Never Used 06/02/25 12:40 PHQ-9: PHQ-9 Score PHQ-9: Total score 0 06/02/25 12:44 Thrive Assessment: Date of Thrive Assessment Date Thrive assessed 05/26/25 06/02/25 12:40 Currently or been in a relationship where the following occur: No concerns reported Const General: alert; No acute distress Eyes Conjunctivae: conjunctivae normal Resp Auscultation: clear to auscultation bilaterally Cardio Rate: regular rate Rhythm: regular rhythm GI Inspection: Yes normal to inspection Extrem General: Yes normal to inspection and No edema Coding Level of Care Code Est Pt Level 4 (28921) Complex EM visit Add On G2211 Diagnoses Pulmonary nodule, right R91.1 Type 2 diabetes mellitus with hyperglycemia, without long-term current use of insulin E11.65 Diabetes mellitus custodial insulin use: without custodial use Obesity (BMI 30-39.9) E66.9 Essential hypertension I10 Hypertension type: essential hypertension Hypercholesterolemia E78.00 Generalized anxiety disorder F41.1 Podagra M10.9 Carpal tunnel syndrome, right G56.01 Assessment & Plan Assessment & Plan (1) Pulmonary nodule, right: Comment: May 2025Stable 9 x 6 x 5 mm nodule along the right major fissure associated with linear scarring. Continued follow-up with chest CT in 12 months is recommended. Code(s): R91.1 - Solitary pulmonary nodule Category: Medical Plan: Patient was advised follow-up pulmonary nodule in 1 year May 2026 (2) Type 2 diabetes mellitus with hyperglycemia: Comment: Dr. Gomez Code(s): E11.65 - Type 2 diabetes mellitus with hyperglycemia Category: Medical Qualifiers: Diabetes mellitus custodial insulin use: without custodial use Qualified Code(s): E11.65 - Type 2 diabetes mellitus with hyperglycemia Plan: Decrease the amount of carbohydrate intake, pasta, bread, rice and potatoes are all sugar and that is aside from all the sweet stuff, remember that fruits are good but they are Sweet also. Hemoglobin A1c goal of less than 7.0. Patient is diet controlled (3) Obesity (BMI 30-39.9): Code(s): E66.9 - Obesity, unspecified Category: Medical Plan: Diet and exercise (4) Hypertension: Code(s): I10 - Essential (primary) hypertension Category: Medical Qualifiers: Hypertension type: essential hypertension Qualified Code(s): I10 - Essential (primary) hypertension Plan: Continue with blood pressure medication. Decrease salt intake and exercise on losartan 50 mg once a day metoprolol 50 mg once a day chlorthalidone 25 mg once a day (5) Hypercholesterolemia: Code(s): E78.00 - Pure hypercholesterolemia, unspecified Category: Medical Plan: Avoid fried foods, chicken skin, eggs, butter margarine, pastries and meat. Be it pork or beef they have a lot of cholesterol on atorvastatin 40 mg once a day (6) Generalized anxiety disorder: Comment: declined referal Code(s): F41.1 - Generalized anxiety disorder Category: Medical Plan: Stable (7) Podagra: Code(s): M10.9 - Gout, unspecified Category: Medical (8) Carpal tunnel syndrome, right: Code(s): G56.01 - Carpal tunnel syndrome, right upper limb Category: Medical Plan: will see orthopedics Plan History of Present Illness The patient is a 80-year-old female presenting for a follow-up visit and evaluation of gout. The patient has a history of diabetes mellitus, which is currently diet-controlled with a hemoglobin A1c of 6.9 as of March 2025. She is also managing hypertension with losartan, metoprolol, and chlorothalidone, and hypercholesterolemia with atorvastatin. The patient reports a history of generalized anxiety disorder and left carotid artery stenosis. She also has thoracolumbar spondylosis and bilateral hip pain, for which she has been referred to orthopedics and had a hip x-ray showing osteopenia and mild narrowing of both hip joints. The patient has been diagnosed with carpal tunnel syndrome, confirmed by nerve conduction tests showing moderate to severe median neuropathy at the wrist. She also has a stable pulmonary nodule, which was noted on a CT scan of the chest in May 2025, and is advised to follow up with a CT scan in one year. The patient has a history of hepatic steatosis, as noted on a kidney ultrasound in February 2025, and dry eye syndrome. She follows up with podiatry and has had normal blood work with no anemia, normal electrolytes, and renal function as of March 2025. The patient is currently experiencing gout, which presented with sudden onset of pain and swelling in the foot, suspected to be due to uric acid crystal deposition in the joint. She reports not drinking enough water, which may contribute to the condition, and has been advised to increase fluid intake. Health Maintenance - Follow-up CT scan for pulmonary nodule in May 2026 - Regular monitoring of hemoglobin A1c for diabetes management - Regular blood pressure monitoring and medication adherence for hypertension - Lipid profile monitoring for hypercholesterolemia management Social History - Reports not consuming much water, which may contribute to gout symptoms - Denies alcohol consumption in the past two months Review of Systems - Musculoskeletal: Reports sudden onset of pain and swelling in the foot, suspected gout - Ophthalmologic: Reports dry eye syndrome Physical Exam Results - Labs: Hemoglobin A1c 6.9 in March 2025, normal blood count, normal electrolytes, normal renal function - Imaging: CT scan of the chest in May 2025 showing stable pulmonary nodule, hip x-ray in March 2025 showing osteopenia and mild narrowing of both hip joints - Imaging: Nerve conduction test showing moderate to severe median neuropathy at the wrist - Imaging: Kidney ultrasound in February 2025 showing hepatic steatosis Plan The patient will continue to manage diabetes mellitus with diet control, aiming to maintain hemoglobin A1c below 7.0. Hypertension management will continue with losartan, metoprolol, and chlorothalidone, and hypercholesterolemia will be managed with atorvastatin. For the pulmonary nodule, a follow-up CT scan is recommended in May 2026 to monitor for any changes. The patient is advised to increase fluid intake to help manage gout symptoms and will be prescribed colchicine for acute management. The patient will undergo x-rays and additional blood work to assess uric acid levels and kidney function, ensuring safe administration of gout medications. Regular follow-ups with podiatry and orthopedics are advised for ongoing management of foot and hip conditions. Patient was informed and verbally consented to the use of an ambient scribe for clinic note documentation during this visit. Discussion Notes I discussed with the patient the management of her diabetes, emphasizing the importance of maintaining her hemoglobin A1c below 7.0 through diet control. We reviewed her hypertension and hypercholesterolemia management plans, ensuring she continues her current medications. I explained the need for a follow-up CT scan for her pulmonary nodule in May 2026 and advised her to increase fluid intake to manage gout symptoms. I prescribed colchicine for acute gout management and discussed the potential need for x-rays and blood work to monitor uric acid levels and kidney function. Patient Instructions - Continue diet control to maintain hemoglobin A1c below 7.0 - Take prescribed medications for hypertension and hypercholesterolemia as directed - Schedule a follow-up CT scan for the pulmonary nodule in May 2026 - Increase fluid intake to help manage gout symptoms - Take colchicine as prescribed for gout, starting with two tablets and adjusting as needed - Follow up with podiatry and orthopedics as advised Orders: Orders Uric Acid Today M10.9 - Gout, unspecified Comprehensive Met. Panel Today M10.9 - Gout, unspecified Complete Blood Count Auto Diff Today M10.9 - Gout, unspecified Medications: New colchicine take 2 tablets now then 1 tab QD orally daily; or as directed 30 tabs 0RF M10.9 - Gout, unspecified
--- OUTSIDE RECORDS SUMMARY | 2025-06-02 13:20 | XMS_ITS | Data Portability ---
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 She does still have some ADL/functional deficits but can compensate with left arm as needed. Almost all goals met. Pt is independent with her [facility]. 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 tolerated all exercises well while demonstrating proper periscapular and RC mechanics with minimal fatigue levels achieved. Updated Independent [facility], reviewed with Pt. and answered further questions. 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 Patient TargetsNo targets recorded. Patient InstructionsNo instructions recorded. Reason for Referral None Reported. Results Created Date Observation Date Name Description Value Unit Range Abnormal Flag Note LastModifiedBy Organization Detail LastModifiedTime 08/11/2008/11/2024 XR, beth onelia, 2 or more view [email or web address] ?Encry pted=s hAaTro YD8dLq bEUv6g %2BXZw aYqtaq 0bqfl% 2Fg9IQ a4ajBk vP9nXo QUaueC m3YtLR FvZlgJ JJ8mAn HZtai3 3e2796 AC0Kqa nWAWaS vKiQtr MwF INTERFACE [facility] [address], [place], [address], 08/11/2024 14:13:43 08/11/20 24 08/11/2024 XR, shoul onelia, 2 or more view [email or web address]:/ [email or web address] ?Encry pted=s hAaTro YD8dLq bEUv6g %2BXZw aYqtaq 0bqfl% 2Fg9IQ a4ajBk vP9nXo QUaueC m3YtLR FvZl [place] HZtai3 8x9738 AC0Kqa nWAWaS vKiQtr MwF INTERFACE [facility] [address], [place], [address], 08/11/2024 14:13:45 08/29/20 24 08/29/2024 XR, hand, 3 or more view [email or web address] ?Encry pted=s hAaTro YD8dLq bEUv6g %2BXZw aYqtaq 0bqfl% 2Fg9IQ a4ajBk vP9nXo QUaueC m3YtLR FvZlgJ JJ8mAn HZtai3 6v2659 AC0Kqa HyCUaO jKiQtr MwF INTERFACE [facility] [address], [place], [address], 08/29/2024 14:55:51 08/29/20 24 08/29/2024 XR, hand, 3 or more view [email or web address]:/ [email or web address] ?Encry pted=s hAaTro YD8dLq bEUv6g %2BXZw aYqtaq 0bqfl% 2Fg9IQ a4ajBk vP9nXo QUaueC m3YtLR FvZlgJ JJ8mAn HZtai3 9o2448 AC0Kqa HyCUaO jKiQtr MwF INTERFACE [facility] [address], [place], [address], 08/29/2024 14:55:55 10/16/20 24 10/16/2024 XR, shoul onelia, 2 or more view [email or web address]:/ [email or web address] ?Encry pted=s hAaTro YD8dLq bEUv6g %2BXZw aYqtaq 0bqfl% 2Fg9IQ a4ajBk vP9nXo QUaueC m3YtLR FvZlgJ JJ8mAn HZtai3 1g5653 AC0Kqb nyBVaW gKiQtr MwF INTERFACE [facility] [address], [place], [address], 10/16/2024 11:27:48 10/16/20 24 10/16/2024 XR, shoul onelia, 2 or more view http:/ [email or web address] ?Encry pted=s hAaTro YD8dLq bEUv6g %2BXZw aYqtaq 0bqfl% 2Fg9IQ a4ajBk vP9nXo QUaueC m3YtLR FvZlgJ JJ8mAn HZtai3 0b8651 AC0Kqb nyBVaW gKiQtr MwF INTERFACE [facility] [address], [place], [address], 10/16/2024 11:27:50 Result Notes Documentation Provider Name and Address Organization Details Recorded Time Xr, Shoulder, 2 Or More View : [email or web address] Encrypted=brTaRyoPR3eYhvX Uv6g%2ZVCdjKifdh3nzyl%2Fg 6VTo1bmBvgC9gLiOSbijEu7Ws ZOGwXtqLPF3tFgGLtxh99e255 1LT7ZtiwcMDtKkMqSsaBqF Not Available [facility] 10/16/2024 11:27: 48 Xr, Shoulder, 2 Or More View : [email or web address]? Encrypted=gnIgHfoXW3mFkkU Uv6g%8QLTecMglrs5pqak%2Fg 8IOi9msJjhU6oSsTNxmnFj0Tm XIKmTdbKGN2fRnMEjai11d589 7QM3VmgoiGFlUfUqUexBlW Not Available [facility] 10/16/2024 11:27: 50 Problems Name Problem SNOMED Code Status Onset Date Resolution Date Notes Provider Name and Address Organization Details Recorded Time No complaints 466577376 Active Status : 'A'; Not Available [facility] 09:25:45 Lesion of lung 418019999 Active 2023 ROXANA SEGURA [facility] 12:17:47 Problem Notes None recorded. Procedures Surgical History Date Name Laterality Status Provider Name and Address Organization Details Recorded Time 4 93838 Therapeutic Exercise (1:1) completed Shaun Bynum, B[employer]INGUAL CUSTOMER SERVICE [address], [place], [address], [facility] 09/25/2024 13:09:57 4 32616 Therapeutic Exercise (1:1) completed Karlee Cardona, PT [address], [place], [address], [facility] 09/22/2024 08:27:23 4 55335 Therapeutic Exercise (1:1) cancelled Shaun Bynum, BILINGUAL CUSTOMER SERVICE [address], [place], [address], [facility] 09/18/2024 08:00:11 36077 Therapeutic Exercise (1:1) completed Karlee Cardona, PT [address], [place], [address], [facility] [place] 09/15/2024 10:52:23 4 72966 Therapeutic Exercise (1:1) completed Shaun Bynum, BILINGUAL CUSTOMER SERVICE [address], [place], [address], [facility] [place] 09/11/2024 12:57:17 4 39275 Therapeutic Exercise (1:1) completed Karlee Cardona, PT [address], [place], [address], [facility] [place] 09/08/2024 14:35:52 4 55214 Therapeutic Exercise (1:1) completed Shaun Bynum, BILINGUAL CUSTOMER SERVICE [address], [place], [address], [facility] [place] 09/04/2024 13:00:42 4 44824 Therapeutic Exercise (1:1) completed Karlee Cardona, PT [address], [place], [address], [facility] [place] 09/01/2024 11:31:50 4 Carpal Tunnel Kenalog 1cc injection, L/R completed Angie Garcia PA-C [address], [place], [address], [facility] [place] 08/29/2024 15:18:46 Tendon Sheath Kenalog Injection, L/R completed Angie Garcia PA-C [address], [place], [address], [facility] 08/29/2024 15:18:50 4 51446 Therapeutic Exercise (1:1) completed Shaun Bynum, BILINGUAL CUSTOMER SERVICE [address], [place], [address], [facility] [place] [facility] 08/28/2024 14:03:31 4 88075 Therapeutic Exercise (1:1) completed Karlee Cardona, PT [address], [place], [address], [facility] 08/25/2024 13:57:44 71948 Therapeutic Exercise (1:1) completed Shaun Bynum, BILINGUAL CUSTOMER SERVICE [address], [place], [address], [facility] [place] 08/21/2024 12:59:07 79901 Therapeutic Exercise (1:1) cancelled Karlee Cardona, PT [address], [place], [address], [facility] 08/18/2024 21:27:34 4 03932 Therapeutic Exercise (1:1) completed Shaun Bynum BILINGUAL CUSTOMER SERVICE [address], [place], [address], [facility] [place] [facility] 08/14/2024 14:53:22 37213 Therapeutic Exercise (1:1) completed Karlee Cardona, PT [address], [place], [address], [facility] 08/10/2024 23:13:44 57765 Therapeutic Exercise (1:1) completed Shaun Bynum PTA [address], [place], [address], [facility] 08/07/2024 14:30:15 29547 Therapeutic Exercise (1:1) completed aKrlee Cardona, PT [address], [place], [address], [facility] 08/03/2024 22:12:27 60650 Therapeutic Exercise (1:1) completed Shaun Bynum PTA [address], [place], [address], [facility] 07/31/2024 15:16:09 4 52896 Therapeutic Exercise (1:1) completed Karlee Cardona, PT [address], [place], [address], [facility] 07/29/2024 06:56:55 4 53718 Therapeutic Exercise (1:1) completed Shaun Bynum, BILINGUAL CUSTOMER SERVICE [address], [place], [address], [facility] 07/24/2024 14:19:39 4 44561 Therapeutic Exercise (1:1) completed Karlee Cardona, PT [address], [place], [address], [facility] 07/21/2024 22:35:29 4 87431 Therapeutic Exercise (1:1) completed Shaun Bynum, BILINGUAL CUSTOMER SERVICE [address], [place], [address], [facility] 07/17/2024 14:07:03 4 79666 Therapeutic Exercise (1:1) completed Karlee Cardona, PT [address], [place], [address], [facility] 07/15/2024 00:17:13 4 05202 Therapeutic Exercise (1:1) completed Shaun Bynum PTA [address], [place], [address], [facility] 07/11/2024 09:03:20 4 77901: Manual therapy completed Shaun Bynum PTA [address], [place], [address], [facility] 07/11/2024 09:05:30 4 66476 Therapeutic Exercise (1:1) completed Shaun Bynum BILINGUAL CUSTOMER SERVICE [address], [place], [address], [facility] 07/08/2024 07:52:09 4 12357 Therapeutic Exercise (1:1) completed Belkis Calderon PTA [address], [place], [address], [facility] 07/04/2024 16:55:00 4 03571 Therapeutic Exercise (1:1) completed Karlee Cardona, PT [address], [place], [address], [facility] 06/30/2024 23:19:58 4 40914 Therapeutic Exercise (1:1) completed Shaun Bynum PTA [address], [place], [address], [facility] 06/26/2024 16:05:02 4 36883 Therapeutic Exercise (1:1) completed Karlee Cardona PT [address], [place], [address], [facility] 06/22/2024 21:42:13 4 95211 Therapeutic Exercise (1:1) completed Shaun Bynum PTA [address], [place], [address], [facility] 06/20/2024 07:57:57 4 01468 Therapeutic Exercise (1:1) completed Belkis Calderon PTA [address], [place], [address], [facility] 06/16/2024 16:32:39 4 15925 Therapeutic Exercise (1:1) completed Shaun Bynum PTA [address], [place], [address], [facility] 06/12/2024 14:25:56 4 83862: Hot or Cold Pack completed Shaun Bynum PTA [address], [place], [address], [facility] 06/12/2024 13:24:39 4 61013 Therapeutic Exercise (1:1) completed Shaun Bynum, B[employer]ING[employer] CUSTOMER SERVICE [address], [place], [address], [facility] 06/09/2024 11:25:26 4 76598: Hot or Cold Pack completed Shaun Bynum, B[employer]INGUAL CUSTOMER SERVICE [address], [place], [address], [facility] 06/09/2024 11:25:15 4 53918 Therapeutic Exercise (1:1) completed Karlee Cardona, PT [address], [place], [address], [facility] 06/06/2024 11:55:51 4 04019: Low complexity PT Eval completed Karlee Cardona, PT [address], [place], [address], [facility] 06/06/2024 12:05:01 4 G8417 BMI Above Upper Parameters, F/U Documented completed Karlee Cardona, PT [address] [facility], [place], [address], [facility] 06/04/2024 23:07:37 4 G8427 Current Medication Documented completed Karlee Cardona, PT [address] [facility], [place], [address], [facility] 06/04/2024 23:07:42 Knee Surgery completed DELFINA WARE [facility] 04/14/2024 12:55:58 Hand Surgery completed DELFINA WARE [facility] 04/14/2024 12:55:58 Imaging Results None recorded. [...] Updated DateTime 10/16/2024 172.72 cm 33.3 kg/m2 83358.73 g [address], [place], [address], [place] [facility] [place] 10/16/2024 10:54:17 Social History Question Answer Notes LastModified by Organizat ion Details LastModified Time Tobacco Smoking Status Former Smoker DELFINA gracia [place] [facility] [place] [facility] 04/14/2024 12:55:54 When Did You Quit [...] Disease N Heart Trouble N Heart Attack (DE) N Gastrointestinal Disease N Cholesterol N Diabetes [...] SNOMED-CT Code Diagnosis ICD10 Code Diagnosis Note [id number] MD Graciela Maciel 2nd floor [address] [place] [address] 01/23/2024 14:24:25 02/07/2024 14:35:36 Osteoarthritis of right glenohumeral joint 2533891571 272999 M19.341 [id number] MD Graciela Maciel [address]nd [address] [place] [address] 04/14/2024 12:50:00 05/02/2024 09:32:23 Osteoarthritis of joint of right shoulder region 3228205879 11454 M19.772 [id number] MD Graciela Maciel [address] [place] [address] 05/05/2024 12:38:26 05/23/2024 07:58:15 History of reverse prosthetic total arthroplasty of right shoulder 7649053847 [id number] Z96.930 [id number] LEYLA Britt [address] [place] [address] 06/04/2024 13:43:25 06/04/2024 14:23:02 Postoperative care [id number] Z48.89 [id number] Karlee Cardona, PT [facility] [address] [place] [address] 06/05/2024 11:16:10 06/05/2024 12:43:47 Aftercare [id number] Z47.1 Z96.384 [id number] Shaun Bynum, [facility] on PT [address] [place] [address] 06/09/2024 10:31:54 06/09/2024 11:29:04 Aftercare [id number] Z47.1 Z96.568 [id number] Shaun Byn[facility], [facility] [address] [place] [address] 06/12/2024 13:24:14 06/12/2024 14:34:20 Aftercare [id number] Z47.1 Z96.507 [id number] Belkis Calderon[facility] [address] [place] [address] 06/16/2024 15:22:58 06/16/2024 16:57:38 Aftercare [id number] Z47.1 Z96.221 [id number] Shaun Bynum, [facility] [address] [place] [address] 06/20/2024 07:55:20 06/20/2024 08:44:46 Aftercare [id number] Z47.1 Z96.552 [id number] Karlee Cardona, PT [facility] [address] [place] [address] 06/23/2024 17:19:55 06/24/2024 08:13:17 Aftercare [id number] Z47.1 Z96.221 [id number] Shaun Bynum, [employer]ER SERVICE [facility] [address] [place] [address] 06/26/2024 15:52:23 06/26/2024 16:51:17 Aftercare [id number] Z47.1 Z96.637 [id number] Karlee Cardona, PT [facility] [address] [place] [address] 06/30/2024 14:52:31 06/30/2024 16:17:10 Aftercare [id number] Z47.1 Z96.205 [id number] Belkis Yumiko, [employer] [facility] [address] [place] [address] 07/04/2024 15:55:01 07/08/2024 08:41:31 Aftercare [id number] Z47.1 Z96.170 [id number] Shaun Bynum, [employer] C[employer] SERV[employer] [facility] [address] [place] [address] 07/08/2024 07:51:39 07/08/2024 09:05:57 Aftercare [id number] Z47.1 Z96.721 [id number] Shaun Bynum, [employer] C[employer] SERV[employer] [facility] [address] [place] [address] 07/11/2024 07:53:22 07/11/2024 09:05:02 Aftercare [id number] Z47.1 Z96.829 [id number] Karlee Cardona, PT [facility] [address] [place] [address] 07/14/2024 15:26:57 07/14/2024 17:08:10 Aftercare [id number] Z47.1 Z96.444 [id number] Shaun Bynum, [employer] C[employer] [facility] [address] [facility] [address] 07/17/2024 13:55:03 07/18/2024 07:36:28 Aftercare [id number] Z47.1 Z96.595 [id number] Karlee Cardona, PT [facility] [address] [facility] [place] [address] 07/21/2024 12:18:06 07/21/2024 14:42:16 Aftercare [id number] Z47.1 Z96.125 [id number] Shaun Bynum, [employer] [facility] [address] [place] [address] 07/24/2024 13:50:28 07/24/2024 15:28:53 Aftercare [id number] Z47.1 Z96.069 [id number] Karlee Cardona, PT [facility] [address] [facility] [place] [address] 07/28/2024 11:45:30 07/28/2024 14:45:16 Aftercare [id number] Z47.1 Z96.168 [id number] Laurence Simms MD [facility] 2nd floor [address] [place] [address] 08/11/2024 13:48:05 09/05/2024 09:27:06 History of reverse prosthetic total arthroplasty of right shoulder [id number] [id number] Z96.905 [id number] Shaun Bynum, [employer] [facility] [address] [facility] [place] [address] 07/31/2024 13:51:37 07/31/2024 15:25:10 Aftercare [id number] Z47.1 Z96.289 [id number] Karlee Cardona, PT [facility] [address] [facility] [address] 08/04/2024 10:50:03 08/04/2024 15:21:48 Aftercare [id number] Z47.1 Z96.393 [id number] Shaun Bynum, [employer] C[employer]ER [employer] [facility] [address] [facility] [place] [address] 08/07/2024 13:17:35 08/07/2024 15:58:33 Aftercare [id number] Z47.1 Z96.281 [id number] Karlee Cardona, PT [facility] [address] [place] [address] 08/11/2024 10:49:49 08/11/2024 12:02:31 Aftercare [id number] Z47.1 Z96.287 [id number] Shaun Bynum, B[employer] C[employer]ER SERVICE [facility] [address] [place] [address] 08/14/2024 14:47:52 08/15/2024 07:32:59 Aftercare [id number] Z47.1 Z96.694 [id number] Shaun Bynum, B[employer]ING[employer] CUSTOMER SERVICE [facility] [address] [place] [address] 08/21/2024 12:57:26 08/21/2024 15:12:52 Aftercare [id number] Z47.1 Z96.567 [id number] Karlee Cardona, PT [facility] [address] [place] [address] 08/25/2024 11:44:19 08/25/2024 13:06:16 Aftercare [id number] Z47.1 Z96.710 [id number] Shaun Bynum, [employer] C[employer]ER SERVICE [facility] [address] [place] [address] 08/28/2024 12:55:10 08/28/2024 14:27:04 Aftercare [id number] Z47.1 Z96.057 [id number] LEYLA Becerra [address] [place] [address] 08/29/2024 14:20:00 09/24/2024 10:23:26 Pain of left hand 5058307478 40471 M79.998 [id number] Karlee Cardona, PT [facility] [address] [place] [address] 09/01/2024 10:19:05 09/01/2024 11:46:47 Aftercare [id number] Z47.1 Z96.325 [id number] Shaun Bynum, B[employer] CUSTOMER SERVICE [facility] [address] [place] [address] 09/04/2024 12:58:01 09/04/2024 14:52:00 Aftercare [id number] Z47.1 Z96.276 [id number] Karlee Cardona, PT [facility] [address] [place] [address] 09/08/2024 09:54:41 09/08/2024 11:09:28 Aftercare [id number] Z47.1 Z96.837 [id number] Shaun Bynum, BILING[employer] CUSTOMER SERVICE [facility] [address] [place] [address] 09/11/2024 12:56:13 09/11/2024 14:05:48 Aftercare [id number] Z47.1 Z96.972 [id number] Karlee Cardona, PT [facility] [address] [place] [address] 09/15/2024 09:48:35 09/15/2024 11:22:28 Aftercare [id number] Z47.1 Z96.878 [id number] Kalree Cardona, PT [facility] [address] [place] [address] 09/22/2024 09:52:06 09/22/2024 11:01:20 Aftercare [id number] Z47.1 Z96.245 [id number] Shaun Bynum, [facility] [address] [place] [address] 09/25/2024 12:57:48 09/25/2024 14:13:34 Aftercare [id number] Z47.1 Z96.800 [id number] LEYLA Britt 2[address] [place] [address] 10/16/2024 10:49:03 11/11/2024 07:55:33 History of reverse prosthetic total arthroplasty of right shoulder [id number] [id number] Z96.611 Health Concerns Section Related Observation LastModified by Organization Detai ls LastModified Time None Recorded Concern Status LastModified by Organization Details LastModified Time None Recorded Advance Directives Directive None Recorded Payers Insurance Date Sequence Insurance Name Policy Number Policy Ferris Covered Member ID Ferris Member ID Guarantor Name 10/16/2024 1 [place] [employer] Pascale Oates [id number] Pascale Oates 11/11/2024 2 [place] [id number] Pascale Oates [id number] Pascale Oates 10/15/2024 NORIDIAN - SPECIALITY CLAIMS (MEDICARE DME REGION A) Pascale Oates [id number] Pascale Oates OBGyn Episode No OBEpisode recorded.
--- OUTSIDE RECORDS SUMMARY | 2025-06-02 13:20 | XMS_ITS | Patient Health Record ---
Author Organization [facility] Address [address] [place] [address] Care Team Providers Care Major Sales Associate Name Role Phone Patience Sherman MD Primary Care Provider Pascual Stephenson Unavailable [phone] Reason For Referral No Information Medications Medication SIG (Take, Route, Frequency, Duration) Notes Start Date End Date Status Potassium Active Metoprolol Succinate ER 50 MG 1 tablet Orally Once a day A ctive Calcium Active Problems Problem Type SNOMED Code ICD Code Onset Dates Problem Status W/U Status Risk Notes Problem 856359679 Encounter for screening for malignant neoplasm of colon (Z12.11) Active confirmed Problem 503470866 History of adenomatous polyp of colon (Z86.010) Active confirmed Problem Encounter for screening for malignant neoplasm of rectum (Z12.12) Active confirmed Problem 79947078 Preprocedural examination (Z01.818) Active confirmed Plan Of Treatment Future Test Test Name Order Date COLONOSCOPY 12/22/2015 Insurance Providers Payer Name Payer Address Payer Phone Subscriber Number Group Number Insured Name Patient Relationship to Insured Coverage Start Date Coverage End Date [facility] [address] [place] [address] [id number] FEROZ HENRIQUEZ Self - patient is the insured Medical (General) History Medical History History ICD Code Screening colonoscopy 5-11-2 009--2 small tubular adenomas removed, sigmoid diverticulosis, and internal hemorrhoids Denies [place],DM,CVA,Lung disease,renal dise ase HTN Surgical History Surgery Date(Month/Year) right knee replacement in 06/2008 left knee replacement in 2008 cholecystectomy Breast biopsies-benign
== END 2025-06-02 13:00 | disposition home or self-care (01) ==
LOC: HO.HMCH 12:34
PROVIDERS: PCP Internal Medicine; Visit Provider Internal Medicine
DX: E11.65 Type 2 diabetes mellitus with hyperglycemia (principal); R91.1 Solitary pulmonary nodule; Z68.34 Body mass index [BMI] 34.0-34.9, adult; E66.9 Obesity, unspecified; I10 Essential (primary) hypertension; E78.00 Pure hypercholesterolemia, unspecified; F41.1 Generalized anxiety disorder; M10.9 Gout, unspecified; G56.01 Carpal tunnel syndrome, right upper limb

== ENCOUNTER 2025-06-02 12:33 | Outpatient (REF) | payer MEDICARE, SELFPAY ==
--- NOTE | ~2025-06-02 | XR_ITS ---
EXAMINATION: XR FOOT 3 OR MORE VIEWS RIGHT HISTORY: M10.9 - Gout, unspecified COMPARISON: There are no prior studies available for comparison. FINDINGS: Three views of the right foot are submitted. Osseous mineralization is normal. There is an old healed fracture deformity of the 5th metatarsal. No acute fracture or dislocation is seen. There is moderate hallux valgus deformity of the right toe. There are amorphous soft tissue calcifications adjacent to the head of the 1st metatarsal which could represent gout. No erosions are identified. There is moderate intertarsal and tarsometatarsal osteoarthritis. There is a small plantar calcaneal spur. There are vascular calcifications and calcifications of the plantar fascia. XR/XR foot RT min 3V IMPRESSION: 1. Amorphous soft tissue calcifications adjacent to the head of the 1st metatarsal which could represent gout. No erosions are identified, however. 2. Moderate hallux valgus deformity of the great toe. 3. Moderate intertarsal and tarsometatarsal osteoarthritis. Electronically signed by: Pascual Stout MD 06/02/2025 01:36 PM EDT
== END 2025-06-02 12:34 | disposition home or self-care (01) ==
LOC: HO.XRAY 12:33
PROVIDERS: PCP Internal Medicine; Visit Provider Internal Medicine
DX: R91.1 Solitary pulmonary nodule (principal); E11.65 Type 2 diabetes mellitus with hyperglycemia; E66.9 Obesity, unspecified; Z68.33 Body mass index [BMI] 33.0-33.9, adult; I10 Essential (primary) hypertension; E78.00 Pure hypercholesterolemia, unspecified; F41.1 Generalized anxiety disorder; M10.9 Gout, unspecified; G56.01 Carpal tunnel syndrome, right upper limb; Z79.899 Other long term (current) drug therapy; Z13.30 Encounter for screening examination for mental health and behavioral disorders, unspecified
CPT/HCPCS: 73630; 96127; 99212

== ENCOUNTER → 2025-06-02 13:17 | Outpatient (BNV) | payer MEDICARE, SELFPAY | PROVIDERS: PCP Internal Medicine; Visit Provider Radiology Diagnostic Radiology | DX: M10.9 Gout, unspecified (principal) | CPT/HCPCS: 73630 ==

== ENCOUNTER 2025-09-10 09:15 | Outpatient (REF) | payer MEDICARE, SELFPAY ==
--- OUTSIDE RECORDS SUMMARY | 2024-12-04 11:00 | XMS_ITS ---
Author Organization [facility] Address [address] [address] Care Team Providers Care Supervisor Education Name Role Phone Patience Sherman Primary Care Provider Mignon Peralta Unavailable [phone] Allergies Allergen (clinical drug ingredient) Drug/Non Drug Allergy documented on EMR Reaction Allergy Type Onset Date Status amlodipine Amlodipine Besylate Unknown Drug Allergy Active lisinopril Lisinopril Unknown Drug Allergy Activ e Vaccine product containing Streptococcus pneumoniae antigen (medicinal product) Pneumococcal Vaccines anaphylaxis Drug Allergy Active Medications Medication SIG (Take, Route, Frequency, Duration) Notes Start Date End Date Status Calcium 600 mg 1 tablet with meals Twice a day Unknown Potassium 75 MG Orally Once a day Unknown Physical Therapy . . . 2-3x/week; Duration: 3-4 weeks Not-Taking Meloxicam 15 MG 1 tablet Orally Once a day; Duration: 30 day(s) Not-Taking Vitamin D 1000 UNIT 1 tablet Orally Unknown Physical Therapy . . . 2-3x/week; Duration: 3-4 weeks Not-Taking Physical Therapy . . . 2-3x/week; Duration: 3-4 weeks Not-Taking Physical Therapy . . . 2-3x/week; Duration: 3-4 weeks Not-Taking hydroCHLOROthiazide Not-Taking Meloxicam 15 MG 1 tablet Orally Once a day; Duration: 30 day(s) 05/22/2016 Not-Taking Diflucan 200 MG 1 tablet Orally Once a day; Duration: 30 days Not-Taking Physical Therapy . . . 2-3x/week; Duration: 3-4 weeks 05/22/2016 Not-Taking Meloxicam 15 MG 1 tablet Orally Once a day; Duration: 30 day(s) Not-Taking Diflucan 200mg TAKE 1 TABLET BY MOUTH EVERY DAY; Duration: 10 Not-Taking Meloxicam 15 MG 1 tablet Orally Once a day; Duration: 30 day(s) Not-Taking Chlorthalidone 50 MG Orally Active Losartan Potassium 50 MG 1 tablet Orally Once a day Active Metoprolol Succinate ER 50 MG 1 tablet Orally Once a day Active Voltaren 1 % as directed Externally apply bid to ankle; Duration: 30 days 01/26/2021 Active Ammonium Lactate 12 % 1 application Externally to affected areas of dry skin to feet except for between the toes Twice a day; Duration: 30 days Active baby asprin Active Atorvastatin Calcium 25 MG Orally Active levETIRAcetam 250 MG 1 tablet Orally every 12 hrs; Duration: 30 day(s) Active Encounters Encounter Location Date Provider Diagnosis [facility] [address] [address] 12/04/2024 Mignon Mejias Plan Of Treatment Next Appt Details Provider Name:Mignon key, 11/09/2025 01:30:00 PM, [address] [place] [address], [phone], Progress Notes * Pascale CARDONA EDOB:[birth year] (80 yo F)Acc No.[id number]:12/04/2024 Progress Note Patient: Twyla WOODSJAVIERPascale Provider: Jp Mejias DPM :1945 A ge:79 Y S ex:Female Date:12/04/2024 Address:[address] [place], [place] [id number] Pcp:Patience Sherman Subjective: * Chief Complaints: * * Medical History: H ypertension, Overweight, Back,Hip,and Knee pain, Hyperlipidemia, Arthritis, Broken bones, Gall bladder problems, Glaucoma, Psoriasis/eczema, Measles, Mumps, Chicken pox, Joint implants/screws, Transfusions, Primary osteoarthritis, right ankle and foot, Unspecified atherosclerosis of [place] arteries of extremities, bilateral legs, Plantar fascial fibromatosis, Other viral warts, Pain in left foot, Pain in right foot, Tinea unguium, Ingrowing nail, Pain in right toe(s), Pain in left toe(s), Pre type II diabetes, Comlex partial seizure disorder. * Medications: T aking levETIRAcetam 250 MG Tablet 1 tablet Orally every 12 hrs , Taking Atorvastatin Calcium 25 MG Tablet Orally , Taking baby asprin , Taking Chlorthalidone 50 MG Tablet Orally , Taking Losartan Potassium 50 MG Tablet 1 tablet Orally Once a day , Taking Metoprolol Succinate ER 50 MG Tablet Extended Release 24 Hour 1 tablet Orally Once a day , Taking Voltaren 1 % Gel as directed Externally apply bid to ankle , Taking Ammonium Lactate 12 % Cream 1 application Externally to affected areas of dry skin to feet except for between the toes Twice a day , Not-Taking/PRN Diflucan 200mg tabs TAKE 1 TABLET BY MOUTH EVERY DAY , Not-Taking/PRN Meloxicam 15 MG Tablet 1 tablet Orally Once a day , Not-Taking/PRN Meloxicam 15 MG Tablet 1 tablet Orally Once a day , Not-Taking/PRN Diflucan 200 MG Tablet 1 tablet Orally Once a day , Not- Taking/PRN Physical Therapy . . . . 2-3x/week , Not-Taking/PRN Physical Therapy . . . . 2-3x/week , Not-Taking/PRN Physical Therapy . . . . 2-3x/week , Not-Taking/PRN Physical Therapy . . . . 2-3x/week , Not-Taking/PRN hydroCHLOROthiazide , Not-Taking/PRN Meloxicam 15 MG Tablet 1 tablet Orally Once a day , Not- Taking/PRN Physical Therapy . . . . 2-3x/week , Not-Taking/PRN Meloxicam 15 MG Tablet 1 tablet Orally Once a day , Unknown Vitamin D 1000 UNIT Tablet 1 tablet Orally , Unknown Calcium 600 mg 1 tablet with meals Twice a day , Unknown Potassium 75 MG Tablet Orally Once a day * Allergies: L isinopril, Amlodipine Besylate, Pneumococcal Vaccines: anaphylaxis. Objective: * Vitals: Assessment: Plan: * Treatment: * Images: * The named appointment provid er may or may not be the originator of this progress note, and it is not deemed complete until electronically signed by the appointment provider. Sign off status: Pending * Provider: Jp Mejias DPM Date: 12/04/2024 Generated for Alisia nur/Reilly/Danisha on: 1 11/10/2024 10:11 AM EST
--- OUTSIDE RECORDS SUMMARY | 2025-04-01 06:30 | XMS_ITS ---
Author Organization [facility] Address [address] [place] [address] Care Team Providers Care Chronic Condition Nurse Name Role Phone Patience Sherman Primary Care Provider Mignon Peralta [phone] Encounters Encounter Location Date Provider Diagnosis [address] [address] 04/01/2025 Mignon Mejias Plan Of Treatment Next Appt Details Provider Name:Mignon key, 11/09/2025 01:30:00 PM, [address] [place] [address], [phone], Progress Notes * Pascale CARDONA EDOB:[birth year] (80 yo F)Acc No.[id number]:04/01/2025 Progress Note Patient: Radhika HENAOeva Matthews Provider: Jp Mejias DPM :1945 A ge:80 Y S ex:Female Date:04/01/2025 Address:[address] [place] [address] Pcp:Patience Sherman Subjective: * Chief Complaints: * * Medical History: Objective: * Vitals: Assessment: Plan: * Treatment: * Images: * The named appointment provid er may or may not be the originator of this progress note, and it is not deemed complete until electronically signed by the appointment provider. Sign off status: Pending * Provider: Jp Mejias, MYRA Date: 0 04/01/2025 Generated for Alisia nur/Reilly/Danisha on: 1 11/10/2024 10:11 AM EST
--- OUTSIDE RECORDS SUMMARY | 2025-07-22 04:30 | XMS_ITS ---
Author Organization [facility] Address [address] [place] [address] Care Team Providers Care Final Inspector Shuttle Name Role Phone Patience Sherman Primary Care Provider Mignon Peralta [phone] Encounters Encounter Location Date Provider Diagnosis [address] [address] 07/22/2025 Mignon Mejias Plan Of Treatment Next Appt Details Provider Name:Mignon key, 11/09/2025 01:30:00 PM, [address] [place] [address], [phone], Progress Notes * Pascale CARDONA EDOB:[birth year] (80 yo F)Acc No.[id number]:07/22/2025 Progress Note Patient: Radhika HENAOeva Matthews Provider: Jp Mejias DPM :1945 A ge:80 Y S ex:Female Date:07/22/2025 Address:[address] [place] [address] Pcp:Patience Sherman Subjective: * Chief Complaints: * * Medical History: Objective: * Vitals: Assessment: Plan: * Treatment: * Images: * The named appointment provid er may or may not be the originator of this progress note, and it is not deemed complete until electronically signed by the appointment provider. Sign off status: Pending * Provider: Jp Mejias DPM Date: 0 07/22/2025 Generated for Alisia nur/Reilly/Danisha on: 1 11/10/2024 10:12 AM EST
[2025-09-10 09:31] LABS: MANUAL DIFF FLAG NO
[2025-09-10 09:49] LABS: Hematocrit 40.1 % (37.0-47.0); Hemoglobin 13.4 g/dl (12.0-16.0); Imm Gran Abs Auto 0.04 X10*3/uL (0.00-0.03); Imm Gran Pct Auto 0.4 % (0.0-0.4); Lymphocytes Absolute Auto 2.5 X10*3/uL (1.2-4.9); Mean Corpuscular HGB Conc 33.4 g/dl (31.0-35.0); Mean Corpuscular Hemoglobin 29.5 pg (27.0-33.0); Mean Corpuscular Volume 88.3 fL (80.0-98.0); NRBC Abs Auto 0.000 X10*3/uL (0.0-0.012); NRBC Pct Auto 0.0 /100WBC (0.0-0.2); Platelet Count 244 X10*3/uL (160-400); Red Blood Count 4.54 X10*6/uL (4.20-5.50); White Blood Count 11.1 X10*3/uL (4.8-10.8)
--- OUTSIDE RECORDS SUMMARY | 2025-09-10 10:12 | XMS_ITS | Patient Health Record ---
Author Organization [facility] Address [address] [place] [address] Care Team Providers Care Perfume Compounder Name Role Phone Patience Sherman Primary Care Provider Mignon Peralta Unavailable [phone] Allergies Allergen (clinical drug ingredient) Drug/Non Drug Allergy documented on EMR Reaction Allergy Type Onset Date Status amlodipine Amlodipine Besylate Unknown Drug Allergy Active lisinopril Lisinopril Unknown Drug Allergy Activ e Vaccine product containing Streptococcus pneumoniae antigen (medicinal product) Pneumococcal Vaccines anaphylaxis Drug Allergy Active Results Component Value Reference Range Notes HEMOGLOBIN A1C (GLYCOHEMOGLO BIN) Reviewed date:07/27/2025 02:49:53 PM Interpretation: Performing Lab: Notes/Report: HEMOGLOBIN A1C % (HH) 6.8 Reason For Referral No Information Medications Medication SIG (Take, Route, Frequency, Duration) Notes Start Date End Date Status Diflucan 200mg TAKE 1 TABLET BY MOUTH EVERY DAY; Duration: 10 Not-Taking Meloxicam 15 MG 1 tablet Orally Once a day; Duration: 30 day(s) Not-Taking Voltaren 1 % as directed Externally apply bid to ankle; Duration: 30 days 01/26/2021 Not-Taking Physical Therapy . . . 2-3x/week; Duration: 3-4 weeks Not-Taking Meloxicam 15 MG 1 tablet Orally Once a day; Duration: 30 day(s) Not-Taking Calcium 600 mg 1 tablet with meals Twice a day Unknown Meloxicam 15 MG 1 tablet Orally Once a day; Duration: 30 day(s) Not-Taking Vitamin D 1000 UNIT 1 tablet Orally Unknown Meloxicam 15 MG 1 tablet Orally Once a day; Duration: 30 day(s) 05/22/2016 Not-Taking Metoprolol Succinate ER 50 MG 1 tablet Orally Once a day Active hydroCHLOROthiazide Not-Taking Losartan Potassium 50 MG 1 tablet Orally Once a day Active Physical Therapy . . . 2-3x/week; Duration: 3-4 weeks Not-Taking Ammonium Lactate 12 % 1 application Externally to affected areas of dry skin to feet except for between the toes Twice a day; Duration: 30 days Active baby asprin Active Physical Therapy . . . 2-3x/week; Duration: 3-4 weeks 05/22/2016 Not-Taking Atorvastatin Calcium 25 MG Orally Active Diflucan 200 MG 1 tablet Orally Once a day; Duration: 30 days Not-Taking Potassium 75 MG Orally Once a day Unknown Chlorthalidone 50 MG Orally Active Physical Therapy . . . 2-3x/week; Duration: 3-4 weeks Not-Taking levETIRAcetam 250 MG 1 tablet Orally every 12 hrs; Duration: 30 day(s) Active Physical Therapy . . . 2-3x/week; Duration: 3-4 weeks Not-Taking Immunizations Vaccine Route Administration Date Status Comme nts Influenza Unknown 08/11/2017 Administered Influenza Unknown 07/30/2022 Administered Influenza Unknown 07/31/2024 Administered Influenza Unknown 07/09/2025 Administered COVID-19 Pfizer BioNTech Vaccine Unknown 07/30/2022 Administered 1st 12/19/20,01/09/21 07/12/21 COVID-19 Pfizer BioNTech Vaccine Unknown 07/31/2024 Administered Social History Tobacco Use: Social History Observation Description Date Details (start date - stop date) Never Smoker NA - NA Tobacco use other than smoking: Question Answer Notes Are you an other tobacco user? No Tobacco Control (Standard) Question Answer Notes Tobacco use: Nonsmoker Additional Findings: Tobacco non-user Current no nsmoker AUDIT-C (Standard) Question Answer Notes Did you have a drink contain ing alcohol in the past year? Yes How often did you have a dri nk containing alcohol in the past year? Never (0 point) How many drinks did you have on a typical day when you were drinking in the past year? Declined to specify (0 point) How often did you have six o r more drinks on one occasion in the past year? Declined to specify (0 point) Points 0 Interpretation Negative Problems Problem Type SNOMED Code ICD Code Onset Dates Problem Status W/U Status Risk Notes Problem Bilateral atherosclerosis of arteries of lower limbs (disorder) ([id number] ) Atherosclerosis of [place] artery of both lower extremities, with unspecified presence of clinical manifestation (I70.203) Active confirmed Q7(A), Q8(2B), Q9(1B,2 C) Vital Signs Heart Rate 66 /min 04/17/2025 Blood pressure diastolic 65 mm Hg 07/27/2025 Height 5 ft 8 in in 07/27/2025 Blood pressure systolic 140 mm Hg 07/27/2025 Weight 222 lbs 07/27/2025 BMI 33.75 kg/m2 07/27/2025 Procedures Procedure Date Ordered Date Performed Result Body Sit e 61187-RLOSBKX NAIL, 6 OR MORE 09/29/2024 N/A 94474-ZDYG SKIN LESIONS, 2 TO 4 09/29/2024 N/A 40722-JXJQTQJ NAIL, 6 OR MORE 12/04/2024 N/A 44522-NJEVCOJ NAIL, 6 OR MORE 04/17/2025 N/A 70095-XVMXBXJ NAIL, 6 OR MORE 07/27/2025 N/A Encounters Encounter Location Date Provider Diagnosis [address] [address] 09/29/2024 Mignon Mejias Xerosis of skin L85.3 ; Atherosclerosis of [place] artery of both lower extremities, with unspecified presence of clinical manifestation I70.203 ; Tinea unguium B35.1 ; Pain in right toe(s) M79.674 and Pain in left toe(s) M79.[address] [address] 12/04/2024 Mignon Mejias Atherosclerosis of [place] artery of both lower extremities, with unspecified presence of clinical manifestation I70.203 ; Tinea unguium B35.1 ; Pain in right toe(s) M79.674 and Pain in left toe(s) M79.675 [facility] [address] [address] 04/17/2025 Mignon Mejias Atherosclerosis of [place] artery of both lower extremities, with unspecified presence of clinical manifestation I70.203 ; Tinea unguium B35.1 ; Pain in right toe(s) M79.674 and Pain in left toe(s) M79.[address] [address] 07/27/2025 Mignon Mejias Atherosclerosis of [place] artery of both lower extremities, with unspecified presence of clinical manifestation I70.203 ; Tinea unguium B35.1 ; Pain in right toe(s) M79.674 and Pain in left toe(s) M79.[address] [address] 03/13/2025 Mignon Mejias [address] [address] 05/11/2025 Mignon Mejias Assessments Encounter Date Diagnosis (ICD Code) Assessment Notes Treatment Notes Treatment Clinical Notes Section Notes 09/29/2024 Xerosis of skin (ICD-10 - L85.3) 12/04/2024 Atherosclerosis of [place] artery of both lower extremities, with unspecified presence of clinical manifestation (ICD-10 - I70.203) Q7(A), Q8(2B), Q9(1B,2C) 04/17/2025 Atherosclerosis of [place] artery of both lower extremities, with unspecified presence of clinical manifestation (ICD-10 - I70.203) Q7(A), Q8(2B), Q9(1B,2C) 07/27/2025 Atherosclerosis of [place] artery of both lower extremities, with unspecified presence of clinical manifestation (ICD-10 - I70.203) Q7(A), Q8(2B), Q9(1B,2C) 07/27/2025 Tinea unguium (ICD-10 - B35.1) 04/17/2025 Tinea unguium (ICD-10 - B35.1) 09/29/2024 Atherosclerosis of [place] artery of both lower extremities, with unspecified presence of clinical manifestation (ICD-10 - I70.203) Q7(A), Q8(2B), Q9(1B,2C) 12/04/2024 Tinea unguium (ICD-10 - B35.1) 09/29/2024 Tinea unguium (ICD-10 - B35.1) 12/04/2024 Pain in right toe(s) (ICD-10 - M79.674) 04/17/2025 Pain in right toe(s) (ICD-10 - M79.674) 07/27/2025 Pain in right toe(s) (ICD-10 - M79.674) 04/17/2025 Pain in left toe(s) (ICD-10 - M79.675) 07/27/2025 Pain in left toe(s) (ICD-10 - M79.675) 09/29/2024 Pain in right toe(s) (ICD-10 - [...] (LFT) 08/30/2016 *Liver Function Test (LFT) 02/28/2017 62031-YWHRCOC NAIL, 6 OR MORE 06/13/2017 35779-UYFZZFL NAIL, 6 OR MORE 09/12/2017 55552-LPXAAZM NAIL, 6 OR MORE 12/12/2017 69261-WPOGYAP NAIL, 6 OR MORE 05/22/2016 69700-VGFUGPD NAIL, 6 OR MORE 11/29/2016 04601-ZFFBXTI NAIL, 6 OR MORE 02/28/2017 64885-EDLJLJI NAIL, 6 OR MORE 03/11/2018 71572-DDHQAOE NAIL, 6 OR MORE 06/10/2018 16386-HCDOYYX NAIL, 6 OR MORE 09/30/2018 02387-NNQUPYX NAIL, 6 OR MORE 12/04/2024 84553-RKGKAET NAIL, 6 OR MORE 04/17/2025 07938-SWUQZGN NAIL, 6 OR MORE 07/27/2025 08135-WQWAJVG NAIL, 6 OR MORE 09/29/2024 37382-Eumh Destruction, 1-14 09/30/2018 34106-Cdhn Destruction, 1-14 06/10/2018 56327-Rdmbavpi Plate 11/29/2016 83669-WJKG SKIN LESIONS, OVER 4 05/22/20 16 31129-VGEH SKIN LESIONS, OVER 4 02/29/20 17 81975-GWPM SKIN LESIONS, OVER 4 11/29/19 17 63199-DGWR SKIN LESIONS, OVER 4 03/11/20 18 68358-IHKP SKIN LESIONS, OVER 4 12/12/19 18 95535-GQNL SKIN LESIONS, OVER 4 09/12/20 17 06251-RGIG SKIN LESIONS, OVER 4 06/13/20 17 44645-IXYM SKIN LESIONS, OVER 4 09/30/20 18 94118-IHUX SKIN LESIONS, OVER 4 06/10/20 18 39831-QLUI SKIN LESIONS, OVER 4 04/02/20 19 34312-GPUU SKIN LESIONS, OVER 4 07/02/20 19 03581-UGAJ SKIN LESIONS, OVER 4 08/10/20 21 15716-TTDS SKIN LESIONS, OVER 4 11/14/19 22 70149-WRRU SKIN LESIONS, OVER 4 12/01/19 20 69340-SEJK SKIN LESIONS, OVER 4 04/28/20 20 76025-YDRD SKIN LESIONS, OVER 4 07/26/20 20 72450-GHAW SKIN LESIONS, OVER 4 10/20/20 62676-LCVT SKIN LESIONS, OVER 4 01/27/20 21 60768-DIYW SKIN LESIONS, OVER 4 05/04/20 21 17459-RFCE SKIN LESIONS, OVER 4 02/18/20 29999-PWQW SKIN LESIONS, 2 TO 4 06/23/20 27539-LXBB SKIN LESIONS, 2 TO 4 09/29/20 24 75166-CAKT SKIN LESIONS, 2 TO 4 02/14/20 22 73250-MZBTAVAE OF HEMATOMA/FLUID 019 84456- Nail Unit Biopsy 03/11/2018 Next Appt Details Provider Name:Mignon Zepeda yesi, 11/09/2025 01:30:00 PM, [address] [facility], [place], [address], Insurance Providers Payer Name Payer Address Payer Phone Subscriber Number Group Number Insured Name Patient Relationship to Insured Coverage Start Date Coverage End Date [employer] [address] [place] [address] [phone] [id number] Pascale Edwards Self - patient is the insured 1 [facility] [address] [place] [address] [id number] Pascale Edwards Self - patient is the insured Medical (General) History Medical History History ICD Code Hypertension overweight Back,Hip,and Knee pain Hyperlipidemia Arthritis Broken bones Gall bladder problems Glaucoma Psoriasis/eczema Measles Mumps Chicken pox Joint implants/screws Transfusions Primary osteoarthritis, right ankle and foot M19.071 Unspecified atherosclerosis of [place] arteries of extremities, bilateral legs I70.203 Plantar [...]
--- OUTSIDE RECORDS SUMMARY | 2025-09-10 10:12 | XMS_ITS | Patient Health Record ---
Author Organization [facility] Address [address] [place] [address] Care Team Providers Care Branch Retail Executive Name Role Phone Patience Sherman MD Primary Care Provider Pascual Stephenson Unavailable [phone] Reason For Referral No Information Medications Medication SIG (Take, Route, Frequency, Duration) Notes Start Date End Date Status Potassium Active Metoprolol Succinate ER 50 MG 1 tablet Orally Once a day A ctive Calcium Active Problems Problem Type SNOMED Code ICD Code Onset Dates Problem Status W/U Status Risk Notes Problem Screening for malignant neoplasm of colon (915056575) Encounter for screening for malignant neoplasm of colon (Z12.11) Active confirmed Problem History of adenomatous polyp of colon (085850480) History of adenomatous polyp of colon (Z86.010) Active confirmed Problem Screening for malignant neoplasm of rectum (881539113) Encounter for screening for malignant neoplasm of rectum (Z12.12) Active confirmed Problem Preprocedural examination (848191880196433) Preprocedural examination (Z01.818) Active confirmed Plan Of Treatment Future Test Test Name Order Date COLONOSCOPY 12/22/2015 Insurance Providers Payer Name Payer Address Payer Phone Subscriber Number Group Number Insured Name Patient Relationship to Insured Coverage Start Date Coverage End Date [facility] [address] [place] [address] [id number] FEROZ HENRIQUEZ Self - patient is the insured Medical (General) History Medical History History ICD Code Screening colonoscopy 009--2 small tubular adenomas removed, sigmoid diverticulosis, and internal hemorrhoids Denies CT,DM,CVA,Lung disease,renal dise ase HTN Surgical History Surgery Date(Month/Year) right knee replacement in 06/2008 left knee replacement in 2008 cholecystectomy Breast biopsies-benign
[2025-09-10 10:30] LABS: Alanine Aminotransferase 16 U/L (0-31); Albumin Level 4.0 g/dL (3.5-5.0); Alkaline Phosphatase 105 U/L (39-117); Anion Gap 14 (12-20); Aspartate Amino Transferase 21 U/L (5-31); Blood Urea Nitrogen 16 mg/dL (9-16); Calcium 9.6 mg/dL (8.4-10.2); Carbon Dioxide 30 mmol/L (22-29); Chloride 103 mmol/L (96-108); Estimated Glomerular Filt Rate > 60; Potassium 3.5 mmol/L (3.3-5.1); Sodium 143 mmol/L (135-145); Total Protein 6.9 g/dL (6.5-8.0); Uric Acid 7.7 mg/dL (2.4-5.7)
== END 2025-09-10 09:16 | disposition home or self-care (01) ==
LOC: HO.LAB 09:15
PROVIDERS: PCP Internal Medicine; Visit Provider Internal Medicine
DX: E11.65 Type 2 diabetes mellitus with hyperglycemia (principal); M10.9 Gout, unspecified
CPT/HCPCS: 36415; 80053; 82570; 84550; 85025

== ENCOUNTER 2025-09-24 12:57 | Outpatient (AMB) | payer MEDICARE, SELFPAY ==
[2025-09-24 13:07] VITALS: BP 124/72; PULSE 64; O2SAT 97; BMI 33.8
--- NOTE | 2025-09-24 13:07 | MHC.PC.OV ---
Vital Signs 09/24/25 13:07 Height 5 ft 8 in Weight 222 lb BMI 33.8 BP 124/72 Blood Pressure Location Lt brachial Position Sitting Pulse 64 Pulse Source Pulse Oximeter Pulse Oximetry (%) 97 Oxygen Delivery Method Room Air Intake Visit Reasons: DM, gout Allergies amlodipine Allergy (Unknown, Verified 09/24/25 13:07) leg swelling lisinopril Allergy (Unknown, Verified 09/24/25 13:07) cough escitalopram Adverse Reaction (Intermediate, Verified 09/24/25 13:07) Depression pcv23 Allergy (Unknown, Uncoded 09/24/25 13:07) arm swelling metformin Adverse Reaction (Intermediate, Uncoded 09/24/25 13:07) stomach pain Medication List - Last Reconciled 09/24/25 by Patience Sherman MD amoxicillin 2,000 mg orally 1 hour before thr procedure; aspirin 81 mg PO DAILY atorvastatin 40 mg PO DAILY chlorthalidone 25 mg PO DAILY 90 days cholecalciferol (vitamin D3) 25 mcg PO DAILY colchicine take 2 tablets now then 1 tab QD orally daily; or as directed latanoprost 0.005% drps ophthalmic (eye) losartan 50 mg PO DAILY 90 days metoprolol succinate ER 50 mg PO DAILY potassium mg PO .QD Tobacco use date assessed: 06/02/25 Fall risk assessment: No Falls in past year Last assessed Fall Risk: 09/24/25 Dental Screening Dental Screen Date: 06/02/25 HPI HPI Comments History of Present Illness Details History of Present Illness The patient is a 80-year-old individual presenting for management of chronic medical conditions and health maintenance. The patient has a history of obesity, hypertension, hypercholesterolemia, generalized anxiety disorder, osteopenia, left carotid stenosis, right shoulder osteoarthritis, and lumbar spondylosis. For type 2 diabetes mellitus, the patient has been managing it with diet only and is not on any medication for it. The patient's hemoglobin A1c has increased to 7.3% from 6.3% in November. The patient experienced a recent gout attack in the foot about two weeks ago and is currently taking colchicine. The patient's uric acid level is elevated at 7.7 mg/dL. Past surgical history includes a right carpal tunnel procedure on August 13, 2025; the patient reports persistent numbness in the hand post-procedure. The patient has also had bilateral piriformis injections. Other history includes a pulmonary nodule found on a CT scan in May 2025, with a repeat scan scheduled for the upcoming May. Recent blood work from September 10 showed a normal blood count with mild thrombocytosis and leukocytosis, low-normal sodium and potassium, and normal renal and liver function. The patient's last bone density scan was in November 2023, and the mammogram is up to date. Health Maintenance The patient is due for a tetanus vaccination. A Td vaccine will be administered in the office today. Social History - Diet: The patient reports recent dietary indiscretions, including eating leftover Halloween candy and acknowledges having a sweet tooth. - The patient reports trying to eat healthy lunches consisting of vegetables like cucumber and tomato. - Hydration: The patient recognizes that inadequate water intake may be contributing to gout attacks and acknowledges not drinking enough fluid. Results - Labs (September 10): - CBC: Normal with mild thrombocytosis and mild leukocytosis. - CMP: Low-normal sodium, low-normal potassium, and normal renal function. - Blood Glucose: 164 mg/dL. - LFTs: Normal. - Hemoglobin A1c: 7.3%. - Uric Acid: 7.7 mg/dL. - LDL Cholesterol (March 2025): Within normal limits. - Imaging: - Bone Density Scan (November 2023): Osteopenia. - CT Scan (May 2025): Pulmonary nodule. [facility] Medical History Syncope TIA (transient ischemic attack) Disequilibrium syndrome Right shoulder pain Post-menopausal Retinal tear Left carotid artery stenosis Tubular adenoma of colon Urge incontinence Type 2 diabetes mellitus with hyperglycemia Osteoarthritis Psoriasis GERD (gastroesophageal reflux disease) Obesity (BMI 30-39.9) Hypercholesterolemia Hypertension Surgical History History of cholecystectomy History of bilateral knee replacement History of colonoscopy History of cataract surgery Family History Mother No problems noted. Father No problems noted. Social History Housing: House Alcohol intake: current Alcohol intake frequency: a few times a week Comment: once a month 1 drink Patient Tobacco Use Status: Former Tobacco user Tobacco use type: Cigarette Years Smoked: 1980 smoked 15 years pack a day e-Cigarette/Vaping Use: Never Used Second Hand Smoke Exposure: Yes service: No Current occupational status: retired Cognitive needs: No Hearing needs: No Vision needs: Yes (glasses) Questionnaire Thrive Questionnaire Date Thrive assessed: 05/26/25 I am a: Patient What is your living situation today?: I have a steady place to live Within the past 12 months, did the food you bought not last and you didn't have the money to get more?: Never true Within the past 12 months, did you worry whether your food would run out before you got money to buy more?: Never true Do you have trouble paying for medicines?: No Do you have trouble getting transportation to medical appointments?: No Do you have trouble paying your heating and electricity bill?: No Do you have trouble taking care of your child, family member or friend?: No Do you have trouble with day-to-day activities such as bathing, preparing meals, shopping, managing finances, etc.?: No Are you currently unemployed and looking for a job?: No Are you interested in more education?: No Please select the resources that you would like help with: None Currently or been in a relationship where the following occur: No concerns reported THRIVE Score: 0 ELIEL-7 AMB Questionnaire ELIEL-7 Date ELIEL - 7 assessed: 12/02/24 Source: Developed by Drs. Pascual Bradshaw, Rachelle Argueta, Luke Joshi and colleagues, with an educational khadra from [employer]. Review of Systems Narrative Review of Systems - Neurological: Reports persistent numbness in the right hand following carpal tunnel surgery. - Musculoskeletal: Reports the foot feels good following a recent gout attack two weeks ago. - Reports experiencing severe cramps for the past two nights. - Constitutional: Reports feeling well today. Physical exam (Primary Care) Vital Signs: Last Vital Signs Pulse 64 09/24/25 13:07 BP 124/72 09/24/25 13:07 Pulse Ox 97 09/24/25 13:07 Oxygen Delivery Method Room Air 09/24/25 13:07 BMI result Body Mass Index 33.8 Tobacco/Smoking Status: Tobacco use Status Tobacco use date assessed 06/02/25 09/24/25 13:07 Patient Tobacco Use Status Former Tobacco user 09/24/25 13:07 Tobacco use type Cigarette 09/24/25 13:07 e-Cigarette/Vaping Use Never Used 09/24/25 13:07 Thrive Assessment: Date of Thrive Assessment Date Thrive assessed 05/26/25 09/24/25 13:07 Currently or been in a relationship where the following occur: No concerns reported Narrative Physical Exam - Cardiovascular: On auscultation, heart sounds are soft with an irregular rhythm. - Peripheral pulses are palpable. Const General: alert; No acute distress Eyes Conjunctivae: conjunctivae normal Resp Auscultation: clear to auscultation bilaterally Cardio Rate: regular rate Rhythm: regular rhythm GI Inspection: Yes normal to inspection Extrem General: Yes normal to inspection and No edema Results AMB Hemoglobin A1c AMB Hemoglobin A1c 7.3 % Last Edit by Namoie Perez CMA on 09/24/25 13:29 Immunizations Tenivac (PF) 5 Lf unit-2 Lf unit/0.5 mL intramuscular syringe Performing Provider: Patience Sherman MD [facility] Administered by: Naomie Perez CMA on 09/24/25 13:52 Dose Route Admin Location Dispensed Lot Number Expiration Date NDC Machine Stacker 0.5 mL IM Left Deltoid 0.5 mL [id number] 01/03/27 52810-057-83 [employer] Total Dispensed Waste 0.5 mL 0 % VIS Given Date VIS Provided VIS Publication Date 09/24/25 Single Vaccine 21 Eligibility Eligibility Date Funding Source Not [facility] Eligible 09/24/25 Private Results Reviewed Results Reviewed: Laboratory Last Values Hgb A1c (Clinic) 7.3 % (4.0-6.0) H 09/24/25 13:06 Coding Level of Care Code Complex visit Add On G2211 Diagnoses Type 2 diabetes mellitus with hyperglycemia, without long-term current use of insulin E11.65 Diabetes mellitus prison insulin use: without prison use Hypercholesterolemia E78.00 Essential hypertension I10 Hypertension type: essential hypertension Gastroesophageal reflux disease without esophagitis K21.9 Esophagitis presence: without esophagitis Obesity (BMI 30-39.9) E66.9 Generalized anxiety disorder F41.1 Podagra M10.9 Assessment & Plan Assessment & Plan (1) Type 2 diabetes mellitus with hyperglycemia: Comment: Dr. Gomez Code(s): E11.65 - Type 2 diabetes mellitus with hyperglycemia Category: Medical Qualifiers: Diabetes mellitus intermediate project manager insulin use: without intermediate project manager use Qualified Code(s): E11.65 - Type 2 diabetes mellitus with hyperglycemia Plan: Decrease the amount of carbohydrate intake, pasta, bread, rice and potatoes are all sugar and that is aside from all the sweet stuff, remember that fruits are good but they are Sweet also. Hemoglobin A1c goal of less than 7.0 patient is on diet only (2) Hypercholesterolemia: Code(s): E78.00 - Pure hypercholesterolemia, unspecified Category: Medical Plan: Avoid fried foods, chicken skin, eggs, butter margarine, pastries and meat. Be it pork or beef they have a lot of cholesterol LDL goal of less than 100 and triglyceride of less than 150 on atorvastatin 40 mg once a day (3) Hypertension: Code(s): I10 - Essential (primary) hypertension Category: Medical Qualifiers: Hypertension type: essential hypertension Qualified Code(s): I10 - Essential (primary) hypertension Plan: Continue with blood pressure medication. Decrease salt intake and exercise takes chlorthalidone 25 mg once a day losartan 50 mg once a day metoprolol 50 mg once a day (4) GERD (gastroesophageal reflux disease): Code(s): K21.9 - Gastro-esophageal reflux disease without esophagitis Category: Medical Qualifiers: Esophagitis presence: without esophagitis Qualified Code(s): K21.9 - Gastro-esophageal reflux disease without esophagitis Plan: Avoid the foods that causes that usually spicy foods, tomato products, juices, coffee, soda and foods that your sensitive to. After eating do not lie down, allow 3-4 hours before in lie down. And keep the head of bed above 30 degrees to avoid the acid from going up. (5) Obesity (BMI 30-39.9): Code(s): E66.9 - Obesity, unspecified Category: Medical Plan: Diet and exercise (6) Generalized anxiety disorder: Comment: declined referal Code(s): F41.1 - Generalized anxiety disorder Category: Medical Plan: Stable (7) Podagra: Comment: Maymorphous soft tissue calcifications adjacent to the head of the 1st metatarsal which could represent gout. No erosions are identified, however. 2. Moderate hallux valgus deformity of the great toe. 3. Moderate intertarsal and tarsometatarsal osteoarthritis. Code(s): M10.9 - Gout, unspecified Category: Medical Plan Plan Patient was informed and verbally consented to the use of an ambient scribe for clinic note documentation during this visit. 1. Gout The patient's uric acid is elevated at 7.7 mg/dL, contributing to recurrent gout attacks, with the most recent episode being two weeks ago. The plan is to start a low dose of allopurinol to help excrete uric acid. The patient will continue the current course of colchicine concurrently for a couple of weeks and should retain the remaining medication for potential future flares. A follow-up uric acid level will be checked in one month. The patient was counseled on the importance of increasing fluid intake to prevent crystal formation. 2. Type 2 Diabetes Mellitus The patient's glycemic control has worsened, with the hemoglobin A1c increasing to 7.3% from a baseline of 6.3%, exceeding the goal of less than 7.0%. Given the failure of diet-only management, a low dose of Jardiance will be initiated. The patient was informed that this medication will cause glucosuria and was advised to maintain adequate hydration. The importance of continued dietary modification was strongly emphasized, as medication is not a substitute for lifestyle changes. The patient will follow up regarding insurance coverage for the new prescription. 3. Hypertension The patient's blood pressure is well controlled on current therapy. To accommodate the initiation of Jardiance, which has a diuretic effect, the dose of chlorthalidone will be reduced by half. 4. Hypercholesterolemia Cholesterol levels are well-managed with a goal LDL of less than 100 mg/dL and triglycerides less than 150 mg/dL. The patient will continue taking atorvastatin 40 mg once daily. 5. Hypokalemia The patient has low-normal potassium levels and reports symptoms of cramping, which is likely related to chlorthalidone use. The patient will continue daily potassium supplementation. Discussion Notes I have discussed the management of the patient's [id number] gout. I explained that the elevated uric acid level of 7.7 is the cause and that this can be exacerbated by inadequate fluid intake. I have prescribed allopurinol to lower the uric acid, with instructions to continue colchicine for a short period to prevent a paradoxical flare. I advised the patient to retain the colchicine for any future acute attacks. We also addressed the patient's worsening glycemic control, as evidenced by an A1c of 7.3%. After discussing options, we will start Jardiance, a medication that promotes the excretion of sugar in the urine. I counseled the patient about potential insurance issues and stressed that medication is an adjunct to, not a replacement for, dietary control, especially with the holidays approaching. I informed the patient that I will be halving the dose of the chlorthalidone diuretic due to the overlapping effect of Jardiance. Finally, we reviewed the patient's vaccination status and determined that a tetanus shot was due, which the patient agreed to and will receive today. Patient Instructions - Start taking the new medication, allopurinol, to help prevent future gout attacks. - For now, continue taking your colchicine along with the allopurinol for about two more weeks, then you can stop the colchicine. - Keep the rest of your colchicine pills to use in case you have another gout flare-up in the future. - Start taking the new diabetes medication, Jardiance, once a day. - Your water pill, chlorthalidone, will be changed to a lower dose. - It is very important to drink plenty of water throughout the day, as this will help with both the gout and the new diabetes medicine. - You must continue to watch your diet and limit sugar and sweets. - The new medication will not work well if you do not control your diet. - Please let the office know if your pharmacy has any problems with your insurance covering the Jardiance prescription. - We will give you a tetanus shot in the office today since you are due for one. - You will need to have your blood drawn in one month to recheck your uric acid level. Orders: Orders Uric Acid 1 Month M10.9 - Gout, unspecified AMB Hemoglobin A1c Today Z13.9 - Encounter for screening, unspecified Td Immunization Today Z23 - Encounter for immunization Medications: New allopurinol 100 mg PO DAILY 30 tabs 3RF M10.9 - Gout, unspecified empagliflozin (Jardiance) 10 mg PO DAILY 30 tabs 4RF E11.65 - Type 2 diabetes mellitus with hyperglycemia Changed From chlorthalidone 25 mg PO DAILY 90 days 90 tabs 3RF I10 - Essential (primary) hypertension To chlorthalidone 12.5 mg PO DAILY 90 tabs 3RF 90 days I10 - Essential (primary) hypertension
== END 2025-09-24 13:57 | disposition home or self-care (01) ==
LOC: HO.HMCH 12:57
PROVIDERS: PCP Internal Medicine; Visit Provider Internal Medicine
DX: E11.65 Type 2 diabetes mellitus with hyperglycemia (principal); E78.00 Pure hypercholesterolemia, unspecified; I10 Essential (primary) hypertension; K21.9 Gastro-esophageal reflux disease without esophagitis; E66.9 Obesity, unspecified; F41.1 Generalized anxiety disorder; M10.9 Gout, unspecified; Z13.9 Encounter for screening, unspecified; Z23 Encounter for immunization

== ENCOUNTER → 2025-09-24 12:57 | Outpatient (BNVA) | payer MEDICARE, SELFPAY | PROVIDERS: PCP Internal Medicine; Visit Provider Internal Medicine | DX: I10 Essential (primary) hypertension (principal); E11.65 Type 2 diabetes mellitus with hyperglycemia; E78.00 Pure hypercholesterolemia, unspecified; K21.9 Gastro-esophageal reflux disease without esophagitis; F41.1 Generalized anxiety disorder; M10.9 Gout, unspecified; Z23 Encounter for immunization; R20.0 Anesthesia of skin; R91.1 Solitary pulmonary nodule | CPT/HCPCS: 83036; 90471; 90714; 99212 ==